=== PATIENT | male | born 1955 | race Caucasian/White ===

== ENCOUNTER 2017-07-29 17:46 | Inpatient (IN) | payer BC, SELFPAY ==
[2017-07-29] VITALS (7 sets, daily range): BP systolic 131–150; BP diastolic 70–93; PULSE 84–98; RESP 14–18; TEMP 36.4–36.8; O2SAT 96–99; BMI 30.1
--- NOTE | 2017-07-29 18:02 | EKG12_ITS ---
Test Reason : CHEST OTHER Blood Pressure : / mmHG Vent. Rate : 097 BPM Atrial Rate : 097 BPM P-R Int : 140 ms QRS Dur : 094 ms QT Int : 334 ms P-R-T Axes : 054 043 039 degrees QTc Int : 424 ms Sinus rhythm with Premature supraventricular complexes Otherwise normal ECG Confirmed by BETTY LION, FUNMILAYO ([id number]), magazine editor CHERI STOVER ([id number]) on 07/31/2017 3:21:07 PM Referred By: KATYA Confirmed By:FUNMILAYO HERNÁNDEZ MD
--- NOTE | 2017-07-29 18:05 | ED.VISSUMM ---
- ER Visit Summary Date of Service: 07/29/17 Chief Complaint: Abdominal and back pain History of Present Illness: The patient is a 62 M presenting with left upper quadrant abdominal pain and left mid back pain. Patient states this started approximately 5 days ago. He states it is worse with coughing and deep breathing. He denies change with exertion. Denies chest pain. He saw his primary care physician last week and was put on amoxicillin. He has had a cough, subjective fever and myalgias. He has a history of a fall approximately 1 month ago. He went to urgent care today and they sent him to the ED for further evaluation. He has no PE/DVT risk factors. He has a history of hypertension. He is a previous smoker. Physical Examination: Vitals are stable. Patient is afebrile. Alert no acute distress. HEENT exam is unremarkable. Neck is supple. Lungs are clear and equal bilaterally. Left lower chest wall tenderness with no crepitus Heart is regular rate and rhythm. Abdomen is soft left upper quadrant tenderness with no guarding or rebound Back: Left paraspinal thoracic muscle tenderness with no midline tenderness. Extremities are unremarkable. Skin is warm and dry. No rash No focal neurologic deficit. Normal strength and sensation Remainder of exam is unremarkable. Emergency Department Course and Treatment: Patient is given morphine, Zofran IV. EKG is sinus rhythm rate of 97. CBC, chemistries unremarkable. Liver lipase are normal. Troponin is negative. EKG is sinus rate of 97. CTA chest and abdomen was obtained and shows bilateral segmental and subsegmental emboli. No dissection, normal spleen. He was given Xarelto. Discussed with Dr. Meyers for admission. Disposition: Admission Impression: Bilateral PE This note was generated with [employer] dictation software. It may contain incorrect words, spelling, and punctuation that were not noted in review of the chart prior to signing ED Disposition - Plan for ED Patient: Chief Complaint: Chest Other Referrals: Walter Brandon [Primary Care Provider] -
[2017-07-29 18:16] LABS: Absolute Lymphocyte Count 2.82 X10^3/ul (0.83-4.51); Absolute Neutrophil Count 5.8 X10^3/uL (2.0-7.7); Basophil# 0.02 X10^3/uL; Basophil% 0.2 % (0-1); Eosinophil# 0.38 X10^3/uL; Eosinophils% 3.9 % (0-5); Hemoglobin 13.9 g/dl (13.0-16.5); Lymphocyte # 2.82 X10^3/ul (4.0); Lymphocyte % 28.7 % (19-41); Mean Corp Hgb Conc 33.9 g/gl (32-36); Mean Corpuscular Hgb 31.2 pg (27.0-32.0); Mean Corpuscular Volume 91.9 fL (80-94); Mean Platelet Vol. 9.2 fl (6.2-12.0); Monocyte% 8.2 % (0-10); Neutrophil # 5.78 X10^3/uL (2.7-7.7); Neutrophil % 58.9 % (47-70); Platelet Count 291 K/mm3 (150-450); RBC Distribution Width CV 12.2 % (11.6-14.6); RBC Distribution Width SD 40.9 fl (35.1-43.9); Red Blood Count 4.46 M/mm3 (4.6-6.2); White Blood Count 9.8 K/mm3 (4.4-11.0)
[2017-07-29 18:17] LABS: POSITIVE COUNT NO; POSITIVE DIFFERENTIAL NO; POSITIVE MORPHOLOGY NO
[2017-07-29] MEDS: Ondansetron 4 MG/2 ML Vial IV (18:20)
[2017-07-29] MEDS: 0.9% Normal Saline 1,000 ML 1000 ML IV (18:20)
[2017-07-29 18:29] LABS: ALB/GLOB Ratio 0.8 RATIO (0.9-2.4); AST(SGOT) 29 U/L (15-37); Alanine Aminotransfer ALT/SGPT 45 U/L (16-61); Albumin, Serum 3.3 g/dL (3.2-5.0); Alkaline Phosphatase 85 U/L (45-117); Anion Gap 8 (5-15); BUN 15 mg/dL (7-18); Calcium,Total 9.7 mg/dL (8.5-10.1); Chloride 103 mmol/L (98-107); Creatinine, Serum 0.84 mg/dL (0.70-1.30); EST Glomerular Filtration Rate 99 mL/min (>60); Est Glom Filt Rate - Afr Amer 119 mL/min (>60); Estimated Creatinine Clearance 104.65 ml/min; Globulin 4.3 g/dL (2.2-4.2); Glucose 89 mg/dL (74-106); Lipase 135 U/L (73-393); Potassium 4.5 mmol/L (3.5-5.1); Protein, Total 7.6 g/dL (6.4-8.2); Sodium Level 138 mmol/L (136-145)
--- NOTE | 2017-07-29 18:45 | CT_ITS ---
STUDY: CTA CHEST REASON FOR EXAM: Male, 62 years old. Cold for 3 weeks. Patient has left-sided rib and back pain since Sunday. Patient has elevated blood pressure. RADIATION DOSAGE (If Supplied By Facility): CTDIvol = ( 15.00 ) mGy, DLP = ( 1069.82 ) mGycm TECHNIQUE: The examination was performed with the intravenous administration of 100 ml of Isovue 370 contrast material. Post-processing of the angiographic images was performed, with multiplanar reformation and 3D reconstruction. Individualized dose optimization techniques were used for this CT. COMPARISON: None. FINDINGS: Normal enhancement of the main pulmonary artery and right and left pulmonary arteries. There is an embolus within subsegmental artery to left lower lobe. This is identified on axial images #79, 80, 81, 82, 83 and 84. Subsegmental emboli are also visible in the right lower lobe. Segmental embolus is visible in the pulmonary artery to the lingula There is atherosclerotic tortuosity of the aortic arch and descending thoracic aorta. Maximum transverse dimension of ascending thoracic aorta measures approximately 3.8 cm. There is no demonstrated aortic dissection. Normal heart and pericardium. There are calcifications of the coronary arteries. There are visualized mediastinal lymph nodes, which are within normal size limits, and with normal morphology. Normal hilar regions. Normal visualized trachea and bronchi. The lungs are well expanded. There is bilateral basilar dependent atelectasis and/or groundglass attenuation. There is a nodular areas within the left lower lobe that may represent patchy airspace disease. There is lingular airspace consolidation and atelectasis. Lungs otherwise appear to be clear. There are lucencies within the periphery of both lungs that suggest sequela of paraseptal emphysema. Normal pleura. Normal chest wall structures. There is multilevel thoracic spondylosis. The sternum has a grossly normal appearance. Normal visualized upper abdomen. CT/CTA Chest W/WO Contrast IMPRESSION: 1. Bilateral segmental and subsegmental emboli. 2. No CTA demonstrated arterial dissection. 3. Lingular airspace consolidation and/or atelectasis. 4. Bilateral basilar dependent atelectasis. 5. Sequela of coronary artery vascular disease. N.B. : The above information has been verbally conveyed by Ekta Siddiqui MD to Dr. Haylee Hernandez, Referring Physician, on 07/29/2017 19:49:03 (ET). Electronically Signed: Ekta Siddiqui MD at 19:53 EDT , Service support , N.B. : The above information has been verbally conveyed by Ekta Siddiqui MD to Dr. Haylee Hernandez, Referring Physician, on 07/29/2017 19:49:03 (ET).
--- NOTE | 2017-07-29 18:45 | CT_ITS ---
STUDY: CTA OF THE ABDOMINAL AORTA AND BILATERAL LOWER EXTREMITIES REASON FOR EXAM: Male, 62 years old. Left-sided rib and back pain. Patient has elevated blood pressure. RADIATION DOSAGE (If Supplied By Facility): CTDIvol = ( 15.00 ) mGy, DLP = ( 1069.82 ) mGycm TECHNIQUE: Axial CT angiography multi-detector data acquisition was obtained from the lung bases to the iliac crests following intravenous administration of 100 ml of Isovue-370 contrast. Axial images and MIP images were reconstructed from the axial data set. Post-processing of the angiographic images was performed, with multiplanar reformation and 3D reconstruction. Individualized dose optimization techniques were used for this CT. TECHNICAL QUALITY: Good COMPARISON: None. Descriptors of Narrowing: None (0%) Mild (< 50%) Moderate (50-70%) Severe (70-90%) Subtotal/Total Occlusion (90-100%) Non-Evaluable (technically non-diagnostic FINDINGS: Abdominal aorta: Abdominal aorta is tortuous with minimal atherosclerotic calcification. Celiac and superior mesenteric arteries: No demonstrated narrowing. Inferior mesenteric artery: No demonstrated narrowing. Right renal artery(arteries): There is mild atherosclerotic plaque at the origin without evidence for narrowing. Left renal artery(arteries): There is mild atherosclerotic plaque at the origin without significant narrowing. Right common iliac artery: No demonstrated narrowing. Right external iliac artery: No demonstrated narrowing. Right internal iliac artery: No demonstrated narrowing. Left common iliac artery: No demonstrated narrowing. Left external iliac artery: No demonstrated narrowing. Left internal iliac artery: No demonstrated narrowing. There is bilateral basilar dependent atelectasis. There is lingular airspace consolidation. The visualized portions of the heart are within normal limits. Normal liver. Normal gallbladder and extrahepatic biliary system. Normal spleen. Normal pancreas. Normal bilateral adrenal glands. Normal right kidney. Normal left kidney. Normal visualized stomach. There is no evidence for dilated bowel, ascites or pneumoperitoneum. Small bowel has a grossly normal appearance. Stool is visible throughout the colon with scattered diverticula. The appendix is visualized and appears normal. There is venous distention of the inferior vena cava (IVC). Normal retroperitoneum. There is a small umbilical hernia containing fat. There is multilevel spondylosis of lower thoracic spine. CT/CTA Abdomen W/WO Contrast IMPRESSION: No CTA evidence for dissection of the abdominal aorta. Electronically Signed: Ekta Siddiqui MD at 20:02 EDT , Service support ,
--- NOTE | 2017-07-29 20:25 | PCM.HP.STD ---
Problem List (1) COPD (chronic obstructive pulmonary disease) Status: Chronic Qualifiers: COPD type: unspecified COPD Qualified Code(s): J44.9 - Chronic obstructive pulmonary disease, unspecified (2) Obesity (BMI 30.0-34.9) Status: Chronic (3) Acute pulmonary embolism Status: Acute Qualifiers: Pulmonary embolism type: other Acute cor pulmonale presence: without acute cor pulmonale Qualified Code(s): I26.99 - Other pulmonary embolism without acute cor pulmonale (4) Arrhythmia Status: Chronic Qualifiers: Arrhythmia type: unspecified cardiac arrhythmia Qualified Code(s): I49.9 - Cardiac arrhythmia, unspecified (5) HTN (hypertension) Status: Suspected Comment: Denies HTN history, on coreg and lisinopril, notes primarily secondary to sinus arrhythmia. History of Present Illness Date of Admission: 07/29/17 Chief Complaint: Dyspnea, mild cough x 3 weeks-->Left sided chest pain, back pain x 5 days. The patient is a 62 y/o M w/ PMHx: Obesity, Chronic COPD, ? HTN (Patient and note on coreg and lisinopril onset secondary to arrhythmia, deny HTN Hx), Known Sinus arrhythmia who presents to the [facility] ED on 07/29/17 with history of initially dyspnea and non-productive cough x 3 weeks, then onset additionally left sided lower chest discomfort, worse with cough and deep breathing, evaluated per his PCP, placed on z-pack per PCP but ongoing discomfort with UC evaluation and given chest complaints, noted additionally 5 day history of general malaise, subjective fever, chills, non-productive cough, myalgias UC referred to the ED. 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 In the ED work-up included T 97.6, HR 90s, BP 150/93, RR 16, 96% on RA, CBC unremarkable, CMP unremarkable, trop normal x 1, EKG w/ sinus arrhythmia, CTA Abdomen unremarkable, CTA Chest w/ bilateral segmental and subsegmental emboli, atelectasis. In the ED patient administered NS, morphine, zofran. Rapid influenza negative. Past Medical History Past Medical History (Chronic Problems): Chronic Problems COPD (chronic obstructive pulmonary disease) (Chronic) Obesity (BMI 30.0-34.9) (Chronic) Arrhythmia (Chronic) Allergies No Known Allergies Allergy (Verified 07/29/17 17:50) Home Medications: Ambulatory Orders Medication Instructions Recorded Carvedilol Phosphate CR [Coreg Cr 20 mg PO DAILY 04/06/13 (Beta Zeferino)] Fluticasone/Salmeterol [Advair 1 puff INHALATION BID 04/06/13 250/50 Mcg Diskus] Lisinopril [Zestril] 5 mg PO DAILY 04/06/13 Surgical History: - - L Laproscopic knee surgery. Psychiatric History: No pertinent psych hx Lives: Spouse/ Significant Other Smoking Status: Never smoker Tobacco Use: Non-smoker Alcohol: Occasional - 1-2 beers QOD. Drugs: None - *Family History Maternal History Items: Heart Disease, Hypertension Paternal History Items: Heart Disease, Hypertension Review of Systems Constitutional: Reports: Chills, Fever, Malaise, Weakness, Fatigue. Denies: Weight Change HEENT: Denies: Head Aches, Sinus Congestion, Sinus Drainage Cardiovascular: Reports: Chest Pain. Denies: Palpitations Respiratory: Reports: Cough, Shortness of Breath, Shortness of breath at rest, Shortness of breath upon exertion, Wheezing. Denies: Sputum production Gastrointestinal: Denies: Abdominal Pain, Nausea, Vomiting Genitourinary: Denies: Dysuria Musculoskeletal: Reports: Back Pain. Denies: Joint Pain, Joint Tenderness Skin: Denies: Rash, Wounds Neurological: Denies: Numbness, Tingling, Focal weakness Psychiatric: Denies: Anxiety, Depression, Homicidal Ideations, Suicidal Ideations Hematologic/ Lymphatic: Reports: Easy Bleeding. Denies: Easy Bruising VTE Information - Inpt Only VTE Present on Admission: No VTE Mechan Device Prophylaxis: SCD's VTE Pharm Prophylaxis ordered?: Yes Patient Problems: Active and Suspected Problems Acute pulmonary embolism (Acute) Subjective: Seated upright in the ED bed, ongoing discomfort, primarily with movement with examination and deep inspiration. Objective: Physical Examination: General: awake, alert, oriented x 3 and cooperative, seated upright in the ED bed in no apparent distress. Skin: normal color, turgor, no icterus, cyanosis. HEENT: AT/NC, EOMI, PERRLA, mildly dry MM, no carotid bruits or JVD noted. Lungs: Diminished BS bases, poor effort secondary to pain elicited, needed much encouragement to take deep inspirations, occasional end expiratory distant wheeze. Heart: Regular rate and rhythm; no gallop, rub audible. Abdomen: soft, NTTP, ND, normal BS, no HSM. Extremities: no cyanosis, clubbing, or edema, no TTP BL LE. Neurological: patient awake, alert, oriented x 3; cognitive function intact; pupils equally reactive to light and accomodation; cranial nerves II-XII grossly normal, moving all 4 extremities, no focal deficits, strength mildly to moderately globally decreased secondary to acute presentation. Psychiatric: affect appears normal, no acute evidence of depressive or anxiety feelings. - Physical Exam Vital Signs Temp Pulse Resp BP Pulse Ox 97.6 F L 98 18 145/80 H 99 07/29/17 17:48 07/29/17 20:04 07/29/17 20:04 07/29/17 20:04 07/29/17 20:04 Oxygen Delivery Method Room Air Weight: 233 lb 14.567 oz Body Mass Index (BMI) 30.0 Finger Stick Blood Glucose 76 Microbiology Past 72 Hours 07/29/17 18:20 Influenza Types A,B Direct FA (JOANA) - Final Mucosa - Nasopharyngeal Laboratory Tests Past 24 Hrs 07/29/17 07/29/17 18:00 18:00 WBC 9.8 RBC 4.46 L Hgb 13.9 Hct 41.0 MCV 91.9 MCH 31.2 MCHC 33.9 RDW 12.2 RDW Differential 40.9 Plt Count 291 MPV 9.2 Immature Gran % (Auto) 0.100 Neut % (Auto) 58.9 Lymph % (Auto) 28.7 [place] % (Auto) 8.2 Eos % (Auto) 3.9 Baso % (Auto) 0.2 Absolute Neuts (auto) 5.8 Absolute Lymphs (auto) 2.82 Total Counted Not Reportable Sodium 138 Potassium 4.5 Chloride 103 Carbon Dioxide 27.0 Anion Gap 8 BUN 15 Creatinine 0.84 Estim Creat Clear Calc 104.65 Est GFR (MDRD) Af Amer 119 Est GFR (MDRD) Non-Af 99 BUN/Creatinine Ratio 18.0 Glucose 89 Calcium 9.7 Total Bilirubin 0.30 AST 29 ALT 45 Alkaline Phosphatase 85 Troponin I < 0.02 Total Protein 7.6 Albumin 3.3 Globulin 4.3 H Albumin/Globulin Ratio 0.8 L Lipase 135 Assessment/Plan Active and Suspected Problems Acute pulmonary embolism (Acute) The patient is a 62 y/o M w/ PMHx: Obesity, Chronic COPD, ? HTN (Patient and note on coreg and lisinopril onset secondary to arrhythmia, deny HTN Hx), Known Sinus arrhythmia who presents to the [facility] ED on 07/29/17 with ongoing dyspnea, chest pain. (1) Chest pain secondary to Pulmonary Embolism: EKG without acute findings, CXR no acute process, CTPA with bilateral segmental and subsegmental emboli, atelectasis, CBC and CMP unremarkable, trop normal x 1. No family history of hypercoaguable state. 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 Will admit to PCU, maintain on cardiac telemetry. Will obtain ECHO, BNP and BL LE DVT US. Will initiate and continue therapeutic xarelto with pending AM insurance oral regimen investigation costs for discharge planning. (2) Recent Suspected Viral Syndrome w/ General Malaise, Cough, Subjective Fever, General Debility: CTPA with bilateral segmental and subsegmental emboli, atelectasis, CBC and CMP unremarkable. Conservative management. Will obtain respiratory viral panel in case influenza false negative. Maintain HOB, IS parameters. (3) Sinus arrhythmia: Stable appearing. Maintain on telemetry, cycle cardiac enzymes, repeat EKG in AM. Mag pending. Maintain on BB, ACEI. (4) ? Hypertension: Patient and deny history, BPs elevated in the ED above goal, possibly secondary to pain; however, maintain on home coreg, lisinopril regimen, PRN hydralazine. (5) Chronic COPD: ATC duonebs, PRN albuterol, HOB, IS parameters. (6) Obesity: Weight loss and lifestyle changes encouraged. (7) DVT Prophylaxis: SCDs, xarelto. Code Visit Inpatient E&M: 10333 Init Hosp L3
--- NOTE | 2017-07-29 20:36 | HP.PCM_ITS ---
Problem List (1) COPD (chronic obstructive pulmonary disease) Status: Chronic Qualifiers: COPD type: unspecified COPD Qualified Code(s): J44.9 - Chronic obstructive pulmonary disease, unspecified (2) Obesity (BMI 30.0-34.9) Status: Chronic (3) Acute pulmonary embolism Status: Acute Qualifiers: Pulmonary embolism type: other Acute cor pulmonale presence: without acute cor pulmonale Qualified Code(s): I26.99 - Other pulmonary embolism without acute cor pulmonale (4) Arrhythmia Status: Chronic Qualifiers: Arrhythmia type: unspecified cardiac arrhythmia Qualified Code(s): I49.9 - Cardiac arrhythmia, unspecified (5) HTN (hypertension) Status: Suspected Comment: Denies HTN history, on coreg and lisinopril, notes primarily secondary to sinus arrhythmia. History of Present Illness Date of Admission: 07/29/17 Chief Complaint: Dyspnea, mild cough x 3 weeks-->Left sided chest pain, back pain x 5 days. The patient is a 62 y/o M w/ PMHx: Obesity, Chronic COPD, ? HTN (Patient and note on coreg and lisinopril onset secondary to arrhythmia, deny HTN Hx), Known Sinus arrhythmia who presents to the [facility] ED on 07/29/17 with history of initially dyspnea and non-productive cough x 3 weeks, then onset additionally left sided lower chest discomfort, worse with cough and deep breathing, evaluated per his PCP, placed on z-pack per PCP but ongoing discomfort with UC evaluation and given chest complaints, noted additionally 5 day history of general malaise, subjective fever, chills, non-productive cough, myalgias UC referred to the ED. 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 In the ED work-up included T 97.6, HR 90s, BP 150/93, RR 16, 96% on RA, CBC unremarkable, CMP unremarkable, trop normal x 1, EKG w/ sinus arrhythmia, CTA Abdomen unremarkable, CTA Chest w/ bilateral segmental and subsegmental emboli, atelectasis. In the ED patient administered NS, morphine, zofran. Rapid influenza negative. Past Medical History Past Medical History (Chronic Problems): Chronic Problems COPD (chronic obstructive pulmonary disease) (Chronic) Obesity (BMI 30.0-34.9) (Chronic) Arrhythmia (Chronic) Allergies No Known Allergies Allergy (Verified 07/29/17 17:50) Home Medications: Ambulatory Orders Medication Instructions Recorded Carvedilol Phosphate CR [Coreg Cr 20 mg PO DAILY 04/06/13 (Beta Zeferino)] Fluticasone/Salmeterol [Advair 1 puff INHALATION BID 04/06/13 250/50 Mcg Diskus] Lisinopril [Zestril] 5 mg PO DAILY 04/06/13 Surgical History: - - L Laproscopic knee surgery. Psychiatric History: No pertinent psych hx Lives: Spouse/ Significant Other Smoking Status: Never smoker Tobacco Use: Non-smoker Alcohol: Occasional - 1-2 beers QOD. Drugs: None - *Family History Maternal History Items: Heart Disease, Hypertension Paternal History Items: Heart Disease, Hypertension Review of Systems Constitutional: Reports: Chills, Fever, Malaise, Weakness, Fatigue. Denies: Weight Change HEENT: Denies: Head Aches, Sinus Congestion, Sinus Drainage Cardiovascular: Reports: Chest Pain. Denies: Palpitations Respiratory: Reports: Cough, Shortness of Breath, Shortness of breath at rest, Shortness of breath upon exertion, Wheezing. Denies: Sputum production Gastrointestinal: Denies: Abdominal Pain, Nausea, Vomiting Genitourinary: Denies: Dysuria Musculoskeletal: Reports: Back Pain. Denies: Joint Pain, Joint Tenderness Skin: Denies: Rash, Wounds Neurological: Denies: Numbness, Tingling, Focal weakness Psychiatric: Denies: Anxiety, Depression, Homicidal Ideations, Suicidal Ideations Hematologic/ Lymphatic: Reports: Easy Bleeding. Denies: Easy Bruising VTE Information - Inpt Only VTE Present on Admission: No VTE Mechan Device Prophylaxis: SCD's VTE Pharm Prophylaxis ordered?: Yes Patient Problems: Active and Suspected Problems Acute pulmonary embolism (Acute) Subjective: Seated upright in the ED bed, ongoing discomfort, primarily with movement with examination and deep inspiration. Objective: Physical Examination: General: awake, alert, oriented x 3 and cooperative, seated upright in the ED bed in no apparent distress. Skin: normal color, turgor, no icterus, cyanosis. HEENT: AT/NC, EOMI, PERRLA, mildly dry MM, no carotid bruits or JVD noted. Lungs: Diminished BS bases, poor effort secondary to pain elicited, needed much encouragement to take deep inspirations, occasional end expiratory distant wheeze. Heart: Regular rate and rhythm; no gallop, rub audible. Abdomen: soft, NTTP, ND, normal BS, no HSM. Extremities: no cyanosis, clubbing, or edema, no TTP BL LE. Neurological: patient awake, alert, oriented x 3; cognitive function intact; pupils equally reactive to light and accomodation; cranial nerves II-XII grossly normal, moving all 4 extremities, no focal deficits, strength mildly to moderately globally decreased secondary to acute presentation. Psychiatric: affect appears normal, no acute evidence of depressive or anxiety feelings. - Physical Exam Vital Signs Temp Pulse Resp BP Pulse Ox 97.6 F L 98 18 145/80 H 99 07/29/17 17:48 07/29/17 20:04 07/29/17 20:04 07/29/17 20:04 07/29/17 20:04 Oxygen Delivery Method Room Air Weight: 233 lb 14.567 oz Body Mass Index (BMI) 30.0 Finger Stick Blood Glucose 76 Microbiology Past 72 Hours 07/29/17 18:20 Influenza Types A,B Direct FA (JOANA) - Final Mucosa - Nasopharyngeal Laboratory Tests Past 24 Hrs 07/29/17 07/29/17 18:00 18:00 WBC 9.8 RBC 4.46 L Hgb 13.9 Hct 41.0 MCV 91.9 MCH 31.2 MCHC 33.9 RDW 12.2 RDW Differential 40.9 Plt Count 291 MPV 9.2 Immature Gran % (Auto) 0.100 Neut % (Auto) 58.9 Lymph % (Auto) 28.7 [place] % (Auto) 8.2 Eos % (Auto) 3.9 Baso % (Auto) 0.2 Absolute Neuts (auto) 5.8 Absolute Lymphs (auto) 2.82 Total Counted Not Reportable Sodium 138 Potassium 4.5 Chloride 103 Carbon Dioxide 27.0 Anion Gap 8 BUN 15 Creatinine 0.84 Estim Creat Clear Calc 104.65 Est GFR (MDRD) Af Amer 119 Est GFR (MDRD) Non-Af 99 BUN/Creatinine Ratio 18.0 Glucose 89 Calcium 9.7 Total Bilirubin 0.30 AST 29 ALT 45 Alkaline Phosphatase 85 Troponin I < 0.02 Total Protein 7.6 Albumin 3.3 Globulin 4.3 H Albumin/Globulin Ratio 0.8 L Lipase 135 Assessment/Plan Active and Suspected Problems Acute pulmonary embolism (Acute) The patient is a 62 y/o M w/ PMHx: Obesity, Chronic COPD, ? HTN (Patient and note on coreg and lisinopril onset secondary to arrhythmia, deny HTN Hx), Known Sinus arrhythmia who presents to the [facility] ED on 07/29/17 with ongoing dyspnea, chest pain. (1) Chest pain secondary to Pulmonary Embolism: EKG without acute findings, CXR no acute process, CTPA with bilateral segmental and subsegmental emboli, atelectasis, CBC and CMP unremarkable, trop normal x 1. No family history of hypercoaguable state. 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 Will admit to PCU, maintain on cardiac telemetry. Will obtain ECHO, BNP and BL LE DVT US. Will initiate and continue therapeutic xarelto with pending AM insurance oral regimen investigation costs for discharge planning. (2) Recent Suspected Viral Syndrome w/ General Malaise, Cough, Subjective Fever , General Debility: CTPA with bilateral segmental and subsegmental emboli, atelectasis, CBC and CMP unremarkable. Conservative management. Will obtain respiratory viral panel in case influenza false negative. Maintain HOB, IS parameters. (3) Sinus arrhythmia: Stable appearing. Maintain on telemetry, cycle cardiac enzymes, repeat EKG in AM. Mag pending. Maintain on BB, ACEI. (4) ? Hypertension: Patient and deny history, BPs elevated in the ED above goal, possibly secondary to pain; however, maintain on home coreg, lisinopril regimen, PRN hydralazine. (5) Chronic COPD: ATC duonebs, PRN albuterol, HOB, IS parameters. (6) Obesity: Weight loss and lifestyle changes encouraged. (7) DVT Prophylaxis: SCDs, xarelto. Code Visit Inpatient E&M: 21530 Init Hosp L3
[2017-07-29] MEDS: Rivaroxaban 15 MG Tablet PO (21:02)
[2017-07-29 22:39] LABS: Magnesium 2.1 mg/dL (1.6-2.6)
[2017-07-29 23:07] LABS: BNP,B-Type NATRIURETIC PEPTIDE 10.5 pg/mL (0-100)
[2017-07-29] MEDS: Ipratropium/Albuterol Sulfate 3 ML AMPUL.NEB INHALATION (23:40)
[2017-07-29] MEDS: 0.9% NaCl Peripheral Flush Adult/Peds IV (23:44)
[2017-07-29] MEDS: 0.9% Normal Saline 1,000 ML 100 ML IV (23:44)
[2017-07-29] MEDS: Famotidine 20 MG Tablet PO (23:44)
[2017-07-30] VITALS (16 sets, daily range): BP systolic 122–127; BP diastolic 70–80; PULSE 85–122; RESP 16–20; TEMP 36.8–37.2; O2SAT 93–95
[2017-07-30 03:59] LABS: Bacteria 0 SEEN /hpf (None Seen); Mucous, Urine 0 SEEN /hpf (<or=2+); Red Blood Cells-Urine 0 SEEN /hpf (0-5); Squamous Epithelial Cells - UA 0 SEEN /hpf (0-5); White Blood Cells 0 SEEN /hpf (0-5)
[2017-07-30 04:01] LABS: Color, Urine Yellow (Yellow); Glucose, Dipstick Normal (Normal); Ketone-Dipstick Negative (Negative); Leukocyte Esterase-Dipstick Negative /ul (Negative); Nitrite-Dipstick Negative (Negative); Occult Blood-Urine Negative /ul (Negative); Protein-Dipstick Negative (Negative); Specific Gravity, Urine 1.015 (1.002-1.030); Urine Bilirubin Dipstick Negative (Negative); Urine Clarity Clear (Clear); Urine Urobilinogen Normal (Normal)
[2017-07-30 04:23] LABS: Hematocrit 36.7 % (40-54); Hemoglobin 12.3 g/dl (13.0-16.5); Mean Corp Hgb Conc 33.5 g/gl (32-36); Mean Corpuscular Hgb 30.8 pg (27.0-32.0); Mean Platelet Vol. 9.5 fl (6.2-12.0); Platelet Count 259 K/mm3 (150-450); RBC Distribution Width SD 39.5 fl (35.1-43.9); Red Blood Count 3.99 M/mm3 (4.6-6.2); White Blood Count 7.5 K/mm3 (4.4-11.0)
[2017-07-30 04:28] LABS: Scan Indicated on CBC? Y/N NO
[2017-07-30 05:10] LABS: Anion Gap 10 (5-15); BUN 13 mg/dL (7-18); BUN/Creat Ratio 18.5 RATIO (10-20); Calcium,Total 8.7 mg/dL (8.5-10.1); Chloride 104 mmol/L (98-107); EST Glomerular Filtration Rate 121 mL/min (>60); Est Glom Filt Rate - Afr Amer 146 mL/min (>60); Estimated Creatinine Clearance 125.58 ml/min; Glucose 90 mg/dL (74-106); Potassium 4.1 mmol/L (3.5-5.1); Sodium Level 138 mmol/L (136-145)
--- NOTE | 2017-07-30 05:55 | ECHOD_ITS ---
Reason For Study: CHEST PAIN Procedure This was a 2D Doppler, Color Flow transthoracic echocardiogram. Contrast injection was performed. Exam performed portable in patient room. Left Ventricle Normal LV size. Left ventricular systolic function is normal. The estimated ejection fraction is 55 %. No regional wall motion abnormalities noted. Right Ventricle Normal RV size. Normal systolic function. Atria Normal left atrium. Normal right atrium. Mitral Valve Normal mitral valve. Tricuspid Valve Normal tricuspid valve. Mild (1+) tricuspid valve insufficiency. Pulmonary artery systolic pressure is 35 mmHg. Aortic Valve Normal aortic valve. Pulmonic Valve The pulmonic valve is not well visualized. Great Vessels Mildly dilated aortic root. The pulmonary artery is normal size. Normal inferior vena cava. Pericardium/Pleural No pericardial effusion. Medication Diluted definity 5ml given slow IV push to enhance endocardial definition. MMode/2D Measurements & Calculations LVIDd: 5.0 cm IVSd: 0.99 cm Ao root diam: 4.0 cm LVIDs: 3.6 cm LVPWd: 1.00 cm LA dimension: 3.9 cm RVDd: 3.7 cm FS: 27.7 % LAV(MOD-bp): 51.0 ml EDV(MOD-sp4): 132.6 ml EDV(MOD-sp2): 128.9 ml LAV(MOD-bp) Indexed: 24.4 ml/m2 ESV(MOD-sp4): 47.7 ml EF(MOD-sp2): 55.0 % LAV(MOD-sp2): 53.1 ml EF(MOD-sp4): 64.1 % LAV(MOD-sp4): 47.3 ml SV(MOD-sp4): 85.0 ml SV(MOD-sp2): 70.9 ml LA A4 area: 18.8 cm2 RA A4 area: 17.0 cm2 Doppler Measurements & Calculations MV E max yared: 64.2 cm/sec Ao V2 max: 108.6 cm/sec LV V1 max: 92.5 cm/sec MV A max yared: 68.5 cm/sec Ao max P.7 mmHg LV V1 max P.4 mmHg MV E/A: 0.94 TR max yared: 274.8 cm/sec TR max P.2 mmHg Interpretation Summary Normal LV size. Left ventricular systolic function is normal. The estimated ejection fraction is 55 %. Mildly dilated aortic root. Mild (1+) tricuspid valve insufficiency. Pulmonary artery systolic pressure is 35 mmHg. Ordering Physician: Vilma Meyers Referring Physician: JOHN AMAYA Performed By: Skylar Hollis, KODAK, RVT
--- NOTE | 2017-07-30 05:55 | VDLE_ITS ---
Reason For Study: Pulmonary Embolism RIGHT LEFT GSV is normal. GSV is normal. CFV is compressible, spontaneous, phasic, CFV is compressible, spontaneous, phasic, competent and demonstrates normal competent, and demonstrates normal augmentation. augmentation. FV is compressible, spontaneous, phasic, FV is compressible, spontaneous, phasic, competent and demonstrates normal competent and demonstrates normal augmentation. augmentation. POP V is compressible, spontaneous, phasic, POP V is compressible, spontaneous, phasic, competent and demonstrates normal competent and demonstrates normal augmentation. augmentation. T/P Trunk is compressible. T/P Trunk is compressible. PTV is compressible. PTV is compressible. RT PerV is compressible. LT PerV is compressible. Procedure Exam performed portable in patient room. A preliminary report was called and/or faxed to Devi HERNANDEZ. Interpretation Summary Deep veins of the lower extremities are bilaterally patent and compressible segmentally. There is no evidence of deep vein thrombosis on either side. Valvular competence appears intact within the proximal deep venous systems bilaterally. The greater saphenous veins appear bilaterally patent and compressible segmentally. Ordering Physician: Vilma Meyers Referring Physician: Walter Brandon Performed By: Celsa Leong, KODAK, RVT
[2017-07-30] MEDS: oxyCODONE 5 MG Tablet PO ×3 (06:25→20:24)
[2017-07-30] MEDS: Ipratropium/Albuterol Sulfate 3 ML AMPUL.NEB INHALATION ×4 (07:14→21:10)
[2017-07-30] MEDS: Famotidine 20 MG Tablet PO ×2 (09:08→22:44)
[2017-07-30] MEDS: Rivaroxaban 15 MG Tablet PO (09:09)
[2017-07-30] MEDS: Carvedilol 6.25 MG Tablet PO ×2 (09:11→22:46)
[2017-07-30] MEDS: Lisinopril 5 MG Tablet PO (09:11)
--- NOTE | 2017-07-30 11:35 | CASEMGMT ---
Face to Face with patient for initial transition planning/care coordination assessment. RN ISREAL introduced self and role at [facility], pt voices understanding and consents to assessment at this time. Pt sitting up in bed in no distress at this time. Pt A/O x4 at this time and answers questions appropriately at this time. Care providers, pharmacy, and demographics verified. See attached link. Pt voices no further concerns/needs at this time. Advised pt to ask for CM if any further questions/concerns/needs arise, voices understanding. CM to follow for any further discharge planning/needs. PLAN: Home [place]ACH
--- NOTE | 2017-07-30 15:47 | CON.PCM_ITS ---
Problem List (1) Rectal bleeding Status: Acute (2) Acute pulmonary embolism Status: Acute Qualifiers: Pulmonary embolism type: other Acute cor pulmonale presence: without acute cor pulmonale Qualified Code(s): I26.99 - Other pulmonary embolism without acute cor pulmonale (3) Superficial venous thrombosis of upper extremity Status: Acute Reason for Consult Date of Consultation: 07/30/17 Reason for Consultation: Rectal bleeding History of Present Illness: The patient is a 62 year old M who presented with 3 week history of cold. Patient had noted chest discomfort and was evaluated by his PCP who placed the patient on an antibiotic and Advil. Patient also noted a 4 day history of lower back pain and left sided discomfort. Patient went to an urgent care who recommended the patient come to the emergency department. CTA of the chest was obtained demonstrating bilateral pulmonary embolisms. Patient denies previous blood clot history. Patient notes he fell on the ice 6 weeks ago injuring his shoulder. Patient's is unsure if this could have caused the PE's. Patient was placed on Xarelto during this hospitalization and was ready for discharge when he developed rectal bleeding this morning. Patient denies abdominal pain/ discomfort. He denies constipation and diarrhea. He notes occasional rectal bleeding from possible internal hemorrhoids. Patient denies previous colonoscopy. He denies personal or family history of colon cancer. Patient notes he has an arrhythmia which he follows with Dr. Chandra in [place]. Patient is currently on Coreg and Lisinopril. He denies being on blood thinners previously. He denies previous myocardial infarction or stroke. He denies recent surgeries. He stopped smoking 5 years ago. He does consume approximately 3 beers per day. Patient also notes a history of indigestion and acid reflux. Past Medical History Past Medical History (Chronic Problems): Chronic Problems COPD (chronic obstructive pulmonary disease) (Chronic) Obesity (BMI 30.0-34.9) (Chronic) Arrhythmia (Chronic) Allergies No Known Allergies Allergy (Verified 07/29/17 17:50) Home Medications: Ambulatory Orders Medication Instructions Recorded Carvedilol Phosphate CR [Coreg Cr 20 mg PO DAILY 04/06/13 (Beta Zeferino)] Lisinopril [Zestril] 5 mg PO DAILY 04/06/13 Budesonide/Formoterol 160/4.5 2 puff INHALATION DAILY 07/29/17 [Symbicort 160/4.5 Mcg Inhaler (SP)] Oxycodone [Oxyir] 5 mg PO Q4H PRN PRN 5 Days #20 tab 07/30/17 Rivaroxaban [Xarelto] 15 mg PO BIDCM #42 tab 07/30/17 Surgical History: - - L Laproscopic knee surgery. Psychiatric History: No pertinent psych hx Lives: Spouse/ Significant Other Smoking Status: Former smoker Tobacco Use: Non-smoker Alcohol: Occasional - 1-2 beers QOD. Drugs: None - *Family History Maternal History Items: Heart Disease, Hypertension Paternal History Items: Heart Disease, Hypertension Review of Systems Constitutional: Denies: Chills, Fever, Weight Change HEENT: Denies: Head Aches, Sinus Congestion, Sinus Drainage Cardiovascular: Denies: Chest Pain, Palpitations Respiratory: Denies: Cough, Shortness of breath at rest, Sputum production Gastrointestinal: Reports: Hematochezia. Denies: Abdominal Pain, Nausea, Vomiting Genitourinary: Denies: Dysuria Musculoskeletal: Denies: Joint Pain, Joint Tenderness Skin: Denies: Rash, Wounds Neurological: Denies: Numbness, Tingling, Focal weakness Psychiatric: Denies: Anxiety, Depression, Homicidal Ideations, Suicidal Ideations Hematologic/ Lymphatic: Reports: Easy Bruising, Easy Bleeding Patient Problems: Active and Suspected Problems Acute pulmonary embolism (Acute) Rectal bleeding (Acute) - Physical Exam General: Alert, Oriented x3, Cooperative HEENT: Atraumatic, PERRLA, EOMI, Normocephalic Neck: Supple, No JVD, Negative Carotid Bruits Lungs: Clear to auscultation, Normal air movement Cardiovascular: Regular rate, No murmurs Abdomen: Bowel Sounds Present, Soft, Non Tender Extremities: No edema, Capillary Refill Less than 3 Seconds Skin: No rashes, No breakdown Musculoskeletal: No Tenderness to Palpation of Joints or Extremities Neurological: Neuro grossly intact Psych/Mental Status: Normal Affect, Appropriate Vital Signs Temp Pulse Resp BP Pulse Ox 98.4 F 95 16 124/78 H 94 07/30/17 15:05 07/30/17 15:11 07/30/17 15:05 07/30/17 15:05 07/30/17 15:05 Oxygen Delivery Method Room Air Weight: 234 lb 5.622 oz Body Mass Index (BMI) 30.0 Intake and Output for Last 24 Hours 07/28/17 07/29/17 07/30/17 23:59 23:59 23:59 Intake Total 120 / 120 1360 / 1360 Balance 120 / 120 1360 / 1360 Microbiology Past 72 Hours 07/29/17 23:55 Respiratory Panel (PCR) - Final Mucosa - Nasopharyngeal Rhinovirus Laboratory Tests Past 24 Hrs 07/29/17 07/30/17 07/30/17 23:20 03:00 03:56 WBC 7.5 RBC 3.99 L Hgb 12.3 L Hct 36.7 L MCV 92.0 MCH 30.8 MCHC 33.5 RDW 12.0 RDW Differential 39.5 Plt Count 259 MPV 9.5 Sodium Potassium Chloride Carbon Dioxide Anion Gap BUN Creatinine Estim Creat Clear Calc Est GFR (MDRD) Af Amer Est GFR (MDRD) Non-Af BUN/Creatinine Ratio Glucose Calcium Troponin I < 0.02 Urine Color Yellow Urine Clarity Clear Urine pH 6.0 Ur Specific [place] 1.015 Urine Protein Negative Urine Glucose (UA) Normal Urine Ketones Negative Urine Occult Blood Negative Urine Nitrite Negative Urine Bilirubin Negative Urine Urobilinogen Normal Ur Leukocyte Esterase Negative Urine RBC 0 SEEN Urine WBC 0 SEEN Ur Squamous Epith Cells 0 SEEN Urine Bacteria 0 SEEN Urine Mucus 0 SEEN 07/30/17 07/30/17 07/30/17 03:56 03:56 08:55 WBC RBC Hgb Hct MCV MCH MCHC RDW RDW Differential Plt Count MPV Sodium 138 Potassium 4.1 Chloride 104 Carbon Dioxide 24.0 Anion Gap 10 BUN 13 Creatinine 0.70 Estim Creat Clear Calc 125.58 Est GFR (MDRD) Af Amer 146 Est GFR (MDRD) Non-Af 121 BUN/Creatinine Ratio 18.5 Glucose 90 Calcium 8.7 Troponin I < 0.02 < 0.02 Urine Color Urine Clarity Urine pH Ur Specific [place] Urine Protein Urine Glucose (UA) Urine Ketones Urine Occult Blood Urine Nitrite Urine Bilirubin Urine Urobilinogen Ur Leukocyte Esterase Urine RBC Urine WBC Ur Squamous Epith Cells Urine Bacteria Urine Mucus Assessment/Plan Active and Suspected Problems Acute pulmonary embolism (Acute) Rectal bleeding (Acute) I have been consulted in conjunction with Dr. Leggett Impression: Single episode of rectal bleeding. Newly started Xarelto. Acute bilateral PE. Plan: I have discussed this patient with Dr. Leggett. Dr. Leggett will plan to perform an Esophagogastroduodenoscopy and colonoscopy with possible biopsies with MAC. Hold Xarelto today. Procedure details, risks and benefits have been explained to the patient. Patient verbally understands and agrees with the plan. Patient agrees to proceed with the proposed procedure.
--- NOTE | 2017-07-30 17:59 | PN_ITS ---
Subjective: Patient was seen and examined today, his was in the room, I was ready to discharge him to home today when he had a bowel movement with blood in it, he states that he does this infrequently, patient has never had a colonoscopy. I feel that the patient should have this rectal bleeding worked up before he is discharged home on oral anticoagulants, patient and the patient's agree. Patient's echo today was unremarkable. I contacted Dr. Leggett who will perform a colonoscopy on the patient tomorrow. Patient's Xarelto will be $70 according to the patient's pharmacy-I checked on this today. - Physical Exam General: Alert, Oriented x3, Cooperative, No apparent distress, Well developed, Well nourished HEENT: Atraumatic, PERRLA, EOMI, Normocephalic Oral: Moist Mucosa Neck: Supple, No JVD, No Nuchal Rigidity, Trachea Midline, Thyroid Normal Size and Texture Lungs: Clear to auscultation, Normal air movement, No rhonchi, No wheeze, No rales Cardiovascular: Regular rate, Regular Rhythm, Normal S1, Normal S2, No murmurs, No Ectopic Activity, PMI Normal, No rub noted, No Gallop Abdomen: Bowel Sounds Present, Soft, Non Tender, Non-Distended, No hernias noted Extremities: No clubbing, No cyanosis, No edema, Capillary Refill Less than 3 Seconds Skin: No rashes, No breakdown Musculoskeletal: No Tenderness to Palpation of Joints or Extremities Neurological: Cranial nerves II-XII grossly intact, Neuro grossly intact, Sensory exam intact to light touch and pain, Coordination normal Psych/Mental Status: Normal Affect, Appropriate, Alert and oriented to time, place, person, mood and affect Vital Signs Temp Pulse Resp BP Pulse Ox 98.4 F 95 16 124/78 H 94 07/30/17 15:05 07/30/17 15:11 07/30/17 15:05 07/30/17 15:05 07/30/17 15:05 Oxygen Delivery Method Room Air Weight: 106.3 kg Body Mass Index (BMI) 30.0 Intake and Output for Last 24 Hours 07/28/17 07/29/17 07/30/17 23:59 23:59 23:59 Intake Total 120 / 120 1360 / 1360 Balance 120 / 120 1360 / 1360 Microbiology Past 72 Hours 07/29/17 23:55 Respiratory Panel (PCR) - Final Mucosa - Nasopharyngeal Rhinovirus Laboratory Tests Past 24 Hrs 07/29/17 07/30/17 07/30/17 23:20 03:00 03:56 WBC 7.5 RBC 3.99 L Hgb 12.3 L Hct 36.7 L MCV 92.0 MCH 30.8 MCHC 33.5 RDW 12.0 RDW Differential 39.5 Plt Count 259 MPV 9.5 Sodium Potassium Chloride Carbon Dioxide Anion Gap BUN Creatinine Estim Creat Clear Calc Est GFR (MDRD) Af Amer Est GFR (MDRD) Non-Af BUN/Creatinine Ratio Glucose Calcium Troponin I < 0.02 Urine Color Yellow Urine Clarity Clear Urine pH 6.0 Ur Specific [place] 1.015 Urine Protein Negative Urine Glucose (UA) Normal Urine Ketones Negative Urine Occult Blood Negative Urine Nitrite Negative Urine Bilirubin Negative Urine Urobilinogen Normal Ur Leukocyte Esterase Negative Urine RBC 0 SEEN Urine WBC 0 SEEN Ur Squamous Epith Cells 0 SEEN Urine Bacteria 0 SEEN Urine Mucus 0 SEEN 07/30/17 07/30/17 07/30/17 03:56 03:56 08:55 WBC RBC Hgb Hct MCV MCH MCHC RDW RDW Differential Plt Count MPV Sodium 138 Potassium 4.1 Chloride 104 Carbon Dioxide 24.0 Anion Gap 10 BUN 13 Creatinine 0.70 Estim Creat Clear Calc 125.58 Est GFR (MDRD) Af Amer 146 Est GFR (MDRD) Non-Af 121 BUN/Creatinine Ratio 18.5 Glucose 90 Calcium 8.7 Troponin I < 0.02 < 0.02 Urine Color Urine Clarity Urine pH Ur Specific [place] Urine Protein Urine Glucose (UA) Urine Ketones Urine Occult Blood Urine Nitrite Urine Bilirubin Urine Urobilinogen Ur Leukocyte Esterase Urine RBC Urine WBC Ur Squamous Epith Cells Urine Bacteria Urine Mucus Medical Necessity - Tobacco Use Smoking Status: Former smoker Tobacco Use: Non-smoker Assessment/Plan #1 bilateral pulmonary emboli-probably secondary to deep venous thrombosis of lower extremities-patient will remain on Xarelto #2 rectal bleeding-etiology unclear-patient will undergo colonoscopy tomorrow #3 chronic obstructive pulmonary disease Code Visit Inpatient E&M: 08381 Subs Hosp L2
[2017-07-30] MEDS: Electrolyte Solution/Peg's 4000 ML 2000 ML PO (18:27)
[2017-07-31] VITALS (17 sets, daily range): BP systolic 92–134; BP diastolic 51–86; PULSE 86–109; RESP 16–20; TEMP 36.2–37.1; O2SAT 93–99
--- NOTE | 2017-07-31 05:55 | EKG12_ITS ---
Test Reason : AM EKG Blood Pressure : / mmHG Vent. Rate : 096 BPM Atrial Rate : 096 BPM P-R Int : 134 ms QRS Dur : 098 ms QT Int : 330 ms P-R-T Axes : 054 032 031 degrees QTc Int : 416 ms Sinus rhythm with Premature atrial complexes Otherwise normal ECG When compared with ECG of 29-JUL-2017 18:21, MANUAL COMPARISON REQUIRED, DATA IS UNCONFIRMED Confirmed by SHANNON SIMENTAL ([id number]), video effects editor CHERI STOVER ([id number]) on 08/02/2017 3:11:16 PM Referred By: DR CABAN Confirmed By:SHANNON SIMENTAL
[2017-07-31 06:02] LABS: International Normalized Ratio 1.2; Prothrombin Time (Protime)PT. 14.7 SECONDS (11.7-14.9)
[2017-07-31 06:03] LABS: Absolute Lymphocyte Count 2.07 X10^3/ul (0.83-4.51); Absolute Neutrophil Count 5.4 X10^3/uL (2.0-7.7); Basophil# 0.02 X10^3/uL; Basophil% 0.2 % (0-1); Eosinophil# 0.21 X10^3/uL; Eosinophils% 2.5 % (0-5); Hematocrit 37.8 % (40-54); Hemoglobin 12.4 g/dl (13.0-16.5); Lymphocyte # 2.07 X10^3/ul (4.0); Lymphocyte % 24.6 % (19-41); Mean Corp Hgb Conc 32.8 g/gl (32-36); Mean Corpuscular Hgb 30.3 pg (27.0-32.0); Mean Corpuscular Volume 92.4 fL (80-94); Mean Platelet Vol. 9.3 fl (6.2-12.0); Monocyte# 0.66 X10^3/uL; Monocyte% 7.9 % (0-10); Neutrophil # 5.43 X10^3/uL (2.7-7.7); Neutrophil % 64.7 % (47-70); Platelet Count 277 K/mm3 (150-450); RBC Distribution Width CV 12.1 % (11.6-14.6); RBC Distribution Width SD 41.2 fl (35.1-43.9); Red Blood Count 4.09 M/mm3 (4.6-6.2); White Blood Count 8.4 K/mm3 (4.4-11.0)
[2017-07-31] MEDS: Electrolyte Solution/Peg's 4000 ML 2000 ML PO (06:06)
[2017-07-31 06:07] LABS: POSITIVE COUNT NO; POSITIVE DIFFERENTIAL NO; POSITIVE MORPHOLOGY NO
[2017-07-31 06:09] LABS: Anion Gap 6 (5-15); BUN 9 mg/dL (7-18); BUN/Creat Ratio 11.7 RATIO (10-20); Calcium,Total 8.8 mg/dL (8.5-10.1); Chloride 103 mmol/L (98-107); Creatinine, Serum 0.77 mg/dL (0.70-1.30); EST Glomerular Filtration Rate 108 mL/min (>60); Est Glom Filt Rate - Afr Amer 131 mL/min (>60); Estimated Creatinine Clearance 114.17 ml/min; Glucose 106 mg/dL (74-106); Potassium 4.6 mmol/L (3.5-5.1); Sodium Level 138 mmol/L (136-145)
--- NOTE | 2017-07-31 06:52 | PCM.PN.BLA ---
Progress Note Patient tolerating bowel prep well. No further rectal bleeding per patient. Proceed with EGD and colonoscopy as planned today at 12:[address] Leggett
[2017-07-31] MEDS: Ipratropium/Albuterol Sulfate 3 ML AMPUL.NEB INHALATION ×3 (07:10→15:10)
[2017-07-31] MEDS: Carvedilol 6.25 MG Tablet PO (08:31)
--- NOTE | 2017-07-31 10:46 | CASEMGMT ---
Pt to be sent home on Xarelto per Dr. Groves and he states that he called in script yesterday and he states that co-pay is $70/month for pt. Pt given $0 co-pay coupon at this time. Advised pt/ that they will need to activate, voice understanding. Pt still awaiting colonoscopy at 1230. Advised pt/ to notify this RN CM if any problems with card activation, voice understanding. [place] RN CM
[2017-07-31] MEDS: 0.9% NaCl Peripheral Flush Adult/Peds IV (11:27)
--- NOTE | 2017-07-31 12:44 | EGD_PTH ---
PATIENT: JOHN GONZALEZ LOC: [facility] U#:[id number] AGE/SX: 62/M ROOM: [facility] RE07/29/[address]: Dr. Nadir Groves, : 1955 BED: 1 DIS: 07/31/2017 SPEC #: [id number] RECD: 07/31/17 13:30 STATUS: RALF REQ #: [id number] LUANN: 07/31/17 12:[address]: Asim Leggett DEPT: SURGICAL PATHOLOGY RECD BY: Eduardo Perez ENTERED: 07/31/17 13:49 SP TYPE: EGD BIOPSY OTHR DR: MD Dr. John Moore MD Dr. Mark Tereletsky, Tissues: A - Duodenum, NOS B - Transverse colon C - Rectum, NOS Procedures: Surgery Specimen Level IV Comments: @ Ordering doctor for SUIV edited from to @ by SAMARA at 08/01/17 0804 @ Submitting doctor edited from to @ by SAMARA at 08/01/17 08 HEADER OPERATION: EGD with biopsy, colonoscopy with polypectomy PRE-OP DIAGNOSIS: Rectal bleed TISSUE SUBMITTED: A ? Duodenal biopsy, B ? Transverse colon polyps, C ? Rectum polyps MICROSCOPIC DIAGNOSIS A. Duodenum, biopsy: Focal gastric metaplasia. B. Transverse colon polyps, biopsy: Fragments of tubular adenoma. C. Rectal polyps, biopsy: Inflammatory polyp consistent with prolapse. Fragment of hyperplastic polyp. AM:anil 08/01/17 MICROSCOPIC DESCRIPTION Slides are reviewed. GROSS DESCRIPTION A - Received in fixative is one container labeled with the patient's name and designated duodenal biopsy. The specimen consists of two irregular fragments of light deshpande soft tissue that in aggregate measure 0.3 x 0.3 x 0.1 cm. The specimen is totally submitted in one cassette. B - Received in fixative is one container labeled with the patient's name and designated transverse colon polyp. The specimen consists of multiple irregular fragments of light deshpande soft tissue that in aggregate measure 2 x 0.7 x 0.3 cm. The specimen is totally submitted in one cassette. C - Received in fixative is one container labeled with the patient's name and designated rectum polyp. The specimen consists of two irregular fragments of light deshpande soft tissue that in aggregate measure 0.6 x 0.3 x 0.1 cm. The specimen is totally submitted in one cassette. / SJ:anil 07/31/17 TC:5 CPT: 70365 x3
--- NOTE | 2017-07-31 13:02 | OP.PCM_ITS ---
Problem List (1) Rectal bleeding Status: Acute (2) GERD (gastroesophageal reflux disease) Status: Acute Qualifiers: Esophagitis presence: without esophagitis Qualified Code(s): K21.9 - Gastro -esophageal reflux disease without esophagitis Report of Operation Date of Procedure: 07/31/17 Pre-Operative Diagnosis: 1. Rectal bleeding. 2. Gastroesophageal reflux disease with out esophagitis Post-Operative Diagnosis: Same Surgery/Procedure Performed:: 1. Esophagogastroduodenoscopy with biopsy. 2. Colonoscopy with snare polypectomy ?4 Description of Surgical Findings:: #1 duodenal bulb submucosal mass #2 2 polyps in transverse colon 3. 2 polyps in rectum Type of Anesthesia:: MAC Anesthesiologist: Kiko Frazier Description of Procedure: Patient was brought in the endoscopy suite. The back of his throat with Cetacaine spray. A bite-block was placed. He was placed in the left lateral decubitus position. Under graded anesthesia the scope was inserted into the back of his throat and directed down into his esophagus into the stomach and then into the duodenum without difficulty operative findings: 1. Duodenum: With going into the first part of the duodenal bulb there was a submucosal mass which look like a probable lipoma I tried to biopsy the mucosa I do not think is going to come back as anything abnormal nevertheless though it clearly was submucosal in nature with normal mucosa on top of it. The rest of the duodenum was normal. 2. Stomach: Normal appearance no mass lesions no ulcerations no erythema. No biopsies were performed. 3. Esophagus: Normal appearance no mass lesions Z line was at 40 cm. Colonoscope was inserted in the rectum directed through the rectum, sigmoid colon, descending colon, transverse colon, ascending colon, to the cecum. Operative findings: 1. Cecum: Normal appearance no mass lesions normal ileocecal valve. 2. Ascending colon: Normal appearance no mass lesions. 3. Transverse colon: 2 small hyperplastic polyps are located within the proximal transverse colon both of these were removed snare cautery technique and both of them were brought back to the channel the scope. Rest of the transverse colon was normal. #4 descending colon: Normal appearance no mass lesions. 5. Sigmoid colon: Normal appearance no mass lesions. 6. Rectum: Normal appearance to small hyperplastic polyps both were biopsied with snare cautery technique and brought back to the channel the scope good hemostasis was noted. Patient is going need to have another colonoscopy within 3 years. I would wait a day before restarting his Xarelto. - Admit VTE Documentation VTE Present on Admission: No VTE Mechan Device Prophylaxis: None VTE Pharm Prophylaxis ordered?: No Reason prophylaxis not ordered:: Treatment Not Indicated
[2017-07-31] MEDS: Famotidine 20 MG Tablet PO (15:01)
[2017-07-31] MEDS: Lisinopril 5 MG Tablet PO (15:01)
[2017-07-31] MEDS: Rivaroxaban 15 MG Tablet PO (15:55)
--- NOTE | 2017-07-31 15:55 | PCM.DC ---
- Discharge Diagnoses Current Active Problems: Current Active and Chronic Problems COPD (chronic obstructive pulmonary disease) (Chronic) Obesity (BMI 30.0-34.9) (Chronic) Acute pulmonary embolism (Acute) Rectal bleeding (Acute) GERD (gastroesophageal reflux disease) (Acute) You will use the following diet at home:: No restrictions Your food should be the consistency of: Regular Your liquids should be the consistency of: Regular/Thin Discharge Activity: Return to Normal Activity Return to work on:: 08/06/17 Weight Bearing Status: Full weight bearing Allergies/Adverse Reactions: Allergies No Known Allergies Allergy (Verified 07/29/17 17:50) Medications to take at Discharge Carvedilol Phosphate CR [Coreg Cr (Beta Zeferino)] 20 mg PO DAILY 04/06/13 Lisinopril [Zestril] 5 mg PO DAILY 04/06/13 Budesonide/Formoterol 160/4.5 [Symbicort 160/4.5 Mcg Inhaler (SP)] 2 puff INHALATION DAILY 07/29/17 Oxycodone [Oxyir] 5 mg PO Q4H PRN PRN 5 Days #20 tab 07/30/17 Rivaroxaban [Xarelto] 15 mg PO BIDCM #42 tab 07/30/17 The following prescriptions were given: Oxycodone [Oxyir] 5 mg PO Q4H PRN PRN 5 Days #20 tab PRN Reason: Moderate Pain (pain scale 4-5) Rivaroxaban [Xarelto] 15 mg PO BIDCM #42 tab Primary Care Physician: Walter Brandon [Primary Care Provider] - Please follow up with your Primary Care Physician in: in one week
--- NOTE | 2017-08-02 18:09 | PCM.DC.SUM ---
Discharge Date and Diagnosis Date of Admission: 07/29/17 Date of Discharge: 07/31/17 - Primary Discharge Diagnosis #1 bilateral pulmonary emboli #2 rectal bleeding secondary to hemorrhoids #3 colon polyps #4 COPD - Secondary Discharge Diagnosis Chronic Problems COPD (chronic obstructive pulmonary disease) (Chronic) Obesity (BMI 30.0-34.9) (Chronic) Arrhythmia (Chronic) Hospital Course and Treatment Operations: None Procedures: Colonoscopy, EGD Summary of Care Provided: The patient is a 62 year old M was seen in the emergency room with a chief complaint of left upper quadrant abdominal pain and left mid back pain. He stated the discomfort was worse with coughing and deep breathing. Workup in the emergency room included an EKG which showed normal sinus rhythm 97, CBC and chemistries were unremarkable. Troponin was unremarkable. CT of the chest and abdomen was obtained and there was noted to be bilateral segmental and subsegmental pulmonary emboli. Patient was given Xarelto and admitted to PCU on telemetry for bilateral pulmonary emboli. During his hospitalization, patient had some rectal bleeding which she stated was chronic in nature, patient never had a colonoscopy and so it was felt that a colonoscopy was necessary before the patient could be discharged on anticoagulants. Patient had a colonoscopy and an EGD performed, there was noted to be internal hemorrhoids and some small colon polyps which were felt to be probably benign. On 07/31/17, patient was seen and examined felt to be in stable condition for discharge home Discharge Activity: Return to Normal Activity Return to work on:: 08/06/17 Weight Bearing Status: Full weight bearing Home Medications: Medications to take at Discharge Carvedilol Phosphate CR [Coreg Cr (Beta Zeferino)] 20 mg PO DAILY 04/06/13 Lisinopril [Zestril] 5 mg PO DAILY 04/06/13 Budesonide/Formoterol 160/4.5 [Symbicort 160/4.5 Mcg Inhaler (SP)] 2 puff INHALATION DAILY 07/29/17 Oxycodone [Oxyir] 5 mg PO Q4H PRN PRN 5 Days #20 tab 07/30/17 Rivaroxaban [Xarelto] 15 mg PO BIDCM #42 tab 07/30/17 Following Prescrptions Were Given to Patient: Oxycodone [Oxyir] 5 mg PO Q4H PRN PRN 5 Days #20 tab PRN Reason: Moderate Pain (pain scale 4-5) Rivaroxaban [Xarelto] 15 mg PO BIDCM #42 tab Primary Care Physician: Walter Brandon [Primary Care Provider] - Please follow up with your Primary Care Physician in: in one week Disposition: Home Minutes spent on discharge:: 32 Patient Condition:: Stable Medical Necessity - Tobacco Use Smoking Status: Former smoker Tobacco Use: Non-smoker Meaningful Use Info Meaningful Use Diagnoses (Choose all that apply): None applicable Code Visit Inpatient E&M: 17560 Disch Hosp
== END 2017-07-31 16:45 | disposition home or self-care (01) | DRG 176 ==
LOC: ED 20:42 → PCU 20:45
PROVIDERS: Surgery; Admitting Provider Family Medicine; Emergency Provider Emergency Medicine; Visit Provider Internal Medicine
PROC: 0DJD8ZZ Inspection of Lower Intestinal Tract, Via Natural or Artificial Opening Endoscopic (ICD-10-PCS; CPT 45378; principal; 2017-07-31 12:25)
DX: I26.99 Other pulmonary embolism without acute cor pulmonale (principal); D12.3 Benign neoplasm of transverse colon; K62.5 Hemorrhage of anus and rectum; E66.9 Obesity, unspecified; Z68.30 Body mass index [BMI] 30.0-30.9, adult; Z87.891 Personal history of nicotine dependence; J44.9 Chronic obstructive pulmonary disease, unspecified; K62.1 Rectal polyp; K64.8 Other hemorrhoids; I49.8 Other specified cardiac arrhythmias; K21.9 Gastro-esophageal reflux disease without esophagitis
CPT/HCPCS: 36415; 71275; 74175; 80048; 80053; 81001; 83690; 83735; 83880; 84484; 85025; 85027; 85610; 85730; 87633; 87804; 88305; 93005; 93306; 93970; 94640; 99285; J7030; J7040; Q9957; Q9967; A4216; C8929; J1610; J2405

== ENCOUNTER 2017-08-01 20:31 | Emergency (ER) | payer BC, SELFPAY ==
[2017-08-01 20:32] VITALS: BP 151/90; PULSE 92; RESP 18; TEMP 36.7; O2SAT 96; BMI 29.9
--- NOTE | 2017-08-01 21:10 | RAD_ITS ---
STUDY: X-RAY - RIGHT ANKLE REASON FOR EXAM: Male, 62 years old. Pain, swelling TECHNIQUE: 3 view(s) of the ankle. COMPARISON: None. FINDINGS: There is a dorsal calcaneal enthesophyte. Focal calcification at the anterior soft tissues at the distal leg. There is no acute fracture. No osseous destruction. The ankle mortise is intact. Normal visualized distal tibia and fibula. Normal medial and lateral malleoli. Normal tibiotalar articulation and ankle mortise. Normal visualized talus and calcaneus. The visualized subtalar, talonavicular, calcaneocuboid and tarsal articulations are normal. RAD/Ankle min 3 Views IMPRESSION: Dorsal calcaneal enthesophyte No fracture Electronically Signed: Shady Sue MD at 21:30 EDT Tel , Service support ,
[2017-08-01 21:55] LABS: Absolute Lymphocyte Count 2.53 X10^3/ul (0.83-4.51); Absolute Neutrophil Count 4.5 X10^3/uL (2.0-7.7); Basophil# 0.02 X10^3/uL; Basophil% 0.2 % (0-1); Eosinophil# 0.39 X10^3/uL; Eosinophils% 4.8 % (0-5); Hematocrit 41.5 % (40-54); Hemoglobin 14.1 g/dl (13.0-16.5); Lymphocyte # 2.53 X10^3/ul (4.0); Lymphocyte % 30.9 % (19-41); Mean Corpuscular Hgb 30.7 pg (27.0-32.0); Mean Corpuscular Volume 90.4 fL (80-94); Mean Platelet Vol. 9.1 fl (6.2-12.0); Monocyte# 0.78 X10^3/uL; Monocyte% 9.5 % (0-10); Neutrophil # 4.46 X10^3/uL (2.7-7.7); Neutrophil % 54.5 % (47-70); POSITIVE COUNT NO; POSITIVE DIFFERENTIAL NO; POSITIVE MORPHOLOGY NO; Platelet Count 264 K/mm3 (150-450); RBC Distribution Width CV 11.9 % (11.6-14.6); Red Blood Count 4.59 M/mm3 (4.6-6.2); White Blood Count 8.2 K/mm3 (4.4-11.0)
[2017-08-01 22:16] VITALS: BP 144/82; PULSE 89; RESP 16; O2SAT 98
--- NOTE | 2017-08-01 22:19 | ED.DCSUM_ITS ---
- ER Visit Summary Date of Service: 08/01/17 Chief Complaint: Right ankle pain History of Present Illness: The patient is a 62 M who states on Sunday he was admitted to the hospital with a diagnosis of bilateral pulmonary embolism. On Sunday he also is noticing an ache in his right Achilles tendon. Through his hospital stay and now at home he has had a gradual worsening of the pain. He states that he was on amoxicillin as an antibiotic. He denies any recent use of fluoroquinolones. He states now he has some swelling over the lateral malleolus and over the Achilles. states that there is increased warmth but there is no erythema. She notes some skin discoloration. He denies any trauma to the area. States it is painful to walk. Is currently on Xarelto. Physical Examination: Afebrile vital signs are stable Gen: Well-nourished well-developed Head: Normocephalic atraumatic Eyes: Perrl EOMI ENT: TMs clear no rhinorrhea moist mucous membranes Neck: Supple no lymphadenopathy no JVD nontender CVS: Regular rate rhythm no murmurs normal S1-S2 Respiratory: No distress clear to auscultation bilaterally chest nontender Abdomen: Soft nontender nondistended normal bowel sounds no masses Back: Nontender Extremity: Right very distal Achilles at the insertion is tender to palpation. There is minimal swelling around the lateral malleolus inferior to it and posterior to it. I see a faint bluish purplish discoloration. There appears to have been some broken capillaries right over the lateral malleolus. I appreciate no erythema or significantly increased warmth. Skin: Normal color no rash Neuro: alert orientated ?3 CN II-XII intact normal strength sensation reflexes gait cerebellar Psych: Normal affect normal mood Test Results: White count normal. Ankle x-ray shows an osteophyte. Emergency Department Course and Treatment: I believe at this time the best course of action is to wait and see. Do not see an obvious cause for the patient's symptoms. I do not believe that this is DVT related as the swelling is unilateral and very distal. I do not believe a duplex ultrasound less than 48 hours after his last one which was negative would be of benefit. His symptoms started before the duplex and if it would have been positive should have been noticed at that time. It also would not alter treatment as he had symptoms before he started Xarelto. Patient will be discharged home. Return if worsening or follow-up with primary care. Impression:. Right ankle pain This note was generated with [employer] dictation software. It may contain incorrect words, spelling, and punctuation that were not noted in review of the chart prior to signing ED Disposition - Plan for ED Patient: Disposition: Home or Assisted Living Chief Complaint: Lower Extremity Injury Referrals: Walter Brandon [Primary Care Provider] - 3-5 Days if not improving Additional Instructions: RETURN if redness fever worsening swelling worsening pain or concerns
== END 2017-08-01 22:17 | disposition home or self-care (01) ==
PROVIDERS: Emergency Provider Emergency Medicine
DX: M25.571 Pain in right ankle and joints of right foot (principal); J44.9 Chronic obstructive pulmonary disease, unspecified; I10 Essential (primary) hypertension; K21.9 Gastro-esophageal reflux disease without esophagitis; Z79.01 Long term (current) use of anticoagulants; Z79.899 Other long term (current) drug therapy; Z86.711 Personal history of pulmonary embolism; Z87.891 Personal history of nicotine dependence
CPT/HCPCS: 73610; 85025; 99285; A4216

== ENCOUNTER → 2017-08-14 14:22 | Outpatient (CLI) | payer BC, SELFPAY ==
--- NOTE | 2017-08-14 14:23 | CT_ITS ---
STUDY: CT ABDOMEN AND PELVIS WITH CONTRAST REASON FOR EXAM: Male, 62 years old. Question of duodenal mass on endoscopy. RADIATION DOSAGE (If Supplied By Facility): CTDIvol = ( 14.19 ) mGy, DLP = ( 1030.30 ) mGycm TECHNIQUE: Transaxial images were obtained from the dome of the diaphragm to the symphysis pubis with oral contrast. 100 ml of Isovue 300 contrast was administered. Sagittal and coronal images were reconstructed. Individualized dose optimization techniques were used for this CT. COMPARISON: CTA abdomen July 29, 2017. FINDINGS: The visualized lung bases are unremarkable. The visualized portions of the heart are within normal limits. Normal liver. The patent portal vein diameter is 17 mm. Normal gallbladder and extrahepatic biliary system. Normal spleen. Normal pancreas. Normal bilateral adrenal glands. Normal right kidney. 6 mm rounded low-density consistent with cortical cyst noted in the posterior midpole of the left kidney. No hydronephrosis. Normal visualized stomach. Well-circumscribed 12 x 11 x 15 mm lesion of 21.6 Hounsfield unit density is seen in the lumen of the bulb of the duodenum, consistent with a polyp or other exophytic mucosal lesion. Otherwise, normal small intestine. Normal colon. The fluid-filled appendix is visualized on series 601 image 69 and appears normal. There is stable mild atherosclerotic calcification and tortuosity of the abdominal aorta, without a demonstrated aneurysm. Mild atherosclerotic calcification of the proximal renal arteries also again noted. Normal inferior vena cava. Normal retroperitoneum. Normal urinary bladder. There are prostatic calcifications. There is a small umbilical hernia containing fat. There are multilevel degenerative changes of the visualized spine. CT/Abdomen/Pelvis WITH Contrast IMPRESSION: 1. 15 mm circumscribed soft tissue density consistent with a polyp or other exophytic mucosal lesion in the lumen of the duodenal bulb. No other suspicious mural thickening of the duodenum. No sign of bowel obstruction. The appendix is normal. 2. 6 mm cortical cyst in the posterior midpole of the left kidney. No hydronephrosis. 3. Stable mild atherosclerotic calcification of the abdominal aorta and proximal renal arteries. 4. Coarse calcifications noted in the prostate gland. 5. Very small, fat-containing umbilical hernia. Electronically Signed: Stevenson Pardo MD at 19:18 EDT , Service support ,
== END ==
PROVIDERS: Visit Provider Surgery
DX: K31.89 Other diseases of stomach and duodenum (principal)
CPT/HCPCS: 74177; Q9967

== ENCOUNTER 2017-08-19 13:19 | Emergency (ER) | payer BC, SELFPAY ==
[2017-08-19 13:21] VITALS: BP 146/102; PULSE 82; RESP 20; TEMP 36.8; O2SAT 97; BMI 29.9
--- NOTE | 2017-08-19 13:44 | ED.VISSUMM ---
- ER Visit Summary Date of Service: 08/19/17 Chief Complaint: [] Allergic reaction History of Present Illness: The patient is a 62 M [] recently diagnosed with pulmonary embolism source unclear having a GI workup for upper abdominal discomfort as well he was started on Xarelto a few weeks ago. A few days ago he had a IV contrast CT for evaluation of GI ailments and then the next day he developed red macules over his trunk that have now spread to his back and his extremities that are itchy, he has no known history of IV contrast reaction he did not react to Xarelto when he was started on it prior to the CT he has no other exposures or medications he is eating and drinking normally, he has no oral cavity lesions he presents today because the rash has persisted Physical Examination: [] Exam he is in no distress his HEENT exam is unremarkable no oral cavity lesions his neck is supple lungs are clear heart tones are normal the abdomen soft nontender upper lower extremities unremarkable the skin is covered with macules that have coalesced in some areas to form plaques currently on the chest and the back they are also quite dense on the upper extremities and less dense on the lower extremities there is no petechia purpura vesicles or skin breakdown, his joints are unremarkable neurologically he is awake alert moving all 4 he has had no GI bleeding again normal bowel bladder habits is eating drinking well no fevers Is on lisinopril and some other medications but none of these are new and none of them have been known to cause a reaction Test Results: [] Emergency Department Course and Treatment: [] The was concerned that the Xarelto has caused this reaction I explained her that that is a possibility it is much more likely that it is possibly related to the IV CT contrast given that he was on the Xarelto had no issues with it and the rash began after he had IV CT spine to her we could stop the Xarelto or obtain screening labs for other acute gross abnormalities if these are negative have him follow-up with his physicians regarding further Xarelto therapy or changing to another anticoagulant again they are not sure why he had the PE he was not found to have a source , he has no known history of cancer immobility etc. Treatment Plan: [] The patient's lab studies and creatinine are generally unremarkable see those reports he has been medicated he understands he follow-up with his physicians regarding any rationale for changing the Xarelto to something different he will be started on either Benadryl or Claritin daily, Pepcid he was given Kenalog 40 mg IM and will return for change in symptoms Disposition: [] Impression: [] Allergic reaction after receiving IV contrast, currently on Xarelto for bilateral PEs This note was generated with [employer] dictation software. It may contain incorrect words, spelling, and punctuation that were not noted in review of the chart prior to signing ED Disposition - Plan for ED Patient: Chief Complaint: Allergic Reaction Instructions: ED Drug React Allergic, ED Allergic Reaction General Other Prescriptions: DiphenhydrAMINE [Benadryl] 25 mg PO TID PRN PRN 5 Days #15 cap PRN Reason: Allergies Famotidine [Pepcid] 20 mg PO BID #28 tab Referrals: Walter Brandon [Primary Care Provider] -
[2017-08-19] MEDS: DiphenhydrAMINE 50 MG/ML Syringe 25 MG IV (14:00)
[2017-08-19] MEDS: Triamcinolone Acetonide 40 MG/ML Vial IM (14:00)
[2017-08-19 14:01] LABS: Absolute Lymphocyte Count 1.52 X10^3/ul (0.83-4.51); Absolute Neutrophil Count 7.5 X10^3/uL (2.0-7.7); Basophil# 0.01 X10^3/uL; Basophil% 0.1 % (0-1); Eosinophil# 0.82 X10^3/uL; Hematocrit 45.4 % (40-54); Lymphocyte # 1.52 X10^3/ul (4.0); Lymphocyte % 14.8 % (19-41); Mean Corpuscular Hgb 30.3 pg (27.0-32.0); Mean Corpuscular Volume 91.7 fL (80-94); Monocyte# 0.38 X10^3/uL; Monocyte% 3.7 % (0-10); Neutrophil # 7.53 X10^3/uL (2.7-7.7); Neutrophil % 73.2 % (47-70); POSITIVE COUNT NO; POSITIVE DIFFERENTIAL NO; POSITIVE MORPHOLOGY NO; Platelet Count 205 K/mm3 (150-450); RBC Distribution Width CV 13.3 % (11.6-14.6); RBC Distribution Width SD 43.3 fl (35.1-43.9); Red Blood Count 4.95 M/mm3 (4.6-6.2); White Blood Count 10.3 K/mm3 (4.4-11.0)
[2017-08-19] MEDS: 0.9% Normal Saline 1,000 ML 150 ML IV (14:01)
[2017-08-19 14:03] VITALS: BP 135/78; PULSE 75; RESP 14; O2SAT 99
[2017-08-19 14:15] LABS: AST(SGOT) 19 U/L (15-37); Alanine Aminotransfer ALT/SGPT 45 U/L (16-61); Albumin, Serum 3.6 g/dL (3.2-5.0); Alkaline Phosphatase 76 U/L (45-117); Anion Gap 8 (5-15); BUN 12 mg/dL (7-18); BUN/Creat Ratio 14.7 RATIO (10-20); Bilirubin, Direct 0.15 mg/dL (0.00-0.30); Calcium,Total 8.8 mg/dL (8.5-10.1); Chloride 105 mmol/L (98-107); Creatinine, Serum 0.82 mg/dL (0.70-1.30); EST Glomerular Filtration Rate 101 mL/min (>60); Est Glom Filt Rate - Afr Amer 123 mL/min (>60); Estimated Creatinine Clearance 107.21 ml/min; Globulin 3.4 g/dL (2.2-4.2); Glucose 97 mg/dL (74-106); Lipase 130 U/L (73-393); Potassium 4.2 mmol/L (3.5-5.1); Sodium Level 139 mmol/L (136-145)
--- NOTE | 2017-08-19 14:40 | ED.DEP ---
ED Disposition - Plan for ED Patient: Chief Complaint: Allergic Reaction Instructions: ED Allergic Reaction General Other, ED Drug React Allergic Prescriptions: DiphenhydrAMINE [Benadryl] 25 mg PO TID PRN PRN 5 Days #15 cap PRN Reason: Allergies Famotidine [Pepcid] 20 mg PO BID #28 tab Referrals: Walter Brandon [Primary Care Provider] -
[2017-08-19 14:47] LABS: Bacteria 0 SEEN /hpf (None Seen); Mucous, Urine 0 SEEN /hpf (<or=2+); Red Blood Cells-Urine 0 SEEN /hpf (0-5); Squamous Epithelial Cells - UA 0 SEEN /hpf (0-5); White Blood Cells 0 SEEN /hpf (0-5)
[2017-08-19 14:48] LABS: Color, Urine Yellow (Yellow); Glucose, Dipstick Normal (Normal); Ketone-Dipstick Negative (Negative); Leukocyte Esterase-Dipstick Negative /ul (Negative); Nitrite-Dipstick Negative (Negative); Occult Blood-Urine Negative /ul (Negative); Protein-Dipstick Negative (Negative); Urine Bilirubin Dipstick Negative (Negative); Urine Clarity Clear (Clear); Urine Urobilinogen Normal (Normal)
[2017-08-19 15:04] VITALS: BP 130/74; PULSE 80; RESP 14; O2SAT 99
== END 2017-08-19 15:10 | disposition home or self-care (01) ==
PROVIDERS: Emergency Provider Emergency Medicine
DX: L23.9 Allergic contact dermatitis, unspecified cause (principal); I26.99 Other pulmonary embolism without acute cor pulmonale; Z79.01 Long term (current) use of anticoagulants; Z79.899 Other long term (current) drug therapy
CPT/HCPCS: 80048; 80076; 81001; 83690; 85025; 96365; 96372; 96375; 99283; J7030; A4216; J3490

== ENCOUNTER → 2018-02-12 08:16 | Outpatient (CLI) | payer BC, SELFPAY ==
[2018-02-12 10:18] LABS: Absolute Lymphocyte Count 1.97 X10^3/ul (0.83-4.51); Absolute Neutrophil Count 3.7 X10^3/uL (2.0-7.7); Basophil# 0.02 X10^3/uL; Basophil% 0.3 % (0-1); Eosinophil# 0.16 X10^3/uL; Eosinophils% 2.6 % (0-5); Hematocrit 40.5 % (40-54); Hemoglobin 13.4 g/dl (13.0-16.5); Lymphocyte # 1.97 X10^3/ul (4.0); Mean Corp Hgb Conc 33.1 g/gl (32-36); Mean Corpuscular Hgb 30.4 pg (27.0-32.0); Mean Corpuscular Volume 91.8 fL (80-94); Mean Platelet Vol. 9.8 fl (6.2-12.0); Monocyte% 4.9 % (0-10); Neutrophil # 3.71 X10^3/uL (2.7-7.7); Neutrophil % 60.2 % (47-70); Platelet Count 223 K/mm3 (150-450); RBC Distribution Width CV 13.2 % (11.6-14.6); RBC Distribution Width SD 44.4 fl (35.1-43.9); Red Blood Count 4.41 M/mm3 (4.6-6.2); White Blood Count 6.2 K/mm3 (4.4-11.0)
[2018-02-12 10:20] LABS: POSITIVE COUNT NO; POSITIVE DIFFERENTIAL NO; POSITIVE MORPHOLOGY NO
[2018-02-12 10:41] LABS: Microalbumin:Creatinine Ratio 8.3 mg/g CRE (<30 mg/g CRE)
[2018-02-12 10:43] LABS: AST(SGOT) 17 U/L (15-37); Alanine Aminotransfer ALT/SGPT 31 U/L (16-61); Albumin, Serum 3.4 g/dL (3.2-5.0); Alkaline Phosphatase 58 U/L (45-117); Anion Gap 9 (5-15); BUN 16 mg/dL (7-18); BUN/Creat Ratio 19.4 RATIO (10-20); Calcium,Total 8.8 mg/dL (8.5-10.1); Chloride 108 mmol/L (98-107); Cholesterol 187 mg/dL (200); Creatinine, Serum 0.83 mg/dL (0.70-1.30); EST Glomerular Filtration Rate 100 mL/min (>60); Est Glom Filt Rate - Afr Amer 121 mL/min (>60); Ferritin 52 ng/mL (26-388); Globulin 3.3 g/dL (2.2-4.2); Glucose 108 mg/dL (74-106); High Density Lipoprotein 73 mg/dL; Potassium 4.5 mmol/L (3.5-5.1); Protein, Total 6.7 g/dL (6.4-8.2); Sodium Level 140 mmol/L (136-145); Thyroid Stim Hormone (TSH) 1.03 uIU/mL (0.358-3.74); Triglycerides 56 mg/dL; Very Low Density Lipoprotein 11 mg/dL (5-40)
[2018-02-22 08:09] LABS: Antithrombin 3 Function 99 % (75-135)
== END ==
PROVIDERS: Family Provider Family Medicine; PCP Family Medicine; Visit Provider Family Medicine
DX: I49.9 Cardiac arrhythmia, unspecified (principal); Z86.711 Personal history of pulmonary embolism
CPT/HCPCS: 36415; 80053; 80061; 81291; 82043; 82570; 82728; 84443; 85025; 85300

== ENCOUNTER → 2019-01-28 09:18 | Outpatient (CLI) | payer BC, SELFPAY ==
[2019-01-28 12:19] LABS: Hematocrit 42.9 % (40-54); Hemoglobin 14.1 g/dL (13.0-16.5); Mean Corp Hgb Conc 32.9 g/dL (32-36); Mean Corpuscular Hgb 30.7 pg (27.0-32.0); Mean Corpuscular Volume 93.5 fL (80-94); Platelet Count 216 K/mm3 (150-450); RBC Distribution Width CV 12.9 % (11.6-14.6); RBC Distribution Width SD 43.8 fl (35.1-43.9); Red Blood Count 4.59 M/mm3 (4.6-6.2); White Blood Count 6.2 K/mm3 (4.4-11.0)
[2019-01-28 12:50] LABS: ALB/GLOB Ratio 1.1 RATIO (0.9-2.4); AST(SGOT) 26 U/L (15-37); Alanine Aminotransfer ALT/SGPT 42 U/L (16-61); Albumin, Serum 3.7 g/dL (3.2-5.0); Alkaline Phosphatase 63 U/L (45-117); Anion Gap 7 (5-15); BUN 15 mg/dL (7-18); BUN/Creat Ratio 13.6 RATIO (10-20); Chloride 104 mmol/L (98-107); EST Glomerular Filtration Rate 72 mL/min (>60); Est Glom Filt Rate - Afr Amer 87 mL/min (>60); Globulin 3.5 g/dL (2.2-4.2); Glucose 103 mg/dL (74-106); PSA,Total - Annual Screen 1.18 ng/mL (0.00-4.00); Potassium 4.7 mmol/L (3.5-5.1); Protein, Total 7.2 g/dL (6.4-8.2); Sodium Level 137 mmol/L (136-145)
== END ==
PROVIDERS: Family Provider Family Medicine; PCP Family Medicine; Referring Provider Family Medicine; Visit Provider Family Medicine
DX: Z00.00 Encounter for general adult medical examination without abnormal findings (principal); J43.9 Emphysema, unspecified; I10 Essential (primary) hypertension
CPT/HCPCS: 36415; 80053; 84153; 85027; G0103

== ENCOUNTER → 2020-02-16 08:39 | Outpatient (CLI) | payer MEDICARE, BC, SELFPAY ==
[2020-02-16 10:11] LABS: ALB/GLOB Ratio 1.2 RATIO (0.9-2.4); AST(SGOT) 19 U/L (15-37); Alanine Aminotransfer ALT/SGPT 35 U/L (16-61); Albumin, Serum 3.7 g/dL (3.2-5.0); Alkaline Phosphatase 51 U/L (45-117); Anion Gap 3 (5-15); BUN 16 mg/dL (7-18); BUN/Creat Ratio 17.3 RATIO (10-20); Calcium,Total 9.3 mg/dL (8.5-10.1); Chloride 108 mmol/L (98-107); Cholesterol 206 mg/dL (200); Creatinine, Serum 0.92 mg/dL (0.70-1.30); EST Glomerular Filtration Rate 87 mL/min (>60); Est Glom Filt Rate - Afr Amer 106 mL/min (>60); Globulin 3.2 g/dL (2.2-4.2); Glucose 119 mg/dL (74-106); High Density Lipoprotein 107 mg/dL; Potassium 4.9 mmol/L (3.5-5.1); Protein, Total 6.9 g/dL (6.4-8.2); Sodium Level 140 mmol/L (136-145); Triglycerides 66 mg/dL; Very Low Density Lipoprotein 13 mg/dL (5-40)
[2020-02-16 10:25] LABS: Microalbumin,Random Urine < 5.0 mg/L (NO RANGE EST.)
== END ==
PROVIDERS: PCP Family Medicine; Visit Provider Family Medicine
DX: I10 Essential (primary) hypertension (principal)
CPT/HCPCS: 36415; 80053; 80061; 82043; 82570

== ENCOUNTER → 2020-08-16 09:28 | Outpatient (CLI) | payer MEDICARE, BC, SELFPAY ==
[2020-08-16 12:22] LABS: Absolute Lymphocyte Count 1.94 X10^3/uL (0.83-4.51); Absolute Neutrophil Count 3.7 X10^3/uL (2.0-7.7); Basophil# 0.03 X10^3/uL; Basophil% 0.5 % (0-1); Eosinophil# 0.15 X10^3/uL; Eosinophils% 2.4 % (0-5); Hematocrit 44.5 % (40-54); Hemoglobin 14.5 g/dL (13.0-16.5); Lymphocyte # 1.94 X10^3/ul (4.0); Lymphocyte % 30.6 % (19-41); Mean Corp Hgb Conc 32.6 g/dL (32-36); Mean Corpuscular Hgb 31.3 pg (27.0-32.0); Mean Corpuscular Volume 95.9 fL (80-94); Monocyte# 0.49 X10^3/uL; Monocyte% 7.7 % (0-10); NRBC Flagged by Analyzer 0 % (0-5); Neutrophil # 3.71 X10^3/uL (2.7-7.7); Neutrophil % 58.6 % (47-70); Platelet Count 205 K/mm3 (150-450); RBC Distribution Width CV 12.9 % (11.6-14.6); RBC Distribution Width SD 45.4 fl (35.1-43.9); Red Blood Count 4.64 M/mm3 (4.6-6.2); White Blood Count 6.3 K/mm3 (4.4-11.0)
[2020-08-16 12:36] LABS: Hemoglobin A1c 5.2 % (3.8-5.6)
[2020-08-16 12:45] LABS: ALB/GLOB Ratio 1.1 RATIO (0.9-2.4); AST(SGOT) 32 U/L (15-37); Alanine Aminotransfer ALT/SGPT 37 U/L (16-61); Albumin, Serum 3.8 g/dL (3.2-5.0); Alkaline Phosphatase 53 U/L (45-117); Anion Gap 6 (5-15); BUN 16 mg/dL (7-18); BUN/Creat Ratio 16.2 RATIO (10-20); Calcium,Total 9.2 mg/dL (8.5-10.1); Chloride 103 mmol/L (98-107); Creatinine, Serum 0.99 mg/dL (0.70-1.30); EST Glomerular Filtration Rate 81 mL/min (>60); Est Glom Filt Rate - Afr Amer 98 mL/min (>60); Globulin 3.4 g/dL (2.2-4.2); Glucose 108 mg/dL (74-106); Potassium 4.5 mmol/L (3.5-5.1); Protein, Total 7.2 g/dL (6.4-8.2); Sodium Level 138 mmol/L (136-145)
== END ==
PROVIDERS: PCP Family Medicine; Visit Provider Family Medicine
DX: J43.9 Emphysema, unspecified (principal); I10 Essential (primary) hypertension; R73.9 Hyperglycemia, unspecified
CPT/HCPCS: 36415; 80053; 83036; 85025

== ENCOUNTER 2020-10-16 17:29 | Emergency (ER) | payer MEDICARE, BC, SELFPAY ==
[2020-10-16 17:30] VITALS: BP 144/86; PULSE 89; RESP 18; TEMP 36.5; O2SAT 95; BMI 32.0
--- NOTE | 2020-10-16 17:46 | EDS_ITS ---
HPI History of Present Illness Chief Complaint: Lower Extremity Injury Detail of Chief Complaint: Right leg swelling Informant: patient Onset/Context/Timing Onset: Days (2 days) Context: Gradual Onset Quality of Pain: Aching Current Severity: Mild Maximum Severity: Moderate Narrative Narrative: Patient presents secondary to right leg swelling. He states he noted the symptoms yesterday. In spite of elevation swelling has persisted. No obvious injury or bite. No erythema or sign of infection. Patient does have history of blood clots and had a prior PE. He is no longer on Xarelto. [facility] Medical History (Updated 10/16/20 @ 17:[address] Meagan Martinez MD) Arrhythmia COPD (chronic obstructive pulmonary disease) GERD (gastroesophageal reflux disease) HTN (hypertension) Obesity (BMI 30.0-34.9) Pulmonary embolism Rectal bleeding Superficial venous thrombosis of upper extremity Syncope Home Medications carvedilol phosphate 20 mg PO DAILY 04/06/13 [History Last Taken 07/29/17] lisinopril 5 mg PO DAILY 04/06/13 [History Last Taken 07/29/17] budesonide-formoterol 2 puff INHALATION DAILY 07/29/17 [History Last Taken 07/29/17] diphenhydramine HCl 25 mg PO TID PRN PRN 5 Days #15 cap 08/19/17 [Rx Last Taken Unknown] famotidine 20 mg PO BID #28 tab 08/19/17 [Rx Last Taken Unknown] naproxen 500 mg PO BID PRN 10/16/20 [History Last Taken Unknown] Allergy/AdvReac Type Severity Reaction Status Date / Time Iodinated Contrast Media AdvReac Itching Verified 10/16/20 17:29 Surgical History H/O colonoscopy Social History Smoking Status: Never smoker ROS ROS ED Constitutional Constitutional ED: Denies chills or fever(s) Eyes Eyes: Denies change in vision ENT ENT ED: Denies sore throat Cardiovascular Cardiovascular: Denies chest pain Respiratory/Chest Respiratory/Chest: Denies cough or dyspnea Gastrointestinal Gastrointestinal: Denies abdominal pain, diarrhea, nausea or vomiting Genitourinary Genitourinary ED: Denies dysuria Musculoskeletal Musculoskeletal: Reports arthralgias; Denies back pain Integumentary Denies rash Neurologic Neurologic: Denies headache(s) or weakness Psychiatric Psychiatric: Denies anxiety or depression Endocrine Endocrinology: Denies polydipsia or polyuria Allergic/Immunologic Allergic/Immunologic ED: Denies urticaria EXAM Physical Exam Const Vital Signs: 10/16/20 17:30 Temperature 97.7 F L Temperature Source Temporal Pulse Rate 89 Respiratory Rate 18 Blood Pressure 144/86 H Blood Pressure Mean 105 Pulse Ox 95 Oxygen Delivery Method Room Air Positive well nourished and well developed General Appearance ED: well developed HEENT Reports normocephalic and head/scalp atraumatic Eyes PERRL and EOMs intact bilaterally Neck supple Chest Wall inspection of chest normal and palpation of chest normal Resp normal respiratory effort and clear to auscultation bilaterally Cardio regular rate and regular rhythm GI normal to inspection, nondistended, normoactive bowel sounds Palpation: soft Extremity Extremity Narrative: 2-3+ right lower extremity edema. No erythema or sign of cellulitis. Strong distal pulses. Full range of motion without bony tenderness. Neuro oriented x3 and no sensory deficits noted Sensorium / Orientation: alert Motor Exam: strength 5/5 throughout Psych mental status grossly normal Skin no rashes or lesions noted Lesions: no lesions Rashes: no rashes MDM MDM MDM Narrative Medical decision making narrative: Patient does have history of blood clots. He presents on a Sunday evening when I do not have ultrasound available. He will be treated with a dose of Lovenox tonight and will return tomorrow for a venous ultrasound of his leg. Patient has no chest pain or shortness of breath at this time. Treatment and Re-Evaluation Comments:: Order placed for ultrasound to be performed tomorrow. Discharge Plan Triage Chief Complaint: Lower Extremity Injury ED Provider: Meagan Martinez Dx/Rx/DC Orders Clinical Impression: Edema of right lower extremity Instructions: ED Peripheral Edema, Unilateral Prescriptions: No Action lisinopril 5 MG tablet 5 mg PO DAILY RF: 0 carvedilol phosphate 20 MG capsule, ER multiphase 24 hr 20 mg PO DAILY RF: 0 budesonide-formoterol 160-4.5 inhaler 2 puff INHALATION DAILY RF: 0 diphenhydramine HCl 25 MG capsule 25 mg PO TID PRN PRN (Reason: Allergies) 5 Days Qty: 15 RF: 0 famotidine 20 MG tablet 20 mg PO BID Qty: 28 RF: 0 naproxen 500 mg Tablet 500 mg PO BID PRN (Reason: Pain) RF: 0 Primary Care Provider: Kobe Diaz Referrals: Kobe Diaz MD [Primary Care Provider] - 1-2 Weeks Activity Restrictions/Additional Instructions: An order has been placed for you to have a an ultrasound of your leg tomorrow to rule out DVT (blood clot). You have been covered with a dose of blood thinner for tonight. Disposition Disposition: Home, self care
[2020-10-16] MEDS: Enoxaparin 100 MG/ML Syringe SC (18:03)
== END 2020-10-16 18:08 | disposition home or self-care (01) ==
LOC: ED 18:02
PROVIDERS: Emergency Provider Emergency Medicine; PCP Family Medicine
DX: M79.89 Other specified soft tissue disorders (principal); E66.9 Obesity, unspecified; I10 Essential (primary) hypertension; J44.9 Chronic obstructive pulmonary disease, unspecified; Z68.30 Body mass index [BMI] 30.0-30.9, adult; Z86.711 Personal history of pulmonary embolism; Z86.718 Personal history of other venous thrombosis and embolism; Z79.899 Other long term (current) drug therapy
CPT/HCPCS: 96374; 99282

== ENCOUNTER → 2020-10-17 10:38 | Outpatient (CLI) | payer MEDICARE, BC, SELFPAY ==
[2020-10-16 17:30] VITALS: BMI 32.0
--- NOTE | 2020-10-17 10:44 | VDLE_ITS ---
Reason For Study: Swelling RIGHT LEFT GSV is normal. CFV is compressible, spontaneous, phasic, CFV is compressible, spontaneous, phasic, competent, and demonstrates normal competent and demonstrates normal augmentation. augmentation. FV prox is compressible. Acute deep vein thrombosis is noted in the FV mid-distal, PopV, T/P Trunk, PTV and PeroV. Procedure This is a venous duplex using B-mode, color flow and spectral Doppler. Exam performed in department. A preliminary report was called and/or faxed to ED. Pt taken ED for treatment. VL/Venous Duplex US, Unilateral Interpretation Summary Acute deep venous thrombosis right mid-distal femoral, popliteal, tibioperoneal trunk, posterior tibial and peroneal veins. Patent, compressible right great saphenous vein Normal flow patterns left common femoral vein Ordering Physician: Meagan Martinez Referring Physician: Kobe Diaz Performed By: Marlena Clayton RVT
== END ==
PROVIDERS: PCP Family Medicine; Visit Provider Emergency Medicine
DX: R22.41 Localized swelling, mass and lump, right lower limb (principal)
CPT/HCPCS: 93971

== ENCOUNTER 2020-10-17 11:07 | Emergency (ER) | payer MEDICARE, BC, SELFPAY ==
[2020-10-16 17:30] VITALS: BMI 32.0
[2020-10-17 11:07] VITALS: BP 146/89; PULSE 86; RESP 16; TEMP 37; O2SAT 95; BMI 31.8
--- NOTE | 2020-10-17 11:31 | ED.VIS.LOWEX ---
HPI History of Present Illness HPI Narrative: 65-year-old male prior PE. Son emergency department yesterday. Treated with Lovenox and noninvasive study ordered for this morning. Study showed a right lower extremity DVT. Patient was sent from ultrasound back to the emergency department. Chief Complaint: CPR Informant: patient and spouse/S.O. Onset/Context/Timing Onset: Days Context: Gradual Onset Timing: Continuous Current Severity: Mild Maximum Severity: Mild Narrative Narrative: 65-year-old male with right lower extremity discomfort and mild swelling. Prior history of PE for which she was on Xarelto in the past. He is currently on no blood thinners. Ultrasound of the lower extremity was positive. Prior similar symptoms: Yes Recent Illness/Hospitalization: No PFSH PFSH Medical History Arrhythmia COPD (chronic obstructive pulmonary disease) GERD (gastroesophageal reflux disease) HTN (hypertension) Obesity (BMI 30.0-34.9) Pulmonary embolism Rectal bleeding Superficial venous thrombosis of upper extremity Syncope Home Medications carvedilol phosphate 20 mg PO DAILY 04/06/13 [History Last Taken 07/29/17] lisinopril 5 mg PO DAILY 04/06/13 [History Last Taken 07/29/17] budesonide-formoterol 2 puff INHALATION DAILY 07/29/17 [History Last Taken 07/29/17] diphenhydramine HCl 25 mg PO TID PRN PRN 5 Days #15 cap 08/19/17 [Rx Last Taken Unknown] famotidine 20 mg PO BID #28 tab 08/19/17 [Rx Last Taken Unknown] naproxen 500 mg PO BID PRN 10/16/20 [History Last Taken Unknown] rivaroxaban [Xarelto DVT-PE Treat 30d Start] See Rx Instructions .ROUTE .COMPLEX 30 Days #30 tab 10/17/20 [Rx Last Taken Unknown] Allergy/AdvReac Type Severity Reaction Status Date / Time Iodinated Contrast Media AdvReac Itching Verified 10/16/20 17:29 Surgical History H/O colonoscopy Social History Smoking Status: Former smoker ROS ROS ED ROS Narrative Patient denies any recent illness. He denies any chest pain or shortness of breath. Review of Systems ROS Unobtainable: Denies due to encephalopathy Constitutional Constitutional ED: Denies chills or fever(s) Eyes Eyes: Denies change in vision ENT ENT ED: Denies ear pain or sore throat Cardiovascular Cardiovascular: Denies chest pain Respiratory/Chest Respiratory/Chest: Denies cough or dyspnea Gastrointestinal Gastrointestinal: Denies abdominal pain, diarrhea, nausea or vomiting Genitourinary Genitourinary ED: Denies dysuria Musculoskeletal Musculoskeletal: Denies myalgias Integumentary Denies rash Neurologic Neurologic: Denies headache(s) Psychiatric Psychiatric: Denies depression Endocrine Endocrinology: Denies polyuria Hematologic/Lymphatic Hematologic/Lymphatic: Denies easy bruising Allergic/Immunologic Allergic/Immunologic ED: Denies urticaria EXAM Physical Exam Narrative Exam Narrative: Or male no acute distress. Vital signs stable afebrile. Pulse ox 95% on room air no signs hypoxia. Exam unremarkable except mild swelling right lower extremity. Minimal mid calf tenderness. Right foot neurovascularly intact. Left lower extremity unremarkable. Lungs are clear. Heart regular rhythm rate about 85 no murmur. Const Vital Signs: 10/17/20 11:07 Temperature 98.6 F Temperature Source Oral Pulse Rate 86 Respiratory Rate 16 Blood Pressure 146/89 H Blood Pressure Mean 108 Pulse Ox 95 Oxygen Delivery Method Room Air Positive well nourished and well developed General Appearance ED: well developed HEENT Reports moist mucous membranes normocephalic and atraumatic; Negative for trauma or tenderness Eyes PERRL Neck full ROM and supple Thyroid: Negative for tender Chest Wall inspection of chest normal Resp normal respiratory effort, no retractions and clear to auscultation bilaterally Cardio regular rate, regular rhythm and no murmurs GI non-tender, non-distended and no masses Auscultation: normoactive bowel sounds Palpation: soft Back/Spine no CVA tenderness General Back: Negative for CVA tenderness Extremity normal to inspection and full ROM Extremity Narrative: Mild swelling right lower extremity compared to left. Right foot neurovascularly intact. Normal motor strength and sensation. Neuro oriented x3, CN's II-XII intact bilaterally and moves all extremities Sensorium / Orientation: alert, oriented to person, oriented to place and oriented to time Psych mental status grossly normal Skin Rashes: no rashes MDM MDM MDM Narrative Medical decision making narrative: Patient with a recently diagnosed DVT in his right lower extremity. Noted in the mid distal femoral vein, popliteal vein, TP trunk and PTV and peroneal vein. Patient was previously treated for a PE on Xarelto which worked well for him. He will be written for prescription for Xarelto. Discharge Plan Triage Chief Complaint: Lower Extremity Injury ED Provider: César Waite Dx/Rx/DC Orders Clinical Impression: DVT (deep venous thrombosis) Instructions: Deep Vein Thrombosis Prescriptions: New Xarelto DVT-PE Treat 30d Start 15 mg (42)- 20 mg (9) tablets,dose pack See Rx Instructions .ROUTE .COMPLEX 30 Days Qty: 30 RF: 0 No Action lisinopril 5 MG tablet 5 mg PO DAILY RF: 0 carvedilol phosphate 20 MG capsule, ER multiphase 24 hr 20 mg PO DAILY RF: 0 budesonide-formoterol 160-4.5 inhaler 2 puff INHALATION DAILY RF: 0 diphenhydramine HCl 25 MG capsule 25 mg PO TID PRN PRN (Reason: Allergies) 5 Days Qty: 15 RF: 0 famotidine 20 MG tablet 20 mg PO BID Qty: 28 RF: 0 naproxen 500 mg Tablet 500 mg PO BID PRN (Reason: Pain) RF: 0 Primary Care Provider: Kobe Diaz Referrals: Kobe Diaz MD [Primary Care Provider] - 1-2 Weeks Activity Restrictions/Additional Instructions: Take your Xarelto as prescribed. Follow-up with your primary care physician. Disposition Disposition: Home, self care
[2020-10-17 13:07] VITALS: RESP 18
== END 2020-10-17 13:07 | disposition home or self-care (01) ==
LOC: ED 11:45
PROVIDERS: Emergency Provider Emergency Medicine; PCP Family Medicine
DX: I82.401 Acute embolism and thrombosis of unspecified deep veins of right lower extremity (principal); E66.9 Obesity, unspecified; I10 Essential (primary) hypertension; J44.9 Chronic obstructive pulmonary disease, unspecified; Z87.891 Personal history of nicotine dependence; Z86.711 Personal history of pulmonary embolism; Z68.30 Body mass index [BMI] 30.0-30.9, adult
CPT/HCPCS: 93971; 99283

== ENCOUNTER → 2020-10-20 12:23 | Outpatient (CLI) | payer MEDICARE, BC, SELFPAY ==
[2020-10-17 11:07] VITALS: BMI 31.8
[2020-10-25 08:07] LABS: Dilute Prothrombin Time (dPT) 52.1 sec (0.0-55.0); Dilute Russell Viper Venom 114.2 sec (0.0-47.0); Thrombin Time 15.9 sec (0.0-23.0); dPT Confirm Ratio 0.94 Ratio (0.00-1.40)
[2020-10-25 08:41] LABS: Anti-Cardiolipin Ab, IgG, Qn < 9 GPL U/mL (0-14); Anti-Cardiolipin Ab, IgM, Qn 17 MPL U/mL (0-12); Antithrombin 3 Function 128 % (75-135); Interpretation Comment: (.)
== END ==
PROVIDERS: PCP Family Medicine; Referring Provider Family Medicine; Visit Provider Family Medicine
DX: J39.9 Disease of upper respiratory tract, unspecified (principal); I82.401 Acute embolism and thrombosis of unspecified deep veins of right lower extremity
CPT/HCPCS: 36415; 85300; 86147

== ENCOUNTER → 2021-01-27 | Outpatient (CLI) | payer MEDICARE, BC, SELFPAY | END | disposition home or self-care (01) | LOC: LABSPEC 14:43 | PROVIDERS: PCP Family Medicine; Referring Provider Family Medicine; Visit Provider Family Medicine | DX: U07.1 COVID-19 (principal) | CPT/HCPCS: 87635; U0005; U0003 ==

== ENCOUNTER 2021-08-09 10:08 | Outpatient (CLI) | payer MEDICARE, BC, SELFPAY ==
[2021-08-09 12:25] LABS: Absolute Lymphocyte Count 2.06 X10^3/uL (0.83-4.51); Absolute Neutrophil Count 3.2 X10^3/uL (2.0-7.7); Basophil# 0.04 X10^3/uL; Basophil% 0.7 % (0-1); Eosinophil# 0.15 X10^3/uL; Eosinophils% 2.5 % (0-5); Hematocrit 42.8 % (40-54); Hemoglobin 14.8 g/dL (13.0-16.5); Lymphocyte # 2.06 X10^3/ul (0.83-4.51); Mean Corp Hgb Conc 34.6 g/dL (32-36); Mean Corpuscular Hgb 31.9 pg (27.0-32.0); Mean Corpuscular Volume 92.2 fL (80-94); Mean Platelet Vol. 9.9 fl (6.2-12.0); Monocyte# 0.59 X10^3/uL; Monocyte% 9.7 % (0-10); NRBC Flagged by Analyzer 0 % (0-5); Neutrophil # 3.21 X10^3/uL (2.7-7.7); Neutrophil % 52.9 % (47-70); Platelet Count 186 K/mm3 (150-450); RBC Distribution Width CV 12.7 % (11.6-14.6); RBC Distribution Width SD 42.6 fl (35.1-43.9); Red Blood Count 4.64 M/mm3 (4.6-6.2); White Blood Count 6.1 K/mm3 (4.4-11.0)
[2021-08-09 12:59] LABS: ALB/GLOB Ratio 1.1 RATIO (0.9-2.4); AST(SGOT) 25 U/L (15-37); Alanine Aminotransfer ALT/SGPT 39 U/L (16-61); Albumin, Serum 3.6 g/dL (3.2-5.0); Alkaline Phosphatase 52 U/L (45-117); Anion Gap 5 (5-15); BUN 15 mg/dL (7-18); BUN/Creat Ratio 15.2 RATIO (10-20); Calcium,Total 9.8 mg/dL (8.5-10.1); Chloride 105 mmol/L (98-107); Cholesterol 218 mg/dL (200); Creatinine, Serum 0.99 mg/dL (0.70-1.30); EST Glomerular Filtration Rate 80 mL/min (>60); Est Glom Filt Rate - Afr Amer 97 mL/min (>60); Globulin 3.3 g/dL (2.2-4.2); Glucose 118 mg/dL (74-106); High Density Lipoprotein 112 mg/dL; Potassium 4.4 mmol/L (3.5-5.1); Protein, Total 6.9 g/dL (6.4-8.2); Sodium Level 136 mmol/L (136-145); Triglycerides 49 mg/dL; Very Low Density Lipoprotein 10 mg/dL (5-40)
[2021-08-09 13:20] LABS: Hemoglobin A1c 5.3 % (3.8-5.6)
[2021-08-09 13:21] LABS: Microalbumin,Random Urine 5.1 mg/L (NO RANGE EST.); Microalbumin:Creatinine Ratio 7.3 mg/g CRE (<30 mg/g CRE)
== END 2021-08-09 23:59 | disposition home or self-care (01) ==
LOC: MTLAB 10:10
PROVIDERS: PCP Family Medicine; Referring Provider Family Medicine; Visit Provider Family Medicine
DX: J43.9 Emphysema, unspecified (principal); I10 Essential (primary) hypertension; E66.9 Obesity, unspecified; R73.9 Hyperglycemia, unspecified
CPT/HCPCS: 36415; 80053; 80061; 82043; 82570; 83036; 85025

== ENCOUNTER → 2022-02-28 | Outpatient (CLI) | payer MEDICARE, BC, SELFPAY ==
[2022-02-28 10:01] LABS: Absolute Lymphocyte Count 2.19 X10^3/uL (0.83-4.51); Absolute Neutrophil Count 3.9 X10^3/uL (2.0-7.7); Basophil# 0.06 X10^3/uL; Basophil% 0.9 % (0-1); Eosinophil# 0.37 X10^3/uL; Eosinophils% 5.3 % (0-5); Hematocrit 40.8 % (40-54); Hemoglobin 13.4 g/dL (13.0-16.5); Lymphocyte # 2.19 X10^3/ul (0.83-4.51); Lymphocyte % 31.4 % (19-41); Mean Corp Hgb Conc 32.8 g/dL (32-36); Mean Corpuscular Hgb 30.9 pg (27.0-32.0); Mean Platelet Vol. 9.2 fl (6.2-12.0); Monocyte# 0.46 X10^3/uL; Monocyte% 6.6 % (0-10); NRBC Flagged by Analyzer 0 % (0-5); Neutrophil # 3.88 X10^3/uL (2.7-7.7); Neutrophil % 55.7 % (47-70); Platelet Count 330 K/mm3 (150-450); RBC Distribution Width CV 12.8 % (11.6-14.6); RBC Distribution Width SD 43.6 fl (35.1-43.9); Red Blood Count 4.34 M/mm3 (4.6-6.2)
[2022-02-28 10:25] LABS: Microalbumin,Random Urine < 5.0 mg/L (NO RANGE EST.)
[2022-02-28 10:53] LABS: ALB/GLOB Ratio 0.8 RATIO (0.9-2.4); AST(SGOT) 20 U/L (15-37); Alanine Aminotransfer ALT/SGPT 34 U/L (16-61); Albumin, Serum 3.1 g/dL (3.2-5.0); Alkaline Phosphatase 60 U/L (45-117); Anion Gap 8 (5-15); BUN 15 mg/dL (7-18); BUN/Creat Ratio 14.9 RATIO (10-20); Calcium,Total 9.3 mg/dL (8.5-10.1); Chloride 106 mmol/L (98-107); Creatinine, Serum 1.01 mg/dL (0.70-1.30); EST Glomerular Filtration Rate 78 mL/min (>60); Est Glom Filt Rate - Afr Amer 95 mL/min (>60); Globulin 3.8 g/dL (2.2-4.2); Glucose 119 mg/dL (74-106); Magnesium 2.2 mg/dL (1.6-2.6); Potassium 4.8 mmol/L (3.5-5.1); Protein, Total 6.9 g/dL (6.4-8.2); Sodium Level 138 mmol/L (136-145)
== END | disposition home or self-care (01) ==
LOC: MFPLAB 09:17
PROVIDERS: PCP Family Medicine; Referring Provider Family Medicine; Visit Provider Family Medicine
DX: I10 Essential (primary) hypertension (principal); I49.1 Atrial premature depolarization
CPT/HCPCS: 36415; 80053; 82043; 82570; 83735; 85025

== ENCOUNTER 2022-03-04 07:35 | Emergency (ER) | payer MEDICARE, BC, SELFPAY ==
[2022-03-04 07:38] VITALS: BP 144/83; PULSE 64; RESP 16; TEMP 36.6; O2SAT 98; BMI 29.6
--- NOTE | 2022-03-04 07:49 | VDLE_ITS ---
Reason For Study: pain RIGHT LEFT CFV is compressible, spontaneous, phasic, GSV is normal. competent and demonstrates normal CFV is compressible, spontaneous, phasic, augmentation. competent, and demonstrates normal Procedure augmentation. This is a venous duplex using B-mode, color Prox FV is compressible. flow and spectral Doppler. Mid and Dist FV, POP V, T/P Trunk, PTV, Exam performed portable in ED. Peroneal V, Gastroc V, Soleus V are dilated The exam was diagnostic. and noncompressible. A preliminary report was called and/or faxed SSV is dilated and noncompressible. to Dr. Blount. VL/Venous Duplex US, Unilateral Interpretation Summary Acute deep vein thrombosis is noted in the left femoral vein, left popliteal ve in, left tibio- peroneal trunk vein, left posterior tibial vein, left peroneal vein, left gastr ocnemius vein, left soleal vein Ordering Physician: Jose Blount Performed By: Ivan Barth RVT
--- NOTE | 2022-03-04 07:50 | EDS_ITS ---
HPI History of Present Illness Chief Complaint: Lower Extremity Injury Narrative Narrative: 66-year-old male presenting with left knee pain and left lower leg pain. He states yesterday he noticed he had pain behind the left knee. This is now spread down to the calf. 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 He was on anticoagulation for this. Subsequent to this he developed a DVT. After getting his COVID-vaccine. He states his primary care physician did not think it was associated with this. He is not on any long-term anticoagulation. Patient is denying chest pain or shortness of breath today. He does state that he recently had blood work done with Dr. Diaz and states he had some abnormal protein. Did not know what this is. [facility] Medical History Arrhythmia COPD (chronic obstructive pulmonary disease) GERD (gastroesophageal reflux disease) HTN (hypertension) Obesity (BMI 30.0-34.9) Pulmonary embolism Rectal bleeding Superficial venous thrombosis of upper extremity Syncope Home Medications carvedilol phosphate 20 mg capsule,ext.[id number] multiphase 20 mg PO DAILY HEART AND BLOOD PRESSURE 04/06/13 [History Last Taken 07/29/17] lisinopril 5 mg tablet 5 mg PO DAILY BLOOD PRESSURE 04/06/13 [History Last Taken 07/29/17] budesonide-formoterol HFA 160 mcg-4.5 mcg/actuation aerosol inhaler 2 puff inhalation DAILY BREATHING 07/29/17 [History Last Taken 07/29/17] diphenhydramine HCl 25 mg capsule 25 mg PO TID PRN PRN Allergies 5 days #15 caps 08/19/17 [Rx Last Taken Unknown] famotidine 20 mg tablet 20 mg PO BID #28 tabs 08/19/17 [Rx Last Taken Unknown] naproxen 500 mg tablet 500 mg PO BID PRN Pain 10/16/20 [History Last Taken Unknown] apixaban 5 mg (74 tabs) tablets in a dose pack (Eliquis DVT-PE Treat 30D Start) 5 mg PO BID #74 tabs 03/04/22 [Rx Last Taken Unknown] Allergy/AdvReac Type Severity Reaction Status Date / Time Iodinated Contrast Media AdvReac Itching Verified 03/04/22 07:37 Surgical History H/O colonoscopy Social History Smoking Status: Current every day smoker tobacco type: cigarettes ROS ROS ED Constitutional Constitutional ED: Denies chills or fever(s) Eyes Eyes: Denies change in vision ENT ENT ED: Denies rhinorrhea or sore throat Cardiovascular Cardiovascular: Denies chest pain or palpitations Respiratory/Chest Respiratory/Chest: Denies cough, dyspnea or dyspnea on exertion Gastrointestinal Gastrointestinal: Denies abdominal pain or constipation Genitourinary Genitourinary ED: Denies dysuria or hematuria Musculoskeletal Musculoskeletal: Reports other Details: Left knee pain, left calf pain ; Denies arthralgias or back pain Integumentary Denies abscess or Abrasions Neurologic Neurologic: Denies headache(s) or paresthesias EXAM Physical Exam Const Vital Signs: 03/04/22 07:38 Temperature 97.8 F Temperature Source Temporal Pulse Rate 64 Respiratory Rate 16 Blood Pressure 144/83 H Blood Pressure Mean 103 Pulse Ox 98 Oxygen Delivery Method Room Air Positive well nourished General Appearance ED: NAD HEENT Reports moist mucous membranes Negative for trauma Eyes PERRL Resp normal respiratory effort Cardio regular rate and regular rhythm Extremity Extremity Narrative: Tenderness palpation posterior to the left knee. No knee deformity. No patellar tenderness. No pain elicited over the medial lateral joint line. No limitation range of motion left calf is mildly tender to palpation proximally in the posterior midline. There is no cords palpated. Compartments are soft. Neuro oriented x3 and CN's II-XII intact bilaterally Sensorium / Orientation: alert Motor Exam: strength 5/5 throughout Psych mental status grossly normal Skin no wounds MDM MDM MDM Narrative Medical decision making narrative: Patient presenting with left posterior knee pain and history of DVT and PE. He is anticoagulated. I did order DVT study but due to the patient's arrival time does not want available. I am told we cannot call the on-call tech until 9 AM. I reported this to the patient and they are amenable to waiting. Patient states he does not need any analgesia. DVT study showed extensive DVT from the mid femoral down to the foot. No evidence of cerulea dolens or other acute pathology. Patient neurovascular intact. Spoke with Dr. Collins who recommended starting Eliquis and having him follow-up in office to ensure that he does not need any intervention. Patient notable this. He started on Eliquis with first dose in the ED. Impression: 1. Recurrent DVT Lab Data Attestation: I reviewed the patient's lab results. Discharge Plan Triage Chief Complaint: Lower Extremity Injury ED Provider: Jose Blount Dx/Rx/DC Orders Clinical Impression: DVT (deep venous thrombosis) Instructions: ED Deep Vein Thrombosis (DVT) Prescriptions: New Eliquis DVT-PE Treat 30D Start 5 mg (74 tabs) tablets,dose pack 5 mg PO BID Qty: 74 0RF Rx Instructions: 10 mg p.o. twice daily x1 week then 5 mg p.o. twice daily No Action lisinopril 5 MG tablet 5 mg PO DAILY Label Comments: High blood pressure carvedilol phosphate 20 MG capsule, ER multiphase 24 hr 20 mg PO DAILY Label Comments: Irregular heart rhythm/high blood pressure budesonide-formoterol 160-4.5 inhaler 2 puff INHALATION DAILY Label Comments: diphenhydramine HCl 25 MG capsule 25 mg PO TID PRN PRN (Reason: Allergies) 5 Days Qty: 15 0RF famotidine 20 MG tablet 20 mg PO BID Qty: 28 0RF naproxen 500 mg Tablet 500 mg PO BID PRN (Reason: Pain) Primary Care Provider: Kobe Diaz Referrals: Kobe Diaz MD [Primary Care Provider] - Kobe Collins MD [Med Staff - Active Staff] - As soon as possible Disposition Disposition: Home, Self Care
[2022-03-04] MEDS: APIXABAN 5 MG TABLET 10 MG PO (10:37)
[2022-03-04 10:40] VITALS: PULSE 62; RESP 15; O2SAT 99
== END 2022-03-04 10:40 | disposition home or self-care (01) ==
PROVIDERS: Emergency Provider Student in an Organized Health Care Education/Training Program; PCP Family Medicine; Visit Provider Student in an Organized Health Care Education/Training Program
DX: I82.412 Acute embolism and thrombosis of left femoral vein (principal); J44.9 Chronic obstructive pulmonary disease, unspecified; I82.432 Acute embolism and thrombosis of left popliteal vein; I82.452 Acute embolism and thrombosis of left peroneal vein; I82.442 Acute embolism and thrombosis of left tibial vein; I82.462 Acute embolism and thrombosis of left calf muscular vein; I10 Essential (primary) hypertension; F17.210 Nicotine dependence, cigarettes, uncomplicated; E66.9 Obesity, unspecified; Z68.29 Body mass index [BMI] 29.0-29.9, adult; Z79.899 Other long term (current) drug therapy; Z86.711 Personal history of pulmonary embolism
CPT/HCPCS: 93971; 99283

== ENCOUNTER 2022-05-30 07:10 | Day surgery (SDC) | payer MEDICARE, BC, SELFPAY ==
[2022-05-30] MEDS: Lactated Ringers 1,000 ML 15 ML IV (07:20)
[2022-05-30 07:22] VITALS: BP 133/89; PULSE 95; RESP 17; TEMP 36.2; O2SAT 99; BMI 29.6
--- NOTE | 2022-05-30 08:12 | HP.PCM_ITS ---
History and Physical Date of Admission: 05/30/22 Intake Vital Signs ? 04/19/2208:31 Height 6 ft 1 in Weight: 220 lb BMI 29.0 BP 140/84 H Blood Pressure LocationB Rt brachial Position Sitting Respiration 18 Intake Visit Reasons:?SCOPE- HX OF ADENOMA Chief Complaint: HX of adenoma Bag Inspector Required: No Is patient in pain?: No Allergies Iodinated Contrast Media Adverse Reaction (Verified 04/19/22 08:31) Itching Medications carvedilol phosphate 20 mg capsule,ext.[id number] multiphase 20 mg PO DAILY HEART AND BLOOD PRESSURE 04/06/13 [History Confirmed 04/19/22] lisinopril 5 mg tablet 5 mg PO DAILY BLOOD PRESSURE 04/06/13 [History Confirmed 04/19/22] budesonide-formoterol HFA 160 mcg-4.5 mcg/actuation aerosol inhaler 2 puff inhalation DAILY BREATHING 07/29/17 [History Confirmed 04/19/22] diphenhydramine HCl 25 mg capsule 25 mg PO TID PRN PRN Allergies 5 days #15 caps 08/19/17 [Rx Confirmed 04/19/22] apixaban 5 mg (74 tabs) tablets in a dose pack (Eliquis DVT-PE Treat 30D Start) 5 mg PO BID #74 tabs 03/04/22 [Rx Confirmed 04/19/22] omeprazole 20 mg capsule,delayed release 20 mg PO DAILY 03/07/22 [History Confirmed 04/19/22] PFSH Medical History? Arrhythmia COPD (chronic obstructive pulmonary disease) GERD (gastroesophageal reflux disease) HTN (hypertension) Obesity (BMI 30.0-34.9) Pulmonary embolism Rectal bleeding Superficial venous thrombosis of upper extremity Syncope Surgical History? H/O colonoscopy H/O knee surgery Social History? Smoking Status:? Former smoker Tobacco: How many years used:? 20 Smokeless tobacco user:? chewing tobacco how long ago did patient quit smoking:? 10 HPI HPI HPI: Patient is a 66-year-old male here for surveillance colonoscopy.? His last colonoscopy was about 5 years ago and he did have multiple polyps removed and was recommended for recall.? Patient denies any abdominal pain or blood in the stool.? Patient is on Eliquis for multiple PEs. ROS General General: Yes weight change; No appetite, fatigue, colon cancer, breast cancer or weakness HEENT HEENT: No difficulty swallowing, eye injury, eye surgery, swollen glands or hoarseness Endo Endocrine: No thyroid disease, diabetes mellitus, thyroid cancer, Hair loss, heat intolerance or cold intolerance Skin Skin: No rash or changing moles Breast Breast: No left breast lump, right breast lump, nipple discharge, breast pain, abnormal mammogram, abnormal US or breast enlargement Musc Musculoskeletal: Yes arthritis; No back problems, rheumatoid arthritis, gout or joint pain Cardio Cardiovascular: No murmur, pacemaker, heart disease, atrial fibrillation, high blood pressure, heart attack, heart stent, palpitations, shortness of breat with exertion or chest pain Psych Psychiatric: No depression, anxiety or hearing voices Resp Respiratory: No shortness of breath, No sleep apnea, No cough, Yes COPD, No asthma, No emphysema and No wheezing Gastro Gastrointestinal: No abdominal pain, No nausea or vomiting, No diarrhea, No constipation, Yes blood in stool, Yes acid reflux, Yes hemorrhoids, No ulcers, No gallbladder problem and No black,tarry stools Vinny Hematologic: Yes blood thinners, No blood disorders, No bleeding, No anemia and Yes blood clots Neuro Neurologic: No system reviewed and no additional complaints, except as documented, No as per HPI, No abnormal gait, No abnormal hearing, No abnormal movements, No abnormal speech, No behavioral changes, No burning sensations, No confusion, No convulsions, No disequilibrium, No dizziness, No localized weakness, No frequent falls, No headache(s), No lack of coordination, No loss of vision, No memory loss, No numbness, No other visual disturbances, No radicular pain, No restless legs, No sensory deficit, No syncope, No tingling, No tremor(s), No weakness and No other Exam Const General: cooperative Orientation: alert and oriented x3 HENMT Head: normal to inspection Neck Neck: normal visual inspection and full ROM Chest Chest palpation & inspection: normal inspection of the chest Resp Effort & Inspection: normal respiratory effort Auscultation: clear to auscultation bilaterally Cardio Rate: regular rate Rhythm: regular rhythm GI Inspection: non-distended Palpation: soft and nontender Skin General: no rashes or lesions noted Neuro General: patient alert and patient oriented x3 Extrem General: full ROM Psych Appearance: grossly normal Mental Status: mental status grossly normal Assessment and Plan Assessment and Plan (1) History of colon polyps: ?Status:?Acute ?Plan: Patient has a history of colon polyps found on colonoscopy about 5 years ago.? Patient is on Eliquis for multiple PEs and cannot come off of it.? I discussed his increased risk of bleeding but I would recommend performing the colonoscopy on Eliquis instead of the risk of holding it. I explained endoscopy in detail to the patient.? I explained the risks including but not limited to stroke or heart attack with anesthesia, perforation of the GI tract, bleeding, infection.? I explained that any of these could necessitate further emergency surgery.? The patient understands and all questions were answered sufficiently.? The patient wishes to proceed with procedure. Alo Abbasi MD Pager: [facility] [address] [place] [address] [address] [place] [address] Office: I have examined the patient and the H&P has been reviewed. There are no clinical changes since date of exam.
--- NOTE | 2022-05-30 08:15 | COLBX_PTH ---
PATIENT: JOHN GONZALEZ LOC: EN U#:[id number] AGE/SX: 67/M ROOM: RE05/30/[address]: Dr. Alo Abbasi MD : 1955 BED: DIS: 05/30/2022 SPEC #: [id number] RECD: 05/30/22 11:51 STATUS: RALF REBrian #: [id number] LUANN: 05/30/22 08:[address]: Alo Abbasi DEPT: SURGICAL PATHOLOGY RECD BY: Beulah De Leon ENTERED: 05/30/22 12:46 SP TYPE: COLON BX OTHR DR: Dr. Kobe Diaz MD Tissues: Rectum, NOS Procedures: Surgery Specimen Level IV HEADER OPERATION: Colonoscopy with polypectomy (MAC) PRE-OP DIAGNOSIS: History of colon polyps TISSUE SUBMITTED: Rectal polyps MICROSCOPIC DIAGNOSIS Rectal polyps, biopsy: Hyperplastic polyp. AM:anil 05/31/2022 MICROSCOPIC DESCRIPTION Slides are reviewed. GROSS DESCRIPTION Received in fixative is one container labeled with the patient's name and designated rectal polyps. The specimen consists of a deshpande-pink polyp measuring 0.6 x 0.5 x 0.3 cm. Multiple fragments of fecal material are also noted. The specimen is totally submitted in one cassette. / SJ:rg 05/30/2022 TC:5 CPT: 92709
[2022-05-30 08:35] VITALS: BP 114/77; BP 133/89; PULSE 84; RESP 16; TEMP 36.7; O2SAT 98
--- NOTE | 2022-05-30 08:35 | OP.COLON_ITS ---
Patient Name: Walter Hughes Procedure Date: 05/30/2022 8:08 AM Date of : 1955 Age: 67 Procedure: Colonoscopy Indications: High risk colon cancer surveillance: Personal history of colonic polyps Providers: Alo Abbasi MD Referring MD: Alo Abbasi MD Medicines: Monitored Anesthesia Care Patient Profile: This is a 67 year old male. Refer to note in patient chart for documentation of history and physical. Last Colonoscopy: 5 years ago. Complications: No immediate complications. Procedure: Pre-Anesthesia Assessment: - Prior to the procedure, a History and Physical was performed, and patient medications and allergies were reviewed. The patient's tolerance of previous anesthesia was also reviewed. The risks and benefits of the procedure and the sedation options and risks were discussed with the patient. All questions were answered, and informed consent was obtained. Prior Anticoagulants: The patient has taken Eliquis (apixaban), last dose was 2 days prior to procedure. After reviewing the risks and benefits, the patient was deemed in satisfactory condition to undergo the procedure. After I obtained informed consent, the scope was passed under direct vision. Throughout the procedure, the patient's blood pressure, pulse, and oxygen saturations were monitored continuously. The pediatric colonoscope was introduced through the anus and advanced to the cecum, identified by appendiceal orifice and ileocecal valve. The colonoscopy was performed without difficulty. The patient tolerated the procedure well. The quality of the bowel preparation was good. Scope In: 8:19:34 AM Scope Withdrawal Time 0 hours 9 minutes 45 seconds Scope Out: 8:31:18 AM Total Procedure Duration Time 0 hours 11 minutes 44 seconds Findings: Two polyps were found in the recto-sigmoid colon. The polyps were small in size. These polyps were removed with a hot snare. Resection and retrieval were complete. The exam was otherwise without abnormality on direct and retroflexion views. Impression: - Two small polyps at the recto-sigmoid colon, removed with a hot snare. Resected and retrieved. - The examination was otherwise normal on direct and retroflexion views. Recommendation: - Discharge patient to home. - Resume previous diet. - Continue present medications. - Resume Eliquis (apixaban) at prior dose tomorrow. - Await pathology results. - Repeat colonoscopy in 5 years for surveillance. Procedure Code(s): --- Professional --- 32685, Colonoscopy, flexible; with removal of tumor(s), polyp(s), or other lesion(s) by snare technique Diagnosis Code(s): --- Professional --- Z86.010, Personal history of colonic polyps D12.7, Benign neoplasm of rectosigmoid junction CPT copyright 2017 [employer]. All rights reserved. The codes documented in this report are preliminary and upon lead inspector review may be revised to meet current compliance requirements. Alo Abbasi MD 05/30/2022 8:34:41 AM This report has been signed electronically. Number of Addenda: 0 Note Initiated On: 05/30/2022 8:08 AM
--- NOTE | 2022-05-30 08:35 | OP.CCLET_ITS ---
05/30/2022 Kobe Diaz [address] [facility] [facility] [address] [place] [address] Re : Colonoscopy procedure for Walter Hughes Dear Dr. Diaz This procedure was performed on Monday, May 30, 2022. My impressions and recommendations are as follows: Impressions : - Two small polyps at the recto-sigmoid colon, removed with a hot snare. Resected and retrieved. - The examination was otherwise normal on direct and retroflexion views. Recommendations : - Discharge patient to home. - Resume previous diet. - Continue present medications. - Resume Eliquis (apixaban) at prior dose tomorrow. - Await pathology results. - Repeat colonoscopy in 5 years for surveillance. My findings are described in the full procedure note, which is enclosed. If I can be of further assistance, please feel free to contact me at Doctor phone number(s): , Work: . Sincerely, Alo Abbasi MD 05/30/2022 8:34:41 AM This report has been signed electronically.
[2022-05-30 08:40] VITALS: BP 112/82; BP 133/89; PULSE 94; RESP 16; O2SAT 98
[2022-05-30 08:45] VITALS: BP 107/79; BP 133/89; PULSE 84; RESP 16; O2SAT 100
[2022-05-30 08:50] VITALS: BP 126/79; BP 133/89; PULSE 81; RESP 16; TEMP 36.3; O2SAT 99
[2022-05-30 09:11] VITALS: BP 133/89
== END 2022-05-30 09:14 | disposition home or self-care (01) ==
LOC: EN 07:10 → AC 07:12
PROVIDERS: PCP Family Medicine; Referring Provider Surgery; Visit Provider Surgery
PROC: 0DJD8ZZ Inspection of Lower Intestinal Tract, Via Natural or Artificial Opening Endoscopic (ICD-10-PCS; CPT 45378; principal; 2022-05-30 08:10)
DX: Z12.11 Encounter for screening for malignant neoplasm of colon (principal); J44.9 Chronic obstructive pulmonary disease, unspecified; K63.5 Polyp of colon; K62.1 Rectal polyp; R23.3 Spontaneous ecchymoses; I10 Essential (primary) hypertension; R58 Hemorrhage, not elsewhere classified; Z87.891 Personal history of nicotine dependence; Z86.718 Personal history of other venous thrombosis and embolism; Z79.01 Long term (current) use of anticoagulants; Z79.899 Other long term (current) drug therapy; Z86.010 Personal history of colon polyps; Z86.711 Personal history of pulmonary embolism
CPT/HCPCS: 45385; 88305; J7120; J2405

== ENCOUNTER → 2022-08-28 | Outpatient (CLI) | payer MEDICARE, BC, SELFPAY ==
[2022-08-28 12:50] LABS: PSA,Total - Annual Screen 1.25 ng/mL (0.00-4.00)
== END | disposition home or self-care (01) ==
LOC: MFPLAB 10:12
PROVIDERS: PCP Family Medicine; Visit Provider Nurse Practitioner Family
DX: Z12.5 Encounter for screening for malignant neoplasm of prostate (principal)
CPT/HCPCS: 36415; 84153; G0103

== ENCOUNTER 2023-02-26 10:21 | Outpatient (CLI) | payer MEDICARE, BC, SELFPAY ==
[2023-02-26 12:23] LABS: Absolute Lymphocyte Count 2.19 X10^3/uL (0.83-4.51); Absolute Neutrophil Count 4.6 X10^3/uL (2.0-7.7); Basophil# 0.04 X10^3/uL; Basophil% 0.5 % (0-1); Eosinophil# 0.09 X10^3/uL; Eosinophils% 1.2 % (0-5); Hematocrit 43.2 % (40-54); Hemoglobin 14.3 g/dL (13.0-16.5); Lymphocyte # 2.19 X10^3/ul (0.83-4.51); Lymphocyte % 29.2 % (19-41); Mean Corp Hgb Conc 33.1 g/dL (32-36); Mean Corpuscular Hgb 32.4 pg (27.0-32.0); Mean Corpuscular Volume 97.7 fL (80-94); Mean Platelet Vol. 9.7 fl (6.2-12.0); Monocyte# 0.61 X10^3/uL; Monocyte% 8.1 % (0-10); NRBC Flagged by Analyzer 0 % (0-5); Neutrophil # 4.56 X10^3/uL (2.7-7.7); Neutrophil % 60.9 % (47-70); Platelet Count 210 K/mm3 (150-450); RBC Distribution Width CV 12.4 % (11.6-14.6); RBC Distribution Width SD 44.9 fl (35.1-43.9); Red Blood Count 4.42 M/mm3 (4.6-6.2); White Blood Count 7.5 K/mm3 (4.4-11.0)
[2023-02-26 12:43] LABS: Vitamin B12 421 pg/mL (211-911)
[2023-02-26 12:47] LABS: Microalbumin,Random Urine < 5.0 mg/L (NO RANGE EST.)
[2023-02-26 13:01] LABS: ALB/GLOB Ratio 0.9 RATIO (0.9-2.4); AST(SGOT) 22 U/L (15-37); Alanine Aminotransfer ALT/SGPT 32 U/L (16-61); Albumin, Serum 3.2 g/dL (3.2-5.0); Alkaline Phosphatase 71 U/L (45-117); Anion Gap 5 (5-15); BUN 13 mg/dL (7-18); BUN/Creat Ratio 13.9 RATIO (10-20); Calcium,Total 9.1 mg/dL (8.5-10.1); Chloride 107 mmol/L (98-107); Cholesterol 189 mg/dL (200); Creatinine, Serum 0.93 mg/dL (0.70-1.30); EST Glomerular Filtration Rate 85 mL/min (>60); Est Glom Filt Rate - Afr Amer 103 mL/min (>60); Ferritin 85 ng/mL (26-388); Globulin 3.6 g/dL (2.2-4.2); Glucose 125 mg/dL (74-106); High Density Lipoprotein 87 mg/dL; Potassium 4.3 mmol/L (3.5-5.1); Protein, Total 6.8 g/dL (6.4-8.2); Sodium Level 140 mmol/L (136-145); Triglycerides 81 mg/dL; Very Low Density Lipoprotein 16 mg/dL (5-40)
== END 2023-02-26 23:59 | disposition home or self-care (01) ==
LOC: MTLAB 10:23
PROVIDERS: PCP Family Medicine; Referring Provider Family Medicine; Visit Provider Family Medicine
DX: Z00.00 Encounter for general adult medical examination without abnormal findings (principal); I82.409 Acute embolism and thrombosis of unspecified deep veins of unspecified lower extremity; I10 Essential (primary) hypertension; Z15.89 Genetic susceptibility to other disease; Z79.01 Long term (current) use of anticoagulants; Z13.220 Encounter for screening for lipoid disorders
CPT/HCPCS: 36415; 80053; 80061; 82043; 82570; 82607; 82728; 82746; 85025

== ENCOUNTER → 2023-03-27 | Outpatient (CLI) | payer MEDICARE, BC, SELFPAY ==
--- NOTE | 2023-03-27 07:24 | CT_ITS ---
EXAM: CT CHEST, LUNG CANCER SCREENING WITHOUT INTRAVENOUS CONTRAST CLINICAL INDICATION: stopped 2012, and gt; 30 pack years TECHNIQUE: Helically acquired images were obtained of the chest without intravenous contrast using low dose (LDCT) lung cancer screening protocol. This CT exam was performed using one or more of the following dose reduction techniques: automated exposure control, adjustment of the mA and/or kV according to patient size, and/or use of iterative reconstruction technique. COMPARISON: No relevant prior studies available. FINDINGS: LUNGS AND PLEURAL SPACES: Paraseptal and centrilobular emphysematous changes of the lungs noted. No evidence of a lung mass or suspicious pulmonary nodule. No pleural effusion or thickening. No pneumothorax. HEART: Normal. Heart size is normal. No pericardial effusion. Moderate coronary artery calcification. MEDIASTINUM: Normal. No mediastinal or hilar adenopathy. Esophagus is unremarkable. No hiatal hernia. THYROID: Normal. No thyroid nodules or calcification. BONES/JOINTS: No suspicious lytic or blastic abnormality. VASCULATURE: Normal. Thoracic aorta is non-dilated. LYMPH NODES: Normal. No enlarged lymph nodes. CT/Low Dose CT Lung Screening IMPRESSION: 1. No evidence of a lung mass or suspicious pulmonary nodule. 2. Pulmonary emphysema. 3. Lung-RADS score: 1S - Additional clinically significant or potentially clinically significant findings are described. Recommend continued annual screening with a low-dose CT (LDCT) in 12 months. Electronically Signed: Romero Gilmore MD at 9:31 EST ,
== END | disposition home or self-care (01) ==
LOC: CT 07:24
PROVIDERS: PCP Family Medicine; Referring Provider Family Medicine; Visit Provider Family Medicine
DX: Z12.2 Encounter for screening for malignant neoplasm of respiratory organs (principal); Z87.891 Personal history of nicotine dependence
CPT/HCPCS: 71271

== ENCOUNTER → 2023-08-30 | Outpatient (CLI) | payer MEDICARE, BC, SELFPAY ==
[2023-08-30 12:23] LABS: Absolute Lymphocyte Count 1.53 X10^3/uL (0.83-4.51); Absolute Neutrophil Count 6.1 X10^3/uL (2.0-7.7); Basophil# 0.03 X10^3/uL; Basophil% 0.4 % (0-1); Eosinophil# 0.01 X10^3/uL; Eosinophils% 0.1 % (0-5); Hematocrit 37.2 % (40-54); Hemoglobin 11.9 g/dL (13.0-16.5); Lymphocyte # 1.53 X10^3/ul (0.83-4.51); Lymphocyte % 19.2 % (19-41); Mean Corpuscular Hgb 31.3 pg (27.0-32.0); Mean Corpuscular Volume 97.9 fL (80-94); Mean Platelet Vol. 9.5 fl (6.2-12.0); Monocyte# 0.21 X10^3/uL; Monocyte% 2.6 % (0-10); NRBC Flagged by Analyzer 0 % (0-5); Neutrophil # 6.13 X10^3/uL (2.7-7.7); Neutrophil % 77.2 % (47-70); Platelet Count 296 K/mm3 (150-450); RBC Distribution Width CV 13.1 % (11.6-14.6); RBC Distribution Width SD 46.6 fl (35.1-43.9)
[2023-08-30 12:50] LABS: ALB/GLOB Ratio 0.8 RATIO (0.9-2.4); AST(SGOT) 29 U/L (15-37); Alanine Aminotransfer ALT/SGPT 29 U/L (16-61); Alkaline Phosphatase 73 U/L (45-117); Anion Gap 3 (5-15); BUN 20 mg/dL (7-18); BUN/Creat Ratio 20.7 RATIO (10-20); Calcium,Total 8.9 mg/dL (8.5-10.1); Chloride 108 mmol/L (98-107); Creatinine, Serum 0.96 mg/dL (0.70-1.30); EST Glomerular Filtration Rate 82 mL/min (>60); Est Glom Filt Rate - Afr Amer 99 mL/min (>60); Globulin 3.6 g/dL (2.2-4.2); Glucose 106 mg/dL (74-106); Potassium 4.3 mmol/L (3.5-5.1); Protein, Total 6.6 g/dL (6.4-8.2); Sodium Level 137 mmol/L (136-145)
== END | disposition home or self-care (01) ==
LOC: MFPLAB 10:51
PROVIDERS: PCP Family Medicine; Visit Provider Family Medicine
DX: J43.9 Emphysema, unspecified (principal); I82.409 Acute embolism and thrombosis of unspecified deep veins of unspecified lower extremity; Z15.89 Genetic susceptibility to other disease; Z79.01 Long term (current) use of anticoagulants
CPT/HCPCS: 36415; 80053; 85025

== ENCOUNTER → 2024-02-28 | Outpatient (CLI) | payer MEDICARE, BC, SELFPAY ==
[2024-02-28 12:26] LABS: Absolute Lymphocyte Count 1.86 X10^3/uL (0.83-4.51); Absolute Neutrophil Count 3.9 X10^3/uL (2.0-7.7); Basophil# 0.03 X10^3/uL; Basophil% 0.5 % (0-1); Eosinophil# 0.11 X10^3/uL; Eosinophils% 1.7 % (0-5); Hematocrit 33.3 % (40-54); Hemoglobin 10.4 g/dL (13.0-16.5); Lymphocyte # 1.86 X10^3/ul (0.83-4.51); Lymphocyte % 29.1 % (19-41); Mean Corp Hgb Conc 31.2 g/dL (32-36); Mean Corpuscular Hgb 26.7 pg (27.0-32.0); Mean Corpuscular Volume 85.6 fL (80-94); Mean Platelet Vol. 10.2 fl (6.2-12.0); Monocyte# 0.49 X10^3/uL; Monocyte% 7.7 % (0-10); NRBC Flagged by Analyzer 0 % (0-5); Neutrophil % 60.8 % (47-70); Platelet Count 289 K/mm3 (150-450); RBC Distribution Width CV 15.7 % (11.6-14.6); RBC Distribution Width SD 48.4 fl (35.1-43.9); Red Blood Count 3.89 M/mm3 (4.6-6.2); White Blood Count 6.4 K/mm3 (4.4-11.0)
[2024-02-28 13:05] LABS: AST(SGOT) 24 U/L (15-37); Alanine Aminotransfer ALT/SGPT 24 U/L (16-61); Albumin, Serum 3.4 g/dL (3.2-5.0); Alkaline Phosphatase 65 U/L (45-117); Anion Gap 6 (5-15); BUN 16 mg/dL (7-18); Calcium,Total 9.4 mg/dL (8.5-10.1); Chloride 106 mmol/L (98-107); Creatinine, Serum 0.94 mg/dL (0.70-1.30); EST Glomerular Filtration Rate 84 mL/min (>60); Est Glom Filt Rate - Afr Amer 102 mL/min (>60); Globulin 3.5 g/dL (2.2-4.2); Glucose 110 mg/dL (74-106); Potassium 4.5 mmol/L (3.5-5.1); Protein, Total 6.9 g/dL (6.4-8.2); Sodium Level 138 mmol/L (136-145)
[2024-02-29 11:50] LABS: Vitamin B12 249 pg/mL (211-911)
== END | disposition home or self-care (01) ==
LOC: MFPLAB 09:41
PROVIDERS: PCP Family Medicine; Visit Provider Family Medicine
DX: I10 Essential (primary) hypertension (principal); K62.5 Hemorrhage of anus and rectum
CPT/HCPCS: 36415; 80053; 82607; 85025

== ENCOUNTER → 2024-04-22 | Outpatient (CLI) | payer MEDICARE, BC, SELFPAY ==
[2024-04-22 18:11] LABS: Absolute Lymphocyte Count 2.37 X10^3/uL (0.83-4.51); Absolute Neutrophil Count 4.2 X10^3/uL (2.0-7.7); Basophil# 0.03 X10^3/uL; Basophil% 0.4 % (0-1); Eosinophil# 0.14 X10^3/uL; Eosinophils% 1.9 % (0-5); Hematocrit 40.8 % (40-54); Hemoglobin 12.9 g/dL (13.0-16.5); Lymphocyte # 2.37 X10^3/ul (0.83-4.51); Lymphocyte % 32.3 % (19-41); Mean Corp Hgb Conc 31.6 g/dL (32-36); Mean Corpuscular Hgb 28.9 pg (27.0-32.0); Mean Corpuscular Volume 91.3 fL (80-94); Mean Platelet Vol. 9.7 fl (6.2-12.0); Monocyte# 0.63 X10^3/uL; Monocyte% 8.6 % (0-10); NRBC Flagged by Analyzer 0 % (0-5); Neutrophil # 4.15 X10^3/uL (2.7-7.7); Neutrophil % 56.5 % (47-70); POSITIVE MORPHOLOGY YES; Platelet Count 261 K/mm3 (150-450); RBC Distribution Width CV 21.2 % (11.6-14.6); RBC Distribution Width SD 69.3 fl (35.1-43.9); Red Blood Count 4.47 M/mm3 (4.6-6.2); White Blood Count 7.3 K/mm3 (4.4-11.0)
[2024-04-22 18:16] LABS: International Normalized Ratio 0.9; Prothrombin Time (Protime)PT. 12.4 SECONDS (11.7-14.9)
[2024-04-22 18:17] LABS: Partial Thromboplast Time 22.7 Seconds (24.1-36.2)
[2024-04-22 18:31] LABS: Differential Indicated SCAN CRITERIA MET
[2024-04-22 18:54] LABS: Anisocytosis 2+; Hypochromasia 1+; Platelet Estimate SLT INC (ADEQ)
[2024-04-22 18:55] LABS: Ovalocyte RARE; Stomatocyte RARE
== END | disposition home or self-care (01) ==
LOC: MTLAB 16:26
PROVIDERS: PCP Family Medicine; Referring Provider Family Medicine; Visit Provider Family Medicine
DX: K64.8 Other hemorrhoids (principal)
CPT/HCPCS: 36415; 85025; 85610; 85730

== ENCOUNTER → 2024-09-02 | Outpatient (CLI) | payer MEDICARE, BC, SELFPAY ==
--- NOTE | 2024-09-02 09:21 | RAD_ITS ---
EXAM: XR Right Wrist Complete, 3 or More Views CLINICAL INDICATION: PAIN TECHNIQUE: Frontal, lateral and oblique views of the right wrist. COMPARISON: No relevant prior studies available. FINDINGS: BONES/JOINTS: Lucency of the ulnar styloid process with degenerative changes could be a sequela of prior injury. Correlation with point tenderness is recommended. No acute fracture. No dislocation. SOFT TISSUES: Soft tissue swelling. No radiopaque foreign body. RAD/Wrist min 3 Views IMPRESSION: Lucency of the ulnar styloid process with degenerative changes could be a seque la of prior injury. Correlation with point tenderness is recommended. Reading Location: [facility]
--- NOTE | 2024-09-02 09:21 | RAD_ITS ---
EXAM: XR Left Wrist Complete, 3 or More Views CLINICAL INDICATION: PAIN TECHNIQUE: Frontal, lateral and oblique views of the left wrist. COMPARISON: No relevant prior studies available. FINDINGS: BONES/JOINTS: See below. SOFT TISSUES: Soft tissue swelling without acute fracture. No radiopaque foreign body. RAD/Wrist min 3 Views IMPRESSION: 1. Soft tissue swelling without acute fracture. 2. If symptoms persist, further evaluation with CT is recommended. Reading Location[facility]
== END | disposition home or self-care (01) ==
LOC: MTRAD 09:21
PROVIDERS: PCP Family Medicine; Referring Provider Family Medicine; Visit Provider Family Medicine
DX: M25.531 Pain in right wrist (principal); M25.532 Pain in left wrist
CPT/HCPCS: 73110

== ENCOUNTER → 2024-10-01 | Outpatient (CLI) | payer MEDICARE, BC, SELFPAY ==
--- NOTE | 2024-10-01 08:20 | CT_ITS ---
PROCEDURE: LOW DOSE CT LUNG SCREENING 10/01/2024 REASON FOR EXAM: TOBACCO USE Patient has smoked 1/2 pack per day for 25 years. Patient quit 14 years ago. TECHNIQUE: Low Dose CT Lung screening without contrast. Coronal and Sagittal reconstruction series were provided. One or more dose reduction techniques were used (e.g., Automated exposure control, adjustment of the mA and/or kV according to patient size, use of iterative reconstruction technique). REFERENCE LINK: [facility] Lung-RADS RADIATION DOSE SUMMARY: CTDlvol: 3.02 mGy DLP: 118.52 mGycm COMPARISON: None FINDINGS: PULMONARY NODULES: (Only nodules >3mm are reported) Nodules described below are on series 1 unless otherwise specified. Pulmonary Nodules: No suspicious nodules are seen. Hardware:None Lymph Nodes:Small benign-appearing mediastinal lymph nodes. Heart and Vasculature:Coronary artery calcifications are noted. Coronary Artery Calcifications: Present Lungs and Airways: Mild emphysematous changes are present. Pleura:Unremarkable Upper Abdomen:Unremarkable Bones:Degenerative changes of the thoracic spine. CT/Low Dose CT Lung Screening IMPRESSION: No suspicious nodules are seen. Coronary artery calcification (CAC) is is present Lung-RADS Category: 2 BENIGN (BASED ON IMAGING FEATURES OR INDOLENT BEHAVIOR). RECOMMEND 12-MONTH SCREENING LDCT. Other Significant Findings: None. Reading Location: [place] [address]
== END | disposition home or self-care (01) ==
LOC: CT 08:16
PROVIDERS: PCP Family Medicine; Referring Provider Family Medicine; Visit Provider Family Medicine
DX: Z12.2 Encounter for screening for malignant neoplasm of respiratory organs (principal); F17.211 Nicotine dependence, cigarettes, in remission
CPT/HCPCS: 71271

== ENCOUNTER → 2025-03-02 | Outpatient (CLI) | payer MEDICARE, BC, SELFPAY ==
--- OUTSIDE RECORDS SUMMARY | 2025-03-02 08:58 | XMS RPT_ITS | CCD ---
Author Organization [facility] Care Team Providers Care Chemical Recovery Operator Name Role Phone John Brandon Unavailable [phone] Pamela Bradford Unavailable Unavailabl Pamela Wolff Unavailable Unavailabl Roya Tom Unavailable Unavailab Roya [place] Unavailable Unavailab SIVA Sawyer Unavailable Unavailable SIVA BENDER Unavailable Unavailable WIARCHANA SIVA J Unavailable Unavailable WIARCHANA SIVA J Unavailable Unavailable Wendy Diaz Primary Care Provider [phone] GRACE PETTY Attending Unavail able WENDY DIAZ Primary Care Unavailable GRACE PETTY Admitting Unavail able JOVANNY, GRACE WRIGHT Referring Unavail able WENDY DIAZ Primary Care Unavailable CONN, GRACE JUAN Admitting Unavail able CONN, GRACE JUAN Referring Unavail able WENDY DIAZ Primary Care Unavailable Tomi Alvarado MD Unavailable [phone] Wendy Diaz Primary Care Provider Wendy Diaz MD Primary Care Provider Wendy Diaz MD Primary Care Provider Dr. Wendy Diaz Primary Care Provider Dr. Wendy Collins Attending Provider [phone] Wendy Diaz Referring Provider Wendy Diaz MD Primary Care Provider José Luis Chatman MD Unavailable JOSÉ LUIS CHATMAN Attending Unavailable JOSÉ LUIS CHATMAN Referring Unavailable WENDY DIAZ Primary Care Unavailable Dr. Wendy Diaz Primary Care Provider [phone] Wendy Collins Attending Provider Dr. Jose Blount Referring Provider Dr. Wendy Diaz Referring Provider [phone] Dr. Alo Abbasi Attending Provider Ayleen, Dr. Prajapati Referring Provider Ayleen, Dr. Prajapati Other Provider Dr. Wendy Diaz Primary Care Provider [phone] Alo Abbasi Attending Provider Ayleen, Dr. Prajapati Referring Provider Ayleen, Dr. Prajapati Other Provider JOSÉ LUIS CHATMAN Attending Unavailable JOSÉ LUIS CHATMAN Admitting Unavailable WENDY DIAZ MATTHEW Primary Care Unavailable Dr. Wendy Diaz MD Primary Care Provider [phone] Wendy Diaz MD Referring Provider [phone] Jamie Uribe MD Attending Provider Phuong CUSTOM CLOTHIER-C, Dinora Attending Provider Dr. Jamie Uribe MD Referring Provider Dr. Wendy Diaz MD Attending Provider [phone] Wendy Diaz MD Primary Care Provider Dr. Wendy Diaz MD Referring Provider [phone] Jamie Uribe MD Attending Provider Dr. Jamie Uribe MD Referring Provider Joe, Wendy Primary Care Unavailable Josefina Gregory Attending Unavailable Diaz, Wendy Primary Care Unavailable Joe, Wendy Referring Unavailable Alo Abbasi Attending Unavailable Joe, Wendy Referring Unavailable Jamie Uribe Attending Unavailable Diaz, Wendy Primary Care Unavailable Diaz, Wendy Primary Care Unavailable Meagan Prajapati Attending Unavailable Jamie Uribe Referring Unavailable Diaz, Wendy Primary Care Unavailable Wendy Diaz Attending Unavailable Joe, Wendy Referring Unavailable Jamie Uribe Attending Unavailable Joe, Wendy Primary Care Unavailable Prah, Jamie Attending Unavailable Diaz, Wendy Primary Care Unavailable Prah, Jamie Referring Unavailable Diaz, Wendy Primary Care Unavailable Diaz, Wendy Referring Unavailable Diaz, Wendy Attending Unavailable Diaz, Wendy Primary Care Unavailable Diaz, Wenyd Referring Unavailable Diaz, Wendy Attending Unavailable Diaz, Wendy Referring Unavailable Friend, Claudio Consulting Unavailable Diaz, Wendy Attending Unavailable Diaz, Wendy Primary Care Unavailable Diaz, Wendy Referring Unavailable Friend, Claudio Attending Unavailable Diaz, Wendy Primary Care Unavailable Prah, Jamie Attending Unavailable Diaz, Wendy Primary Care Unavailable Diaz, Wendy Referring Unavailable Diaz, Wendy Primary Care Unavailable Phuong CUSTOM CLOTHIER, Dinora Attending Unavailable Diaz, Wendy Referring Unavailable Diaz, Wendy Primary Care Unavailable Diaz, Wendy Referring Unavailable Prah, Jamie Attending Unavailable Allergies Allergy Classification Reported Allergen(s) Allergy Type Date of Onset Reaction(s) Facility (1 source) rivaroxaban; Translations: [RIVAROXABAN] Drug Allergy 8 [facility] Repository (1 source) IODINATED CONTRAST- ORAL AND IV DYE; Translations: [IODINATED CONTRAST- ORAL AND IV DYE] Propensity to adverse reactions to drug (disorder) 8 [facility] Repository (1 source) Contrast media drug allergy 0 [facility] Work Phone: (1 source) PLANT POLLENS; Translations: [PLANT POLLENS] allergy to substance 0 [facility] Work Phone: (9 sources) Ct: Iodinated Contrast- Oral And Iv Dye; Translations: [CT: IODINATED CONTRAST- ORAL AND IV DYE] Propensity to adverse reactions to drug 8 Itching, Swelling [facility] (12 sources) Iodinated Contrast Media; Translations: [Iodinated Contrast Media] Propensity to adverse reactions 1 Itching [facility] Medications Current Medications Medication Drug Class(es) Dates Sig (Normalized) Sig (Original) ascorbic acid 500 mg oral tablet (2 sources) Vitamin C take 1 tablet by mouth once daily ascorbic acid, vitamin C, (ascorbic acid with flora hips) 500 MG tablet Take 1 (one) tablet (500 mg total) by mouth daily . Active Budesonide-Formote rol (20 sources) Corticosteroid, beta2-Adrenergic Agonist Start: 03-20-2024 Budesonide-Formot vickie (Symbicort) 160-4.5 mcg/actuation HFA aerosol inhaler Active 2 NMA INHALATION TWICE A DAY March 20, 2024 1:00am Start: 01-12-2020 SYMBICORT 160- 4.5 MCG/ACT AERO 2 puffs daily BUDESONIDE-FORMOTEROL FUMARATE [id number] Stacy Hanks LPN Start: 07-29-2017 take 1 puff(s) by in halation once daily Budesonide-Formoterol Active 2 PUFF INHALATION DAILY July 29, 2017 10:42pm Start: 07-29-2017 End: 03-12-2024 Budesonide-Formoterol (Symbi rajiv) 160-4.5 inhaler Discontinued 2 NMA INHALATION DAILY July 29, 2017 12:00am March 12, 2024 8:03am Start: 07-29-2017 take 1 puff(s) by in halation once daily Budesonide-Formoterol (Symbicort) 160-4.5 inhaler Active 2 PUFF INHALATION DAILY July 29, 2017 12:00am Start: 07-29-2017 take 1 puff(s) by in halation once daily Budesonide-Formoterol (Symbicort) 160-4.5 inhaler Active 2 PUFF INHALATION DAILY July 28, 2017 11:00pm Start: 07-29-2017 take 1 puff(s) by in halation once daily Budesonide-Formoterol Active 2 PUFF INHALATION DAILY July 29, 2017 12:00am Start: 12-14-2014 End: 08-29-2019 take 2 puff(s) by inhalation once daily SYMBICORT 160-4.5 mcg/actuation inhaler Inhale 2 puffs daily . 0 12/14/2014 Active Start: 12-14-2014 SYMBICORT 160- 4.5 mcg/actuation inhaler Inhale 2 puffs daily . 12/14/2014 Active take 2 puff(s) by in halation once daily budesonide-formoteroL (SYMBICORT) 160-4.5 mcg/actuation inhaler Inhale 2 (two) puffs daily . Active take 2 puff(s) by in halation once daily budesonide-formoteroL (SYMBICORT) 160-4.5 mcg/actuation inhaler Inhale 2 (two) puffs daily . 0 Active take 2 puff(s) by in halation once daily budesonide-formoterol (SYMBICORT) 160-4.5 mcg/actuation inhaler Inhale 2 puffs daily . 0 Active budesonide-formo terol (SYMBICORT) 160-4.5 mcg/actuation inhaler Inhale 2 puffs . 0 Active carvedilol 12.5 mg oral tablet (20 sources) alpha-Adrenergic Zeferino, beta-Adrenergic Zeferino Start: 08-09-2023 End: 07-28-2024 Carvedilol 12.5 mg tablet Active mg PO March 12, 2024 12:00am Start: 11-09-2020 End: 06-23-2021 take 1 tablet by mouth twice daily carvediloL (COREG) 12.5 MG tablet Take 1 (one) tablet (12.5 mg total) by mouth 2 (two) times a day . 180 tablet 3 06/23/2021 Active Start: 07-23-2017 End: 08-29-2019 carvedilol (COREG CR) 20 MG 24 hr capsule Start: 04-06-2013 End: 03-12-2024 take 1 capsule by mouth once daily Carvedilol Phosphate 20 MG capsule, ER multiphase 24 hr Discontinued 12.5 mg PO DAILY April 06, 2013 1:00am March 12, 2024 8:03am Start: 04-06-2013 End: 04-03-2022 take 1 capsule by mouth once daily carvedilol (COREG CR) 20 MG 24 hr capsule Indications: Congestive heart failure (HCC) Take 1 (one) capsule (20 mg total) by mouth daily . 90 capsule 3 08/17/2020 04/03/2022 Discontinued (Dose adjustment) ferrous sulfate 325 mg oral tablet (7 sources) Start: 09-23-2024 take 1 tablet by mouth every week Ferrous Sulfate 325 mg (65 mg iron) tablet Active 325 mg PO .weekly September 23, 2024 11:07am Start: 04-07-2024 End: 09-23-2024 take 1 tablet by mouth once daily Ferrous Sulfate 325 mg (65 mg iron) tablet Discontinued 325 mg PO daily April 07, 2024 1:00am September 23, 2024 11:08am Foltanx RF 3 mg-35 mg-2 mg -90.314 mg cap (5 sources) Start: 05-15-2021 Foltanx RF 3 mg-35 mg-2 mg -90.314 mg cap Hydrocortisone Acetate 25 mg suppository (3 sources) Start: 04-25-2024 Hydrocortisone Acetate 25 mg suppository Active 25 mg RC TWICE A DAY April 25, 2024 1:00am ibuprofen 800 mg oral tablet (1 source) Nonsteroidal Anti-inflammatory Drug Start: 11-23-2018 End: 12-08-2018 take 1 tablet by mouth twice daily after mealtime ibuprofen (ADVIL,MOTRIN) 800 MG tablet Indications: Left foot pain , Acute left ankle pain Take 1 (one) tablet (800 mg total) by mouth 2 (two) times a day after meals for 15 days . 30 tablet 0 11/23/2018 12/08/2018 Active levomefolate (5 sources) Start: 03-20-2024 take 1 tablet by mouth once daily Levomefolate Calcium 15 mg tablet Active 15 mg PO daily March 20, 2024 1:00am levomefolate iliana cium (L-Methylfolate) 15 mg Tab Take by mouth daily . Active owmmmgmvismt-Y9-J1-B12 (CEREFOLIN) 6-5-50-1 mg Tab (3 sources) take 1 tablet by mouth once daily lexdiyzznrws-Q9-S2-B12 (CEREFOLIN) 6-5-50-1 mg Tab Take 1 (one) tablet by mouth daily . 0 Active nojemcbihoum-B0-B1-B12 (v-exgtrwihmelt-q0-b6-b12) 6-5-50-1 mg Tab (12 sources) take 1 tablet by mouth once daily qirhtvkasuxq-M0-V1-B12 (h-dpnomwukwnzn-i1-b6-b12) 6-5-50-1 mg Tab Take 1 tablet by mouth daily . 0 Active lisinopril 5 mg oral tablet (20 sources) Angiotensin Converting Enzyme Inhibitor Start : 08-08 End: 07-28 take 1 tablet by mouth once daily Lisinopril 5 mg tablet Active 5 mg PO daily March 20, 2024 1:00am Start: 07-18-2022 lisinopriL (NH INIVIL,ZESTRIL) 5 MG tablet Indications: Congestive heart failure (HCC) TAKE 1 TABLET DAILY 90 tablet 3 07/18/2022 Active Start: 04-06-2013 End: 03-12-2024 take 1 tablet by mouth once daily Lisinopril 5 MG tablet Discontinued 5 mg PO DAILY April 06, 2013 1:00am March 12, 2024 8:04am lysine 500 mg oral tablet (20 sources) Start: 03-20-2024 take 1 tablet by mouth once daily Lysine (L-Lysine) 500 mg tablet Active 500 mg PO daily March 20, 2024 1:00am Start: 05-25-2022 End: 03-12-2024 take 1 tablet by mouth once daily Lysine 500 mg Tablet Discontinued 500 mg PO DAILY May 25, 2022 1:00am March 12, 2024 8:04am mecobalamin 1 mg sublingual tablet (3 sources) Start: 04-07-2024 Mecobalamin (Vitamin B12) 1,000 mcg tablet,disintegrating Active 1000 ug SL THREE TIMES A DAY April 07, 2024 1:00am place tablet under tongue and allow to dissolve for at least30 secs before swallowing omeprazole 20 mg delayed release oral capsule (20 sources) Proton Pump Inhibitor Start: 03-07-2022 take 1 capsule by mouth once daily Omeprazole 20 mg capsule,delayed release(DR/EC) Active 20 mg PO DAILY March 07, 2022 12:00am Start: 01-12-2020 omeprazole (NH ILOSEC OTC) 20 MG tablet Take 1 (one) tablet (20 mg total) by mouth as needed . 01/12/2020 Active Start: 01-12-2020 PRILOSEC OTC 2 0 MG TBEC 1 tablet daily OMEPRAZOLE MAGNESIUM [id number] Stacy Hanks LPN Vitamin B Complex tablet (2 sources) Start: 09-23-2024 Vitamin B Comp ny tablet Active 1 {tbl} PO daily September 23, 2024 12:00am vitamin b12 1 mg oral tablet (2 sources) Vitamin B12 cyanocobalamin ( vitamin B-12) 1000 MCG tablet Take 1 (one) tablet (1,000 mcg total) by mouth Three tablets daily . Active Completed/Discontinued Medications Medication Drug Class(es) Dates Sig (Normalized) Sig (Original) amoxicillin 875 mg / clavulanate 125 mg oral tablet (11 sources) Penicillin-class Antibacterial Start: 07-29-2017 End: 07-30-2017 Amoxicillin/Potass ium Clav (Amox-Clav 875-125 Mg Tablet) 875-125 tablet Discontinued 1 {tbl} PO TWICE A DAY July 29, 2017 12:00am July 30, 2017 8:21am apixaban 5 mg oral tablet (16 sources) Factor Xa Inhibitor Start: 05-15-2024 End: 07-14-2024 take 1 tablet by mouth twice daily Apixaban (Eliquis) 5 mg tablet Discontinued 5 mg PO TWICE A DAY May 15, 2024 1:00am July 14, 2024 12:29pm Start: 03-24-2022 Eliquis 5 mg T ab 2 (two) times a day . 0 03/24/2022 Active Start: 03-04-2022 End: 03-12-2024 take 2 tablets by mouth twice daily, then take 1 tablet by mouth twice daily Apixaban (Eliquis Dvt-Pe Treat 30d Start) 5 mg (74 tabs) tablets,dose pack Discontinued 5 mg PO TWICE A DAY March 04, 2022 12:00am March 12, 2024 8:03am 10 mg p.o. twice daily x1 week then 5 mg p.o. twice daily aspirin 81 mg delayed release oral tablet (3 sources) Platelet Aggregation Inhibitor, Nonsteroidal Anti-inflammatory Drug End: 04-03-2022 take 1 tablet by mouth once daily aspirin 81 MG EC tablet Take 1 (one) tablet (81 mg total) by mouth daily . 0 04/03/2022 Discontinued diphenhydrAMINE hydrochloride 25 mg oral capsule (11 sources) Histamine-1 Receptor Antagonist Start: 08-19-2017 End: 04-07-2024 take 1 capsule by mouth three times daily as needed Diphenhydramine Hcl 25 MG capsule Discontinued 25 mg PO 3 TIMES DAILY NEEDED as needed for Allergies 15 August 19, 2017 12:00am April 07, 2024 11:30am famotidine 20 mg oral tablet (11 sources) Histamine-2 Receptor Antagonist Start: 08-19-2017 End: 03-07-2022 take 1 tablet by mouth twice daily Famotidine 20 MG tablet Discontinued 20 mg PO TWICE A DAY August 19, 2017 12:00am March 07, 2022 9:43am fexofenadine hydrochloride 180 mg oral tablet (16 sources) Histamine-1 Receptor Antagonist Start: 03-20-2024 End: 04-07-2024 take 1 tablet by mouth every twenty-four hours Fexofenadine (Katiuska Allergy) 180 mg tablet Discontinued 180 mg PO Q24H March 20, 2024 1:00am April 07, 2024 11:30am End: 08-29-2019 fexofenadine (KATIUSKA) 180 M G tablet Take 1 (one) tablet (180 mg total) by mouth as needed . Active Fluticasone Propion-Salmeterol (11 sources) Corticosteroid, beta2-Adrenergic Agonist Start: 04-06-2013 End: 04-06-2013 Fluticasone Propion-Salmeterol (Advair 250/50 Mcg Diskus) 1 PUFF inhaler Discontinued April 06, 2013 6:47pm April 06, 2013 10:04pm Start: 04-06-2013 End: 04-06-2013 Fluticasone Propion-Salmeter ol (Advair 250/50 Mcg Diskus) 1 PUFF inhaler Discontinued April 06, 2013 12:00am April 06, 2013 9:04pm Start: 04-06-2013 End: 04-06-2013 Fluticasone Propion-Salmeter ol (Advair 250/50 Mcg Diskus) 1 PUFF inhaler Discontinued April 06, 2013 1:00am April 06, 2013 10:04pm F-MRSOYLSUTOIX-I2-B12 TABS (1 source) Start: 01-12-2020 FOLTANX TABS 1 tablet daily Z-INFTVTWFRJGH-J3-B12 TABS [id number] Stacy Hanks LPN Levomefolate-Algal Oil (L-Methylfolate Forte) 15-90.314 mg capsule (8 sources) Start: 05-25-2022 End: 03-12-2024 take 15-90.314 mg by mouth once daily Levomefolate-Algal Oil (L-Methylfolate Forte) 15-90.314 mg capsule Discontinued 1 NMA PO DAILY May 25, 2022 1:00am March 12, 2024 8:03am Start: 05-25-2022 take 15-90.314 mg by mouth once daily Levomefolate-Algal Oil (L-Methylfolate Forte) 15-90.314 mg capsule Active 1 CAP PO DAILY May 25, 2022 1:00am Start: 05-25-2022 take 15-90.314 mg by mouth once daily Levomefolate-Algal Oil (L-Methylfolate Forte) 15-90.314 mg capsule Active 1 CAP PO DAILY May 25, 2022 12:00am mecobal-levomefolat Ca-B6 phos (Foltanx) 3-35-2 mg Tab (2 sources) Start: 01-12-2020 End: 08-23-2020 take 1 tablet by mouth once daily mecobal-levomefolat Ca-B6 phos (Foltanx) 3-35-2 mg Tab Take 1 tablet by mouth daily . 0 01/12/2020 08/23/2020 Discontinued (Duplicate order) naproxen 500 mg oral tablet (18 sources) Nonsteroidal Anti-inflammator y Drug Start: 10-16-2020 End: 04-03-2022 take 1 tablet by mouth twice daily as needed for pain Naproxen 500 mg Tablet Discontinued 500 mg PO TWICE A DAY as needed for Pain October 16, 2020 12:00am March 07, 2022 9:44am rivaroxaban 10 mg oral tablet (15 sources) Factor Xa Inhibitor Start: 03-20-2023 End: 09-23-2024 take 1 tablet by mouth once daily Rivaroxaban (Xarelto) 10 mg tablet Discontinued 10 mg PO daily March 12, 2024 12:00am September 23, 2024 11:07am Start: 10-17-2020 End: 11-16-2020 Rivaroxaban (Xarelto Dvt-Pe Treat 30d Start) 15 mg (42)- 20 mg (9) tablets,dose pack Discontinued 0 .ROUTE .COMPLEX October 17, 2020 11:38am November 16, 2020 12:01am Xarelto starter pack. Take as directed Start: 10-17-2020 End: 11-16-2020 Rivaroxaban (Xarelto Dvt-Pe Treat 30d Start) 15 mg (42)- 20 mg (9) tablets,dose pack Discontinued 0 .ROUTE .COMPLEX October 17, 2020 12:00am November 15, 2020 12:00am November 16, 2020 12:01am Xarelto starter pack. Take as directed Start: 10-17-2020 End: 11-16-2020 Rivaroxaban (Xarelto Dvt-Pe Treat 30d Start) 15 mg (42)- 20 mg (9) tablets,dose pack Discontinued 0 .ROUTE .COMPLEX October 16, 2020 11:00pm November 15, 2020 11:01pm Xarelto starter pack. Take as directed Start: 10-17-2020 End: 11-16-2020 Rivaroxaban (Xarelto Dvt-Pe Treat 30d Start) 15 mg (42)- 20 mg (9) tablets,dose pack Discontinued 0 .ROUTE .COMPLEX October 17, 2020 12:00am November 16, 2020 12:01am Xarelto starter pack. Take as directed Problems Active Problems Problem Classification Problem Date Documented Date Episodic/Chronic Aortic and peripheral arterial embolism or thrombosis (13 sources) Thromboembolic disorder; Translations: [Embolism and thrombosis of unspecified artery] Onset: 07-29-2024 Chronic Comment on above: Now off Eliquis/Xare lto. D-dimers is normal. He does not want to take anticoagulants. Now off Eliquis/Xare lto. D-dimers is normal. He does not want to take anticoagulants.Thrombotic risk profile I is within normal Limits. Cardiac dysrhythmias (20 sources) Supraventricular tachycardia; Translations: [Ventricular premature beats] Onset: 017 07-10-2016 Chronic Cardiac dysrhythmias (2 sources) Palpitations; Translations: [Palpitations] Episodic Chronic obstructive pulmonary disease and bronchiectasis (11 sources) Chronic obstructive lung disease; Translations: [Chronic obstructive pulmonary disease, unspecified] 05-25-2022 Chronic Comment on above: INHALER Coagulation and hemorrhagic disorders (9 sources) Hypercoagulability state; Translations: [Other primary thrombophilia] Onset: Chronic Congestive heart failure; nonhypertensive (20 sources) Congestive heart failure; Translations: [Chronic systolic heart failure] Onset: 016 07-10-2016 Chronic Esophageal disorders (20 sources) Gastroesophageal reflux disease; Translations: [Gastro-esophageal reflux disease without esophagitis] Onset: 017 07-10-2016 Chronic Essential hypertension (2 sources) Essential (primary) hypertension; Translations: [Essential (primary) hypertension] Onset: Chronic Gastrointestinal hemorrhage (11 sources) Rectal hemorrhage; Translations: [Hemorrhage of anus and rectum] 08-07-2017 Episodic Nutritional deficiencies (5 sources) Iron deficiency; Translations: [Iron deficiency] Onset: 025 07-14-2024 Episodic Other and unspecified benign neoplasm (8 sources) History of polyp of colon; Translations: [Personal history of colonic polyps] 04-19-2022 Episodic Other and unspecified benign neoplasm (1 source) Personal history of colonic polyps; Translations: [Personal history of colonic polyps] 04-19-2022 Episodic Other connective tissue disease (1 source) Palmar fascial fibromatosis [Dupuytren]; Translations: [Palmar fascial fibromatosis [Dupuytren]] Onset: 01-20-2020 Episodic Other connective tissue disease (1 source) Pain in left foot; Translations: [Left foot pain] Other nutritional; endocrine; and metabolic disorders (11 sources) Obese class I; Translations: [Obesity, unspecified] 08-07-2017 Chronic Juana-; endo-; and myocarditis; cardiomyopathy (except that caused by tuberculosis or sexually transmitted disease) (6 sources) Cardiomyopathy; Translations: [Dilated cardiomyopathy] Onset: Chronic Phlebitis; thrombophlebitis and thromboembolism (20 sources) Thrombosis of vein of upper limb; Translations: [Acute embolism and thrombosis of superficial veins of unspecified upper extremity] Episodic Comment on above: Venous duplex- DVT m id femoral vein and distal Pulmonary heart disease (11 sources) Acute pulmonary embolism; Translations: [Other pulmonary embolism without acute cor pulmonale] 10-16-2020 Episodic Residual codes; unclassified (11 sources) Edema of right lower limb; Translations: [Localized edema] 10-16-2020 Episodic Residual codes; unclassified (7 sources) Homozygous methylenetetrahydrofolate reductase mutation; Translations: [Genetic susceptibility to other disease] 07-29-2024 Episodic Comment on above: Homocysteine level i s normal. Residual codes; unclassified (1 source) Genetic susceptibility to other disease; Translations: [Genetic susceptibility to other disease] Onset: 025 Episodic Syncope (11 sources) Syncope; Translations: [Syncope and collapse] 08-07-2017 Episodic Unclassified (1 source) Unknown / UNK(Unknown) Onset: Past or Other Problems Problem Classification Problem Date Documented Da te Episodic/Chronic Deficiency and other anemia (1 source) Anemia, unspecified; Translations: [Anemia, unspecified] Onset: 05-15-2024 Episodic Hemorrhoids (12 sources) Bleeding hemorrhoids; Translations: [Unspecified hemorrhoids] Onset: 05-21-2024 07-29-2024 Episodic Other non-traumatic joint disorders (1 source) Acute ankle pain; Translations: [Acute left ankle pain] Episodic Other non-traumatic joint disorders (1 source) Pain in right wrist; Translations: [Pain in right wrist] Onset: 09-08-2024 Episodic Other screening for suspected conditions (not mental disorders or infectious disease) (1 source) Encounter for screening for malignant neoplasm of respiratory organs; Translations: [Encounter for screening for malignant neoplasm of respiratory organs] Onset: 10-06-2024 Episodic Unclassified (1 source) Problem Results Test Name Value Interpretation Reference Range Facility Low Dose CT Lung Screeningon 10-01-[address] Lung Screening [facility] Imaging Services [address] [place] [id number] Lung Screening MR#: [id number] Acct: [id number] Name: JOHN GONZALEZ Rep #: [id number] : 1955 M 69 From: Efrain patel MD PCP: Dr. Wendy Diaz MD Status: [facility] Study: Low Dose CT Lung Screening Date of Exam: 10/01 Exam# [id number] Ordering Dr: Wendy Diaz MD PROCEDURE: LOW DOSE CT LUNG SCREENING 10/01/2024 REASON FOR EXAM: TOBACCO USE Patient has smoked 1/2 pack per day for 25 years. Patient quit 14 years ago. TECHNIQUE: Low Dose CT Lung screening without contrast. Coronal and Sagittal reconstruction series were provided. One or more dose reduction techniques were used (e.g., Automated exposure control, adjustment of the mA and/or kV according to patient size, use of iterative reconstruction technique). REFERENCE LINK: [facility] Lung-RADS RADIATION DOSE SUMMARY: CTDlvol: 3.02 mGy DLP: 118.52 mGycm COMPARISON: None FINDINGS: PULMONARY NODULES: (Only nodules >3mm are reported) Nodules described below are on series 1 unless otherwise specified. Pulmonary Nodules: No suspicious nodules are seen. Hardware:None Lymph Nodes:Small benign-appearing mediastinal lymph nodes. Heart and Vasculature:Coronary artery calcifications are noted. Coronary Artery Calcifications: Present Lungs and Airways: Mild emphysematous changes are present. Pleura:Unremarkable Upper Abdomen:Unremarkable Bones:Degenerative changes of the thoracic spine. CT/Low Dose CT Lung Screening IMPRESSION: No suspicious nodules are seen. Coronary artery calcification (CAC) is is present Lung-RADS Category: 2 BENIGN (BASED ON IMAGING FEATURES OR INDOLENT BEHAVIOR). RECOMMEND 12-MONTH SCREENING LDCT. Other Significant Findings: None. Reading Location: [place] [address] CC: Dr. Wendy Diaz MD Drafter Mechanical: Signed Normal [facility] Oncology Visit Reporton 09-11 Oncology Visit Report [facility] [address] [place] [address]. [place] [address] OFFICE VISIT Date of Service: 09/23/24 1104 MR#: [id number] Acct: [id number] Name: JOHN GONZALEZ Rep #: [id number] : 1955 From: Jamie Uribe MD Age/Sex: 69/M Location: [facility] [facility] Status: Signed HPI Subjective Date of Service 09/23/24 Chief Complaint F/u for thromboembolism. History of Present Illness 69-year-old man was diagnosed with bilateral segmental and subsegmental PE July 2017. He got left femoral, popliteal, tibial peroneal, gastrocnemius and soleal vein DVT on 03/04/2022 after COVID vaccination. Since then has been on Xarelto 10 mg daily for thromboembolism prophylaxis. Transitioned to Eliquis 5 mg BID d/t cost. He dealt with chronic, intermittent bleeding hemorrhoids and patient was interested in discontinuing anticoagulation. Thus, he was referred to [facility] March 2024. Hemorrhoidal bleeding increased to daily, Xarelto was held 04/07/24. Underwent hemorrhoidal banding per GI on 04/24/2024. Shortly thereafter, bleeding has stopped and his pcp, Dr. Diaz restarted him on Eliquis. Then changed to Xarelto. He is now off anticoagulant. Comes for follow up. Feels well. [facility] Medical History Iron deficiency Wears glasses Alcohol use DVT (deep venous thrombosis) Easy bruising Excessive bleeding Gastric reflux Former smoker History of echocardiogram History of stress test Cardiology follow-up encounter History of irregular heartbeat Pulmonary embolism GERD (gastroesophageal reflux disease) Rectal bleeding Obesity (BMI 30.0-34.9) COPD (chronic obstructive pulmonary disease) Superficial venous thrombosis of upper extremity Syncope Arrhythmia HTN (hypertension) Surgical History History of cardiac catheterization H/O knee surgery H/O colonoscopy Family History Mother Hypertension Dementia Father Melanoma Brother Heart disease Social History Smoking Status: Former smoker Tobacco: How many years used: 20 Smokeless tobacco user: chewing tobacco how long ago did patient quit smokin Intake Vital Signs 07/29/24 10:33 09/23/24 11:05 Height 6 ft 6 ft Weight: 103.873 kg BMI 31.0 BP 132/80 H Blood Pressure Location Lt brachial Position Sitting Respiration 18 Pulse 59 L Pulse Source Monitor Temp 98.9 F Temperature Source Temporal Artery Pulse Oximetry (%) 95 Oxygen Delivery Method room air Intake Is patient in pain?: No Allergies Iodinated Contrast Media Adverse Reaction (Verified 09/23/24 11:06) Itching Medications ???Medication ???Instructions ???Recorded ???Confirmed ???Type omeprazole 20 mg capsule,delayed 20 mg PO DAILY 03/07/22 09/23/24 H istory release carvedilol 12.5 mg tablet mg PO 03/12/24 09/23/24 History budesonide-formoterol HFA 160 2 puff inhalation BID 03/20/24 History mcg-4.5 mcg/actuation aerosol inhaler (Symbicort) levomefolate calcium 15 mg tablet 15 mg PO QDAY 03/20/24 09/23/24 H istory lisinopril 5 mg tablet 5 mg PO QDAY 03/20/24 09/23/24 His tory lysine 500 mg tablet (L-Lysine) 500 mg PO QDAY 03/20/24 09/23/24 H istory mecobalamin (vitamin B12) 1,000 1,000 mcg sublingual TID 04/07/24 09/23/24 History mcg disintegrating tablet,sublingual hydrocortisone acetate 25 mg 25 mg NH BID #42 ea 04/25/2409/23 Rx rectal suppository ferrous sulfate 325 mg (65 mg 325 mg PO .weekly 09/23/24 5 History iron) tablet vitamin B complex 1 tab PO QDAY 09/23/24 09/23/24 Hi story Have you fallen in the past year?: No Central Venous Access Central Venous Access: No Coding Level of Care Code Off vis,est,level 3 Exam Problem Focused Diagnoses Thromboembolism I74.9 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 D-dimers is normal. He does not want to take anticoagulants. Thrombotic risk profile I is within normal Limits. Plan: To do observation. 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 Plan: To continue observation. F/u with Dr. Diaz and referred if new problems arise. Clinical Quality Measures Falls Risk Screening/Assistive Devices Have you fallen in the past year?: No 09/23/24 1324 Date Jamie Uribe MD Cosigner Signature: Date (if applicable) CC: Dr. Wendy Diaz MD [facility] [id number] 09-19-2024 [facility] Misc. COMMENT Normal . [facility] Comment on above: Order Comment: [id number] 2 THROMBOTIC - SERUM - RMT Result Comment: Test Ordered: [id number] Thrombotic Risk Profile I Homocyst(e)ine 10.9 umol/L CB Reference Range: 0.0-17.2 Plasminogen 119 % BN Reference Range: 70-150 Antithrombin Activity 96 % BN Reference Range: 75-135 Direct Xa inhibitor anticoagulants such as rivaroxaban, apixaban and edoxaban will lead to spuriously elevated antithrombin activity levels possibly masking a deficiency. Protein C-Functional 133 % BN Reference Range: 73-180 Protein S, Free 140 [H ] % BN Reference Range: 61-136 Act.Prt.C Resist. 2.9 ratio BN Reference Range: 2.2-3.5 The APCR result may be falsely increased (masking an abnormal, low APCR result) in patients on direct Xa inhibitor (e.g., rivaroxaban, apixaban, edoxaban) or a direct thrombin inhibitor (e.g., dabigatran) anticoagulant therapy due to assay interference by these drugs. PTT-LA 29.5 sec BN Reference Range: 0.0-43.5 dRVVT 40.6 sec BN Reference Range: 0.0-47.0 Lupus Reflex Interpretation Comment: BN Reference Range: . No lupus anticoagulant was detected. Dilute Prothrombin Time(dPT) 34.9 sec BN Reference Range: 0.0-47.6 dPT Confirm Ratio 1.14 Ratio BN Reference Range: 0.00-1.34 Anticardiolipin Ab,IgG,Qn <9 GPL U/mL CB Reference Range: 0-14 Negative: <15 Indeterminate: 15 - 20 Low-Med Positive: >20 - 80 High Positive: >80 Anticardiolipin Ab,IgM,Qn <9 MPL U/mL CB Reference Range: 0-12 Negative: <13 Indeterminate: 13 - 20 Low-Med Positive: >20 - 80 High Positive: >80 Beta-2 Glycoprotein I Ab, IgG <9 CB Units of Measure: GPI IgG units Reference Range: 0-20 The reference interval reflects a 3SD or 99th percentile interval, which is thought to represent a potentially clinically significant result in accordance with the International Consensus Statement on the classification criteria for definitive antiphospholipid syndrome (APS). J Thromb Haem 2006;4:295-306. Beta-2 Glycoprotein I Ab, IgM <9 CB Units of Measure: GPI IgM units Reference Range: 0-32 The reference interval reflects a 3SD or 99th percentile interval, which is thought to represent a potentially clinically significant result in accordance with the International Consensus Statement on the classification criteria for definitive antiphospholipid syndrome (APS). J Thromb Haem 2006;4:295-306. Factor II, DNA Analysis Comment TG Reference Range: . Result: c.*97G>A - Not Detected This result is not associated with an increased risk for venous thromboembolism. See Additional Clinical Information and Comments. Additional Clinical Information: Venous thromboembolism is a multifactorial disease influenced by genetic, environmental, and circumstantial risk factors. The c.*97G>A variant in the F2 gene is a genetic risk factor for venous thromboembolism. Heterozygous carriers have a 2- to 4-fold increased risk for venous thromboembolism. Homozygotes for the c.*97G>A variant are rare. The annual risk of VTE in homozygotes has been reported to be 1.1%/year. Individuals who carry both a c.*97G>A variant in the F2 gene and a c.1601G>A (p. Bqp263Mut) variant in the F5 gene (commonly referred to as Factor V Leiden) have an approximately 20- fold increased risk for venous thromboembolism. Risks are likely to be even higher in more complex genotype combinations involving the F2 c.*97G>A variant and Factor V Leiden (PMID: [id number]). Additional risk factors include but are not limited to: deficiency of protein C, protein S, or antithrombin III, age, male sex, personal or family history of deep vein thromboembolism, smoking, surgery, prolonged immobilization, malignant neoplasm, tamoxifen treatment, raloxifene treatment, oral contraceptive use, hormone replacement therapy, and . Management of thrombotic risk and thrombotic events should follow established guidelines and fit the clinical circumstance. This result cannot predict the occurrence or recurrence of a thrombotic event. Comments: Genetic counseling is recommended to discuss the potential clinical implications of positive results, as well as recommendations for testing family members. Genetic Coordinators are available for health care providers to discuss results at [phone] Test Details: Variant analyzed: c.*97G>A, previously referred to as [id number] Methods/Limitations: DNA analysis of the F2 gene ([id number]) was performed by PCR amplification followed by restriction enzyme analysis. The diagnostic sensitivity is >99%. Results must be combined with clinical information for the most accurate interpretation. Molecular-based testing is highly accurate, but as in any laboratory test, diagnostic errors may occur. False positive or false negative results may occur for reasons that include genetic variants, blood transfusions, bone marrow transplantation, somatic or tissue-specific mosaicism, mislabeled samples, or erroneous representation of family rela (more content not included)... Performed By: #### L 803.0600, L3410.9992, L500.4050, L100.0100, L504.2610 #### [facility] [address] [place], [address] L803.0600on 09-18-2024 HOMOCYSTEINE 8.3 umol/L Normal 0.0-17.2 [facility] Comment on above: Order Comment: Reaso n for Exam: HTN/HX OF PE/DVT Result Comment: Perf ormed at: - [facility] [place] [id number] Hydropress Operator: Elio Coppola PhD, Phone: [phone] Performed By: #### L 803.0600, L3410.9992, L500.4050, L100.0100, L504.2610 #### [facility] [address] [place], [place], [id number] Absolute lymphocyte countOrd ered By: Jamie Uribe on 09-16-2024 Lymphocytes Auto (Unsp spec) [#/Vol] 1.90 10*3/uL 0.83-4.51 [facility] Absolute neutrophil countOrd ered By: Jamie [facility] on 09-16-2024 Neutrophils (Bld) [#/Vol] 3.1 10*3/uL 2.0-7.7 [facility] Anion gap in Serum or Plasma Ordered By: Jamie Uribe on 09-16-2024 Anion gap [Moles/Vol] 9 mmol/L 5-15 [facility] Automated lymphocyte count a s percentage of total leukocytesOrdered By: Jamie Uribe on 09-16-2024 Lymphocytes/100 WBC Auto (Unsp spec) 33.1 % 19- [facility] BUN/creatinine ratioOrdered By: Jamie Uribe on 09-16-2024 Urea nitrogen/Creatinine [Mass ratio] 13.3 mg/mg 10-20 [facility] Basophil percentageOrdered B y: Jamie Uribe on 09-16-2024 Basophils/100 WBC (Bld) 0.5 % 0-1 [facility] Bilirubin, totalOrdered By: Jamie Uribe on 09-16-2024 Bilirubin [Mass/Vol] 0.43 mg/dL 0.00-1.[address] [facility] CBC W/Diff, Automatedon Absolute Lymph 1.90 X10 3/uL Normal 0.83-4.51 [facility] Comment on above: Performed By: #### L 803.0600, L3410.9992, L500.4050, L100.0100, L504.2610 #### [facility] [address] [place], [address] Absolute Neut 3.1 X10 3/uL Normal 2.0-7.7 [facility] Comment on above: Performed By: #### L 803.0600, L3410.9992, L500.4050, L100.0100, L504.2610 #### [facility] [address] [place], [address] Basophils/100 WBC (Bld) 0.5 % Normal 0-1 [facility] Comment on above: Performed By: #### L 803.0600, L3410.9992, L500.4050, L100.0100, L504.2610 #### [facility] [address] [place], [address] Eosinophils/100 WBC (Bld) 2.1 % Normal 0-5 [facility] Comment on above: Performed By: #### L 803.0600, L3410.9992, L500.4050, L100.0100, L504.2610 #### [facility] [address] [place], [address] Erythrocyte distribution width (RBC) [Ratio] 13.2 % Normal 11.6-14.6 [facility] Comment on above: Performed By: #### L 803.0600, L3410.9992, L500.4050, L100.0100, L504.2610 #### [facility] [address] [place], [address] Hematocrit (Bld) [Volume fraction] 41.5 % Normal 40-54 [facility] Comment on above: Performed By: #### L 803.0600, L3410.9992, L500.4050, L100.0100, L504.2610 #### [facility] [address] [place], [address] Hemoglobin (Bld) [Mass/Vol] 14.3 g/dL Normal 13.0-16.5 [facility] Comment on above: Performed By: #### L 803.0600, L3410.9992, L500.4050, L100.0100, L504.2610 #### [facility] [address] [place], [address] IG% 0.200 Normal 0.0-0.9 [facility] Comment on above: Result Comment: IG% - Immature Granulocytes (promyelocytes, myelocytes and metamyelocytes) > 1% indicates that a LEFT SHIFT is Present. Performed By: #### L 803.0600, L3410.9992, L500.4050, L100.0100, L504.2610 #### [facility] [address] [place], [address] Lymphocytes/100 WBC (Bld) 33.1 % Normal 19-41 [facility] Comment on above: Performed By: #### L 803.0600, L3410.9992, L500.4050, L100.0100, L504.2610 #### [facility] [address] [place], [address] MCH (RBC) [Entitic mass] 33.3 pg High 27.0-32.0 [facility] Comment on above: Performed By: #### L 803.0600, L3410.9992, L500.4050, L100.0100, L504.2610 #### [facility] [address] [place], [address] MCHC (RBC) [Mass/Vol] 34.5 g/dL Normal 32-36 [facility] Comment on above: Performed By: #### L 803.0600, L3410.9992, L500.4050, L100.0100, L504.2610 #### [facility] [address] [place], [address] MCV (RBC) [Entitic vol] 96.5 fL High 80-94 [facility] Comment on above: Performed By: #### L 803.0600, L3410.9992, L500.4050, L100.0100, L504.2610 #### [facility] [address] [place], [address] Monocytes/100 WBC (Bld) 9.6 % Normal 0-10 [facility] Comment on above: Performed By: #### L 803.0600, L3410.9992, L500.4050, L100.0100, L504.2610 #### [facility] [address] [place], [address] Neutrophils/100 WBC (Bld) 54.5 % Normal 47-70 [facility] Comment on above: Performed By: #### L 803.0600, L3410.9992, L500.4050, L100.0100, L504.2610 #### [facility] [address] [place], [address] Nucleated RBC (Bld) [#/Vol] 0 10*3/uL Normal 0-5 [facility] Comment on above: Performed By: #### L 803.0600, L3410.9992, L500.4050, L100.0100, L504.2610 #### [facility] [address] [place], [address] Platelet mean volume (Bld) [Entitic vol] 9.3 fL Normal 6.2-12.0 [facility] Comment on above: Performed By: #### L 803.0600, L3410.9992, L500.4050, L100.0100, L504.2610 #### [facility] [address] [place], [address] Platelets (Bld) [#/Vol] 222 10*3/uL Normal 150-450 [facility] Comment on above: Performed By: #### L 803.0600, L3410.9992, L500.4050, L100.0100, L504.2610 #### [facility] [address] [place], [address] RBC (Bld) [#/Vol] 4.30 10*6/uL Low 4.6-6.2 [facility] Comment on above: Performed By: #### L 803.0600, L3410.9992, L500.4050, L100.0100, L504.2610 #### [facility] [address] [place], [address] RDW SD 46.6 fl High 35.1-43.9 [facility] Comment on above: Performed By: #### L 803.0600, L3410.9992, L500.4050, L100.0100, L504.2610 #### [facility] [address] [place], [address] WBC (Bld) [#/Vol] 5.7 10*3/uL Normal 4.4-11.0 [facility] Comment on above: Performed By: #### L 803.0600, L3410.9992, L500.4050, L100.0100, L504.2610 #### [facility] [address] [place], [address] Calculated very low density lipoprotein (VLDL) cholesterol measurementOrdered By: Wendy Diaz on 09-16-2024 Calculated very low density lipoprotein (VLDL) cholesterol measurement 21 mg/dL 5-40 [facility] Carbon dioxide, total [Moles /volume] in Central venous bloodOrdered By: Jamie Uribe on 09-16-2024 CO2 [Moles/Vol] 25.6 mmol/L 21.0-32.0 [facility] Chloride assayOrdered By: Mary Kate Uribe on 09-16-2024 Chloride [Moles/Vol] 104 mmol/L 98-[address] [facility] Comprehensive Metabolic Prof ilon 09-16-2024 Albumin [Mass/Vol] 3.7 g/dL Normal 3.4-4.8 [facility] Comment on above: Performed By: #### L 803.0600, L3410.9992, L500.4050, L100.0100, L504.2610 #### [facility] [address] [place], [address] Albumin/Globulin [Mass ratio] 1.4 {ratio} Normal 0.9-2.4 [facility] Comment on above: Performed By: #### L 803.0600, L3410.9992, L500.4050, L100.0100, L504.2610 #### [facility] [address] [place], [address] ALK PHOS 79 U/L Normal 40-129 [facility] Comment on above: Performed By: #### L 803.0600, L3410.9992, L500.4050, L100.0100, L504.2610 #### [facility] [address] [place], [address] ALT [Catalytic activity/Vol] 24 U/L Normal <=46 [facility] Comment on above: Performed By: #### L 803.0600, L3410.9992, L500.4050, L100.0100, L504.2610 #### [facility] [address] [place], [address] AST [Catalytic activity/Vol] 30 U/L Normal <=37 [facility] Comment on above: Performed By: #### L 803.0600, L3410.9992, L500.4050, L100.0100, L504.2610 #### [facility] [address] [place], [address] Bilirubin [Mass/Vol] 0.43 mg/dL Normal 0.00-1.[address] [facility] Comment on above: Performed By: #### L 803.0600, L3410.9992, L500.4050, L100.0100, L504.2610 #### [facility] [address] [place], [address] BUN/CRE 13.3 RATIO Normal 10-20 [facility] Comment on above: Performed By: #### L 803.0600, L3410.9992, L500.4050, L100.0100, L504.2610 #### [facility] [address] [place], [address] Calcium [Mass/Vol] 9.1 mg/dL Normal 7.6-11.0 [facility] Comment on above: Performed By: #### L 803.0600, L3410.9992, L500.4050, L100.0100, L504.2610 #### [facility] [address] [place], [address] Chloride [Moles/Vol] 104 mmol/L Normal 98-[address] [facility] Comment on above: Performed By: #### L 803.0600, L3410.9992, L500.4050, L100.0100, L504.2610 #### [facility] [address] [place], [address] CO2 [Moles/Vol] 25.6 mmol/L Normal 21.0-32.0 [facility] Comment on above: Performed By: #### L 803.0600, L3410.9992, L500.4050, L100.0100, L504.2610 #### [facility] [address] [place], [address] Creatinine [Mass/Vol] 0.87 mg/dL Normal 0.70-1.20 [facility] Comment on above: Performed By: #### L 803.0600, L3410.9992, L500.4050, L100.0100, L504.2610 #### [facility] [address] [place], [address] ECRCL 98.06 ml/min Normal 50-250 [facility] Comment on above: Performed By: #### L 803.0600, L3410.9992, L500.4050, L100.0100, L504.2610 #### [facility] [address] [place], [address] GAP 9 Normal 5-15 [facility] Comment on above: Performed By: #### L 803.0600, L3410.9992, L500.4050, L100.0100, L504.2610 #### [facility] [address] [place], [address] GFR/1.73 sq M.predicted among non-blacks MDRD (S/P/Bld) [Vol rate/Area] 93 mL/min/{1.73_m2} Normal >60 [facility] Comment on above: Result Comment: mL/m in/1.73m2 CKD-EPI Creatinine Equation (2020) Performed By: #### L 803.0600, L3410.9992, L500.4050, L100.0100, L504.2610 #### [facility] [address] [place], [address] Globulin (S) [Mass/Vol] 2.6 g/dL Normal 2.2-4.2 [facility] Comment on above: Performed By: #### L 803.0600, L3410.9992, L500.4050, L100.0100, L504.2610 #### [facility] [address] [place], [address] Glucose [Mass/Vol] 124 mg/dL High 70-99 [facility] Comment on above: Performed By: #### L 803.0600, L3410.9992, L500.4050, L100.0100, L504.2610 #### [facility] [address] [place], [address] Potassium [Moles/Vol] 4.8 mmol/L Normal 3.3-5.1 [facility] Comment on above: Performed By: #### L 803.0600, L3410.9992, L500.4050, L100.0100, L504.2610 #### [facility] [address] [place], [address] Sodium [Moles/Vol] 138 mmol/L Normal 133-145 [facility] Comment on above: Performed By: #### L 803.0600, L3410.9992, L500.4050, L100.0100, L504.2610 #### [facility] [address] [place], [address] T PROT 6.3 g/dL Normal 5.9-8.4 [facility] Comment on above: Performed By: #### L 803.0600, L3410.9992, L500.4050, L100.0100, L504.2610 #### [facility] [address] [place], [address] Urea nitrogen [Mass/Vol] 12 mg/dL Normal 4-19 [facility] Comment on above: Performed By: #### L 803.0600, L3410.9992, L500.4050, L100.0100, L504.2610 #### [facility] [address] [place], [address] Eosinophil percentageOrdered By: Jamie Uribe on 09-16-2024 Eosinophils/100 WBC (Bld) 2.1 % 0-5 [facility] Erythrocyte distribution wid th ratioOrdered By: Jamie Uribe on 09-16-2024 Erythrocyte distribution width (RBC) [Ratio] 13.2 % 11.6-14.6 [facility] Erythrocyte distribution wid th standard deviationOrdered By: Jamie Uribe on 09-16-2024 Erythrocyte distribution width (RBC) [Ratio] 46.6 fl High 35.1-43.9 [facility] Glomerular filtration rate ( GFR) estimation/1.73 sq m using serum, plasma, or whole bOrdered By: Jamie Uribe on 09-16-2024 GFR/1.73 sq M.predicted among non-blacks MDRD (S/P/Bld) [Vol rate/Area] 93 mL/min/{1.73_m2} >60 [facility] Comment on above: mL/min/1.73m2 CKD-EP I Creatinine Equation (2020) Hematocrit Auto (Bld) [Volum e fraction]Ordered By: Jamie Uribe on 09-16-2024 Hematocrit (Bld) [Volume fraction] 41.5 % 40-54 [facility] Hemoglobin measurementOrdere d By: Jamie Uribe on 09-16-2024 Hemoglobin (Bld) [Mass/Vol] 14.3 g/dL 13.0-16.5 [facility] Immature granulocytes/100 WB C Auto (Bld)Ordered By: Jamie Uribe on 09-16-2024 Immature granulocytes/100 WBC (Bld) 0.200 % 0.0-0.9 [facility] Comment on above: IG% - Immature Granu locytes (promyelocytes, myelocytes and metamyelocytes) > 1% indicates that a LEFT SHIFT is Present. LDHon 09-16-2024 LDH 179 U/L Normal 87-241 [facility] Comment on above: Order Comment: 1 Performed By: #### L 803.0600, L3410.9992, L500.4050, L100.0100, L504.2610 #### [facility] [address] [place], [place], [id number] LDL calc ser/plasOrdered By: Wendy Diaz on 09-16-2024 Cholesterol in LDL [Mass/Vol] 121 mg/dL [facility] Comment on above: Ddfecnknij=371-554 m g/dL & Higher Kwwv=042 mg/dL or greater Laboratory - Chemistry and C hemistry - challengeOrdered By: Jamie Uribe on 09-16-2024 AST [Catalytic activity/Vol] 30 U/L <38 [facility] Lactate dehydrogenase (LDH) measurementOrdered By: Jamie Uribe on 09-16-2024 LDH [Catalytic activity/Vol] 179 U/L 87-241 [facility] Lipid Profileon 09-16-2024 CHOL:HDL 2.59 Normal [facility] Comment on above: Performed By: #### L 803.0600, L3410.9992, L500.4050, L100.0100, L504.2610 #### [facility] [address] [place], [place], [address] Cholesterol [Mass/Vol] 232 mg/dL High <=200 [facility] Comment on above: Result Comment: Chol esterol level, Desirable <200 mg/dL Borderline high cholesterol 200-239 mg/dL High cholesterol >=240 mg/dL Recommendations of the NCEP Adult Treatment Panel for the following risk-cutoff thresholds for the [place] population. Performed By: #### L 803.0600, L3410.9992, L500.4050, L100.0100, L504.2610 #### [facility] [address] [place] [place], [address] Cholesterol in HDL [Mass/Vol] 90 mg/dL Normal [facility] Comment on above: Result Comment: [place] onal Cholesterol Education Program (NCEP) guidelines: <40 mg/dL: Low HDL-cholesterol (major risk factor for CHD) >= 60 mg/dL: High HDL-cholesterol (negative risk factor for CHD) HDL-cholesterol is affected by a number of factors, e.g. smoking, exercise, hormones, sex and age. Performed By: #### L 803.0600, L3410.9992, L500.4050, L100.0100, L504.2610 #### [facility] [address] [place], [address] Cholesterol in LDL [Mass/Vol] 121 mg/dL Normal [facility] Comment on above: Result Comment: Bord oxelst=270-215 mg/dL Higher Xeve=929 mg/dL or greater Performed By: #### L 803.0600, L3410.9992, L500.4050, L100.0100, L504.2610 #### [facility] [address] [place], [address] Cholesterol in VLDL [Mass/Vol] 21 mg/dL Normal 5-40 [facility] Comment on above: Performed By: #### L 803.0600, L3410.9992, L500.4050, L100.0100, L504.2610 #### [facility] [address] [place], [address] Triglyceride [Mass/Vol] 107 mg/dL Normal [facility] Comment on above: Result Comment: The drugs N-Acetylcysteine and Metamizole may falsely depress this assay. Normal range: <150 mg/dL Borderline High: 150-199 mg/dL High: 200-499 mg/dL Very High: >500 mg/dL Performed By: #### L 803.0600, L3410.9992, L500.4050, L100.0100, L504.2610 #### [facility] [address] [place], [address] MCV (mean corpuscular volume ) determinationOrdered By: Jamie Uribe on 09-16-2024 MCV (RBC) [Entitic vol] 96.5 fL High 80-94 [facility] Mean corpuscular hemoglobin (MCH) determinationOrdered By: Jamie Uribe on 09-16-2024 MCH (RBC) [Entitic mass] 33.3 pg High 27.0-32.0 [facility] Mean corpuscular hemoglobin concentration (MCHC) determinationOrdered By: Jamie Uribe on 09-16-2024 MCHC (RBC) [Mass/Vol] 34.5 g/dL 32-36 [facility] Mean platelet volume determi nationOrdered By: Jamie Uribe on 09-16-2024 Platelet mean volume (Bld) [Entitic vol] 9.3 fL 6.2-12.0 [facility] Microalb:Creat Ratio,Random URon 09-16-2024 Creatinine [Mass/Vol] 211.00 mg/dL Normal 39.00- 259. 00 [facility] Comment on above: Performed By: #### L 500.4100, L502.0250 ####[facility] [address] [place], [address] MALB:CREAT UNABLE TO CALCULATE Normal [facility] Comment on above: Performed By: #### L 500.4100, L502.0250 ####[facility] [address] [place], [address] MICROALBUMIN,UR < 12.0 Normal NO RANGE EST. [facility] Comment on above: Performed By: #### L 500.4100, L502.0250 ####[facility] [address] [place], [address] Microalbumin/creat ratio urO rdered By: Wendy Diaz on 09-16-2024 Urine microalbumin/creatinin e ratio measurement UNABLE TO CALCULATE mg/g CRE [facility] Monocyte percentageOrdered B y: Jamie Uribe on 09-16-2024 Monocytes/100 WBC (Bld) 9.6 % 0-10 [facility] Neutrophil percentageOrdered By: Jamie Uribe on 09-16-2024 Neutrophils/100 WBC (Bld) 54.5 % 47-70 [facility] Nucleated red blood cell per centageOrdered By: Jamie Uribe on 09-16-2024 Nucleated RBC/100 WBC (Bld) [Ratio] 0 % 0-5 [facility] Platelet countOrdered By: Mary Kate Uribe on 09-16-2024 Platelets (Bld) [#/Vol] 222 10*3/uL 150-450 [facility] Potassium measurement (mass/ volume)Ordered By: Jamie Uribe on 09-16-2024 Potassium (Unsp spec) [Mass/Vol] 4.8 mmol/L 3.3-5.1 [facility] RBC Auto (Bld) [#/Vol]Ordere d By: Jamie Uribe on 09-16-2024 RBC (Bld) [#/Vol] 4.30 10*6/uL Low 4.6-6.2 [facility] Random urine creatinine grace urement (mass/volume)Ordered By: Wendy Diaz on 09-16-2024 Creatinine Unsp time (U) [Mass/Vol] 211.00 mg/dL 39.00-259. 00 [facility] Screening total cholesterol/ high density lipoprotein (HDL) cholesterol ratioOrdered By: Wendy Diaz on 09-16-2024 Cholesterol.total/Chol esterol in HDL [Mass ratio] 2.59 {ratio} [facility] Serum creatinine measurement (mass/volume)Ordered By: Jamie Uribe on 09-16-2024 Creatinine [Mass/Vol] 0.87 mg/dL 0.70-1.20 [facility] Serum globulin measurementOr dered By: Jamie Uribe on 09-16-2024 Globulin (S) [Mass/Vol] 2.6 g/dL 2.2-4.2 [facility] Serum glucose measurement (m ass/volume)Ordered By: Jamie Uribe on 09-16-2024 Glucose [Mass/Vol] 124 mg/dL High 70-99 [facility] Serum or plasma alanine grewal otransferase (ALT) measurementOrdered By: Jamie Uribe on 09-16-2024 ALT [Catalytic activity/Vol] 24 U/L <47 [facility] Serum or plasma albumin grace urement (mass/volume)Ordered By: Jamie Uribe on 09-16-2024 Albumin [Mass/Vol] 3.7 g/dL 3.4-4.8 [facility] Serum or plasma albumin/glob ulin mass ratioOrdered By: Jamie Uribe on 09-16-2024 Albumin/Globulin [Mass ratio] 1.4 {ratio} 0.9-2.4 [facility] Serum or plasma alkaline zahraa sphatase measurementOrdered By: Jamie Uribe on 09-16-2024 ALP [Catalytic activity/Vol] 79 U/L 40-129 [facility] Serum or plasma calcium grace urement (mass/volume)Ordered By: Jamie Uribe on 09-16-2024 Calcium [Mass/Vol] 9.1 mg/dL 7.6-11.0 [facility] Serum or plasma cholesterol in HDL measurement (mass/volume)Ordered By: Wendy Diaz on 09-16-2024 Cholesterol in HDL [Mass/Vol] 90 mg/dL >40 [facility] Comment on above: National Cholesterol Education Program (NCEP) guidelines:<40 mg/dL: Low HDL-cholesterol (major risk factor for CHD)>= 60 mg/dL: High HDL-cholesterol (negative risk factor for CHD)HDL-cholesterol is affected by a number of factors, e.g. smoking, exercise, hormones, sex and age. Serum or plasma cholesterol measurement (mass/volume)Ordered By: Wendy Diaz on 09-16-2024 Cholesterol [Mass/Vol] 232 mg/dL High <201 [facility] Comment on above: Cholesterol level, D esirable <200 mg/dLBorderline high cholesterol 200-239 mg/dLHigh cholesterol >=240 mg/dLRecommendations of the NCEP Adult Treatment Panel for the following risk-cutoff thresholds for the [place] population. Serum or plasma urea nitroge n measurement (mass/volume)Ordered By: Jamie Uribe on 09-16-2024 Urea nitrogen [Mass/Vol] 12 mg/dL 4-19 [facility] Sodium levelOrdered By: Carl Uribe on 09-16-2024 Sodium [Moles/Vol] 138 mmol/L 133-145 [facility] Total proteinOrdered By: Sancho Uribe on 09-16-2024 Protein [Mass/Vol] 6.3 g/dL 5.9-8.4 [facility] Triglycerides measurementOrd ered By: Wendy Diaz on 09-16-2024 Triglyceride [Mass/Vol] 107 mg/dL <199 [facility] Comment on above: The drugs N-Acetylcy steine and Metamizole may falsely depress this assay. Normal range: <150 mg/dLBorderline High: 150-199 mg/dLHigh: 200-499 mg/dLVery High: >500 mg/dL Urine albumin measurement [facility] detection limit of 20 mg/L or less (mass/volume)Ordered By: Wendy Diaz on 09-16-2024 Albumin DL <= 20 mg/L (U) [Mass/Vol] < 12.0 mg/L NO RANGE EST. [facility] White blood cell (WBC) count Ordered By: Jamie Uribe on 09-16-2024 WBC (Bld) [#/Vol] 5.7 10*3/uL 4.4-11.0 [facility] Wrist min 3 Viewson 09-03-19 Wrist min 3 Views [facility] Imaging Services [address] [place] [address] Wrist min 3 Views MR#: [id number] Acct: [id number] Name: JOHN GONZALEZ Rep #: [id number] : 1955 M 69 From: Nadir Wang MD PCP: Dr. Wendy Diaz MD Status: REG CLI Study: Wrist min 3 Views Date of Exam: 09/02/24 Exam# [id number] Ordering Dr: Wendy Diaz MD EXAM: XR Left Wrist Complete, 3 or More Views CLINICAL INDICATION: PAIN TECHNIQUE: Frontal, lateral and oblique views of the left wrist. COMPARISON: No relevant prior studies available. FINDINGS: BONES/JOINTS: See below. SOFT TISSUES: Soft tissue swelling without acute fracture. No radiopaque foreign body. RAD/Wrist min 3 Views IMPRESSION: 1. Soft tissue swelling without acute fracture. 2. If symptoms persist, further evaluation with CT is recommended. Reading Location: [facility] CC: Dr. Wendy Diaz MD Drafter Mechanical: Signed Normal [facility] Wrist min 3 Views [facility] Imaging Services [address] [place] [address] Wrist min 3 Views MR#: [id number] Acct: [id number] Name: JOHN GONZALEZ Rep #: [id number] : 1955 M 69 From: Nadir Wang MD PCP: Dr. Wendy Diaz MD Status: REG CLI Study: Wrist min 3 Views Date of Exam: 09/02/24 Exam# [id number] Ordering Dr: Wendy Diaz MD EXAM: XR Right Wrist Complete, 3 or More Views CLINICAL INDICATION: PAIN TECHNIQUE: Frontal, lateral and oblique views of the right wrist. COMPARISON: No relevant prior studies available. FINDINGS: BONES/JOINTS: Lucency of the ulnar styloid process with degenerative changes could be a sequela of prior injury. Correlation with point tenderness is recommended. No acute fracture. No dislocation. SOFT TISSUES: Soft tissue swelling. No radiopaque foreign body. RAD/Wrist min 3 Views IMPRESSION: Lucency of the ulnar styloid process with degenerative changes could be a sequela of prior injury. Correlation with point tenderness is recommended. Reading Location: [facility] CC: Dr. Wendy Diaz MD Drafter Mechanical: Signed Normal [facility] D-Dimer Quantitative (DVT/PE )on 07-29-2024 D-DIMER QUANT < 0.27 Low 0.27-0.49 [facility] Comment on above: Result Comment: NORM AL D-Dimer level (<0.50) indicates no DVT or PE. Performed By: #### L 300.8000 #### [facility] [address] [facility] [place], [place], [id number] D-dimer measurement for deep venous thrombosisOrdered By: Dinora Baca on 07-29-2024 D-Dimer Quantitative (PE/DVT) < 0.27 FEU/ug/m Low 0.27-0.49 [facility] Comment on above: NORMAL D-Dimer level (<0.50) indicates no DVT or PE. Oncology Visit Reporton 07-12 Oncology Visit Report [facility] [place] [address] OFFICE VISIT Date of Service: 07/29/24 1032 MR#: [id number] Acct: [id number] Name: JOHN GONZALEZ Rep #: [id number] : 1955 From: Jamie Uribe MD Age/Sex: 69/M Location: [facility] Status: Signed HPI Subjective Date of Service 07/29/24 Chief Complaint F/u for thromboembolism. History of Present Illness 69-year-old man was diagnosed with bilateral segmental and subsegmental PE July 2017. He got left femoral, popliteal, tibial peroneal, gastrocnemius and soleal vein DVT on 03/04/2022 after COVID vaccination. Since then has been on Xarelto 10 mg daily for thromboembolism prophylaxis. Transitioned to Eliquis 5 mg BID d/t cost. He dealt with chronic, intermittent bleeding hemorrhoids and patient was interested in discontinuing anticoagulation. Thus, he was referred to [facility] March 2024. Hemorrhoidal bleeding increased to daily, Xarelto was held 04/07/24. Underwent hemorrhoidal banding per GI on 04/24/2024. Shortly thereafter, bleeding has stopped and his pcp, Dr. Diaz restarted him on Eliquis. Then changed to Xarelto but has not taken anything for about 2 weeks. Comes for follow up. Feels well. [facility] Medical History Iron deficiency Wears glasses Alcohol use DVT (deep venous thrombosis) Easy bruising Excessive bleeding Gastric reflux Former smoker History of echocardiogram History of stress test Cardiology follow-up encounter History of irregular heartbeat Pulmonary embolism GERD (gastroesophageal reflux disease) Rectal bleeding Obesity (BMI 30.0-34.9) COPD (chronic obstructive pulmonary disease) Superficial venous thrombosis of upper extremity Syncope Arrhythmia HTN (hypertension) Surgical History History of cardiac catheterization H/O knee surgery H/O colonoscopy Family History Mother Hypertension Dementia Father Melanoma Brother Heart disease Social History Smoking Status: Former smoker Tobacco: How many years used: 20 Smokeless tobacco user: chewing tobacco how long ago did patient quit smokin Intake Vital Signs 07/14/24 11:28 07/29/24 10:33 Height 6 ft 6 ft Weight: 102.965 kg BMI 30.7 BP 129/66 H Blood Pressure Location Lt brachial Position Sitting Respiration 18 Pulse 60 Pulse Source Monitor Temp 98.3 F Temperature Source Temporal Artery Pulse Oximetry (%) 97 Oxygen Delivery Method room air Intake Is patient in pain?: No Allergies Iodinated Contrast Media Adverse Reaction (Verified 07/29/24 10:37) Itching Medications ???Medication ???Instructions ???Recorded ???Confirmed ???Type omeprazole 20 mg capsule,delayed 20 mg PO DAILY 03/07/22 07/29/24 H istory release carvedilol 12.5 mg tablet mg PO 03/12/24 07/29/24 History rivaroxaban 10 mg tablet (Xarelto) 10 mg PO QDAY 03/12/24 07/29/24 History budesonide-formoterol HFA 160 2 puff inhalation BID 03/20/24 History mcg-4.5 mcg/actuation aerosol inhaler (Symbicort) levomefolate calcium 15 mg tablet 15 mg PO QDAY 03/20/24 07/29/24 H istory lisinopril 5 mg tablet 5 mg PO QDAY 03/20/24 07/29/24 His tory lysine 500 mg tablet (L-Lysine) 500 mg PO QDAY 03/20/24 07/29/24 H istory ferrous sulfate 325 mg (65 mg 325 mg PO QDAY 04/07/24 07/29/24 H istory iron) tablet mecobalamin (vitamin B12) 1,000 1,000 mcg sublingual TID 04/07/24 07/29/24 History mcg disintegrating tablet,sublingual hydrocortisone acetate 25 mg 25 mg NH BID #42 ea 04/25/2407/29 Rx rectal suppository Have you fallen in the past year?: Yes Central Venous Access Central Venous Access: No Laboratory Tests 07/29/24 09:34 D-Dimer Quant (PE/DVT) < 0.27 L Exam Physical Exam Const alert, oriented x3 and no apparent distress Coding Level of Care Code Off vis,est,level 3 Exam Problem Focused Diagnoses Thromboembolism I74.9 Bleeding hemorrhoids K64.9 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 D-dimers is normal. He does not want to take anticoagulants. Plan: To stop Eliquis and Xarelto. Check Thrombotic risk profile I in 6 weeks (2) Bleeding hemorrhoids: Status: Resolved Plan: To do observation. (3) Homozygous MTHFR mutation C677T: Status: Acute Plan: To check Fasting Homocysteine level Plan Details Follow Up: 2 Months Clinical Quality Measures Falls Risk Screening/Assistive Devices Have you fallen in the past year?: (more content not included)... Normal [facility] Absolute neutrophil countOrd ered By: Meagan Prajapati on 07-14-2024 Neutrophils (Bld) [#/Vol] 3.8 10*3/uL 2.0-7.7 [facility] Basophil percentageOrdered B y: Meagan Prajapati on 07-14-2024 Basophils/100 WBC (Bld) 0.6 % 0-1 [facility] CBC W/Diff, Automatedon Absolute Lymph 2.37 X10 3/uL Normal 0.83-4.51 [facility] Comment on above: Performed By: #### L 100.0100 ####[facility] [address] [place], [address] Absolute Neut 3.8 X10 3/uL Normal 2.0-7.7 [facility] Comment on above: Performed By: #### L 100.0100 ####[facility] [address] [place], [address] Basophils/100 WBC (Bld) 0.6 % Normal 0-1 [facility] Comment on above: Performed By: #### L 100.0100 ####[facility] [address] [place], [address] Eosinophils/100 WBC (Bld) 2.3 % Normal 0-5 [facility] Comment on above: Performed By: #### L 100.0100 ####[facility] [address] [place], [address] Erythrocyte distribution width (RBC) [Ratio] 13.3 % Normal 11.6-14.6 [facility] Comment on above: Performed By: #### L 100.0100 ####[facility] [address] [place], [address] Hematocrit (Bld) [Volume fraction] 41.7 % Normal 40-54 [facility] Comment on above: Performed By: #### L 100.0100 ####[facility] [address] [place], [address] Hemoglobin (Bld) [Mass/Vol] 14.0 g/dL Normal 13.0-16.5 [facility] Comment on above: Performed By: #### L 100.0100 ####[facility] [address] [place], [address] IG% 0.400 Normal 0.0-0.9 [facility] Comment on above: Result Comment: IG% - Immature Granulocytes (promyelocytes, myelocytes and metamyelocytes) > 1% indicates that a LEFT SHIFT is Present. Performed By: #### L 100.0100 ####[facility] [address] [place], [address] Lymphocytes/100 WBC (Bld) 34.1 % Normal 19-41 [facility] Comment on above: Performed By: #### L 100.0100 ####[facility] [address] [place], [address] MCH (RBC) [Entitic mass] 32.3 pg High 27.0-32.0 [facility] Comment on above: Performed By: #### L 100.0100 ####[facility] [address] [place], [address] MCHC (RBC) [Mass/Vol] 33.6 g/dL Normal 32-36 [facility] Comment on above: Performed By: #### L 100.0100 ####[facility] [address] [place], [address] MCV (RBC) [Entitic vol] 96.3 fL High 80-94 [facility] Comment on above: Performed By: #### L 100.0100 ####[facility] [address] [place], [address] Monocytes/100 WBC (Bld) 7.5 % Normal 0-10 [facility] Comment on above: Performed By: #### L 100.0100 ####[facility] [address] [place], [address] Neutrophils/100 WBC (Bld) 55.1 % Normal 47-70 [facility] Comment on above: Performed By: #### L 100.0100 ####[facility] [address] [place], [address] Nucleated RBC (Bld) [#/Vol] 0 10*3/uL Normal 0-5 [facility] Comment on above: Performed By: #### L 100.0100 ####[facility] [address] [place], [address] Platelet mean volume (Bld) [Entitic vol] 9.1 fL Normal 6.2-12.0 [facility] Comment on above: Performed By: #### L 100.0100 ####[facility] [address] [place], [address] Platelets (Bld) [#/Vol] 192 10*3/uL Normal 150-450 [facility] Comment on above: Performed By: #### L 100.0100 ####[facility] [address] [place], [address] RBC (Bld) [#/Vol] 4.33 10*6/uL Low 4.6-6.2 [facility] Comment on above: Performed By: #### L 100.0100 ####[facility] [address] [place], [address] RDW SD 46.9 fl High 35.1-43.9 [facility] Comment on above: Performed By: #### L 100.0100 ####[facility] [address] [place], [address] WBC (Bld) [#/Vol] 7.0 10*3/uL Normal 4.4-11.0 [facility] Comment on above: Performed By: #### L 100.0100 ####[facility] [address] [place], [address] Calculated total iron bindin g capacityOrdered By: Dinora Baca on 07-14-2024 Total Iron Binding Capacity 312 ug/dL 250-450 [facility] D-Dimer Quantitative (DVT/PE )on 07-14-2024 D-DIMER QUANT 0.27 FEU/ug/m Normal 0.27-0.49 [facility] Comment on above: Result Comment: NORM AL D-Dimer level (<0.50) indicates no DVT or PE. Performed By: #### L 803.0600, L3410.9992, L500.4050, L100.0100, L504.2610 #### [facility] [address] [place], [address] Eosinophil percentageOrdered By: Meagan Prajapati on 07-14-2024 Eosinophils/100 WBC (Bld) 2.3 % 0-5 [facility] Erythrocyte distribution wid th (RBC) [Ratio]Ordered By: Meagan Prajapati on 07-14-2024 Erythrocyte distribution width (RBC) [Entitic vol] 46.9 fL High 35.1-43.9 [facility] Erythrocyte distribution wid th ratioOrdered By: Meagan Prajapati on 07-14-2024 Erythrocyte distribution width (RBC) [Ratio] 13.3 % 11.6-14.6 [facility] Ferritinon 07-14-2024 Ferritin [Mass/Vol] 99 ng/mL Normal 37-417 [facility] Comment on above: Order Comment: PLEAS E ADD TO BLOOD IN THE LAB. THANK YOU!! WOULD BE ANEXTRA Performed By: #### L 503.6550, L503.6030 ####[facility] [address] [place], [place], [address] Hematocrit Auto (Bld) [Volum e fraction]Ordered By: Meagan Prajapati on 07-14-2024 Hematocrit (Bld) [Volume fraction] 41.7 % 40-54 [facility] Hemoglobin measurementOrdere d By: Meagan Prajapati on 07-14-2024 Hemoglobin (Bld) [Mass/Vol] 14.0 g/dL 13.0-16.5 [facility] Immature granulocytes/100 WB C Auto (Bld)Ordered By: Meagan Prajapati on 07-14-2024 Immature granulocytes/100 WBC (Bld) 0.400 % 0.0-0.9 [facility] Comment on above: IG% - Immature Granu locytes (promyelocytes, myelocytes and metamyelocytes) > 1% indicates that a LEFT SHIFT is Present. Iron (Unsp spec) [Mass/Mass] Ordered By: Dinora Baca on 07-14-2024 Iron [Mass/Vol] 223 ug/dL High 65-175 [facility] Iron measurement (mass/mass) Ordered By: Dinora Baca on 07-14-2024 Iron (Unsp spec) [Mass/Mass] 223 ug/dL High 65-175 [facility] Iron saturation [Mass fracti on]Ordered By: Dinora Baca on 07-14-2024 Iron Saturation 71.0 % High 15.0-55.0 [facility] Iron+Iron Binding Capacityon 07-14-2024 Iron [Mass/Vol] 223 ug/dL High 65-175 [facility] Comment on above: Order Comment: PLEAS E ADD TO BLOOD IN THE LAB. THANK YOU!! WOULD BE ANEXTRA Performed By: #### L 503.6550, L503.6030 ####[facility] [address] [place], [address] IRON SATURATION 71.0 High 15.0-55.0 [facility] Comment on above: Order Comment: PLEAS E ADD TO BLOOD IN THE LAB. THANK YOU!! WOULD BE ANEXTRA Performed By: #### L 503.6550, L503.6030 ####[facility] [address] [place], [address] TIBC 312 ug/dL Normal 250-450 [facility] Comment on above: Order Comment: PLEAS E ADD TO BLOOD IN THE LAB. THANK YOU!! WOULD BE ANEXTRA Performed By: #### L 503.6550, L503.6030 ####[facility] [address] [place], [address] UIBC 89 ug/dL Low 228-428 [facility] Comment on above: Order Comment: PLEAS E ADD TO BLOOD IN THE LAB. THANK YOU!! WOULD BE ANEXTRA Performed By: #### L 503.6550, L503.6030 ####[facility] [address] [place], [address] Lymphocytes Auto (Unsp spec) [#/Vol]Ordered By: Meagan Prajapati on 07-14-2024 Lymphocytes (Bld) [#/Vol] 2.37 10*3/uL 0.83-4.51 [facility] Lymphocytes/100 WBC Auto (Un sp spec)Ordered By: Meagan Prajapati on 07-14-2024 Lymphocytes/100 WBC (Bld) 34.1 % 19-41 [facility] MCV (mean corpuscular volume ) determinationOrdered By: Meagan Prajapati on 07-14-2024 MCV (RBC) [Entitic vol] 96.3 fL High 80-94 [facility] Mean corpuscular hemoglobin (MCH) determinationOrdered By: Meagan Prajapati on 07-14-2024 MCH (RBC) [Entitic mass] 32.3 pg High 27.0-32.0 [facility] Mean corpuscular hemoglobin concentration (MCHC) determinationOrdered By: Meagan Prajapati on 07-14-2024 MCHC (RBC) [Mass/Vol] 33.6 g/dL 32-36 [facility] Mean platelet volume determi nationOrdered By: Meagan Prajapati on 07-14-2024 Platelet mean volume (Bld) [Entitic vol] 9.1 fL 6.2-12.0 [facility] Monocyte percentageOrdered B y: Meagan Prajapati on 07-14-2024 Monocytes/100 WBC (Bld) 7.5 % 0-10 [facility] Neutrophil percentageOrdered By: Meagan Prajapati on 07-14-2024 Neutrophils/100 WBC (Bld) 55.1 % 47-70 [facility] No Panel InformationOrdered By: Dinora Baca on 07-14-2024 Unsaturated Iron Binding Capacity 89 ug/dL Low 228-428 [facility] Nucleated red blood cell per centageOrdered By: Meagan Prajapati on 07-14-2024 Nucleated RBC/100 WBC (Bld) [Ratio] 0 % 0-5 [facility] Oncology Visit Reporton 03 Oncology Visit Report [facility] [address] [place] [address] OFFICE VISIT Date of Service: 07/14/24 1125 MR#: [id number] Acct: [id number] Name: JOHN GONZALEZ Rep #: [id number] : 1955 From: Dinora Baca NP CUSTOM CLOTHIER -C Age/Sex: 69/M Location: [facility] [facility] Status: Signed HPI Subjective Date of Service 07/14/24 Chief Complaint F/u for thromboembolism. History of Present Illness 69-year-old man was diagnosed with bilateral segmental and subsegmental PE July 2017. He got left femoral, popliteal, tibial peroneal, gastrocnemius and soleal vein DVT on 03/04/2022 after COVID vaccination. Since then has been on Xarelto 10 mg daily for thromboembolism prophylaxis. Transitioned to Eliquis 5 mg BID d/t cost. He dealt with chronic, intermittent bleeding hemorrhoids and patient was interested in discontinuing anticoagulation. Thus, he was referred to [facility] March 2024. Hemorrhoidal bleeding increased to daily, Xarelto was held 04/07/24. Underwent hemorrhoidal banding per GI on 04/24/2024. Shortly thereafter, bleeding has stopped and his pcp, Dr. Diaz restarted him on Eliquis. Interval History The patient is presenting to clinic accompanied by spouse for follow-up. Confirms good adherence and tolerance to Eliquis at 5 mg twice daily. Within the last 4 weeks has noticed small amount of hemorrhoidal bleeding. Was advised to contact GI if bleeding reoccurred, patient states "it is not that bad". [facility] Medical History (Updated 07/15/24 @ 17:05 by Dinora Baca [employer] CLOTHIER, CUSTOM CLOTHIER-C) Iron deficiency Wears glasses Alcohol use DVT (deep venous thrombosis) Easy bruising Excessive bleeding Gastric reflux Former smoker History of echocardiogram History of stress test Cardiology follow-up encounter History of irregular heartbeat Pulmonary embolism GERD (gastroesophageal reflux disease) Rectal bleeding Obesity (BMI 30.0-34.9) COPD (chronic obstructive pulmonary disease) Superficial venous thrombosis of upper extremity Syncope Arrhythmia HTN (hypertension) Surgical History History of cardiac catheterization H/O knee surgery H/O colonoscopy Family History Mother Hypertension Dementia Father Melanoma Brother Heart disease Social History Smoking Status: Former smoker Tobacco: How many years used: 20 Smokeless tobacco user: chewing tobacco how long ago did patient quit smokin ROS ROS Narrative Negative except as documented in the interval HPI Intake Vital Signs 05/15/24 14:06 07/14/24 11:28 Height 6 ft 6 ft Weight: 226 lb 6 oz 228 lb 4 oz BMI 30.7 30.9 BP 141/81 H 143/94 H Blood Pressure Location Rt brachial Lt brachial Position Sitting Sitting Respiration 18 18 Pulse 73 67 Pulse Source Monitor Monitor Temp 97.8 F 98.2 F Temperature Source Temporal Artery Temporal Artery Pulse Oximetry (%) 98 98 Oxygen Delivery Method room air room air Intake Is patient in pain?: No Allergies Iodinated Contrast Media Adverse Reaction (Verified 07/14/24 11:29) Itching Medications ???Medication ???Instructions ???Recorded ???Confirmed ???Type omeprazole 20 mg capsule,delayed 20 mg PO DAILY 03/07/22 07/14/24 H istory release carvedilol 12.5 mg tablet mg PO 03/12/24 07/14/24 History rivaroxaban 10 mg tablet (Xarelto) 10 mg PO QDAY 03/12/24 07/14/24 History budesonide-formoterol HFA 160 2 puff inhalation BID 03/20/2408/05 History mcg-4.5 mcg/actuation aerosol inhaler (Symbicort) levomefolate calcium 15 mg tablet 15 mg PO QDAY 03/20/24 07/14/24 H istory lisinopril 5 mg tablet 5 mg PO QDAY 03/20/24 07/14/24 His tory lysine 500 mg tablet (L-Lysine) 500 mg PO QDAY 03/20/24 07/14/24 H istory ferrous sulfate 325 mg (65 mg 325 mg PO QDAY 04/07/24 07/14/24 H istory iron) tablet mecobalamin (vitamin B12) 1,000 1,000 mcg sublingual TID 04/07/24 07/14/24 History mcg disintegrating tablet,sublingual hydrocortisone acetate 25 mg 25 mg [place] BID #42 ea 04/25/2407/14 Rx rectal suppository Have you fallen in the past year?: Yes Central Venous Access Central Venous Access: No Exam Physical Exam Const alert, oriented x3 and no apparent distress HEENT normocephalic Resp normal respiratory effort and clear to auscultation bilaterally Cardio regular rate, regular rhythm, S1 normal heart sound and S2 normal heart sound GI normal to inspection, nondistended, normoactive bowel sounds Psych mental status grossly normal Coding Level of Care Code Off vis,est,level 3 Exam Problem Focused Diagnoses Thromboembolism I74.9 Bleeding hemorrhoids K64.9 Assessment and Plan (more content not included)... Normal [facility] Platelet countOrdered By: José Miguel Prajapati on 07-14-2024 Platelets (Bld) [#/Vol] 192 10*3/uL 150-450 [facility] RBC Auto (Bld) [#/Vol]Ordere d By: Meagan Prajapati on 07-14-2024 RBC (Bld) [#/Vol] 4.33 10*6/uL Low 4.6-6.2 [facility] Serum or plasma ferritin devan surement (mass/volume)Ordered By: Dinora Baca on 07-14-2024 Ferritin [Mass/Vol] 99 ng/mL 37-417 [facility] Serum or plasma iron saturat ion measurement (mass fraction)Ordered By: Dinora Baca on 07-14-2024 Iron saturation [Mass fraction] 71.0 % High 15.0-55.0 [facility] White blood cell (WBC) count Ordered By: Meagan Prajapati on 07-14-2024 WBC (Bld) [#/Vol] 7.0 10*3/uL 4.4-11.0 [facility] Albumin to globulin ratioOrd ered By: Jamie Uribe on 05-15-2024 Albumin/Globulin [Mass ratio] 0.9 {ratio} 0.9-2.4 [facility] Bilirubin, totalOrdered By: Jamie Uribe on 05-15-2024 Bilirubin [Mass/Vol] 0.40 mg/dL 0.20-1.[address] [facility] Comment on above: For patients on eltr ombopag therapy, use of Dimension [place] TBIL is not recommended. Blood urea nitrogen (BUN)/cr eatinine ratioOrdered By: Jamie Uribe on 05-15-2024 Urea nitrogen/Creatinine [Mass ratio] 18.7 mg/mg 10-20 [facility] CBC W/Diff, Automatedon Absolute Lymph 2.40 X10 3/uL Normal 0.83-4.51 [facility] Comment on above: Performed By: #### L 500.4050, L100.0100, L300.8000, L503.6550, L503.6030 ####[facility] [address] [place], [address] Absolute Neut 3.9 X10 3/uL Normal 2.0-7.7 [facility] Comment on above: Performed By: #### L 500.4050, L100.0100, L300.8000, L503.6550, L503.6030 ####[facility] [address] [place], [address] Basophils/100 WBC (Bld) 0.7 % Normal 0-1 [facility] Comment on above: Performed By: #### L 500.4050, L100.0100, L300.8000, L503.6550, L503.6030 ####[facility] [address] [place], [address] Eosinophils/100 WBC (Bld) 1.4 % Normal 0-5 [facility] Comment on above: Performed By: #### L 500.4050, L100.0100, L300.8000, L503.6550, L503.6030 ####[facility] [address] [place], [address] Erythrocyte distribution width (RBC) [Ratio] 18.2 % High 11.6-14.6 [facility] Comment on above: Performed By: #### L 500.4050, L100.0100, L300.8000, L503.6550, L503.6030 ####[facility] [address] [place], [address] Hematocrit (Bld) [Volume fraction] 41.7 % Normal 40-54 [facility] Comment on above: Performed By: #### L 500.4050, L100.0100, L300.8000, L503.6550, L503.6030 ####[facility] [address] [place], [address] Hemoglobin (Bld) [Mass/Vol] 13.8 g/dL Normal 13.0-16.5 [facility] Comment on above: Performed By: #### L 500.4050, L100.0100, L300.8000, L503.6550, L503.6030 ####[facility] [address] [place], [address] IG% 0.100 Normal 0.0-0.9 [facility] Comment on above: Result Comment: IG% - Immature Granulocytes (promyelocytes, myelocytes and metamyelocytes) > 1% indicates that a LEFT SHIFT is Present. Performed By: #### L 500.4050, L100.0100, L300.8000, L503.6550, L503.6030 ####[facility] [address] [place], [address] Lymphocytes/100 WBC (Bld) 33.8 % Normal 19-41 [facility] Comment on above: Performed By: #### L 500.4050, L100.0100, L300.8000, L503.6550, L503.6030 ####[facility] [address] [place], [address] MCH (RBC) [Entitic mass] 30.7 pg Normal 27.0-32.0 [facility] Comment on above: Performed By: #### L 500.4050, L100.0100, L300.8000, L503.6550, L503.6030 ####[facility] [address] [place], [address] MCHC (RBC) [Mass/Vol] 33.1 g/dL Normal 32-36 [facility] Comment on above: Performed By: #### L 500.4050, L100.0100, L300.8000, L503.6550, L503.6030 ####[facility] [address] [place], [address] MCV (RBC) [Entitic vol] 92.7 fL Normal 80-94 [facility] Comment on above: Performed By: #### L 500.4050, L100.0100, L300.8000, L503.6550, L503.6030 ####[facility] [address] [place], [address] Monocytes/100 WBC (Bld) 9.0 % Normal 0-10 [facility] Comment on above: Performed By: #### L 500.4050, L100.0100, L300.8000, L503.6550, L503.6030 ####[facility] [address] [place], [address] Neutrophils/100 WBC (Bld) 55.0 % Normal 47-70 [facility] Comment on above: Performed By: #### L 500.4050, L100.0100, L300.8000, L503.6550, L503.6030 ####[facility] [address] [place], [address] Nucleated RBC (Bld) [#/Vol] 0 10*3/uL Normal 0-5 [facility] Comment on above: Performed By: #### L 500.4050, L100.0100, L300.8000, L503.6550, L503.6030 ####[facility] [address] [place], [address] Platelet mean volume (Bld) [Entitic vol] 9.8 fL Normal 6.2-12.0 [facility] Comment on above: Performed By: #### L 500.4050, L100.0100, L300.8000, L503.6550, L503.6030 ####[facility] [address] [place], [address] Platelets (Bld) [#/Vol] 234 10*3/uL Normal 150-450 [facility] Comment on above: Performed By: #### L 500.4050, L100.0100, L300.8000, L503.6550, L503.6030 ####[facility] [address] [place], [address] RBC (Bld) [#/Vol] 4.50 10*6/uL Low 4.6-6.2 [facility] Comment on above: Performed By: #### L 500.4050, L100.0100, L300.8000, L503.6550, L503.6030 ####[facility] [address] [place], [address] RDW SD 61.5 fl High 35.1-43.9 [facility] Comment on above: Performed By: #### L 500.4050, L100.0100, L300.8000, L503.6550, L503.6030 ####[facility] [address] [place], [address] WBC (Bld) [#/Vol] 7.1 10*3/uL Normal 4.4-11.0 [facility] Comment on above: Performed By: #### L 500.4050, L100.0100, L300.8000, L503.6550, L503.6030 ####[facility] [address] [place], [address] Carbon dioxide measurementOr dered By: Jamie Uribe on 05-15-2024 CO2 [Moles/Vol] 27.0 mmol/L 21.0-32.0 [facility] Chloride measurementOrdered By: Jamie Uribe on 05-15-2024 Chloride [Moles/Vol] 107 mmol/L 98-[address] [facility] Comprehensive Metabolic Prof ilon 05-15-2024 Albumin [Mass/Vol] 3.3 g/dL Normal 3.2-5.0 [facility] Comment on above: Performed By: #### L 500.4050, L100.0100, L300.8000, L503.6550, L503.6030 ####[facility] [address] [place], [address] Albumin/Globulin [Mass ratio] 0.9 {ratio} Normal 0.9-2.4 [facility] Comment on above: Performed By: #### L 500.4050, L100.0100, L300.8000, L503.6550, L503.6030 ####[facility] [address] [place], [address] ALK P 74 U/L Normal 45-117 [facility] Comment on above: Performed By: #### L 500.4050, L100.0100, L300.8000, L503.6550, L503.6030 ####[facility] [address] [place], [address] ALT [Catalytic activity/Vol] 31 U/L Normal 16-61 [facility] Comment on above: Performed By: #### L 500.4050, L100.0100, L300.8000, L503.6550, L503.6030 ####[facility] [address] [place], [address] AST [Catalytic activity/Vol] 25 U/L Normal 15-37 [facility] Comment on above: Performed By: #### L 500.4050, L100.0100, L300.8000, L503.6550, L503.6030 ####[facility] [address] [place], [address] Bilirubin [Mass/Vol] 0.40 mg/dL Normal 0.20-1.[address] [facility] Comment on above: Result Comment: For patients on eltrombopag therapy, use of Dimension [place] TBIL is not recommended. Performed By: #### L 500.4050, L100.0100, L300.8000, L503.6550, L503.6030 ####[facility] [address] [place], [address] BUN/CRE 18.7 RATIO Normal 10-20 [facility] Comment on above: Performed By: #### L 500.4050, L100.0100, L300.8000, L503.6550, L503.6030 ####[facility] [address] [place], [address] CA,Total 9.2 mg/dL Normal 8.5-10.1 [facility] Comment on above: Performed By: #### L 500.4050, L100.0100, L300.8000, L503.6550, L503.6030 ####[facility] [address] [place], [address] Chloride [Moles/Vol] 107 mmol/L Normal 98-[address] [facility] Comment on above: Performed By: #### L 500.4050, L100.0100, L300.8000, L503.6550, L503.6030 ####[facility] [address] [place], [address] CO2 [Moles/Vol] 27.0 mmol/L Normal 21.0-32.0 [facility] Comment on above: Performed By: #### L 500.4050, L100.0100, L300.8000, L503.6550, L503.6030 ####[facility] [address] [place], [address] Creatinine [Mass/Vol] 0.80 mg/dL Normal 0.70-1.30 [facility] Comment on above: Result Comment: The validity of the calculated GFR GFRAA in patients over 70 years has not been determined. Clinical correlation is essential. Performed By: #### L 500.4050, L100.0100, L300.8000, L503.6550, L503.6030 ####[facility] [address] [place], [address] EST GFR - AA 122 mL/min Normal >60 [facility] Comment on above: Result Comment: Afri can Jamaican GFR Calc Performed By: #### L 500.4050, L100.0100, L300.8000, L503.6550, L503.6030 ####[facility] [address] [place], [address] GAP 4 Low 5-15 [facility] Comment on above: Performed By: #### L 500.4050, L100.0100, L300.8000, L503.6550, L503.6030 ####[facility] [address] [place], [address] GFR/1.73 sq M.predicted among non-blacks MDRD (S/P/Bld) [Vol rate/Area] 101 mL/min/{1.73_m2} Normal >60 [facility] Comment on above: Result Comment: Non- GFR Calc Performed By: #### L 500.4050, L100.0100, L300.8000, L503.6550, L503.6030 ####[facility] [address] [place], [address] Globulin (S) [Mass/Vol] 3.5 g/dL Normal 2.2-4.2 [facility] Comment on above: Performed By: #### L 500.4050, L100.0100, L300.8000, L503.6550, L503.6030 ####[facility] [address] [place], [address] Glucose [Mass/Vol] 105 mg/dL Normal 74-106 [facility] Comment on above: Result Comment: Fast ing Glucose result from 100 to 125 mg/dL suggests IMPAIRED HOMEOSTASIS per A.D.A. criteria. Performed By: #### L 500.4050, L100.0100, L300.8000, L503.6550, L503.6030 ####[facility] [address] [place], [address] Potassium [Moles/Vol] 4.5 mmol/L Normal 3.5-5.1 [facility] Comment on above: Performed By: #### L 500.4050, L100.0100, L300.8000, L503.6550, L503.6030 ####[facility] [address] [place], [address] Sodium [Moles/Vol] 138 mmol/L Normal 136-145 [facility] Comment on above: Performed By: #### L 500.4050, L100.0100, L300.8000, L503.6550, L503.6030 ####[facility] [address] [place], [address] T PROT 6.8 g/dL Normal 6.4-8.2 [facility] Comment on above: Performed By: #### L 500.4050, L100.0100, L300.8000, L503.6550, L503.6030 ####[facility] [address] [place], [address] Urea nitrogen [Mass/Vol] 15 mg/dL Normal 7-18 [facility] Comment on above: Performed By: #### L 500.4050, L100.0100, L300.8000, L503.6550, L503.6030 ####[facility] [address] [place], [address] D-Dimer Quantitative (DVT/PE )on 05-15-2024 D-DIMER QUANT 0.27 FEU/ug/m Normal 0.27-0.49 [facility] Comment on above: Result Comment: NORM AL D-Dimer level (<0.50) indicates no DVT or PE. Performed By: #### L 500.4050, L100.0100, L300.8000, L503.6550, L503.6030 ####[facility] [address] [place], [address] Estimated glomerular filtrat ion rate (GFR) AmericanOrdered By: Jamie Uribe on 05-15-2024 Estimated GFR (MDRD) Amer 122 mL/min >60 [facility] Comment on above: GFR Calc Ferritinon 05-15-2024 Ferritin [Mass/Vol] 37 ng/mL Normal 26-388 [facility] Comment on above: Performed By: #### L 500.4050, L100.0100, L300.8000, L503.6550, L503.6030 ####[facility] [address] [place], [address] Glomerular filtration rate ( GFR) estimationOrdered By: Jamie Uribe on 05-15-2024 Estimated GFR (MDRD) Non-Af Amer 101 mL/min >60 [facility] Comment on above: Non- GFR Calc Glucose measurementOrdered B y: Jamie Uribe on 05-15-2024 Glucose [Mass/Vol] 105 mg/dL 74-106 [facility] Comment on above: Fasting Glucose resu lt from 100 to 125 mg/dL suggests IMPAIRED HOMEOSTASIS per A.D.A. criteria. Iron+Iron Binding Capacityon 05-15-2024 Iron [Mass/Vol] 104 ug/dL Normal 65-175 [facility] Comment on above: Performed By: #### L 500.4050, L100.0100, L300.8000, L503.6550, L503.6030 ####[facility] [address] [place], [place], [id number] IRON SATURATION 27.3 Normal 15.0-55.0 [facility] Comment on above: Performed By: #### L 500.4050, L100.0100, L300.8000, L503.6550, L503.6030 ####[facility] [address] [place], [address] TIBC 381 ug/dL Normal 250-450 [facility] Comment on above: Performed By: #### L 500.4050, L100.0100, L300.8000, L503.6550, L503.6030 ####[facility] [address] [place], [place], [id number] Laboratory - Chemistry and C hemistry - challengeOrdered By: Jamie Uribe on 05-15-2024 AST [Catalytic activity/Vol] 25 U/L 15-37 [facility] Oncology Visit Reporton Oncology Visit Report [facility] [place] [address] OFFICE VISIT Date of Service: 05/15/24 1406 MR#: [id number] Acct: [id number] Name: JOHN GONZALEZ Rep #: [id number] : 1955 From: Jamie Uribe MD Age/Sex: 68/M Location: [facility] [place] Status: Signed HPI Subjective Date of Service 05/15/24 Chief Complaint F/u for thromboembolism. History of Present Illness 68-year-old man was diagnosed with PE in 2017. He got left femoral, popliteal,tibial peroneal, gastrocnemius and soleal vein DVT on 03/04/2022 after COVID vaccination. Since then has been on Xarelto for thromboembolism prophylaxis. He has developed bleeding hemorrhoids and wanted to know if he can discontinue Xarelto. He has hemorrhoids which is bleeding every day, Xarelto was stopped, saw GI, had banding done on 04/24/2024. Bleeding has stopped and Dr. Diaz started him on Eliquis. Comes for follow up. Feels well, no rectal bleeding. [facility] Medical History Wears glasses Alcohol use DVT (deep venous thrombosis) Easy bruising Excessive bleeding Gastric reflux Former smoker History of echocardiogram History of stress test Cardiology follow-up encounter History of irregular heartbeat Pulmonary embolism GERD (gastroesophageal reflux disease) Rectal bleeding Obesity (BMI 30.0-34.9) COPD (chronic obstructive pulmonary disease) Superficial venous thrombosis of upper extremity Syncope Arrhythmia HTN (hypertension) Surgical History History of cardiac catheterization H/O knee surgery H/O colonoscopy Family History Mother Hypertension Dementia Father Melanoma Brother Heart disease Social History Smoking Status: Former smoker Tobacco: How many years used: 20 Smokeless tobacco user: chewing tobacco how long ago did patient quit smokin Intake Vital Signs 04/07/24 10:25 05/15/24 14:06 Height 6 ft 6 ft Weight: 102.682 kg BMI 30.7 BP 141/81 H Blood Pressure Location Rt brachial Position Sitting Respiration 18 Pulse 73 Pulse Source Monitor Temp 97.8 F Temperature Source Temporal Artery Pulse Oximetry (%) 98 Oxygen Delivery Method room air Intake Is patient in pain?: No Allergies Iodinated Contrast Media Adverse Reaction (Verified 05/15/24 14:11) Itching Medications ???Medication ???Instructions ???Recorded ???Confirmed ???Type omeprazole 20 mg capsule,delayed 20 mg PO DAILY 03/07/22 05/15/24 History release carvedilol 12.5 mg tablet mg PO 03/12/24 05/15/24 History rivaroxaban 10 mg tablet (Xarelto) 10 mg PO QDAY 03/12/24 05/15/24 History budesonide-formoterol HFA 160 2 puff inhalation BID 03/20/24 05/15/24 History mcg-4.5 mcg/actuation aerosol inhaler (Symbicort) levomefolate calcium 15 mg tablet 15 mg PO QDAY 03/20/24 05/15/24 History lisinopril 5 mg tablet 5 mg PO QDAY 03/20/24 05/15/24 History lysine 500 mg tablet (L-Lysine) 500 mg PO QDAY 03/20/24 05/15/24 History ferrous sulfate 325 mg (65 mg 325 mg PO QDAY 04/07/24 05/15/24 History iron) tablet mecobalamin (vitamin B12) 1,000 1,000 mcg sublingual TID 04/07/24 05/15/24 History mcg disintegrating tablet,sublingual hydrocortisone acetate 25 mg 25 mg [place] BID #42 ea 04/25/24 05/15/24 Rx rectal suppository apixaban 5 mg tablet (Eliquis) 5 mg PO BID 05/15/24 05/15/24 History Have you fallen in the past year?: No Central Venous Access Central Venous Access: No Exam Physical Exam Const alert, oriented x3 and no apparent distress HEENT normocephalic, head/scalp atraumatic, external ears normal and external nose normal Eyes PERRL, conjunctivae normal and no scleral icterus Neck supple Lymph Lymphatic: no lymphadenopathy noted Resp normal respiratory effort and clear to auscultation bilaterally Cardio regular rate, regular rhythm, S1 normal heart sound, S2 normal heart sound and no murmurs GI normal to inspection, nondistended, normoactive bowel sounds no CVA tenderness Back/Spine thoracic and lumbar spine normal to inspection Extremity normal to inspection Skin no rashes or lesions noted Neuro oriented x3, CN's II-XII intact bilaterally and moves all extremities Psych mental status grossly normal Coding Level of Care Code Off vis,est,level 3 Exam Problem Focused Diagnoses Thromboembolism I74.9 Bleeding hemorrhoids K64.9 Assessment and Plan Assessment and Plan (1) Thromboembolism: Status: Chronic Comment: Now on Eliquis. Plan: To continue Eliquis. Check D-dimers. To discuss whether he needs to stop or continue on the next visit. (more content not included)... Normal [facility] Potassium measurementOrdered By: Jamie Uribe on 05-15-2024 Potassium [Moles/Vol] 4.5 mmol/L 3.5-5.1 [facility] Serum anion gap measurementO rdered By: Jamie Uribe on 05-15-2024 Anion gap [Moles/Vol] 4 mmol/L Low 5-15 [facility] Serum globulin measurementOr dered By: Jamie Uribe on 05-15-2024 Globulin (S) [Mass/Vol] 3.5 g/dL 2.2-4.2 [facility] Serum or plasma alanine grewal otransferase (ALT) measurementOrdered By: Jamie Uribe on 05-15-2024 ALT [Catalytic activity/Vol] 31 U/L 16-61 [facility] Serum or plasma albumin grace urement (mass/volume)Ordered By: Jamie Uribe on 05-15-2024 Albumin [Mass/Vol] 3.3 g/dL 3.2-5.0 [facility] Serum or plasma alkaline zahraa sphatase measurementOrdered By: Jamie Uribe on 05-15-2024 ALP [Catalytic activity/Vol] 74 U/L 45-117 [facility] Serum or plasma calcium grace urement (mass/volume)Ordered By: Jamie Uribe on 05-15-2024 Calcium [Mass/Vol] 9.2 mg/dL 8.5-10.1 [facility] Serum or plasma creatinine m easurement (mass/volume)Ordered By: Jamie Uribe on 05-15-2024 Creatinine [Mass/Vol] 0.80 mg/dL 0.70-1.30 [facility] Comment on above: The validity of the calculated GFR & GFRAA in patients over 70 years has not been determined. Clinical correlation is essential. Serum or plasma urea nitroge n measurement (mass/volume)Ordered By: Jamie Uribe on 05-15-2024 Urea nitrogen [Mass/Vol] 15 mg/dL 7-18 [facility] Sodium levelOrdered By: Carl Uribe on 05-15-2024 Sodium [Moles/Vol] 138 mmol/L 136-145 [facility] Total proteinOrdered By: Sancho Uribe on 05-15-2024 Protein [Mass/Vol] 6.8 g/dL 6.4-8.2 [facility] Gastroenterology Visit Repor ton 04-24-[address] [facility] [address] [place] [address] OFFICE VISIT Date of Service: 04/24/24 MR#: [id number] Acct: [id number] Name: JOHN GONZALEZ Rep #: [id number] : 1955 Provider: Claudio Ruiz DO Age/Sex: 68/M [place] [facility] [place]: Signed Intake Vital Signs 04/07/24 10:25 Height 6 ft Weight: 226 lb 7 oz BMI 30.7 BP 143/80 H Blood Pressure Location Lt brachial Position Sitting Respiration 18 Pulse 60 Pulse Source Monitor Temp 98.5 F Pulse Oximetry (%) 95 Oxygen Delivery Method room air Intake Visit Reasons: Hemorrhoid banding Chief Complaint: Referred for thromboembolism. Allergies Iodinated Contrast Media Adverse Reaction (Verified 04/22/24 12:50) Itching Medications ???Medication ???Instructions ???Recorded ???Confirmed ???Type omeprazole 20 mg capsule,delayed 20 mg PO DAILY 03/07/22 04/24/24 History release carvedilol 12.5 mg tablet mg PO 03/12/24 04/24/24 History rivaroxaban 10 mg tablet (Xarelto) 10 mg PO QDAY 03/12/24 04/24/24 History budesonide-formoterol HFA 160 2 puff inhalation BID 03/20/24 04/24/24 History mcg-4.5 mcg/actuation aerosol inhaler (Symbicort) levomefolate calcium 15 mg tablet 15 mg PO QDAY 03/20/24 04/24/24 History lisinopril 5 mg tablet 5 mg PO QDAY 03/20/24 04/24/24 History lysine 500 mg tablet (L-Lysine) 500 mg PO QDAY 03/20/24 04/24/24 History ferrous sulfate 325 mg (65 mg 325 mg PO QDAY 04/07/24 04/24/24 History iron) tablet mecobalamin (vitamin B12) 1,000 1,000 mcg sublingual TID 04/07/24 04/24/24 History mcg disintegrating tablet,sublingual Have you fallen in the past year?: No PFSH Medical History Wears glasses Alcohol use DVT (deep venous thrombosis) Easy bruising Excessive bleeding Gastric reflux Former smoker History of echocardiogram History of stress test Cardiology follow-up encounter History of irregular heartbeat Pulmonary embolism GERD (gastroesophageal reflux disease) Rectal bleeding Obesity (BMI 30.0-34.9) COPD (chronic obstructive pulmonary disease) Superficial venous thrombosis of upper extremity Syncope Arrhythmia HTN (hypertension) Surgical History History of cardiac catheterization H/O knee surgery H/O colonoscopy Family History Mother Hypertension Dementia Father Melanoma Brother Heart disease Social History Smoking Status: Former smoker Tobacco: How many years used: 20 Smokeless tobacco user: chewing tobacco how long ago did patient quit smokin HPI HPI Chief Complaint: Referred for thromboembolism. Details: JOHN GONZALEZ, is a 68 M who presents to the office today for hemorrhoid banding. Assessment and Plan Assessment and Plan (1) Bleeding hemorrhoids: Status: Acute Comment: Hgb is decreasing. Plan: He underwent hemorrhoid banding in the office today. He does have external and internal hemorrhoids on exam. I could see where he was bleeding from on speculum exam. It was at the 7 o'clock position. He had 2 bands placed at the 7 o'clock position. I told him that he could come back to have a more thorough exam under anesthesia if this did not work or we could also repeat his banding procedure. He was also noted to have external hemorrhoid fissure. Coding Level of Care Code Off vis,est,level 4 Diagnoses Bleeding hemorrhoids K64.9 Time Spent (min) 35 Clinical Quality Measures Falls Risk Screening/Assistive Devices Have you fallen in the past year?: No 04/24/24 1207 Date Claudio Friend DO Cosigner Signature: Date (if applicable) CC: Normal [facility] CBC W/Diff, Automatedon - OVALOCYTE RARE Normal [facility] Comment on above: Order Comment: Order Date: 04/22/24 Order Info: [id number] - CBCD Comments: cc copy to Friend Performed By: #### L 100.0100, L300.3900 #### [facility] [address] [place], [place], [id number] STOMATOCYTE RARE [facility] Comment on above: Order Comment: Order Date: 04/22/24 Order Info: [id number] - CBCD Comments: cc copy to Friend Performed By: #### L 100.0100, L300.3900 #### [facility] [address] [place], [place], [id number] Anisocytosis Ql (Bld) 2+ Normal [facility] Comment on above: Order Comment: Order Date: 04/22/24 Order Info: [id number] - CBCD Comments: cc copy to Friend Performed By: #### L 100.0100, [id number] #### [facility] [address] [place], [address] HYPOCHROMASIA 1+ Normal [facility] Comment on above: Order Comment: Order Date: 04/22/24 Order Info: [id number]- - CBCD Comments: cc copy to Friend Performed By: #### L 100.0100, [id number] #### [facility] [address] [place], [address] PLT EST SLT INC Normal ADEQ [facility] Comment on above: Order Comment: Order Date: 04/22/24 Order Info: [id number]- - CBCD Comments: cc copy to Friend Performed By: #### L 100.0100, [id number] #### [facility] [address] [place], [address] Gastroenterology Visit Repor ton 04-22-[address] [facility] [address] [place] [address] OFFICE VISIT Date of Service: 04/22/24 MR#: [id number] Acct: [id number] Name: JOHN GONZALEZ Rep #: [id number] : 1955 Provider: BECKY woodard Age/Sex: 68/M [place] [facility] [place]: Signed Intake Vital Signs 04/07/24 10:25 04/22/24 12:55 Height 6 ft Weight: 226 lb 7 oz 227 lb 8 oz BMI 30.7 BP 143/80 H 146/89 H Blood Pressure Location Lt brachial Position Sitting Respiration 18 16 Pulse 60 82 Pulse Source Monitor Temp 98.5 F Pulse Oximetry (%) 95 96 Oxygen Delivery Method room air room air Intake Visit Reasons: Hemorrhoids Allergies Iodinated Contrast Media Adverse Reaction (Verified 04/22/24 12:50) Itching Medications ???Medication ???Instructions ???Recorded ???Confirmed ???Type omeprazole 20 mg capsule,delayed 20 mg PO DAILY 03/07/22 04/22/24 History release carvedilol 12.5 mg tablet mg PO 03/12/24 04/22/24 History rivaroxaban 10 mg tablet (Xarelto) 10 mg PO QDAY 03/12/24 04/22/24 History budesonide-formoterol HFA 160 2 puff inhalation BID 03/20/24 04/22/24 History mcg-4.5 mcg/actuation aerosol inhaler (Symbicort) levomefolate calcium 15 mg tablet 15 mg PO QDAY 03/20/24 04/22/24 History lisinopril 5 mg tablet 5 mg PO QDAY 03/20/24 04/22/24 History lysine 500 mg tablet (L-Lysine) 500 mg PO QDAY 03/20/24 04/22/24 History ferrous sulfate 325 mg (65 mg 325 mg PO QDAY 04/07/24 04/22/24 History iron) tablet mecobalamin (vitamin B12) 1,000 1,000 mcg sublingual TID 04/07/24 04/22/24 History mcg disintegrating tablet,sublingual Have you fallen in the past year?: No Nurse's Note: When he stopped the xeralto the bleeding stopped a few days later. [facility] Medical History Wears glasses Alcohol use DVT (deep venous thrombosis) Easy bruising Excessive bleeding Gastric reflux Former smoker History of echocardiogram History of stress test Cardiology follow-up encounter History of irregular heartbeat Pulmonary embolism GERD (gastroesophageal reflux disease) Rectal bleeding Obesity (BMI 30.0-34.9) COPD (chronic obstructive pulmonary disease) Superficial venous thrombosis of upper extremity Syncope Arrhythmia HTN (hypertension) Surgical History History of cardiac catheterization H/O knee surgery H/O colonoscopy Family History Mother Hypertension Dementia Father Melanoma Brother Heart disease Social History Smoking Status: Former smoker Tobacco: How many years used: 20 Smokeless tobacco user: chewing tobacco how long ago did patient quit smokin HPI HPI Details: JOHN GONZALEZ, is a 68 M who presents to the office today for Colonoscopy was last performed by Dr. Abbasi May 2022 for personal h/o colon polyps and this exam revealed two small hyperplastic polyps at the recto-sigmoid colon (recall colon 5 years). PMH is significant for PE and femoral, popliteal, tibial peroneal, gastrocnemius and soleal vein DVT on 03/04/2022 after COVID vaccination. Since then has been on Xarelto for thromboembolism prophylaxis." LABS 02/28/2024 HGB 10.4 08/30/2023 HGB 11.9 02/26/2023 14.3 - he discontinued Xarelto 9 days ago - reports bleeding has stopped - has been experiencing BRBPR with BM for the past year - denies any rectal pain - saw a surgeon a couple weeks ago who recommended hemorrhoidectomy - Ayleen - denies any diarrhea - he reports bleeding significantly worsened when he was changed from Eliquis to Xarelto - he was forgetting to take Eliquis BID was only taking Qday - fell last week has a small area of fullness left rick - OV this afternoon with PCP Exam Const General: cooperative, healthy appearing, no acute distress and well developed Nutritional Appearance: average body habitus and well nourished Orientation: alert and oriented x3 HENMT Head: normocephalic Ears: hearing grossly normal bilaterally Mouth: moist mucous membranes Teeth and gingiva: dentition normal Eyes Conjunctivae: conjunctivae normal Sclera: sclerae normal Neck Neck: normal visual inspection, full ROM and trachea midline Resp Effort Inspection: normal respiratory effort, able to speak in complete sentences and symmetric chest movement Auscultation: Bilateral: Clear to Auscultation Cardio Palpation: normal PMI Rate: regular rate Rhythm: regular rhythm Heart Sounds: S1 normal and S2 normal GI Inspection: normal to inspection Auscultation: normal bowel sounds Palpation: soft and no hepatosplenomegaly Rectal Exam: hemorrhoids Skin General: no rashes or l (more content not included)... Normal [facility] Partial Thromboplast Timeon 04-22-2024 aPTT Coag (Bld) [Time] 22.7 s Low 24.1-36.2 [facility] Comment on above: Order Comment: Order Date: 04/22/24Order Info: [id number] - PTComments: cc copy to Friend Performed By: #### L [id number] ####[facility] [address] [place], [address] Prothrombin Time w/INRon INR Coag (PPP) [Relative time] 0.9 {INR} Normal [facility] Comment on above: Order Comment: Order Date: 04/22/24 Order Info: [id number] - PT Comments: cc copy to Friend Performed By: #### L 100.0100, [id number] #### [facility] [address] [place], [address] PT Coag (PPP) [Time] 12.4 s Normal 11.7-14.[address] [facility] Comment on above: Order Comment: Order Date: 04/22/24 Order Info: [id number] - PT Comments: cc copy to Friend Performed By: #### L 100.0100, [id number] #### [facility] [address] [place], [address] Oncology Visit Reporton 03-15 Oncology Visit Report [facility] [address] [place], [place] [address] OFFICE VISIT Date of Service: 04/07/24 1025 MR#: [id number] Acct: [id number] Name: JOHN GONZALEZ Rep #: [id number] : 1955 From: Jamie Uribe MD Age/Sex: 68/M Location: [facility] [place] Status: Signed HPI Subjective Date of Service 04/07/24 Chief Complaint Referred for thromboembolism. History of Present Illness 68-year-old man was diagnosed with PE in 2017. He got left femoral, popliteal,tibial peroneal, gastrocnemius and soleal vein DVT on 03/04/2022 after COVID vaccination. Since then has been on Xarelto for thromboembolism prophylaxis. He has developed bleeding hemorrhoids and wants to know if he can discontinue Xarelto. He has hemorrhoids which is bleeding every day. [facility] Medical History Wears glasses Alcohol use DVT (deep venous thrombosis) Easy bruising Excessive bleeding Gastric reflux Former smoker History of echocardiogram History of stress test Cardiology follow-up encounter History of irregular heartbeat Pulmonary embolism GERD (gastroesophageal reflux disease) Rectal bleeding Obesity (BMI 30.0-34.9) COPD (chronic obstructive pulmonary disease) Superficial venous thrombosis of upper extremity Syncope Arrhythmia HTN (hypertension) Surgical History History of cardiac catheterization H/O knee surgery H/O colonoscopy Family History Mother Hypertension Dementia Father Melanoma Brother Heart disease Social History Smoking Status: Former smoker Tobacco: How many years used: 20 Smokeless tobacco user: chewing tobacco how long ago did patient quit smokin ROS Constitutional Constitutional: Reports systems reviewed and no addt'l complaints, except as documented Eyes Eyes: Reports systems reviewed and no addt'l complaints, except as documented ENT HEENT: Reports systems reviewed and no addt'l complaints, except as documented Cardiovascular Cardiovascular: Reports systems reviewed and no addt'l complaints, except as documented Respiratory/Chest Respiratory/Chest: Reports systems reviewed and no addt'l complaints, except as documented Gastrointestinal Gastrointestinal: Reports systems reviewed and no addt'l complaints, except as documented Genitourinary Genitourinary: Reports systems reviewed and no addt'l complaints, except as documented Musculoskeletal Musculoskeletal: Reports systems reviewed and no addt'l complaints, except as documented Integumentary Integumentary: Reports systems reviewed and no addt'l complaints, except as documented Neurologic Neurologic: Reports systems reviewed and no addt'l complaints, except as documented Psychiatric Psychiatric: Reports systems reviewed and no addt'l complaints, except as documented Endocrine Endocrinology: Reports systems reviewed and no addt'l complaints, except as documented Hematologic/Lymphatic Hematologic/Lymphatic: Reports systems reviewed and no addt'l complaints, except as documented Allergic/Immunologic Allergic/Immunologic: Reports systems reviewed and no addt'l complaints, except as documented Intake Vital Signs 03/12/24 08:02 04/07/24 10:25 Height 6 ft 6 ft Weight: 125.872 kg 102.71 kg BMI 37.6 30.7 BP 154/88 H 143/80 H Blood Pressure Location Rt brachial Lt brachial Position Sitting Sitting Respiration 18 18 Pulse 83 60 Pulse Source Monitor Monitor Temp 97.9 F 98.5 F Temperature Source Temporal Artery Pulse Oximetry (%) 97 95 Oxygen Delivery Method room air room air Intake Is patient in pain?: No Allergies Iodinated Contrast Media Adverse Reaction (Verified 04/07/24 10:27) Itching Medications ???Medication ???Instructions ???Recorded ???Confirmed ???Type omeprazole 20 mg capsule,delayed 20 mg PO DAILY 03/07/22 04/07/24 History release carvedilol 12.5 mg tablet mg PO 03/12/24 04/07/24 History rivaroxaban 10 mg tablet (Xarelto) 10 mg PO QDAY 03/12/24 04/07/24 History budesonide-formoterol HFA 160 2 puff inhalation BID 03/20/24 04/07/24 History mcg-4.5 mcg/actuation aerosol inhaler (Symbicort) levomefolate calcium 15 mg tablet 15 mg PO QDAY 03/20/24 04/07/24 History lisinopril 5 mg tablet 5 mg PO QDAY 03/20/24 04/07/24 History lysine 500 mg tablet (L-Lysine) 500 mg PO QDAY 03/20/24 04/07/24 History ferrous sulfate 325 mg (65 mg 325 mg PO QDAY 04/07/24 04/07/24 History iron) tablet mecobalamin (vitamin B12) 1,000 1,000 mcg sublingual TID 04/07/24 04/07/24 History mcg disintegrating tablet,sublingual Have you fallen in the past year?: No Central Venous Access Central Venous Access: No Exam (more content not included)... Normal [facility] Surgery Visit Reporton 03-12 Surgery Visit Report [facility] [address] [place], [place] [address]. [address] [place] [address] OFFICE VISIT Date of Service: 03/12/24 MR#: [id number] Acct: [id number] Name: JOHN GONZALEZ Rep #: [id number] : 1955 Provider: Dr. Alo hamilton MD Age/Sex: 68/M Location: [facility] Status: Signed Intake Vital Signs 05/30/22 07:22 03/12/24 08:02 Height 6 ft 6 ft Weight: 277 lb 8 oz BMI 37.6 BP 154/88 H Blood Pressure Location Rt brachial Position Sitting Respiration 18 Pulse 83 Pulse Source Monitor Temp 97.9 F Temp Source Temporal Pulse Oximetry (%) 97 Oxygen Delivery Method room air Intake Visit Reasons: RECTAL BLEEDING Chief Complaint: rectal bleeding Accompanied by: Is patient in pain?: No Allergies Iodinated Contrast Media Adverse Reaction (Verified 03/12/24 08:03) Itching Medications ???Medication ???Instructions ???Recorded ???Confirmed ???Type diphenhydramine HCl 25 mg capsule 25 mg PO TID PRN PRN Allergies 5 08/19/17 05/30/22 Rx days #15 caps omeprazole 20 mg capsule,delayed 20 mg PO DAILY 03/07/22 05/30/22 History release carvedilol 12.5 mg tablet mg PO 03/12/24 03/12/24 History rivaroxaban 10 mg tablet (Xarelto) 10 mg PO QDAY 03/12/24 03/12/24 History Have you fallen in the past year?: No PFSH Medical History Wears glasses Alcohol use DVT (deep venous thrombosis) Easy bruising Excessive bleeding Gastric reflux Former smoker History of echocardiogram History of stress test Cardiology follow-up encounter History of irregular heartbeat Pulmonary embolism GERD (gastroesophageal reflux disease) Rectal bleeding Obesity (BMI 30.0-34.9) COPD (chronic obstructive pulmonary disease) Superficial venous thrombosis of upper extremity Syncope Arrhythmia HTN (hypertension) Surgical History History of cardiac catheterization H/O knee surgery H/O colonoscopy Social History Smoking Status: Former smoker Tobacco: How many years used: 20 Smokeless tobacco user: chewing tobacco how long ago did patient quit smokin HPI HPI HPI: Patient is a 68-year-old male who presents with rectal bleeding that he attributes to hemorrhoids. He says this has been going on for at least a year. He has a colonoscopy 1 year ago. He reports that he recently changed from Eliquis to Xarelto and the bleeding got much worse. He denies any pain with bowel movements. He says the blood is bright red and it is copious. ROS General General: Yes weight change (loss- intentional ); No appetite, fatigue, colon cancer, breast cancer or weakness HEENT HEENT: No difficulty swallowing, eye injury, eye surgery, swollen glands or hoarseness Endo Endocrine: No thyroid disease, diabetes mellitus, thyroid cancer, Hair loss, heat intolerance or cold intolerance Skin Skin: No rash or changing moles Musc Musculoskeletal: No back problems, arthritis, rheumatoid arthritis, gout or joint pain Cardio Cardiovascular: No murmur, pacemaker, heart disease, atrial fibrillation, high blood pressure, heart attack, heart stent, palpitations, shortness of breat with exertion or chest pain Psych Psychiatric: No depression, anxiety or hearing voices Resp Respiratory: No shortness of breath, No sleep apnea, No cough, Yes COPD, No asthma, No emphysema and No wheezing Gastro Gastrointestinal: No abdominal pain, No nausea or vomiting, No diarrhea, No constipation, Yes blood in stool, Yes acid reflux, Yes hemorrhoids, No ulcers, No gallbladder problem and No black,tarry stools Vinny Hematologic: Yes blood thinners, No blood disorders, Yes bleeding, Yes anemia and Yes blood clots Neuro Neurologic: No numbness, No tingling and No weakness Exam Const General: cooperative Orientation: alert and oriented x3 HENMT Head: normal to inspection Neck Neck: normal visual inspection and full ROM Chest Chest palpation inspection: normal inspection of the chest Resp Effort Inspection: normal respiratory effort Auscultation: clear to auscultation bilaterally Cardio Rate: regular rate Rhythm: regular rhythm GI Inspection: non-distended Palpation: soft and nontender Rectal Exam: hemorrhoids Skin General: no rashes or lesions noted Neuro General: patient alert and patient oriented x3 Extrem General: full ROM Psych Appearance: grossly normal Mental Status: mental status grossly normal Assessment and Plan Assessment and Plan (1) Rectal bleeding: Status: Acute Plan: The patient has ongoing rectal bleeding that he attributes to his hemorrhoids. He does have hemorrhoids on physical exam. They do not live that (more content not included)... Normal [facility] Vitamin B12on 02-29-2024 Cobalamin (Vitamin B12) [Mass/Vol] 249 pg/mL Normal 211-911 [facility] Comment on above: Order Comment: Order Date: 09/12/23Order Info: [id number] - B12 Performed By: #### L 803.0600, L3410.9992, L500.4050, L100.0100, L504.2610 #### [facility] [address] [place], [address] CBC W/Diff, Automatedon 02-11 Absolute Lymph 1.86 X10 3/uL Normal 0.83-4.51 [facility] Comment on above: Order Comment: Order Date: 09/12/23Order Info: [id number] - CBCD Performed By: #### L 803.0600, L3410.9992, L500.4050, L100.0100, L504.2610 #### [facility] [address] [place], [address] Absolute Neut 3.9 X10 3/uL Normal 2.0-7.7 [facility] Comment on above: Order Comment: Order Date: 09/12/23Order Info: [id number] - CBCD Performed By: #### L 803.0600, L3410.9992, L500.4050, L100.0100, L504.2610 #### [facility] [address] [place], [address] Basophils/100 WBC (Bld) 0.5 % Normal 0-1 [facility] Comment on above: Order Comment: Order Date: 09/12/23Order Info: 0184-1 - CBCD Performed By: #### L 803.0600, L3410.9992, L500.4050, L100.0100, L504.2610 #### [facility] [address] [place], [address] Eosinophils/100 WBC (Bld) 1.7 % Normal 0-5 [facility] Comment on above: Order Comment: Order Date: 09/12/23Order Info: 0184-1 - CBCD Performed By: #### L 803.0600, L3410.9992, L500.4050, L100.0100, L504.2610 #### [facility] [address] [place], [address] Erythrocyte distribution width (RBC) [Ratio] 15.7 % High 11.6-14.6 [facility] Comment on above: Order Comment: Order Date: 09/12/23Order Info: 0184-1 - CBCD Performed By: #### L 803.0600, L3410.9992, L500.4050, L100.0100, L504.2610 #### [facility] [address] [place], [address] Hematocrit (Bld) [Volume fraction] 33.3 % Low 40-54 [facility] Comment on above: Order Comment: Order Date: 09/12/23Order Info: 0184-1 - CBCD Performed By: #### L 803.0600, L3410.9992, L500.4050, L100.0100, L504.2610 #### [facility] [address] [place], [address] Hemoglobin (Bld) [Mass/Vol] 10.4 g/dL Low 13.0-16.5 [facility] Comment on above: Order Comment: Order Date: 09/12/23Order Info: 0184-1 - CBCD Performed By: #### L 803.0600, L3410.9992, L500.4050, L100.0100, L504.2610 #### [facility] [address] [place], [address] IG% 0.200 Normal 0.0-0.9 [facility] Comment on above: Order Comment: Order Date: 09/12/23Order Info: 0184-1 - CBCD Result Comment: IG% - Immature Granulocytes (promyelocytes, myelocytes and metamyelocytes) > 1% indicates that a LEFT SHIFT is Present. Performed By: #### L 803.0600, L3410.9992, L500.4050, L100.0100, L504.2610 #### [facility] [address] [place], [address] Lymphocytes/100 WBC (Bld) 29.1 % Normal 19-41 [facility] Comment on above: Order Comment: Order Date: 09/12/23Order Info: 0184-1 - CBCD Performed By: #### L 803.0600, L3410.9992, L500.4050, L100.0100, L504.2610 #### [facility] [address] [place], [address] MCH (RBC) [Entitic mass] 26.7 pg Low 27.0-32.0 [facility] Comment on above: Order Comment: Order Date: 09/12/23Order Info: 0184-1 - CBCD Performed By: #### L 803.0600, L3410.9992, L500.4050, L100.0100, L504.2610 #### [facility] [address] [place], [address] MCHC (RBC) [Mass/Vol] 31.2 g/dL Low 32-36 [facility] Comment on above: Order Comment: Order Date: 09/12/23Order Info: 0184-1 - CBCD Performed By: #### L 803.0600, L3410.9992, L500.4050, L100.0100, L504.2610 #### [facility] [address] [place], [address] MCV (RBC) [Entitic vol] 85.6 fL Normal 80-94 [facility] Comment on above: Order Comment: Order Date: 09/12/23Order Info: 0184-1 - CBCD Performed By: #### L 803.0600, L3410.9992, L500.4050, L100.0100, [id number] #### [facility] [address] [place], [address] Monocytes/100 WBC (Bld) 7.7 % Normal 0-10 [facility] Comment on above: Order Comment: Order Date: 09/12/23Order Info: [id number] - CBCD Performed By: #### L 803.0600, L3410.9992, L500.4050, L100.0100, [id number] #### [facility] [address] [place], [address] Neutrophils/100 WBC (Bld) 60.8 % Normal 47-70 [facility] Comment on above: Order Comment: Order Date: 09/12/23Order Info: [id number] - CBCD Performed By: #### L 803.0600, L3410.9992, L500.4050, L100.0100, [id number] #### [facility] [address] [place], [address] Nucleated RBC (Bld) [#/Vol] 0 10*3/uL Normal 0-5 [facility] Comment on above: Order Comment: Order Date: 09/12/23Order Info: [id number] - CBCD Performed By: #### L 803.0600, L3410.9992, L500.4050, L100.0100, [id number] #### [facility] [address] [place], [address] Platelet mean volume (Bld) [Entitic vol] 10.2 fL Normal 6.2-12.0 [facility] Comment on above: Order Comment: Order Date: 09/12/23Order Info: [id number] - CBCD Performed By: #### L 803.0600, [id number], L500.4050, L100.0100, [id number] #### [facility] [address] [place], [address] Platelets (Bld) [#/Vol] 289 10*3/uL Normal 150-450 [facility] Comment on above: Order Comment: Order Date: 09/12/23Order Info: [id number] - CBCD Performed By: #### L 803.0600, L3410.9992, L500.4050, L100.0100, [id number] #### [facility] [address] [place], [address] RBC (Bld) [#/Vol] 3.89 10*6/uL Low 4.6-6.2 [facility] Comment on above: Order Comment: Order Date: 09/12/23Order Info: [id number] - CBCD Performed By: #### L 803.0600, L3410.9992, L500.4050, L100.0100, [id number] #### [facility] [address] [place], [address] RDW SD 48.4 fl High 35.1-43.9 [facility] Comment on above: Order Comment: Order Date: 09/12/23Order Info: [id number] - CBCD Performed By: #### L 803.0600, L3410.9992, L500.4050, L100.0100, [id number] #### [facility] [address] [place], [address] WBC (Bld) [#/Vol] 6.4 10*3/uL Normal 4.4-11.0 [facility] Comment on above: Order Comment: Order Date: 09/12/23Order Info: [id number] - CBCD Performed By: #### L 803.0600, L3410.9992, L500.4050, L100.0100, [id number] #### [facility] [address] [place], [address] Comprehensive Metabolic Prof cuate 02-28-2024 Albumin [Mass/Vol] 3.4 g/dL Normal 3.2-5.0 [facility] Comment on above: Order Comment: Order Date: 09/12/23Order Info: [id number] - CMP Performed By: #### L 803.0600, L3410.9992, L500.4050, L100.0100, [id number] #### [facility] [address] [place], [address] Albumin/Globulin [Mass ratio] 1.0 {ratio} Normal 0.9-2.4 [facility] Comment on above: Order Comment: Order Date: 09/12/23Order Info: [id number] - CMP Performed By: #### L 803.0600, L3410.9992, L500.4050, L100.0100, [id number] #### [facility] [address] [place], [address] ALK P 65 U/L Normal 45-117 [facility] Comment on above: Order Comment: Order Date: 09/12/23Order Info: [id number] - CMP Performed By: #### L 803.0600, [id number], L500.4050, L100.0100, [id number] #### [facility] [address] [place], [address] ALT [Catalytic activity/Vol] 24 U/L Normal 16-61 [facility] Comment on above: Order Comment: Order Date: 09/12/23Order Info: [id number] - CMP Performed By: #### L 803.0600, L3410.9992, L500.4050, L100.0100, [id number] #### [facility] [address] [place], [address] AST [Catalytic activity/Vol] 24 U/L Normal 15-37 [facility] Comment on above: Order Comment: Order Date: 09/12/23Order Info: [id number] - CMP Performed By: #### L 803.0600, L3410.9992, L500.4050, L100.0100, [id number] #### [facility] [address] [place], [address] Bilirubin [Mass/Vol] 0.50 mg/dL Normal 0.20-1.[address] [facility] Comment on above: Order Comment: Order Date: 09/12/23Order Info: [id number] - CMP Result Comment: For patients on eltrombopag therapy, use of Dimension [place] TBIL is not recommended. Performed By: #### L 803.0600, L3410.9992, L500.4050, L100.0100, [id number] #### [facility] [address] [place], [address] BUN/CRE 17.0 RATIO Normal 10-20 [facility] Comment on above: Order Comment: Order Date: 09/12/23Order Info: [id number] - CMP Performed By: #### L 803.0600, [id number], L500.4050, L100.0100, [id number] #### [facility] [address] [place], [address] CA,Total 9.4 mg/dL Normal 8.5-10.1 [facility] Comment on above: Order Comment: Order Date: 09/12/23Order Info: [id number] - CMP Performed By: #### L 803.0600, [id number], L500.4050, L100.0100, [id number] #### [facility] [address] [place], [address] Chloride [Moles/Vol] 106 mmol/L Normal 98-[address] [facility] Comment on above: Order Comment: Order Date: 09/12/23Order Info: 0786-1 - CMP Performed By: #### L 803.0600, [id number], L500.4050, L100.0100, [id number] #### [facility] [address] [place], [address] CO2 [Moles/Vol] 26.0 mmol/L Normal 21.0-32.0 [facility] Comment on above: Order Comment: Order Date: 09/12/23Order Info: 0786-1 - CMP Performed By: #### L 803.0600, L3410.9992, L500.4050, L100.0100, [id number] #### [facility] [address] [place], [address] Creatinine [Mass/Vol] 0.94 mg/dL Normal 0.70-1.30 [facility] Comment on above: Order Comment: Order Date: 09/12/23Order Info: [id number] - CMP Result Comment: The validity of the calculated GFR GFRAA in patients over 70 years has not been determined. Clinical correlation is essential. Performed By: #### L 803.0600, L3410.9992, L500.4050, L100.0100, [id number] #### [facility] [address] [place], [address] EST GFR - AA 102 mL/min Normal >60 [facility] Comment on above: Order Comment: Order Date: 09/12/23Order Info: [id number] - CMP Result Comment: Afri can Jamaican GFR Calc Performed By: #### L 803.0600, L3410.9992, L500.4050, L100.0100, [id number] #### [facility] [address] [place], [address] GAP 6 Normal 5-15 [facility] Comment on above: Order Comment: Order Date: 09/12/23Order Info: 0786-1 - CMP Performed By: #### L 803.0600, L3410.9992, L500.4050, L100.0100, [id number] #### [facility] [address] [place], [address] GFR/1.73 sq M.predicted among non-blacks MDRD (S/P/Bld) [Vol rate/Area] 84 mL/min/{1.73_m2} Normal >60 [facility] Comment on above: Order Comment: Order Date: 09/12/23Order Info: [id number] - CMP Result Comment: Non- GFR Calc Performed By: #### L 803.0600, L3410.9992, L500.4050, L100.0100, [id number] #### [facility] [address] [place], [address] Globulin (S) [Mass/Vol] 3.5 g/dL Normal 2.2-4.2 [facility] Comment on above: Order Comment: Order Date: 09/12/23Order Info: 0786-1 - CMP Performed By: #### L 803.0600, L3410.9992, L500.4050, L100.0100, [id number] #### [facility] [address] [place], [address] Glucose [Mass/Vol] 110 mg/dL High 74-106 [facility] Comment on above: Order Comment: Order Date: 09/12/23Order Info: 0786-1 - CMP Result Comment: Fast ing Glucose result from 100 to 125 mg/dL suggests IMPAIRED HOMEOSTASIS per A.D.A. criteria. Performed By: #### L 803.0600, L3410.9992, L500.4050, L100.0100, [id number] #### [facility] [address] [place], [address] Potassium [Moles/Vol] 4.5 mmol/L Normal 3.5-5.1 [facility] Comment on above: Order Comment: Order Date: 09/12/23Order Info: 0786-1 - CMP Performed By: #### L 803.0600, [id number], L500.4050, L100.0100, [id number] #### [facility] [address] [place], [address] Sodium [Moles/Vol] 138 mmol/L Normal 136-145 [facility] Comment on above: Order Comment: Order Date: 09/12/23Order Info: 0786-1 - CMP Performed By: #### L 803.0600, L3410.9992, L500.4050, L100.0100, [id number] #### [facility] [address] [place], [address] T PROT 6.9 g/dL Normal 6.4-8.2 [facility] Comment on above: Order Comment: Order Date: 09/12/23Order Info: 0786-1 - CMP Performed By: #### L 803.0600, L3410.9992, L500.4050, L100.0100, [id number] #### [facility] [address] [place], [place], [id number] [phone] Urea nitrogen [Mass/Vol] 16 mg/dL Normal 7-18 [facility] Comment on above: Order Comment: Order Date: 09/12/23Order Info: 0786-1 - CMP Performed By: #### L 803.0600, L3410.9992, L500.4050, L100.0100, [id number] #### [facility] [address] [place], [address] Absolute lymphocyte countOrd ered By: Wendy Diaz on 08-30-2023 Lymphocytes Auto (Unsp spec) [#/Vol] 1.53 10*3/uL 0.83-4.51 [facility] Automated lymphocyte count a s percentage of total leukocytesOrdered By: Wendy Diaz on 08-30-2023 Lymphocytes/100 WBC Auto (Unsp spec) 19.2 % 19-41 [facility] Basophil percentageOrdered B y: Wendy Diaz on 08-30-2023 Basophils/100 WBC (Bld) 0.4 % 0-1 [facility] Bilirubin [Mass/Vol] 0.30 mg/dL 0.20-1.[address] [facility] Comment on above: For patients on eltr ombopag therapy, use of Dimension [place] TBIL is not recommended. Chloride [Moles/Vol] 108 mmol/L 98-[address] [facility] Eosinophils/100 WBC (Bld) 0.1 % 0-5 [facility] Glucose [Mass/Vol] 106 mg/dL 74-106 [facility] Comment on above: Fasting Glucose resu lt from 100 to 125 mg/dL suggests IMPAIRED HOMEOSTASIS per A.D.A. criteria. Hemoglobin (Bld) [Mass/Vol] 11.9 g/dL 13.0-16.5 [facility] Monocytes/100 WBC (Bld) 2.6 % 0-10 [facility] Neutrophils (Bld) [#/Vol] 6.1 10*3/uL 2.0-7.7 [facility] Neutrophils/100 WBC (Bld) 77.2 % 47-70 [facility] Potassium [Moles/Vol] 4.3 mmol/L 3.5-5.1 [facility] Protein [Mass/Vol] 6.6 g/dL 6.4-8.2 [facility] Sodium [Moles/Vol] 137 mmol/L 136-145 [facility] WBC (Bld) [#/Vol] 8.0 10*3/uL 4.4-11.0 [facility] Determination of erythrocyte mean corpuscular volume (MCV)Ordered By: Wendy Diaz on 08-30-2023 MCV (RBC) [Entitic vol] 97.9 fL 80-94 [facility] Erythrocyte distribution wid th ratioOrdered By: Wendy Diaz on 08-30-2023 Erythrocyte distribution width (RBC) [Ratio] 13.1 % 11.6-14.6 [facility] Erythrocyte distribution wid th standard deviationOrdered By: Wendy Diaz on 08-30-2023 Erythrocyte distribution width (RBC) [Entitic vol] 46.6 fL 35.1-43.9 [facility] Hematocrit Auto (Bld) [Volum e fraction]Ordered By: Wendy Diaz on 08-30-2023 Hematocrit (Bld) [Volume fraction] 37.2 % 40-54 [facility] Immature granulocytes/100 WB C Auto (Bld)Ordered By: Wendy Diaz on 08-30-2023 Immature granulocytes/100 WBC (Bld) 0.500 % 0.0-0.9 [facility] Comment on above: IG% - Immature Granu locytes (promyelocytes, myelocytes and metamyelocytes) > 1% indicates that a LEFT SHIFT is Present. Laboratory - Chemistry and C hemistry - challengeOrdered By: Wendy Diaz on 08-30-2023 Albumin/Globulin [Mass ratio] 0.8 {ratio} 0.9-2.4 [facility] ALP [Catalytic activity/Vol] 73 U/L 45-117 [facility] ALT [Catalytic activity/Vol] 29 U/L 16-61 [facility] CO2 [Moles/Vol] 26.0 mmol/L 21.0-32.0 [facility] Globulin (S) [Mass/Vol] 3.6 g/dL 2.2-4.2 [facility] Urea nitrogen/Creatinine [Mass ratio] 20.7 mg/mg 10-20 [facility] - Hematology and Cell countsOrdered By: Wendy Diaz on 08-30-2023 MCH (RBC) [Entitic mass] 31.3 pg 27.0-32.0 [facility] MCHC (RBC) [Mass/Vol] 32.0 g/dL 32-36 [facility] Nucleated RBC/100 WBC (Bld) [Ratio] 0 % 0-5 [facility] Platelet mean volume (Bld) [Entitic vol] 9.5 fL 6.2-12.0 [facility] Platelets (Bld) [#/Vol] 296 10*3/uL 150-450 [facility] No Panel InformationOrdered By: Wendy Diaz on 08-30-2023 Estimated GFR (MDRD) Amer 99 mL/min >60 [facility] Comment on above: GFR Calc Estimated GFR (MDRD) Non-Af Amer 82 mL/min >60 [facility] Comment on above: Non- GFR Calc RBC Auto (Bld) [#/Vol]Ordere d By: Wendy Diaz on 08-30-2023 RBC (Bld) [#/Vol] 3.80 10*6/uL 4.6-6.2 [facility] Serum or plasma calcium grace urement (mass/volume)Ordered By: Wendy Diaz on 08-30-2023 Calcium [Mass/Vol] 8.9 mg/dL 8.5-10.1 [facility] Serum or plasma creatinine m easurement (mass/volume)Ordered By: Wendy Diaz on 08-30-2023 Creatinine [Mass/Vol] 0.96 mg/dL 0.70-1.30 [facility] Comment on above: The validity of the calculated GFR & GFRAA in patients over 70 years has not been determined. Clinical correlation is essential. Serum or plasma urea nitroge n measurement (mass/volume)Ordered By: Wendy Diaz on 08-30-2023 Urea nitrogen [Mass/Vol] 20 mg/dL 7-18 [facility] Thin prep Papanicolaou smear with manual screeningOrdered By: Wendy Diaz on 08-30-2023 Thin prep Papanicolaou smear with manual screening 3.0 g/dL 3.2-5.0 [facility] Thin prep Papanicolaou smear with manual screening 29 U/L 15-37 [facility] Thin prep Papanicolaou smear with manual screening 3 5-15 [facility] Absolute lymphocyte countOrd ered By: Wendy Diaz on 02-26-2023 Lymphocytes Auto (Unsp spec) [#/Vol] 2.19 10*3/uL 0.83-4.51 [facility] Basophil percentageOrdered B y: Wendy Diaz on 02-26-2023 Basophils/100 WBC (Bld) 0.5 % 0-1 [facility] Bilirubin [Mass/Vol] 0.50 mg/dL 0.20-1.[address] [facility] Comment on above: For patients on eltr ombopag therapy, use of Dimension [place] TBIL is not recommended. Chloride [Moles/Vol] 107 mmol/L 98-[address] [facility] Cholesterol [Mass/Vol] 189 mg/dL <200 [facility] Comment on above: <200 mg/dL Desirable 200-240 mg/dL Borderline >240 mg/dL High Risk Eosinophils/100 WBC (Bld) 1.2 % 0-5 [facility] Glucose [Mass/Vol] 125 mg/dL 74-106 [facility] Comment on above: Fasting Glucose resu lt from 100 to 125 mg/dL suggests IMPAIRED HOMEOSTASIS per A.D.A. criteria. Neutrophils (Bld) [#/Vol] 4.6 10*3/uL 2.0-7.7 [facility] Neutrophils/100 WBC (Bld) 60.9 % 47-70 [facility] Potassium [Moles/Vol] 4.3 mmol/L 3.5-5.1 [facility] Protein [Mass/Vol] 6.8 g/dL 6.4-8.2 [facility] Sodium [Moles/Vol] 140 mmol/L 136-145 [facility] Triglyceride [Mass/Vol] 81 mg/dL <199 [facility] Comment on above: The drugs N-Acetylcy steine and Metamizole may falsely depress this assay.Serum Triglycerides Reference Interval Normal <150 mg/dL Borderline high 150 - 199 mg/dL High 200 - 499 mg/dL Very High > or = 500 mg/dL WBC (Bld) [#/Vol] 7.5 10*3/uL 4.4-11.0 [facility] Blood erythrocytes count (nu mber/volume)Ordered By: Wendy Diaz on 02-26-2023 RBC (Bld) [#/Vol] 4.42 10*6/uL 4.6-6.2 [facility] Blood hemoglobin measurement (mass/volume)Ordered By: Wendy Diaz on 02-26-2023 Hemoglobin (Bld) [Mass/Vol] 14.3 g/dL 13.0-16.5 [facility] Blood lymphocytes/100 leukoc ytesOrdered By: Wendy Diaz on 02-26-2023 Lymphocytes/100 WBC (Bld) 29.2 % 19-41 [facility] Blood monocytes/100 leukocyt esOrdered By: Wendy Diaz on 02-26-2023 Monocytes/100 WBC (Bld) 8.1 % 0-10 [facility] Blood platelet mean volumeOr dered By: Wendy Diaz on 02-26-2023 Platelet mean volume (Bld) [Entitic vol] 9.7 fL 6.2-12.0 [facility] Determination of erythrocyte mean corpuscular volume (MCV)Ordered By: Wendy Diaz on 02-26-2023 MCV (RBC) [Entitic vol] 97.7 fL 80-94 [facility] Hematocrit Auto (Bld) [Volum e fraction]Ordered By: Wendy Diaz on 02-26-2023 Hematocrit (Bld) [Volume fraction] 43.2 % 40-54 [facility] - Chemistry and C hemistry - challengeOrdered By: Wendy Diaz on 02-26-2023 ALP [Catalytic activity/Vol] 71 U/L 45-117 [facility] ALT [Catalytic activity/Vol] 32 U/L 16-61 [facility] CO2 [Moles/Vol] 28.0 mmol/L 21.0-32.0 [facility] Cobalamin (Vitamin B12) [Mass/Vol] 421 pg/mL 211-911 [facility] Globulin (S) [Mass/Vol] 3.6 g/dL 2.2-4.2 [facility] Urea nitrogen/Creatinine [Mass ratio] 13.9 mg/mg 10-20 [facility] - Hematology and Cell countsOrdered By: Wendy Diaz on 02-26-2023 Erythrocyte distribution width (RBC) [Entitic vol] 44.9 fL 35.1-43.9 [facility] Erythrocyte distribution width (RBC) [Ratio] 12.4 % 11.6-14.6 [facility] Immature granulocytes/100 WBC (Bld) 0.100 % 0.0-0.9 [facility] Comment on above: IG% - Immature Granu locytes (promyelocytes, myelocytes and metamyelocytes) > 1% indicates that a LEFT SHIFT is Present. MCH (RBC) [Entitic mass] 32.4 pg 27.0-32.0 [facility] Nucleated RBC/100 WBC (Bld) [Ratio] 0 % 0-5 [facility] MCHC Auto (RBC) [Mass/Vol]Or dered By: Wendy Diaz on 02-26-2023 MCHC (RBC) [Mass/Vol] 33.1 g/dL 32-36 [facility] No Panel InformationOrdered By: Wendy Diaz on 02-26-2023 Estimated GFR (MDRD) Amer 103 mL/min >60 [facility] Comment on above: GFR Calc Estimated GFR (MDRD) Non-Af Amer 85 mL/min >60 [facility] Comment on above: Non- GFR Calc Urine Microalbumin/Creatinin e Ratio TNP [facility] Comment on above: Test not performed Platelets bldOrdered By: Denise Diaz on 02-26-2023 Platelets (Bld) [#/Vol] 210 10*3/uL 150-450 [facility] Serum or plasma albumin grace urement (mass/volume)Ordered By: Wendy Diaz on 02-26-2023 Albumin [Mass/Vol] 3.2 g/dL 3.2-5.0 [facility] Serum or plasma albumin/glob ulin mass ratioOrdered By: Wendy Diaz on 02-26-2023 Albumin/Globulin [Mass ratio] 0.9 {ratio} 0.9-2.4 [facility] Serum or plasma calcium grace urement (mass/volume)Ordered By: Wendy Diaz on 02-26-2023 Calcium [Mass/Vol] 9.1 mg/dL 8.5-10.1 [facility] Serum or plasma cholesterol in HDL measurement (mass/volume)Ordered By: Wendy Diaz on 02-26-2023 Cholesterol in HDL [Mass/Vol] 87 mg/dL >40 [facility] Comment on above: The drugs N-Acetylcy steine and Metamizole may falsely depress this assay. Reference Range HDL <40 mg/dL Low HDL Cholesterol HDL >or= 60 mg/dL High HDL Cholesterol Serum or plasma cholesterol in VLDL measurement (mass/volume)Ordered By: Wendy Diaz on 02-26-2023 Cholesterol in VLDL [Mass/Vol] 16 mg/dL 5-40 [facility] Serum or plasma creatinine m easurement (mass/volume)Ordered By: Wendy iDaz on 02-26-2023 Creatinine [Mass/Vol] 0.93 mg/dL 0.70-1.30 [facility] Comment on above: The validity of the calculated GFR & GFRAA in patients over 70 years has not been determined. Clinical correlation is essential. Serum or plasma ferritin devan surement (mass/volume)Ordered By: Wendy Diaz on 02-26-2023 Ferritin [Mass/Vol] 85 ng/mL 26-388 [facility] Serum or plasma folate measu rement (mass/volume)Ordered By: Wendy Diaz on 02-26-2023 Folate [Mass/Vol] 11.90 ng/mL 3.1-55.4 [facility] Serum or plasma low density lipoprotein (LDL) cholesterol measurement (mass/volume)Ordered By: Wendy Diaz on 02-26-2023 Cholesterol in LDL [Mass/Vol] 86 mg/dL 0-130 [facility] Serum or plasma urea nitroge n measurement (mass/volume)Ordered By: Wendy Diaz on 02-26-2023 Urea nitrogen [Mass/Vol] 13 mg/dL 7-18 [facility] Thin prep Papanicolaou smear with manual screeningOrdered By: Wendy Diaz on 02-26-2023 Thin prep Papanicolaou smear with manual screening 22 U/L 15-37 [facility] Thin prep Papanicolaou smear with manual screening 5 5-15 [facility] Thin prep Papanicolaou smear with manual screening < 5.0 mg/L NO RANGE EST. [facility] Urine creatinine measurement (mass/volume)Ordered By: Wendy Diaz on 02-26-2023 Creatinine (U) [Mass/Vol] 109.00 mg/dL NO RANGE EST. [facility] No Panel InformationOrdered By: Mireille Moran on 08-28-2022 Prostate Specific Antigen Screen 1.25 ng/mL 0.00-4.00 [facility] Comment on above: This test was perfor med using the TPSA assay method for the[facility] CenterCogniTens chemistry system. Values obtained with differentassay methods cannot be used interchangably.When changing PSA assays in the course of monitoring apatient, additional sequential testing should be carriedout to confirm baseline values. MCT-CARDIAC EVENT MONITORon 04-21-2022 MCT-CARDIAC EVENT MONITOR Event monitor with only 15 hours and 10 minutes of monitoring time available. 1 patient triggered event. The event was baseline with sinus rhythm with trigeminal PVCs, PVCs, and PACs. No symptoms. In this brief monitoring duration, the patient 1% ventricular ectopic burden and 21% supraventricular ectopic burden. Normal [facility] Absolute lymphocyte countOrd ered By: Dr. Diaz on 02-28-2022 Lymphocytes Auto (Unsp spec) [#/Vol] 2.19 10*3/uL 0.83-4.51 [facility] Basophil percentageOrdered B y: Dr. Diaz on 02-28-2022 Basophils/100 WBC (Bld) 0.9 % 0-1 [facility] Bilirubin [Mass/Vol] 0.30 mg/dL 0.20-1.[address] [facility] Comment on above: For patients on eltr ombopag therapy, use of Dimension [place] TBIL is not recommended. Chloride [Moles/Vol] 106 mmol/L 98-[address] [facility] Eosinophils/100 WBC (Bld) 5.3 % 0-5 [facility] Glucose [Mass/Vol] 119 mg/dL 74-106 [facility] Comment on above: Fasting Glucose resu lt from 100 to 125 mg/dL suggests IMPAIRED HOMEOSTASIS per A.D.A. criteria. Neutrophils (Bld) [#/Vol] 3.9 10*3/uL 2.0-7.7 [facility] Neutrophils/100 WBC (Bld) 55.7 % 47-70 [facility] Potassium [Moles/Vol] 4.8 mmol/L 3.5-5.1 [facility] Protein [Mass/Vol] 6.9 g/dL 6.4-8.2 [facility] Sodium [Moles/Vol] 138 mmol/L 136-145 [facility] WBC (Bld) [#/Vol] 7.0 10*3/uL 4.4-11.0 [facility] Blood erythrocytes count (nu mber/volume)Ordered By: Dr. Diaz on 02-28-2022 RBC (Bld) [#/Vol] 4.34 10*6/uL 4.6-6.2 [facility] Blood hemoglobin measurement (mass/volume)Ordered By: Dr. Diaz on 02-28-2022 Hemoglobin (Bld) [Mass/Vol] 13.4 g/dL 13.0-16.5 [facility] Blood lymphocytes/100 leukoc ytesOrdered By: Dr. Diaz on 02-28-2022 Lymphocytes/100 WBC (Bld) 31.4 % 19-41 [facility] Blood monocytes/100 leukocyt esOrdered By: Dr. Diaz on 02-28-2022 Monocytes/100 WBC (Bld) 6.6 % 0-10 [facility] Blood platelet mean volumeOr dered By: Dr. Diaz on 02-28-2022 Platelet mean volume (Bld) [Entitic vol] 9.2 fL 6.2-12.0 [facility] Determination of erythrocyte mean corpuscular volume (MCV)Ordered By: Dr. Diaz on 02-28-2022 MCV (RBC) [Entitic vol] 94.0 fL 80-94 [facility] Hematocrit Auto (Bld) [Volum e fraction]Ordered By: Dr. Diaz on 02-28-2022 Hematocrit (Bld) [Volume fraction] 40.8 % 40-54 [facility] - Chemistry and C hemistry - challengeOrdered By: Dr. Diaz on 02-28-2022 ALP [Catalytic activity/Vol] 60 U/L 45-117 [facility] ALT [Catalytic activity/Vol] 34 U/L 16-61 [facility] CO2 [Moles/Vol] 24.0 mmol/L 21.0-32.0 [facility] Globulin (S) [Mass/Vol] 3.8 g/dL 2.2-4.2 [facility] Magnesium [Mass/Vol] 2.2 mg/dL 1.6-2.[address] [facility] Urea nitrogen/Creatinine [Mass ratio] 14.9 mg/mg 10-20 [facility] - Hematology and Cell countsOrdered By: Dr. Diaz on 02-28-2022 Erythrocyte distribution width (RBC) [Entitic vol] 43.6 fL 35.1-43.9 [facility] Erythrocyte distribution width (RBC) [Ratio] 12.8 % 11.6-14.6 [facility] Immature granulocytes/100 WBC (Bld) 0.100 % 0.0-0.9 [facility] Comment on above: IG% - Immature Granu locytes (promyelocytes, myelocytes and metamyelocytes) > 1% indicates that a LEFT SHIFT is Present. MCH (RBC) [Entitic mass] 30.9 pg 27.0-32.0 [facility] Nucleated RBC/100 WBC (Bld) [Ratio] 0 % 0-5 [facility] MCHC Auto (RBC) [Mass/Vol]Or dered By: Dr. Diaz on 02-28-2022 MCHC (RBC) [Mass/Vol] 32.8 g/dL 32-36 [facility] No Panel InformationOrdered By: Dr. Diaz on 02-28-2022 Estimated GFR (MDRD) Amer 95 mL/min >60 [facility] Comment on above: GFR Calc Estimated GFR (MDRD) Non-Af Amer 78 mL/min >60 [facility] Comment on above: Non- GFR Calc Urine Microalbumin/Creatinin e Ratio TNP [facility] Comment on above: Test not performed Platelets bldOrdered By: Dr. Diaz on 02-28-2022 Platelets (Bld) [#/Vol] 330 10*3/uL 150-450 [facility] Serum or plasma albumin grace urement (mass/volume)Ordered By: Dr. Diaz on 02-28-2022 Albumin [Mass/Vol] 3.1 g/dL 3.2-5.0 [facility] Serum or plasma albumin/glob ulin mass ratioOrdered By: Dr. Diaz on 02-28-2022 Albumin/Globulin [Mass ratio] 0.8 {ratio} 0.9-2.4 [facility] Serum or plasma calcium grace urement (mass/volume)Ordered By: Dr. Diaz on 02-28-2022 Calcium [Mass/Vol] 9.3 mg/dL 8.5-10.1 [facility] Serum or plasma creatinine m easurement (mass/volume)Ordered By: Dr. Diaz on 02-28-2022 Creatinine [Mass/Vol] 1.01 mg/dL 0.70-1.30 [facility] Comment on above: The validity of the calculated GFR & GFRAA in patients over 70 years has not been determined. Clinical correlation is essential. Serum or plasma urea nitroge n measurement (mass/volume)Ordered By: Dr. Diaz on 02-28-2022 Urea nitrogen [Mass/Vol] 15 mg/dL 7-18 [facility] Thin prep Papanicolaou smear with manual screeningOrdered By: Dr. Diaz on 02-28-2022 Thin prep Papanicolaou smear with manual screening 20 U/L 15-37 [facility] Thin prep Papanicolaou smear with manual screening 8 5-15 [facility] Thin prep Papanicolaou smear with manual screening < 5.0 mg/L NO RANGE EST. [facility] Urine creatinine measurement (mass/volume)Ordered By: Dr. Diaz on 02-28-2022 Creatinine (U) [Mass/Vol] 129.00 mg/dL NO RANGE EST. [facility] Absolute lymphocyte counton 08-09-2021 Lymphocytes Auto (Unsp spec) [#/Vol] 2.06 10*3/uL 0.83-4.51 [facility] Work Phone: Basophil percentageon 2021 Basophils/100 WBC (Bld) 0.7 % 0-1 [facility] Work Phone: [phone] Bilirubin [Mass/Vol] 0.60 mg/dL 0.20-1.[address] [facility] Work Phone: Comment on above: For patients on eltr ombopag therapy, use of Dimension [place] TBIL is not recommended. Chloride [Moles/Vol] 105 mmol/L 98-[address] [facility] Work Phone: Cholesterol [Mass/Vol] 218 mg/dL <200 [facility] Work Phone: Comment on above: <200 mg/dL Desirable 200-240 mg/dL Borderline >240 mg/dL High Risk Eosinophils/100 WBC (Bld) 2.5 % 0-5 [facility] Work Phone: Glucose [Mass/Vol] 118 mg/dL 74-106 [facility] Work Phone: Comment on above: Fasting Glucose resu lt from 100 to 125 mg/dL suggests IMPAIRED HOMEOSTASIS per A.D.A. criteria. Neutrophils (Bld) [#/Vol] 3.2 10*3/uL 2.0-7.7 [facility] Work Phone: Neutrophils/100 WBC (Bld) 52.9 % 47-70 [facility] Work Phone: Potassium [Moles/Vol] 4.4 mmol/L 3.5-5.1 [facility] Work Phone: Protein [Mass/Vol] 6.9 g/dL 6.4-8.2 [facility] Work Phone: [phone] Sodium [Moles/Vol] 136 mmol/L 136-145 [facility] Work Phone: [phone] Triglyceride [Mass/Vol] 49 mg/dL [facility] Work Phone: [phone] Comment on above: The drugs N-Acetylcy steine and Metamizole may falsely depress this assay.Serum Triglycerides Reference Interval Normal <150 mg/dL Borderline high 150 - 199 mg/dL High 200 - 499 mg/dL Very High > or = 500 mg/dL WBC (Bld) [#/Vol] 6.1 10*3/uL 4.4-11.0 [facility] Work Phone: [phone] Blood erythrocytes count (nu mber/volume)on 08-09-2021 RBC (Bld) [#/Vol] 4.64 10*6/uL 4.6-6.2 [facility] Work Phone: [phone] Blood hemoglobin measurement (mass/volume)on 08-09-2021 Hemoglobin (Bld) [Mass/Vol] 14.8 g/dL 13.0-16.5 [facility] Work Phone: [phone] Blood lymphocytes/100 leukoc yteson 08-09-2021 Lymphocytes/100 WBC (Bld) 34.0 % 19-41 [facility] Work Phone: [phone] Blood monocytes/100 leukocyt eson 08-09-2021 Monocytes/100 WBC (Bld) 9.7 % 0-10 [facility] Work Phone: [phone] Blood platelet mean volumeon 08-09-2021 Platelet mean volume (Bld) [Entitic vol] 9.9 fL 6.2-12.0 [facility] Work Phone: [phone] Determination of erythrocyte mean corpuscular volume (MCV)on 08-09-2021 MCV (RBC) [Entitic vol] 92.2 fL 80-94 [facility] Work Phone: [phone] Hematocrit Auto (Bld) [Volum e fraction]on 08-09-2021 Hematocrit (Bld) [Volume fraction] 42.8 % 40-54 [facility] Work Phone: [phone] Laboratory - Chemistry and C hemistry - challengeon 08-09-2021 ALP [Catalytic activity/Vol] 52 U/L 45-117 [facility] Work Phone: [phone] ALT [Catalytic activity/Vol] 39 U/L 16-61 [facility] Work Phone: [phone] CO2 [Moles/Vol] 26.0 mmol/L 21.0-32.0 [facility] Work Phone: [phone] Globulin (S) [Mass/Vol] 3.3 g/dL 2.2-4.2 [facility] Work Phone: [phone]) Urea nitrogen/Creatinine [Mass ratio] 15.2 mg/mg 10-20 [facility] Work Phone: [phone] Laboratory - Hematology and Cell countson 08-09-2021 Erythrocyte distribution width (RBC) [Entitic vol] 42.6 fL 35.1-43.9 [facility] Work Phone: [phone] Erythrocyte distribution width (RBC) [Ratio] 12.7 % 11.6-14.6 [facility] Work Phone: [phone] Immature granulocytes/100 WBC (Bld) 0.200 % 0.0-0.9 [facility] Work Phone: [phone] Comment on above: IG% - Immature Granu locytes (promyelocytes, myelocytes and metamyelocytes) > 1% indicates that a LEFT SHIFT is Present. MCH (RBC) [Entitic mass] 31.9 pg 27.0-32.0 [facility] Work Phone: [phone] Nucleated RBC/100 WBC (Bld) [Ratio] 0 % 0-5 [facility] Work Phone: [phone] MCHC Auto (RBC) [Mass/Vol]on 08-09-2021 MCHC (RBC) [Mass/Vol] 34.6 g/dL 32-36 [facility] Work Phone: [phone] Panel Informationon 08-09 Estimated GFR (MDRD) Amer 97 mL/min >60 [facility] Work Phone: Comment on above: GFR Calc Estimated GFR (MDRD) Non-Af Amer 80 mL/min >60 [facility] Work Phone: Comment on above: Non- GFR Calc Urine Microalbumin/Creatinin e Ratio 7.3 mg/g CRE <30 [facility] Work Phone: Platelets bldon 08-09-2021 Platelets (Bld) [#/Vol] 186 10*3/uL 150-450 [facility] Work Phone: Serum or plasma albumin grace urement (mass/volume)on 08-09-2021 Albumin [Mass/Vol] 3.6 g/dL 3.2-5.0 [facility] Work Phone: Serum or plasma albumin/glob ulin mass ratioon 08-09-2021 Albumin/Globulin [Mass ratio] 1.1 {ratio} 0.9-2.4 [facility] Work Phone: Serum or plasma calcium grace urement (mass/volume)on 08-09-2021 Calcium [Mass/Vol] 9.8 mg/dL 8.5-10.1 [facility] Work Phone: Serum or plasma cholesterol in HDL measurement (mass/volume)on 08-09-2021 Cholesterol in HDL [Mass/Vol] 112 mg/dL [facility] Work Phone: Comment on above: The drugs N-Acetylcy steine and Metamizole may falsely depress this assay. Reference Range HDL <40 mg/dL Low HDL Cholesterol HDL >or= 60 mg/dL High HDL Cholesterol Serum or plasma cholesterol in VLDL measurement (mass/volume)on 08-09-2021 Cholesterol in VLDL [Mass/Vol] 10 mg/dL 5-40 [facility] Work Phone: [phone] Serum or plasma creatinine m easurement (mass/volume)on 08-09-2021 Creatinine [Mass/Vol] 0.99 mg/dL 0.70-1.30 [facility] Work Phone: Comment on above: The validity of the calculated GFR & GFRAA in patients over 70 years has not been determined. Clinical correlation is essential. Serum or plasma low density lipoprotein (LDL) cholesterol measurement (mass/volume)on 08-09-2021 Cholesterol in LDL [Mass/Vol] 96 mg/dL 0-130 [facility] Work Phone: Serum or plasma urea nitroge n measurement (mass/volume)on 08-09-2021 Urea nitrogen [Mass/Vol] 15 mg/dL 7-18 [facility] Work Phone: Thin prep Papanicolaou smear with manual screeningon 08-09-2021 Thin prep Papanicolaou smear with manual screening 25 U/L 15-37 [facility] Work Phone: Thin prep Papanicolaou smear with manual screening 5 5-15 [facility] Work Phone: Thin prep Papanicolaou smear with manual screening 5.1 mg/L NO RANGE EST. [facility] Work Phone: Urine creatinine measurement (mass/volume)on 08-09-2021 Creatinine (U) [Mass/Vol] 69.90 mg/dL NO RANGE EST. [facility] Work Phone: Whole blood hemoglobin A1c/t otal hemoglobin ratio (mass fraction)on 08-09-2021 HbA1c (Bld) [Mass fraction] 5.3 % 3.8-5.6 [facility] Work Phone: Comment on above: Normal < 5.7 % Predi abetic 5.7 - 6.4 % Diabetic >or= 6.5 % Please note range changes. Otheron 08-23-2020 Atrial Rate [facility] [place] P-R Interval [facility] Q-T Interval [facility] Q-T Interval (corrected) [facility] QRS Duration [facility] QTC Calculation (Bezet) [facility] R [place] [facility] T [facility] Ventricular Rate [facility] Clinical Summary: HMSPatient IDon 01-20-2020 [facility] Work Phone: CNCOon 04-21-2019 [facility] Letter Text Normal [facility]COon 03-14-2019 [facility] Letter Text Normal [facility] Otheron 11-23-2018 1. 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 2. No acute fracture or dislocation involving left ankle or left foot. 3. Calcaneal enthesopathy. [employer] Workstation ID: [id number] [facility] EXAMINATION: XR FOOT LEFT 3+ VIEWS (STANDARD); XR ANKLE LEFT 3+ VIEWS (STANDARD) 11/23/2018 HISTORY: ORDERING SYSTEM PROVIDED HISTORY: pain and swelling for 2 days, fell from bed Sunday, TECHNOLOGIST PROVIDED HISTORY: Injury/Trauma Reason for exam: pain Cancer History: no Surgery, RadiationHistory: no Encounter Type: Initial Mechanism of injury: fall ORDERING SYSTEM PROVIDED DIAGNOSIS CODES: M79.672 Left foot pain FINDINGS: LEFT ANKLE: Frontal, oblique, and lateral views for 3 views were obtained. There is a 2 mm dystrophic calcification involving medial distal calf. Calcaneal enthesophyte noted at the insertion site of the Achilles tendon. There is overlapping soft tissue swelling and thickening of the distal Achilles tendon noted cranial to this. The alignment is otherwise satisfactory. No acute fracture or dislocation. LEFT FOOT: Frontal, oblique, and lateral views were obtained. There is joint space narrowing, periarticular sclerosis, and osteophytosis at the 1st MTP joint. 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 No acute fracture or dislocation. Subcentimeter bone island involving the distal fibular metaphyseal region suspected. [facility] Interface, Rad In Fu ji Speechq - 11/23/2018 4:58 PM EDT EXAMINATION: XR FOOT LEFT 3+ VIEWS (STANDARD); XR ANKLE LEFT 3+ VIEWS (STANDARD) 11/23/2018 HISTORY: ORDERING SYSTEM PROVIDED HISTORY: pain and swelling for 2 days, fell from bed Sunday, TECHNOLOGIST PROVIDED HISTORY: Injury/Trauma Reason for exam: pain Cancer History: no Surgery, RadiationHistory: no Encounter Type: Initial Mechanism of injury: fall ORDERING SYSTEM PROVIDED DIAGNOSIS CODES: M79.672 Left foot pain FINDINGS: LEFT ANKLE: Frontal, oblique, and lateral views for 3 views were obtained. There is a 2 mm dystrophic calcification involving medial distal calf. Calcaneal enthesophyte noted at the insertion site of the Achilles tendon. There is overlapping soft tissue swelling and thickening of the distal Achilles tendon noted cranial to this. The alignment is otherwise satisfactory. No acute fracture or dislocation. LEFT FOOT: Frontal, oblique, and lateral views were obtained. There is joint space narrowing, periarticular sclerosis, and osteophytosis at the 1st MTP joint. 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 No acute fracture or dislocation. Subcentimeter bone island involving the distal fibular metaphyseal region suspected. IMPRESSION: 1. 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 2. No acute fracture or dislocation involving left ankle or left foot. 3. Calcaneal enthesopathy. [employer] Workstation ID: [id number] [facility] XR ANKLE LEFT 3+ VIEWS (AMADEO DARD)on 11-23-2018 XR ANKLE LEFT 3+ VIEWS (STANDARD) EXAMINATION: XR FOOT LEFT 3+ VIEWS (STANDARD); XR ANKLE LEFT 3+ VIEWS (STANDARD) 11/23/2018 HISTORY: ORDERING SYSTEM PROVIDED HISTORY: pain and swelling for 2 days, fell from bed Sunday, TECHNOLOGIST PROVIDED HISTORY: Injury/Trauma Reason for exam: pain Cancer History: no Surgery, RadiationHistory: no Encounter Type: Initial Mechanism of injury: fall ORDERING SYSTEM PROVIDED DIAGNOSIS CODES: M79.672 Left foot pain FINDINGS: LEFT ANKLE: Frontal, oblique, and lateral views for 3 views were obtained. There is a 2 mm dystrophic calcification involving medial distal calf. Calcaneal enthesophyte noted at the insertion site of the Achilles tendon. There is overlapping soft tissue swelling and thickening of the distal Achilles tendon noted cranial to this. The alignment is otherwise satisfactory. No acute fracture or dislocation. LEFT FOOT: Frontal, oblique, and lateral views were obtained. There is joint space narrowing, periarticular sclerosis, and osteophytosis at the 1st MTP joint. 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 No acute fracture or dislocation. Subcentimeter bone island involving the distal fibular metaphyseal region suspected. IMPRESSION: 1. 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 2. No acute fracture or dislocation involving left ankle or left foot. 3. Calcaneal enthesopathy. [employer] Workstation ID: [id number] Dictated by: ERYN MIRANDA on Sat Nov 23, 2018 3:46:17 PM EDT Transcribed by: MIRELA GONZALES IN [employer] on Sat Nov 23, 2018 4:39:17 PM EDT Finalized by: ERYN MIRANDA on [facility] Nov 23, 2018 4:55:47 PM EDT [facility] Comment on above: Order Comment: Injur y/Trauma or Illness?:Injury/Trauma How long have you had these symptoms (acute/chronic)?:Acute Reason for exam?:pain History of cancer?:no Surgeries, chemotherapy, or radiation?:no Type of Exam?:Initial Mechanism of injury?:fall XR FOOT LEFT 3+ VIEWS (STAND BHARATI)on 11-23-2018 XR FOOT LEFT 3+ VIEWS (STANDARD) EXAMINATION: XR FOOT LEFT 3+ VIEWS (STANDARD); XR ANKLE LEFT 3+ VIEWS (STANDARD) 11/23/2018 HISTORY: ORDERING SYSTEM PROVIDED HISTORY: pain and swelling for 2 days, fell from bed Sunday, TECHNOLOGIST PROVIDED HISTORY: Injury/Trauma Reason for exam: pain Cancer History: no Surgery, RadiationHistory: no Encounter Type: Initial Mechanism of injury: fall ORDERING SYSTEM PROVIDED DIAGNOSIS CODES: M79.672 Left foot pain FINDINGS: LEFT ANKLE: Frontal, oblique, and lateral views for 3 views were obtained. There is a 2 mm dystrophic calcification involving medial distal calf. Calcaneal enthesophyte noted at the insertion site of the Achilles tendon. There is overlapping soft tissue swelling and thickening of the distal Achilles tendon noted cranial to this. The alignment is otherwise satisfactory. No acute fracture or dislocation. LEFT FOOT: Frontal, oblique, and lateral views were obtained. There is joint space narrowing, periarticular sclerosis, and osteophytosis at the 1st MTP joint. 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 No acute fracture or dislocation. Subcentimeter bone island involving the distal fibular metaphyseal region suspected. IMPRESSION: 1. 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 2. No acute fracture or dislocation involving left ankle or left foot. 3. Calcaneal enthesopathy. [employer] Workstation ID: [id number] Dictated by: ERYN MIRANDA on [facility] Nov 23, 2018 3:46:17 PM EDT Transcribed by: MIRELA GONZALES IN [employer] on [facility] Nov 23, 2018 4:39:17 PM EDT Finalized by: ERYN MIRANDA on [facility] Nov 23, 2018 4:55:47 PM EDT [facility] Comment on above: Order Comment: Injur y/Trauma or Illness?:Injury/Trauma How long have you had these symptoms (acute/chronic)?:Acute Reason for exam?:pain History of cancer?:no Surgeries, chemotherapy, or radiation?:no Type of Exam?:Initial Mechanism of injury?:fall ECG 12-LEADon 07-29-2018 Atrial Rate [facility] P [place] [facility] P-R Interval [facility] Q-T Interval [facility] Q-T Interval (corrected) [facility] QRS Duration [facility] QTC Calculation (Bezet) [facility] R [place] [facility] T [facility] Ventricular Rate [facility] th ANES Bebeto 03-19-2018 ANES POST HNO ID: [id number] thor: Dina Montaguevice: AnesthesiologyAuthor Type: AnesthesiologistType: Anesthesia PostOpFiled: 03/19/2018 12:23 PMNote Text:POST ANESTHESIA EVALUATION NOTESERVICE DATE: 03/19/2018SERVICE TIME: 12:23 PMDOB: 1955Vitals: 03/19/1810BP: 140/78 136/85 129/77Pulse: 78 93 94Resp: 18 20 18Temp: 37 ?C (98.6 ?F) 36.5 ?C (97.7 ?F)SpO2: 97% 97% 96%Validated Vital Signs: YesNo apparent anesthetic complications. The patient is appropriatelyhydrated with stable respiratory and cardiovascular status. Patient hassafe and adequate airway control. The patient has appropriate pain reliefand no significant post operative nausea or vomiting. The patient hasachieved baseline mental status.Further assessment by Anesthesia Service: NoneOther Remarks:SIGNATURE: Dina Mccabe MD PATIENT NAME: John DennytDATE: March 19, 2018 : 12:23 PM PAGER/CONTACT #:[facility] POST ANESTHESIA NOTEPATIENT NAME: John DennytMRN: [id number]: 03/19/1810BP: 140/78 136/85 129/77Pulse: 78 93 94Resp: 18 20 18Temp: 37 ?C (98.6 ?F) 36.5 ?C (97.7 ?F)SpO2: 97% 97% 96%No apparent anesthetic complications. The patient is appropriatelyhydrated with stable respiratory and cardiovascular status. Patient hassafe and adequate airway control. The patient has appropriate pain reliefand no significant post operative nausea or vomiting. The patient hasachieved baseline mental status.Further assessment by Anesthesia Service: NoneOther remarks: NoneSIGNATURE: Dina Mccabe, MDDATE: March 19, 2018TIME: 12:23 PM [facility] ANES PREOPon 03-19-2018 ANES PREOP HNO ID: [id number] thor: Dina PorteraService: AnesthesiologyAuthor Type: AnesthesiologistType: Anesthesia PreOpFiled: 03/19/2018 8:43 AMNote Text:REGIONAL ANESTHESIOLOGY DAY OF SURGERY NOTEPATIENT NAME: John DennytMRN: [id number](s) (LRB):ENDOSCOPY UPPER GI W/ TRANSENDOSCOPIC ULTRASOUND-GUIDED INTRAMURAL ORTRANSMURAL FINE NEEDLE ASPIRATION/BIOPSY(S) AND ULTRASOUND EXAM ESOPHAGUS(N/A)Surgeon(s):Elmo Walton:There were no vitals filed for this visit.ACTIVE PROBLEM LISTCopd (Chronic Obstructive Pulmonary Disease) (Hcc)Irregular Cardiac RhythmSeasonal AllergiesPac (Premature Atrial Contraction)Non Morbid ObesityPAST MEDICAL HISTORYDiagnosis Date- COPD (chronic obstructive pulmonary disease) (HCC)- GERD (gastroesophageal reflux disease)- Irregular cardiac rhythm- Non morbid obesity 09/07/2017- PAC (premature atrial contraction) 09/07/2017- Pulmonary embolism (HCC)- Seasonal allergies- Superficial venous thrombosis of armPAST SURGICAL HISTORYProcedure Laterality Date- COLONOSCOPY 08/2017- EGD- EGD EUS 09/12/2017- KNEE SCOPE,DIAGNOSTIC Left 1995FAMILY HISTORYProblem Relation Age of Onset- None Mother- Heart Father- Cancer Father melanomaSocial History:Social HistorySubstance Use Topics- Smoking status: Former Smoker Packs/day: 1.00 Years: 20.00 Quit date: 2010- Smokeless tobacco: Current User Types: Chew- Alcohol use 21.0 oz/week 14 Cans of Beer (12oz) per weekPrior to Admission medications as of 03/19/18 0828Medication Sig Last Dose TakingCOREG CR 20 mg 24 hr capsule 03/18/2018 at Unknown time Yeslisinopril (ZESTRIL, PRINIVIL) 5 mg tablet 03/18/2018 at Unknown time Yesbudesonide-formoterol (SYMBICORT) 160-4.5 mcg/actuation inhaler Inhale 2Puffs as instructed twice daily. 03/18/2018 at Unknown time Yesfexofenadine (KATIUSKA) 180 mg tablet Take 180 mg by mouth once daily.03/18/2018 at Unknown time YesNo current facility-administered medications for this encounter.Allergies:ALLERG IESAllergen Reactions- Iodinated Contrast-* Swelling, Itching Lab Value Units Date High Low APTT No results within date range. PTSEC No results within date range. INR No results within date range. HB No results within date range. HCT No results within date range. PLT No results within date range.CMP: Lab Value Units Date High Low GLUC No results within date range. BUN No results within date range. CREAT No results within date range. NA No results within date range. K No results within date range. ALB No results within date range. CA No results within date range.EKG SR with PACsECHO n/aCXR n/aAdequate NPO status: YesAnesthetic risks, benefits, alternatives, personnel and consent discussed:YesPatient agrees to proceed: YesPrevious Anesthesia: No history of adverse event.Airway Assessment: MP 2; Neck ROM: Full ROM without neurologic symptoms;Airway Evaluation: No significant abnormalitiesDentition: Teeth intactSymptoms of Sleep Apnea: N/ABlood Products:Anesthetic Plan: MAC with general as back up; Standard ASA MonitorsPain Management Plan: Parenteral or OralASA Class: 2Other Medical Problems: NoneChronic Beta Zeferino medication administered within 24 hours: N/AI have interviewed and examined the patient. I have reviewed the medicalrecord and/or the pre-anesthesia evaluation, pertinent labs, and testresults.Significant changes in the patient's condition since the History andPhysical, not otherwise documented in primary service progress notes: NoThis contains updated information obtained within 48 hours ofSurgery/Procedure.SIGNAT URE: Dina Mccabe MDDATE: March 19, 2018TIME: 8:42 AM [facility] CNDSon 03-19-2018 CNDS HNO ID: [id number] Author: Siva Bender Service: Gastroenterology Author Type: Physician Type: Discharge Summaries Filed: 03/19/2018 10:59 AM Note Text: EUS FNA performed Please see EPIC procedure tab Normal [facility] CYTOLOGYon 03-19-2018 [facility]OLOGY [facility]: [id number] Physician: SIVA BOXPECIMEHany SUBMITTEDA: DUODENUM,FINE NEEDLE ASPIRATE FINAL DIAGNOSISA. DUODENUM,FINE NEEDLE ASPIRATENegative for malignant cells.COMMENTStaff computer consultant Dr. Ar david.Pamella Peres M.D. (Electronic Signature) CLINICAL DATA Duodenal sub mucosal lesionADEQUACY INTERPRETATIONRapid Evaluation: Passes 1, 2, 3, 4 Non-diagnostic per Dr Pamella Khalil.Mary Ann Spoke with Dr Bender on March 19, 2018 Each letter in the above intra-procedural assessment refers to aunique site. The specific site is indicated in the final diagnosis portionof the report. Each number in this assessment references a discreteevaluation episode. Intra-procedural assessment performed at [facility], [address] [place] [address], [place] [address]OGPDE DESCRIPTIONA. DUODENUM,FINE NEEDLE ASPIRATE: 8-smears and 35-cc very pale pinkcytolyt STAINSA: DUODENUM,FINE NEEDLE ASPIRATE THIN PREP Non-Dining Room Helper, SMEARS PREPARED x 8Patient ID #: [id number] of Report: 03/20/2018Date of Procedure: 03/19/2018Date of Receipt: 03/19/2018Submitted by: SIVA LARESocation: [facility] CTRDiagnostic interpretation performed at [facility], [address] [place], [place] [id number]. [facility] Comment on above: Performed By: #### F NDUOD ####[id number] [place] [address] NURSING PROGon 03-19-2018 Protein mass conc HNO ID: [id number] thor: Loree SteinerRnEVA Gomezervice: NursingAuthor Type: Registered NurseType: Nursing Progress NoteFiled: 03/19/2018 8:50 AMNote Text:PRE OP LEARNING ASSESSMENTPROCEDURE/SURGER Y: GI PROCEDURES: ESUREADINESS TO LEARNCOGNITIVE ABILITY: Alert and orientedMOTIVATION TO LEARN: InterestedFAMILY SUPPORT: High - Very involved in pt carePATIENT LEARNS BEST BY: Verbal InstructionFACTORS AFFECTING LEARNING: NonePHYSICAL LIMITATIONS AFFECTING LEARNING: NoneElectronically Signed By: Loree Silver RN In Department: [facility] Topic of Note:Daily NoteDavid A [id number] note was completed by: Loree Silver RN [facility] PT EDon 03-19-2018 PT ED HNO ID: [id number] thor: EVA Sharma Rnervice: NursingAuthor Type: Registered NurseType: Patient EducationFiled: 03/19/2018 11:35 AMNote Text:POST OP LEARNING RESPONSEINSTRUCTION PROVIDED TO: Patient and family memberMETHOD OF INSTRUCTION: Written instruction - handoutsVerbal instructionPATIENT / FAMILY RESPONSE: Information received as demonstrated byinterest and questionsFOLLOW-UP PLAN: Complete - No need for follow-upSUPPLEMENTAL MATERIAL: NoneREFERRAL (RECOMMENDATION): NoneInformation processed with patient and family by Loree Silver RN.Electronically Signed By: Carmen Coffman RN In Department: [facility] NURSING PROGon 03-18-2018 Protein mass conc HNO ID: [id number] thor: Verena Samano RNService: (none)Author Type: (none)Type: Nursing Progress NoteFiled: 03/18/2018 8:24 AMNote Text:PACC Nurse Progress NoteHistory AND Physical:PACC Visit Date: 03/15/2018Original HANDP Date: N/AED visit Date: N/AOutside HANDP Scanned Date: N/ALabs Within Last 6 Months:CBC: Date 02/12/2018 RBC 4.41BMP/CMP: Date 02/12/2018 Within acceptable limitsAbove labs scanned in Epic 03/15/2018Imaging Within Last 12 Months:N/ACardiac Testing:EKG in last 12 Months: Yes: Date: 07/2017, Comment: scanned 09/07/2017ECHO Date: 07/2017, Comment: scanned 09/07/2017BMI Percentile (PEDS):N/ARisk Assessment:N/AAnesthesia Review:N/ANarrative:N/APre -op Considerations: Difficult IV/Vein Access: multiple sticksH/o PE 08/2017 completed Xarelto last monthPACCopdChart Check:Shama Samano RNNovember 2017 8:22 AM [facility] HOSPon 01-29-2018 HOSP Patient:John Gonzalez MRN: Height:6' 0"(1.829 m)Weight:234 lb (106.142 kg)Outpatient Medications as of 03/19/18:COREG CR 20 mg 24 hr capsulelisinopril (ZESTRIL, PRINIVIL) 5 mg tabletbudesonide-formotero l (SYMBICORT) 160-4.5 mcg/actuation inhalerfexofenadine (KATIUSKA) 180 mg tabletAdmission/Clinic Administered Medications as of 03/19/18:Patient has no admission medications.Problem List:COPD (chronic obstructive pulmonary disease) (HCC) [J44.9]Irregular cardiac rhythm [I49.9]Seasonal allergies [J30.2]PAC (premature atrial contraction) [I49.1]Non morbid obesity [E66.9]Allergies:Iodinated Contrast- Oral And IV DyeDate Verified: 03/19/18Lab ValuesNo results within the last 30 days for the following basenames: K,HCTNo progress notes entered within the past 30 days [facility] ANES Bebeto 09-12-2017 ANES POST HNO ID: [id number] thor: Tanvir Robles: AnesthesiologyAuthor Type: AnesthesiologistType: Anesthesia PostOpFiled: 09/12/2017 4:01 PMNote Text:POST ANESTHESIA EVALUATION NOTESERVICE DATE: 09/12/2017SERVICE TIME: 1600DOB: 1955Vitals: 09/12/1813Temp: 36.3 ?C (97.3 ?F) 36.5 ?C (97.7 ?F) 09/12/1813P: 127/67 132/80 138/87 153/88 09/12/1813ulse: 82 79 70 76 09/12/18131Resp: 16 16 16 18 09/12/1813pO2: 97% 98% 98% 97%Validated Vital Signs: YesPOST ANES STATUS: No apparent anesthetic complications. The patient isappropriately hydrated with stable respiratory and cardiovascular status.Patient has safe and adequate airway control. The patient has appropriatepain relief and no significant post operative nausea or vomiting. Thepatient has achieved baseline mental status.Further assessment by Anesthesia Service: NoneOther Remarks:SIGNATURE: Tanvir Loza MD PATIENT NAME: John GonzalezDATE: September 12, 2017 : 4:01 PM PAGER/CONTACT #: [phone] [facility] ANES PREOPon 09-12-2017 ANES PREOP HNO ID: [id number] thor: Candace (Gracy) ShantaService: AnesthesiologyAuthor Type: Nurse AnesthetistType: Anesthesia PreOpFiled: 09/12/2017 1:52 PMNote Text: ANESTHESIOLOGY DAY OF SURGERY NOTESERVICE DATE: 09/12/2017SERVICE TIME: 1340DOB: 1955Procedure(s) (LRB):ENDOSCOPY UPPER GI W/ TRANSENDOSCOPIC ULTRASOUND-GUIDED INTRAMURAL ORTRANSMURAL FINE NEEDLE ASPIRATION/BIOPSY(S) AND ULTRASOUND EXAM ESOPHAGUS(N/A)Surgeon(s):Siva Ngo body mass index is 30.25 kg/m? as calculated from the following: Height as of 09/07/17: 188 cm (6' 2"). Weight as of 09/07/17: 106.9 kg (235 lb 9.6 oz).Most recent hematocrit and potassium results:No results found for this basename: HCT,HEMATOCRIT,K,POTASSIUM ANES DOS/PREOP NOTE:Vitals: 228BP: 127/67Pulse: 82Resp: 16Temp: 36.3 ?C (97.3 ?F)TempSrc: Temporal ArterySpO2: 97%ACTIVE PROBLEM LISTCopd (Chronic Obstructive Pulmonary Disease) (Hcc)Pulmonary Embolism (Hcc)Irregular Cardiac RhythmGerd (Gastroesophageal Reflux Disease)Seasonal AllergiesPac (Premature Atrial Contraction)Non Morbid ObesityPAST MEDICAL HISTORYDiagnosis Date- COPD (chronic obstructive pulmonary disease) (HCC)- GERD (gastroesophageal reflux disease)- Irregular cardiac rhythm- Non morbid obesity 09/07/2017- PAC (premature atrial contraction) 09/07/2017- Pulmonary embolism (HCC)- Seasonal allergies- Superficial venous thrombosis of armPAST SURGICAL HISTORYProcedure Laterality Date- COLONOSCOPY 08/2017- EGD- EGD EUS 09/12/2017- KNEE SCOPE,DIAGNOSTIC Left 1994FAMILY HISTORYProblem Relation Age of Onset- None Mother- Heart Father- Cancer Father melanomaSocial History:Social HistorySubstance Use Topics- Smoking status: Former Smoker Packs/day: 1.00 Years: 20.00 Quit date: 2010- Smokeless tobacco: Current User Types: Chew- Alcohol use Yes Comment: occasionalNo current outpatient prescriptions on file prior to encounter.No current facility-administered medications on file prior to encounter.Current Outpatient Prescriptions:COREG CR 20 mg 24 hr capsule Disp: Rfl:lisinopril (ZESTRIL, PRINIVIL) 5 mg tablet Disp: Rfl:budesonide-formoterol (SYMBICORT) 160-4.5 mcg/actuation inhaler Inhale 2Puffs as instructed twice daily. Disp: Rfl:Omeprazole Magnesium 20 mg tablet Take 20 mg by mouth once daily. Disp:Rfl:XARELTO 20 mg tablet Disp: Rfl:fexofenadine (KATIUSKA) 180 mg tablet Take 180 mg by mouth once daily.Disp: Rfl:No current facility-administered medications for this encounter.Allergies:ALLERG IESAllergen Reactions- Iodinated Contrast-* Swelling, Itching- Xarelto [Rivaroxaba* Swelling, Itching Still taking it-reaction happened simultaneously after receiving bothDOS EXAM: Adequate NPO Status: YesAnesthetic Risks, Benefits, Alternatives, Personnel and Consent Discussed:YesPatient agrees to proceed: YesPrevious Anesthesia: No history of adverse eventAirway Assessment: MP 2; Neck ROM: Full ROM without neurologic symptoms;Airway Evaluation: No significant abnormalitiesSymptoms of Sleep Apnea: Snoring, Age over 50 (62 year old) and MalegenderDentition: Teeth intactAdditional Physical Exam:Lungs: Patient health status unchanged since recent history and physical.See history and physical for exam findings.Cardiac: Patient health status unchanged since recent history andphysical. See history and physical for exam findings.Additional Pertinent Findings: stopped xaralto 09/09, bilateral PEs 6 weeksago, not symptomaticBlood Products: Not anticipated for this procedureAnesthetic Plan: MAC with general as back upAnesthetic Monitoring: Standard ASA MonitorsPain Management Plan: Parenteral or OralASA Class: 3Other Medical Problems: NoneChronic Beta Zeferino medication administered within 24 hours: N/AI have interviewed and examined the patient. I have reviewed the medicalrecord and/or the pre-anesthesia evaluation, pertinent labs, and testresults.Significant changes in the patient's condition since the History andPhysical, not otherwise documented in primary service progress notes: NoThis contains updated information obtained within 48 hours ofSurgery/Procedure.SIGNAT URE: Candace Womack APRN.DRIVER GUIDE PATIENT NAME: John GonzalezDATE: September 12, 2017 : 1:49 PM CSN: [id number] contains updated information obtained within 48 hours ofSurgery/Procedure.SIGNAT URE: Candace Womack APRN.DRIVER GUIDE PATIENT NAME: John DennytDATE: September 12, 2017 : 1:39 PM CSN: [id number] Normal [facility] CYTOLOGYon 09-12-2017 [facility]OLOGY [facility]: [id number] Physician: SIVA BOXPECIMEHany SUBMITTEDA: DUODENUM,FINE NEEDLE ASPIRATE(THINPREP AND CELL BLOCK) FINAL DIAGNOSISA. DUODENUM,FINE NEEDLE ASPIRATE(THINPREP AND CELL BLOCK)Negative for malignant cells.Comment: The case was reviewed in consultation with Dr. Magana, whoconcurs. Alissa Estrada M.D. (Electronic Signature) CLINICAL DATA Cystic Lesion of Duodenal bulb GROSS DESCRIPTIONA. DUODENUM,FINE NEEDLE ASPIRATE(THINPREP AND CELL BLOCK): Received 35-ccclear CytoLyt STAINSA: DUODENUM,FINE NEEDLE ASPIRATE(THINPREP AND CELL BLOCK) THIN PREP Non-Dining Room Helper, CELL BLOCK, H&E, InitialPatient ID #: [id number] of Report: 09/16/2017Date of Procedure: 09/12/2017Date of Receipt: 09/13/2017Submitted by: SIVA LARESocation: HLSOPDiagnostic interpretation performed at [facility], [address] [place] [address]. [facility] Comment on above: Performed By: #### F NEUOD ####[id number] [place] [address] PT EDon 09-12-2017 PT ED HNO ID: [id number] thor: Carmen (Rn) Meghna, RNService: (none)Author Type: Registered NurseType: Patient EducationFiled: 09/12/2017 5:38 PMNote Text:POST OP LEARNING RESPONSEINSTRUCTION PROVIDED TO: Patient and family memberMETHOD OF INSTRUCTION: Written instruction - handoutsVerbal instructionPATIENT / FAMILY RESPONSE: Verbalizes understanding of: POST-OPERATIVEINSTRUCTIONS -Correct actions to take to reduce postoperative complicationsInformation received as demonstrated by interest and questionsFOLLOW-UP PLAN: Complete - No need for follow-upPatient instructed to call with any further issuesSUPPLEMENTAL MATERIAL: NoneREFERRAL (RECOMMENDATION): NoneElectronically Signed By: Carmen Coffman RN In Department: [facility] NURSING PROGon 09-10-2017 Protein mass conc HNO ID: [id number] thor: Faustino (Rn) EVA Alexandreervice: (none)Author Type: Registered NurseType: Nursing Progress NoteFiled: 09/10/2017 11:34 AMNote Text:PACC Nurse Progress NoteHistory AND Physical:PACC Visit Date: 09/07Original HANDP Date: N/AED visit Date: N/AOutside HANDP Scanned Date: N/ALabs Within Last 6 Months:N/AImaging Within Last 12 Months:N/ACardiac Testing:EKG in last 12 Months: Yes: Date: 07/2017, Comment: see resultECHO Date: 07/2017, Comment: scanned 08/2017Last Menstrual Period:LMP Date: N/APostmenopausal >1yr: N/A,S/P Hysterectomy: N/ABMI Percentile (PEDS):N/ARisk Assessment:N/AAnesthesia Review:N/ANarrative:N/APre -op Considerations:N/AChart Check:Mayela Mcmanus 2017 11:32 AM [facility] HOSPon 09-03-2017 HOSP Patient:John Gonzalez MRN: Height:6' 2"(1.88 m)Weight:235 lb 9.6 oz (106.867 kg)Outpatient Medications as of 09/12/17:COREG CR 20 mg 24 hr capsulelisinopril (ZESTRIL, PRINIVIL) 5 mg tabletbudesonide-formotero l (SYMBICORT) 160-4.5 mcg/actuation inhalerXARELTO 20 mg tabletOmeprazole Magnesium 20 mg tabletfexofenadine (KATIUSKA) 180 mg tabletAdmission/Clinic Administered Medications as of 09/12/17:Patient has no admission medications.Problem List:COPD (chronic obstructive pulmonary disease) (HCC) [J44.9]Pulmonary embolism (HCC) [I26.99]Irregular cardiac rhythm [I49.9]GERD (gastroesophageal reflux disease) [K21.9]Seasonal allergies [J30.2]PAC (premature atrial contraction) [I49.1]Non morbid obesity [E66.9]Allergies:Iodinated Contrast- Oral And IV DyeXarelto [Rivaroxaban]Date Verified: 09/12/17Lab ValuesNo results within the last 30 days for the following basenames: K,HCTProgress Notes ([facility]):Shady Hogue MD 08/30/2017 3:05 PM SignedRecords from upper and lower endoscopy from July 31, 2017. I do not have copiesof the procedure Notes. Per the office follow-up dated August 07. The patient hada mass in the duodenal bulb of which biopsies revealed focal gastric metaplasia.He also underwent a CAT scan of which I do have a copy of the note.A feel the best referral would be to Dr. Ibarra.Please cancel my appt. the patient needs to obtain the operative notes from hisupper and lower endoscopy, in addition to having a CD of his CAT scan, andideally his pathology slides, for this appointment.Leandra Blakely Transmission System Operator 08/31/2017 11:12 [address]Dr. Ibarra office called, said patient needs to be scheduled for EGD/EUS forDuodenal Mass, wants this soon maybe a GIST Tumor.Pamela Quezada Admin AssLeroy Quezada Transmission System Operator 08/31/2017 11:14 AM SignedPlease provide parameters , needed as soon as possible.Pamela Quezada Admin Zia Bender MD 08/31/2017 11:26 AM Signed1-2 weeks ideal. EUS FNA no abx, MAC, linear scope (AW or MP)Pamela Quezada Transmission System Operator 08/31/2017 3:37 PM SignedScheduled, mailed prep.Pamela Quezada Transmission System Operator [facility] CHEST PA AND LATERALon 07-29 CHEST PA AND LATERAL Final ReportAccession No: [id number] Performed: Jul 29 2017 3:57PMExamination: CHEST PA AND LATERALEXAM: PA AND LATERAL VIEWS OF THE CHEST.INDICATION: TECH NOTES: c/o cough, SOB x 3 wks. States that the othernight hehad pleuritic pain on left side as well. h/o irreg. heart rate andemphysema.former smoker.COMPARISON: None available.FINDINGS: The cardiac silhouette is normal in size. Slightly tortuousaorta.Evaluation is slightly limited to positioning. Patient rotated to theleft.Minimal bibasilar opacity suggestive of atelectasis or scarring. Expandedmildpulmonary hyperinflation consistent with emphysema. There are noconsolidations, effusions, or infiltrate. No pneumothorax.IMPRESSION:Mi ld pulmonary emphysema and bibasilar atelectasis or scarring.No evidence for acute cardiopulmonary process.Interpreting Physician: SANDY STEVEN M.D.Trans: n/a : cc: Normal [facility] SPINE THORACIC, 3 VIEWSon SPINE THORACIC, 3 VIEWS Final ReportAccession No: [id number] Performed: Jul 29 2017 4:10PMExamination: SPINE THORACIC, 3 VIEWSEXAM: Thoracic spine, three views.INDICATION: TECH NOTES: c/o cough, SOB x 3 wks. states that the othernight hehad pleuritic pain on left side as well. h/o irreg. heart rate andemphysema.former smoker..COMPARISON: None.FINDINGS: AP, lateral and lateral swimmer's views of the thoracic spinewereobtained. Vertebral body heights and disc spaces are maintained. Noevidencefor acute fracture or subluxation is seen. Mild multilevel discogenicdegenerative changes involving particularly the lower thoracic spineincludingendplate sclerosis and spurring.IMPRESSION:Mild degenerative changes. No evidence for acute fracture or subluxation..Interpreting Physician: SANDY STEVEN M.D.Trans: n/a : cc: Normal [facility] Vital Signs Date Time Vital Sign Value Performing Clinician Facility 09-23-2024 11:05-0400 Body height 182.[address] Wendy Diaz MD Work Phone: [facility] 09-23-2024 11:05-0400 Body mass index (BMI) [Ratio] 31 kg/m2 Dr. Wendy Diaz MD Work Phone: [facility] 09-23-2024 11:05-0400 Body temperature 98.9 [degF] Dr. Wendy Diaz MD Work Phone: 0(820)857-808472 [place] [address] 09-23-2024 11:05-0400 Body weight 103.[address] Wendy Diaz MD Work Phone: 4(159)334-971572 [place] [address] 09-23-2024 11:05-0400 Diastolic blood pressure 80 mm[Hg] Dr. Wendy Diaz MD Work Phone: 3(454)562-448372 [place] [address] 09-23-2024 11:05-0400 Heart rate 59 /min Dr. Wendy Diaz MD Work Phone: 7(904)537-687872 [place] [address] 09-23-2024 11:05-0400 Respiratory rate 18 /min Dr. Wendy Diaz MD Work Phone: 5(396)658-257872 [place] [address] 09-23-2024 11:05-0400 SaO2% (BldA) [Mass fraction] 95 % Dr. Wendy Diaz MD Work Phone: 3(502)733-537372 [place] [address] 09-23-2024 11:05-0400 Systolic blood pressure 132 mm[Hg] Dr. Wendy Diaz MD Work Phone: 8(577)707-387672 [place] [address] 07-29-2024 10:33-0400 Body height 182.[address] Wendy Diaz MD Work Phone: 3(616)622-069672 [place] [address] 07-29-2024 10:33-0400 Body mass index (BMI) [Ratio] 30.7 kg/m2 Dr. Wendy Diaz MD Work Phone: 6(420)551-270372 [place] [address] 07-29-2024 10:33-0400 Body temperature 98.3 [degF] Dr. Wendy Diaz MD Work Phone: 1(268)130-896872 [place] [address] 07-29-2024 10:33-0400 Body weight 102.[address] Wendy Diaz MD Work Phone: 4(336)263-686972 [place] [address] 07-29-2024 10:33-0400 Diastolic blood pressure 66 mm[Hg] Dr. Wendy Diaz MD Work Phone: 0(815)736-875772 [place] [address] 07-29-2024 10:33-0400 Heart rate 60 /min Dr. Wendy Diaz MD Work Phone: 2(485)126-533372 [place] [address] 07-29-2024 10:33-0400 Respiratory rate 18 /min Dr. Wendy Diaz MD Work Phone: 2(021)713-757796 [place] [address] 07-29-2024 10:33-0400 SaO2% (BldA) [Mass fraction] 97 % Dr. Wendy Diaz MD Work Phone: 5(540)568-280696 [place] [address] 07-29-2024 10:33-0400 Systolic blood pressure 129 mm[Hg] Dr. Wendy Diaz MD Work Phone: 8(008)596-289472 [place] [address] 07-14-2024 11:28-0500 Body mass index (BMI) [Ratio] 30.9 kg/m2 Dr. Wendy Diaz MD Work Phone: 6(541)187-365172 [place] [address] 07-14-2024 11:28-0500 Body temperature 98.2 [degF] Dr. Wendy Diaz MD Work Phone: 2(558)180-811872 [place] [address] 07-14-2024 11:28-0500 Body weight 103.[address] Wendy Diaz MD Work Phone: 4(063)945-610772 [place] [address] 07-14-2024 11:28-0500 Diastolic blood pressure 94 mm[Hg] Dr. Wendy Diaz MD Work Phone: 9(041)729-574272 [place] [address] 07-14-2024 11:28-0500 Heart rate 67 /min Dr. Wendy Diaz MD Work Phone: 1(429)370-714172 [place] [address] 07-14-2024 11:28-0500 Respiratory rate 18 /min Dr. Wendy Diaz MD Work Phone: 9(676)011-959372 [place] [address] 07-14-2024 11:28-0500 SaO2% (BldA) [Mass fraction] 98 % Dr. Wendy Diaz MD Work Phone: 2(829)319-125772 [place] [address] 07-14-2024 11:28-0500 Systolic blood pressure 143 mm[Hg] Dr. Wendy Diaz MD Work Phone: 9(933)844-168772 [place] [address] 05-15-2024 14:06-0500 Body mass index (BMI) [Ratio] 30.7 kg/m2 Dr. Wendy Diaz MD Work Phone: 0(593)747-489872 [place] [address] 05-15-2024 14:06-0500 Body temperature 97.8 [degF] Dr. Wendy Diaz MD Work Phone: [facility] 05-15-2024 14:06-0500 Body weight 102.[address] Wendy Diaz MD Work Phone: [facility] 05-15-2024 14:06-0500 Diastolic blood pressure 81 mm[Hg] Dr. Wendy Diaz MD Work Phone: [facility] 05-15-2024 14:06-0500 Heart rate 73 /min Dr. Wendy Diaz MD Work Phone: [facility] 05-15-2024 14:06-0500 Respiratory rate 18 /min Dr. Wendy Diaz MD Work Phone: [facility] 05-15-2024 14:06-0500 SaO2% (BldA) [Mass fraction] 98 % Dr. Wendy Diaz MD Work Phone: [facility] 05-15-2024 14:06-0500 Systolic blood pressure 141 mm[Hg] Dr. Wendy Diaz MD Work Phone: [facility] 04-22-2024 07:53-0500 Body height 182.9 cm José Lusi Chatman MD Work Phone: [facility] 04-22-2024 07:53-0500 Body mass index (BMI) [Ratio] 29.84 kg/m2 José Luis Chatman MD Work Phone: [facility] 04-22-2024 07:53-0500 Body weight 99.79 kg José Luis Chatman MD Work Phone: [facility] 05-30-2022 08:50-0500 Body temperature 97.4 [degF] Dr. Wendy Diaz Work Phone: [facility] 05-30-2022 08:50-0500 Diastolic blood pressure 79 mm[Hg] Dr. Wendy Diaz Work Phone: [facility] 05-30-2022 08:50-0500 Heart rate 81 /min Dr. Wendy Diaz Work Phone: [facility] 05-30-2022 08:50-0500 Respiratory rate 16 /min Dr. Wendy Diaz Work Phone: [facility] 05-30-2022 08:50-0500 SaO2% (BldA) [Mass fraction] 99 % Dr. Wendy Diaz Work Phone: [facility] 05-30-2022 08:50-0500 Systolic blood pressure 126 mm[Hg] Dr. Wendy Diaz Work Phone: [facility] 05-30-2022 07:22-0500 Body height 182.[address] Wendy Diaz Work Phone: 3(386)394-891129 [address] 05-30-2022 07:22-0500 Body mass index (BMI) [Ratio] 29.6 kg/m2 Dr. Wendy Diaz Work Phone: [facility] 05-30-2022 07:22-0500 Body weight [address] Wendy Diaz Work Phone: [facility] 04-19-2022 08:31-0500 Body mass index (BMI) [Ratio] 29 kg/m2 Dr. Wendy Diaz Work Phone: [facility] 04-19-2022 08:31-0500 Body weight 99.[address] Wendy Diaz Work Phone: [facility] 04-19-2022 08:31-0500 Diastolic blood pressure 84 mm[Hg] Dr. Wendy Diaz Work Phone: [facility] 04-19-2022 08:31-0500 Respiratory rate 18 /min Dr. Wendy Diaz Work Phone: [facility] 04-19-2022 08:31-0500 Systolic blood pressure 140 mm[Hg] Dr. Wendy Diaz Work Phone: [facility] 04-03-2022 11:17-0500 Body height 182.9 cm José Luis Chatman MD Work Phone: [facility] 04-03-2022 11:17-0500 Body mass index (BMI) [Ratio] 29.84 kg/m2 José Luis Chatman MD Work Phone: [facility] 04-03-2022 11:17-0500 Body weight 99.79 kg José Luis Chatman MD Work Phone: [facility] 04-03-2022 11:17-0500 Diastolic blood pressure 83 mm[Hg] José Luis Chatman MD Work Phone: [facility] 04-03-2022 11:17-0500 Heart rate 87 /min José Luis Chatman MD Work Phone: [facility] 04-03-2022 11:17-0500 Systolic blood pressure 135 mm[Hg] José Luis Chatman MD Work Phone: [facility] 03-07-2022 09:35-0400 Diastolic blood pressure 87 mm[Hg] Dr. Wendy Diaz Work Phone: [facility] 03-07-2022 09:35-0400 Heart rate 80 /min Dr. Wendy Diaz Work Phone: [facility] 03-07-2022 09:35-0400 SaO2% (BldA) [Mass fraction] 98 % Dr. Wendy Diaz Work Phone: [facility] 03-07-2022 09:35-0400 Systolic blood pressure 135 mm[Hg] Dr. Wendy Diaz Work Phone: [facility] 03-04-2022 10:40-0400 Heart rate 62 /min [facility] 03-04-2022 10:40-0400 Respiratory rate 15 /min [facility] 03-04-2022 10:40-0400 SaO2% (BldA) [Mass fraction] 99 % [facility] 03-04-2022 07:38-0400 Body height 185.42 cm [facility] Work Phone: 03-04-2022 07:38-0400 Body mass index (BMI) [Ratio] 29.6 kg/m2 [facility] 03-04-2022 07:38-0400 Body temperature 97.8 [degF] [facility] 03-04-2022 07:38-0400 Body weight 101.9 kg [facility] 03-04-2022 07:38-0400 Diastolic blood pressure 83 mm[Hg] [facility] 03-04-2022 07:38-0400 Systolic blood pressure 144 mm[Hg] [facility] 06-23-2021 13:44-0500 Body height 182.9 cm José Luis Chatman MD Work Phone: [facility] 06-23-2021 13:44-0500 Body mass index (BMI) [Ratio] 31.74 kg/m2 José Luis Chatman MD Work Phone: [facility] 06-23-2021 13:44-0500 Body weight 106.14 kg José Luis Chatman MD Work Phone: [facility] 08-23-2020 08:28-0400 BMI (Body Mass Index) 30.85 kg/m2 José Luis Chatman [facility] 08-23-2020 08:28-0400 Body weight 106.05 kg José Luis Chatman [facility] 08-23-2020 08:28-0400 BP Diastolic 76 mm[Hg] José Luis Chatman [facility] 08-23-2020 08:28-0400 BP Systolic 130 mm[Hg] José Luis Chatman [facility] 08-23-2020 08:28-0400 Height 185.4 cm José Luis Chatman [facility] 08-23-2020 08:28-0400 Pulse (Heart Rate) 70 /min José Luis Chatman [facility] 08-23-2020 08:28-0400 Pulse Oximetry 96 % José Luis Chatman [facility] 08-22-2019 13:16-0400 BP Diastolic 72 mm[Hg] José Luis Chatman [facility] Comment on above: B/P at PCP OV 08/2108-22-2019 13:16-0400 BP Systolic 128 mm[Hg] José Luis Chatman [facility] Comment on above: B/P at PCP OV 08/2111-23-2018 15:08-0400 BMI (Body Mass Index) 31.27 kg/m2 [facility] 11-23-2018 15:08-0400 Body Temperature 98.01 [degF] [facility] [facility] 11-23-2018 15:08-0400 Body weight 107.5 kg Grace [facility] 11-23-2018 15:08-0400 BP Diastolic 88 mm[Hg] [facility] 11-23-2018 15:08-0400 BP Systolic 140 mm[Hg] [facility] 11-23-2018 15:08-0400 Height 185.4 cm [facility] 11-23-2018 15:08-0400 Pulse (Heart Rate) 85 /min [facility] 11-23-2018 15:08-0400 Pulse Oximetry 95 % [facility] 11-23-2018 15:08-0400 Respiratory Rate 12 /min [facility] 07-29-2018 13:29-0400 BMI (Body Mass Index) 30.26 kg/m2 José Luis [facility] 07-29-2018 13:29-0400 BP Diastolic 78 mm[Hg] José Luis [facility] 07-29-2018 13:29-0400 BP Systolic 122 mm[Hg] José Luis [facility] 07-29-2018 13:29-0400 Height 188 cm [facility] 07-29-2018 13:29-0400 Pulse (Heart Rate) 88 /min [facility] 07-29-2018 13:29-0400 Weight 106.91 kg [facility] NEGATED: Highlighted [id number] 11:36-0400 BMI (Body Mass Index) 31.99 kg/m2 Brice Barreto HAND MIXER [facility] Work Phone: NEGATED: Highlighted [id number] 11:36-0400 Body weight 106.6 kg Brice Barreto HAND MIXER [facility] Work Phone: NEGATED: Highlighted [id number] 11:36-0400 Body weight 107 kg Brice Barreto HAND MIXER [facility] Work Phone: NEGATED: Highlighted [id number] 11:36-0400 Height 182.88 cm Brice Barreto HAND MIXER [facility] Work Phone: NEGATED: Highlighted [id number] 11:36-0400 Height 183 cm Brice Barreto HAND MIXER [facility] Work Phone: Encounters Encounter Date Encounter Type Care Provider Facility Start: 10-01-2024 End: 10-01-[address] Wendy Diaz MD Work Phone: [facility] Work Phone: Start: 10-01-2024 End: 10-01-[address] Wendy Diaz MD -[facility] Work Phone: Start: 10-01-2024 End: 10-01-2024 ambulatory Wendy Diaz Facility:[facility] Start: 09-23-2024 End: 09-23-[address] Jamie Uribe MD -[facility] Work Phone: Start: 09-23-2024 End: 09-23-[address] Wendy Diaz MD Work Phone: [facility] Work Phone: Start: 09-16-[address] Jamie Uribe MD -[facility] Start: 09-16-2024 ambulatory Jamie Uribe Facility:[facility] Start: 09-02-2024 End: 09-02-[address] Wendy Diaz MD Work Phone: [facility] Work Phone: Start: 09-02-2024 End: 09-02-[address] Wendy Diaz MD -Radiology, [place] Work Phone: Start: 09-02-2024 End: 09-02-2024 ambulatory Wendy Diaz Facility:[facility] Start: 07-29-[address] Jamie Uribe MD -[facility] Start: 07-29-2024 End: 07-29-[address] Jamie Uribe MD -[facility] Work Phone: Start: 07-29-2024 End: 07-29-2024 ambulatory Wendy Diaz Facility:[facility] Start: 07-28-2024 End: 07-28-2024 Refill Bang Aldana MA [facility] Comment on above: Medication Refill Start: 07-14-2024 End: 07-14-2024 Patient encounter procedure Dinora PENA -[facility] Work Phone: Start: 07-14-2024 End: 07-14-2024 ambulatory Wendy Diaz Facility:[facility] Start: 05-15-2024 End: 05-15-[address] Jamie Uribe MD -[facility] Work Phone: Start: 05-15-2024 End: 05-15-2024 ambulatory Jamie Uribe Facility:[facility] Start: 04-24-2024 End: 04-24-2024 ambulatory Wendy Diaz Facility:[facility] Start: 04-22-2024 End: 04-22-2024 ambulatory Wendy Diaz Facility:[facility] Start: 04-22-2024 End: 04-22-2024 Phys/qhp telephone evaluation 11-20 min José Luis Chatman MD Work Phone: [facility] Comment on above: Hypercoagulable stat e (HCC) (Primary Dx); Dilated cardiomyopathy (HCC) Start: 04-22-2024 End: 04-22-2024 ambulatory JOSÉ LUIS CHATMAN [facility] Start: 04-22-2024 End: 04-22-2024 ambulatory Wendy Diaz Facility:[facility] Start: 04-07-2024 End: 04-07-2024 ambulatory Wendykathy Diaz Facility:[facility] Start: 03-20-2024 ambulatory Wendy Diaz Facility:[facility] Start: 03-12-2024 End: 03-12-2024 ambulatory Wendy Diaz Facility:[facility] Start: 02-28-2024 End: 02-28-2024 ambulatory Wendy Haxtun Facility:[facility] Start: 08-30-2023 End: 08-30-2023 ambulatory [facility] Work Phone: Start: 08-30-2023 End: 08-30-2023 Patient encounter procedure [facility] Start: 03-27-2023 End: 03-27-2023 ambulatory [facility] Work Phone: Start: 03-27-2023 End: 03-27-2023 Patient encounter procedure [facility] Work Phone: Start: 02-26-2023 End: 02-26-2023 ambulatory [facility] Work Phone: Start: 02-26-2023 End: 02-26-2023 Patient encounter procedure [facility] Work Phone: Start: 08-28-2022 End: 08-28-[address] Wendy Diaz Work Phone: [facility] Work Phone: Start: 08-28-2022 End: 08-28-[address] Wendy Diaz Work Phone: [facility] Start: 07-16-2022 Refill José Luis hawley MD Work Phone: [facility] Comment on above: Medication Refill Start: 05-30-2022 Non-patient / Non-visit Dr. Rory Diaz Work Phone: [facility] Start: 05-30-2022 End: 05-30-2022 Admission to same day surgery center Dr. Wendy Diaz Work Phone: [facility] Start: 05-30-2022 End: 05-30-[address] Wendy Diaz Work Phone: [facility] Work Phone: Start: 04-19-2022 End: 04-19-[address] Wendy Diaz Work Phone: [facility] Start: 04-03-2022 End: 04-04-2022 Orders Only José Luis Chatman MD Work Phone: [facility] Comment on above: SVT (supraventricula r tachycardia) (HCC) (Primary Dx) Start: 04-03-2022 End: 04-03-2022 Office outpatient visit 25 minutes José Luis Chatman MD Work Phone: [facility] Comment on above: Palpitations; PAC (premature atrial contraction); SVT (supraventricular tachycardia) (HCC); Chronic systolic congestive heart failure (HCC); Asymptomatic PVCs; Hypercoagulable state (HCC) Start: 03-07-2022 End: 03-07-[address] Wendy Diaz Work Phone: [facility] Start: 03-04-2022 Non-patient / Non-visit Dr. Rory Diaz Work Phone: [facility] Start: 03-04-2022 End: 03-04-2022 Emergency department patient visit [facility] Start: 02-28-2022 End: 02-28-[address] Wendy Diaz Work Phone: [facility] Work Phone: Start: 02-28-2022 End: 02-28-2022 Patient encounter procedure [facility] Start: 02-16-2022 Transcribe Orders Tila Diaz CNP Work Phone: [facility] Comment on above: Palpitations (Primar y Dx) Start: 08-09-2021 End: 08-09-2021 Patient encounter procedure [facility] Start: 06-23-2021 End: 06-23-2021 Phys/qhp telephone evaluation 5-10 min José Luis Chatman MD Work Phone: [facility] Comment on above: Congestive heart stephanie lure (HCC); Chronic systolic congestive heart failure (HCC) Start: 11-29-2020 End: 11-29-2020 Refill Reema Riggs MA [facility] Comment on above: Medication Refill Start: 11-09-2020 End: 11-09-2020 Refill Funmi Rascon TECHNOLOGIST [facility] Comment on above: Medication Refill (c arvedilol 12.5) Start: 08-23-2020 End: 08-23-2020 Orders Only Myriam Siddiqui [facility] Comment on above: Congestive heart stephanie lure, unspecified HF chronicity, unspecified heart failure type (HCC) (Primary Dx) Start: 08-23-2020 End: 08-23-2020 Office outpatient visit 15 minutes José Luis Chatman Work Phone: [facility] Comment on above: Congestive heart stephanie lure, unspecified HF chronicity, unspecified heart failure type (HCC); PAC (premature atrial contraction); SVT (supraventricular tachycardia) (HCC) Start: 08-17-2020 End: 08-17-2020 Refill Megan Gonzalez [facility] Comment on above: Medication Refill Start: 08-02-2020 End: 08-02-2020 Refill Michael Olguin [facility] Comment on above: Medication Refill Start: 01-20-2020 End: 01-20-2020 Patient encounter procedure Tomi Alvarado MD Work Phone: [facility] Work Phone: Start: 09-01-2019 End: 09-01-2019 Patient encounter procedure José Luis Chatman Work Phone: [facility] Comment on above: Congestive heart stephanie lure (HCC); Chronic systolic congestive heart failure (HCC); Asymptomatic PVCs Start: 11-23-2018 End: 11-27-2018 Patient encounter procedure GRACE PETTY [facility] Start: 11-23-2018 End: 11-23-2018 Office outpatient visit 10 minutes Grace Petty Work Phone: [facility] Comment on above: Left foot pain (Prim tomy Dx); Acute left ankle pain Start: 07-29-2018 End: 07-29-2018 Office outpatient visit 15 minutes José Luis Chatman Work Phone: [facility] Comment on above: Cardiomyopathy, unsp ecified type (HCC); Congestive heart failure (HCC); Chronic systolic congestive heart failure (HCC); SVT (supraventricular tachycardia) (HCC); PAC (premature atrial contraction) Start: 03-19-2018 End: 03-19-2018 Patient encounter procedure [facility] Start: 09-12-2017 End: 09-13-2017 Patient encounter procedure [facility] Start: 08-19-2017 Ambulatory Roya Daigle Wesley acility:[facility] Start: 08-19-2017 End: 08-19-2017 Ambulatory Roya Mary Kate MorilloPilo Work Phone: [facility] Start: 07-29-2017 Ambulatory Pamela Jose Sanchez Hernandez cility:[facility] Date Procedure Procedure Detail Performing Clinician Start: 10-01-[address] Wendy cardenas MD Work Phone: Start: 09-16-[address] Wendy Diaz MD Work Phone: Start: 09-16-[address] Wendy Diaz MD Work Phone: Comment on above: Performed at: [address] Director: Elio Coppola PhD, Phone: [phone] Start: 09-16-[address] Wendy cardenas MD Work Phone: Comment on above: Test Ordered: [id number] Thrombotic Risk Profile IHomocyst(e)ine 10.9 umol/L CB Reference Range: 0.0-17.2Plasminogen 119 % BN Reference Range: 70-150Antithrombin Activity 96 % BN Reference Range: 75-135Direct Xa inhibitor anticoagulants such as rivaroxaban,apixaban and edoxaban will lead to spuriously elevatedantithrombin activity levels possibly masking a deficiency.Protein C-Functional 133 % BN Reference Range: 73-180Protein S, Free 140 [H ] % BN Reference Range: 61-136Act.Prt.C Resist. 2.9 ratio BN Reference Range: 2.2-3.5The APCR result may be falsely increased (masking anabnormal, low APCR result) in patients on direct Xainhibitor (e.g., rivaroxaban, apixaban, edoxaban) or adirect thrombin inhibitor (e.g., dabigatran) anticoagulanttherapy due to assay interference by these drugs.PTT-LA 29.5 sec BN Reference Range: 0.0-43.5dRVVT 40.6 sec BN Reference Range: 0.0-47.0Lupus Reflex Interpretation Comment: BN Reference Range: .No lupus anticoagulant was detected.Dilute Prothrombin Time(dPT) 34.9 sec BN Reference Range: 0.0-47.6dPT Confirm Ratio 1.14 Ratio BN Reference Range: 0.00-1.34Anticardiolipin Ab,IgG,Qn <9 GPL U/mL CB Reference Range: 0-14 Negative: <15 Indeterminate: 15 - 20 Low-Med Positive: >20 - 80 High Positive: >80Anticardiolipin Ab,IgM,Qn <9 MPL U/mL CB Reference Range: 0-12 Negative: <13 Indeterminate: 13 - 20 Low-Med Positive: >20 - 80 High Positive: >80Beta-2 Glycoprotein I Ab, IgG <9 CB Units of Measure: GPI IgG units Reference Range: 0-20The reference interval reflects a 3SD or 99th percentileinterval, which is thought to represent a potentiallyclinically significant result in accordance with theInternational Consensus Statement on the classificationcriteria for definitive antiphospholipid syndrome (APS). JThromb Haem 2006;4:295-306.Beta-2 Glycoprotein I Ab, IgM <9 CB Units of Measure: GPI IgM units Reference Range: 0-32The reference interval reflects a 3SD or 99th percentileinterval, which is thought to represent a potentiallyclinically significant result in accordance with theInternational Consensus Statement on the classificationcriteria for definitive antiphospholipid syndrome (APS). JThromb Haem 2006;4:295-306.Factor II, DNA Analysis Comment TG Reference Range: .Result: c.*97G>A - Not DetectedThis result is not associated with an increased risk for venousthromboembolism. See Additional Clinical Information andComments.Additional Clinical Information:Venous thromboembolism is a multifactorial disease influenced bygenetic, environmental, and circumstantial risk factors. The c.*97G>Avariant in the F2 gene is a genetic risk factor for venousthromboembolism. Heterozygous carriers have a 2- to 4-fold increasedrisk for venous thromboembolism. Homozygotes for the c.*97G>A variantare rare. The annual risk of VTE in homozygotes has been reported huber 1.1%/year. Individuals who carry both a c.*97G>A variant in theF2 gene and a c.1601G>A (p. [id number]) variant in the F5 gene(commonly referred to as Factor V Leiden) have an approximately 20-fold increased risk for venous thromboembolism. Risks are likely huber even higher in more complex genotype combinations involving theF2 c.*97G>A variant and Factor V Leiden (PMID: [id number]). Additionalrisk factors include but are not limited to: deficiency of protein C,protein S, or antithrombin III, age, male sex, personal or familyhistory of deep vein thromboembolism, smoking, surgery, prolongedimmobilization, malignant neoplasm, tamoxifen treatment, raloxifenetreatment, oral contraceptive use, hormone replacement therapy, andpregnancy. Management of thrombotic risk and thrombotic events shouldfollow established guidelines and fit the clinical circumstance. Thisresult cannot predict the occurrence or recurrence of a thromboticevent.Comments:Genetic counseling is recommended to discuss the potential clinicalimplications of positive results, as well as recommendations fortesting family members.Genetic Coordinators are available for health care providers to discussresults at [phone] ([phone] Details:Variant analyzed: c.*97G>A, previously referred to as [id number]/Limitations:DNA analysis of the F2 gene (NM_[id number]) was performed by PCRamplification followed by restriction enzyme analysis. The diagnosticsensitivity is >99%. Results must be combined with clinicalinformation for the most accurate interpretation. Molecular-basedtesting is highly accurate, but as in any laboratory test, diagnosticerrors may occur. False positive or false negative results may occurfor reasons that include genetic variants, blood transfusions, bonemarrow transplantation, somatic or tissue-specific mosaicism,mislabeled samples, or erroneous representation of familyrelationships.This test was developed and its performance characteristics determinedby [facility]. It has not been cleared or approved by the Food and DrugAdministration.References:Marcelino S, Erica AK, Esteban R, Ron WW, Vega JH; [facility] ProfessionalPractice and Guidelines Committee. Addendum: [employer] (more content not included)... Start: 09-02-2024 Plain x-ray of wrist Dr Butch Diaz MD Work Phone: Start: 07-29-2024 D-dimer assay, quantitative Dr. Wendy Diaz MD Work Phone: Comment on above: NORMAL D-Dimer level (<0.50) indicates no DVT or PE. Start: 07-14-2024 Total iron binding c apacity measurement Dr. Wendy Diaz MD Work Phone: Start: 05-15-2024 Measurement of renal function Dr. Wendy Diaz MD Work Phone: Comment on above: GFR Calc Start: 03-27-2023 CT of chest Start: 05-30-2022 End: 05-30-[address] Wendy Diaz Work Phone: Start: 08-23-2020 12 lead ECG José Luis weaver Work Phone: Start: 01-20-2020 End: 01-20-2020 Blood pressure screening not performed - reason not given Tomi Alvarado MD Work Phone: Start: 01-20-2020 End: 01-20-2020 BMI outside of normal parameters - no follow-up plan/reason not given Tomi Alvarado MD Work Phone: Start: 01-20-2020 End: 01-20-2020 Documentation of current medications Tomi Alvarado MD Work Phone: Start: 01-20-2020 End: 01-20-2020 Pain assessment documented as negative - follow-up not required Tomi Alvarado MD Work Phone: Start: 01-20-2020 End: 01-20-2020 Radex hand minimum 3 views Tomi lockett MD Work Phone: Start: 01-20-2020 End: 01-20-2020 Tobacco non-user Tomi Alvarado MD Work Phone: Start: 11-23-2018 X-ray of left foot Patr bernice Petty Work Phone: Start: 11-23-2018 X-ray of left ankle Pat simon Wright Jovanny Work Phone: Start: 07-29-2018 12 lead ECG José Luis weaver Work Phone: NEGATED: Highlighted rowStart: 01-20-2020 End: 01-20-2020 Documentation of current medications Brice Barreto LPN Plan of Treatment Date Care Activity Detail Author Start: 05-30-2032 Screening for malign ant neoplasm of colon [facility] Start: 08-13-2028 Tetanus vaccination Tetanus: Every 1 0yrs [facility] Start: 03-27-2024 Screening for malign ant neoplasm of lung Low-dose CT [facility] Start: 01-13-2024 COVID-19 Vaccine ( season) COVID-19 Vaccine ( season) [facility] Start: 01-13-2024 Influenza vaccination Influenza Vacc ine (#1) [facility] Start: 08-14-2023 Pneumococcal Vaccine : Age 65+ (1 of 1 - PPSV23) Pneumococcal Vaccine: Age 65+ (1 of 1 - PPSV23) [facility] Start: 08-17-2022 Administration of he rpes zoster vaccine Zoster Vaccines (2 of 2) [facility] Start: 05-30-2022 Colsc flx w/rmvl of tumor polyp lesion snare tq COLONOSCOPY W/LESION REMOVAL [facility] Start: 05-30-2022 Patient discharge [facility] Start: 01-12-2022 Influenza vaccination Sequenti al Influenza Vaccine (#1) [facility] Start: 06-23-2021 COVID-19 Vaccine (4 - Booster for Moderna series) COVID-19 Vaccine (4 - Booster for Moderna series) [facility] Start: 01-12-2021 Influenza vaccination [facility] Start: 08-23-2020 End: 08-23-2020 Office Visit 08/23/2020 Office Visit Cardiology José Luis Chatman MD [address] [place] [address] [phone] [facility] Start: 08-18-2020 COVID-19 Vaccine (2 - Moderna 2-dose series) COVID-19 Vaccine (2 - Moderna 2-dose series) [facility] Start: 01-20-2020 End: 01-20-2020 Appointment Appointment [facility] Work Phone: Start: 01-13-2020 Influenza vaccinatio n given Sequential Influenza Vaccine (#1) [facility] Start: 08-14-2019 History and physical examination, annual for health maintenance Wellness Visit [facility] Start: 08-14-2019 Pneumococcal vaccination Pneum ococcal Vaccine Age 65+ (1 of 2 - PCV13) [facility] Start: 08-14-2019 Pneumococcal Vaccine : Age 65+ (2 - PCV) Pneumococcal Vaccine: Age 65+ (2 - PCV) [facility] Start: 2019 Fall risk assessment Falls Risk Asse ssment [facility] Start: 2019 Pneumococcal Vaccine : Age 65+ (1 of 1 - PPSV23) Pneumococcal Vaccine: Age 65+ (1 of 1 - PPSV23) [facility] Start: 01-12-2019 Influenza vaccinatio n given Sequential Influenza Vaccine (#1) [facility] Start: 01-12-2018 Influenza vaccinatio n given SEQUENTIAL INFLUENZA VACCINE (#1) [facility] Start: 01-12-2017 Influenza vaccination SEQUENTI AL INFLUENZA VACCINE (#1) [facility] Start: 2014 Respiratory Syncytia l Virus Immunization: Risk, 60-74 Risk, or 75+ (1 - Risk 60-74 years 1-dose series) Respiratory Syncytial Virus Immunization: Risk, 60-74 Risk, or 75+ (1 - Risk 60-74 years 1-dose series) [facility] Start: 2014 Zoster vacc, sc ZOSTER VACCINE [facility] Start: 2004 Administration of he rpes zoster vaccine ZOSTER VACCINES (1 of 2) [facility] Start: 2004 Screening for malign ant neoplasm of colon [facility] Start: 1972 Hepatitis C antibody , confirmatory test Hepatitis C Screening [facility] Start: 1972 Hepatitis C screening Hepatitis C Sc reening [facility] Start: 1970 COVID-19 Vaccine (1) COVID-19 Vaccin e (1) [facility] Start: 1966 Adolescent depressio n screening assessment Depression Screening (PHQ9) [facility] Start: 1966 Depression screening using PHQ-9 (Patient Health Questionnaire 9) score [facility] Start: 1957 History and physical examination, annual for health maintenance Wellness Visit [facility] Start: 1957 Medicare Wellness Visit Medica re Wellness Visit [facility] Start: 1954 Abdominal aortic aneurysm screening Abdominal Aortic Ultrasound [facility] Start: 1954 Fall risk assessment Falls Risk Asse ssment [facility] Start: 1954 Hepatitis C antibody , confirmatory test HEPATITIS C SCREENING [facility] Start: 1954 HEPATITIS C SCREENING HEPATITIS C SC REENING [facility] Start: 1954 Prostate specific antigen measurement PSA Level [facility] Start: 1954 Screening colonoscopy COL[facility]OSCOPY [facility] Start: 1954 Screening for malign ant neoplasm of colon [facility] Start: 1954 Screening for malign ant neoplasm of lung Low-dose CT Lung Cancer Screen [facility] Start: 1954 Tetanus vaccination TETANUS EVERY 10 YR [facility] Start: 1954 US scan of abdominal aorta Abdominal Aortic Ultrasound [facility] End: 04-03-2023 12 lead ECG ECG 12 Lead ECG Routine SVT (supraventricular tachycardia) (HCC) 3 Occurrences starting 04/03/2022 until 04/03/2023 [facility] Work Phone: Comment on above: 3 Occurrences starti ng 04/03/2022 until 04/03/2023 CBC W Auto Different ial panel - Blood [facility] Colonoscopy [facility] Comprehensive metabo lic 2000 panel - Serum or Plasma [facility] Homocysteine measurement [facility] Lactate dehydrogenas e measurement [facility] End: 06-03-2023 [facility] Services Routine PAC (premature atrial contraction) 1 Occurrences starting 04/03/2022 until 06/03/2023 [facility] Work Phone: Comment on above: 1 Occurrences starti ng 04/03/2022 until 06/03/2023 Patient Education ED Deep Vein Thrombosis (DVT) [facility] Work Phone: Patient referral [facility] Work Phone: Procedure [facility] Immunizations Immunization Date Immunization Notes Care Provider David roxannamukesh 02-16-2022 influenza virus vacc ine, unspecified formulation José Luis Chatman MD Work Phone: [facility] Payers Date Payer Category Payer Self-pay [id number] 2019 [facility] [id number] 2019 Unknown [facility] [id number] 2019-Present [id number]. [id number] 2019 Unknown [facility] [id number] 2019-Present [phone] [address] [place] [address] [id number]. 7.3.018642.315 2019 Unknown [id number] 2019 Medicare MEDICARE MEDICAR E PART A & B xxxxxxxxxxx 2019-Present [place] xxxxxxxxxxx [id number]. [id number] 2019 Medicare MEDICARE MEDICAR E PART A & B [id number] 2019-Present [place] [id number]. 7.3.726395.315 2019 Medicare [id number]. 1.13.385.2. 7.3.400601.315 2019 Medicare [id number] 2011 [facility] [id number] 2011 Unknown [id number] 2.16.840.1.128360.3.249.13 1954 Unknown [id number] 2.16.840.1.162203.3.579.2. 903 1954 Unknown [id number] 2.16.840.1.486298.3.579.2. 903 1954 Unknown [id number] 2.16.840.1.974176.3.579.2. 903 1954 Unknown [id number] 2.16.840.1.161335.3.579.2. 902 1954 Unknown [id number] 2.16.840.1.646777.3.579.2. 903 Unknown [id number] 2.16.840.1.076618.3.579.2. 462 Unknown [id number] 2.16.840.1.225309.3.579.2. 462 Unknown [id number] 2.16.840.1.837438.3.579.2. 462 Unknown [id number] 2.16.840.1.631390.3.579.2. 462 Unknown [id number] 2.16.840.1.767081.3.579.2. 462 Unknown [id number] 2.16.840.1.525582.3.579.2. 462 Unknown [id number] 2.16.840.1.285673.3.579.2. 462 Unknown [id number] 2.16.840.1.310516.3.579.2. 462 Unknown [id number] 2.16.840.1.785918.3.579.2. 462 Unknown [id number] 2.16.840.1.039823.3.579.2. 462 Unknown [id number] 2.16.840.1.880944.3.579.2. 462 Unknown [id number] 2.16.840.1.050203.3.579.2. 462 Unknown [id number] 2.16840.1.094458.3.579.2. 462 Unknown [id number] 2.16840.1.230132.3.579.2. 462 Social History Date Type Detail Facility Start: 07-23-2017 End: 05-25-2022 Tobacco smoking status [facility] Former smoker [facility] Start: 05-01-1989 End: 05-01-2009 History of tobacco use Current smoker [facility] Start: 05-01-1989 End: 05-01-2009 History of tobacco use Cigarette Smoker [facility] Start: 1955 Sex Assigned At Not on file [facility] Start: 09-01-2019 End: 04-22-2024 Alcohol intake Current drinker of alcohol (finding) [facility] Start: 03-24-2022 End: 04-03-2022 Exposure to SARS-CoV-2 (event) Not sure [facility] Start: 10-17-2020 End: 05-25-2022 Assertion Unknown if ever smoked [facility] Work Phone: Start: 09-01-2019 End: 04-03-2022 Tobacco use and exposure Never used [facility] Exposure to SARS-CoV -2 (event) Unable to assess [facility] Start: 07-30-2017 Occasional [facility] Start: 07-30-2017 None [facility] Start: 07-30-2017 Spouse/ Significant Other [facility] Start: 08-02-2017 Non-smoker [facility] Start: 1955 Sex Assigned At Male [facility] Start: 04-03-2022 End: 04-22-2024 Cigarettes smoked current (pack per day) - Reported 1 [facility] Start: 04-22-2024 Tobacco use panel [facility] Start: 11-23-2018 Gender identity Identifies as male gender (finding) [facility] Start: 11-23-2018 Sexual orientation Heterosexual (finding) [facility] Start: 09-08-2024 Sex Male (finding) [facility] Goals Date Patient Goal Desired Activity /State Mental Status Date Assessment Result Facility 05-30-2022 Cognitive function Voice/Name [facility] Work Phone: 05-30-2022 Cognitive function Patient Keagan martins Person;Place;Time [facility] Work Phone: Clinical Notes 11-09-2020 to 10-02-2024 Telephone Encounter - Bang Aldana MA - 07/28/2024 11:21 AM EDTTelephone Encounter - Bang Aldana MA - 07/28/2024 11:21 AM EDT Note Date & Type Note Facility 10-02-2024 Radiology Diagnostic study note [facility] Imaging Services [address] [place], [place] [address] Low Dose CT Lung Screening MR#: [id number] Acct: [id number] Name: JOHN GONZALEZ Rep #: [id number] : 1955 M 69 From: Demond Martinez MD PCP: Dr. Wendy Diaz MD Status: [facility] CL Study:Low Dose CT Lung Screening Date of Exam : 10/01/24 Exam# [id number] Ordering Dr: Rory Diaz MD PROCEDURE: LOW DOSE CT LUNG SCREENING 10/01/2024 REASON FOR EXAM: TOBACCO USE Patient has smoked 1/2 pack per day for 25 years. Patient quit 14 years ago. TECHNIQUE: Low Dose CT Lung screening without contrast. Coronal and Sagittal reconstructionseries were provided. One or more dose reduction techniques were used (e.g., Automated exposure control, adjustment of the mA and/or kV according to patient size, use of iterative reconstruction technique). REFERENCE LINK: [facility] Lung-RADS RADIATION DOSE SUMMARY: CTDlvol: 3.02 mGy DLP: 118.52 mGycm COMPARISON: None FINDINGS: PULMONARY NODULES: (Only nodules >3mm are reported) Nodules described below are on series 1 unless otherwise specified. Pulmonary Nodules: No suspicious nodules are seen. Hardware:None Lymph Nodes:Small benign-appearing mediastinal lymph nodes. Heart and Vasculature:Coronary artery calcifications are noted. Coronary Artery Calcifications: Present Lungs and Airways: Mild emphysematous changes are present. Pleura:Unremarkable Upper Abdomen:Unremarkable Bones:Degenerative changes of the thoracic spine. CT/Low Dose CT Lung Screening IMPRESSION: No suspicious nodules are seen. Coronary artery calcification (CAC) is is present Lung-RADS Category: 2 BENIGN (BASED ON IMAGING FEATURES OR INDOLENT BEHAVIOR). RECOMMEND 12-MONTH SCREENING LDCT. Other Significant Findings: None. Reading Location: [place] [address] CC: Dr. Wendy Diaz MD ~ Drafter Mechanical: Signed [facility] 09-02-2024 Radiology Diagnostic study note [facility] Imaging Services [address] [place] [id number] Wrist min 3 Views MR#: [id number] Acct: [id number] Name: JOHN GONZALEZ Rep #: [id number] : 1955 M 69 From: Nora Wang MD PCP: Dr. Wendy Diaz MD Status: REG CLI Study:Wrist min 3 Views Date of Exam: Exam# [id number] Ordering Dr: Rory Diaz MD EXAM: XR Left Wrist Complete, 3 or More Views CLINICAL INDICATION: PAIN TECHNIQUE: Frontal, lateral and oblique views of the left wrist. COMPARISON: No relevant prior studies available. FINDINGS: BONES/JOINTS: See below. SOFT TISSUES: Soft tissue swelling without acute fracture. No radiopaque foreign body. RAD/Wrist min 3 Views IMPRESSION: 1. Soft tissue swelling without acute fracture. 2. If symptoms persist, further evaluation with CT is recommended. Reading Location: [facility] CC: Dr. Wendy Diaz MD ~ Drafter Mechanical: Signed [facility] 09-02-2024 Radiology Diagnostic study note [facility] Imaging Services [address] [place] [address] Wrist min 3 Views MR#: [id number] Acct: [id number] Name: JOHN GONZALEZ Rep #: [id number] : 1955 M 69 From: Nora Wang MD PCP: Dr. Wendy Diaz MD Status: REG CLI Study:Wrist min 3 Views Date of Exam: Exam# [id number] Ordering Dr: Rory Diaz MD EXAM: XR Right Wrist Complete, 3 or More Views CLINICAL INDICATION: PAIN TECHNIQUE: Frontal, lateral and oblique views of the right wrist. COMPARISON: No relevant prior studies available. FINDINGS: BONES/JOINTS: Lucency of the ulnar styloid process with degenerative changes could be a sequela of prior injury. Correlation with point tenderness is recommended. No acute fracture. No dislocation. SOFT TISSUES: Soft tissue swelling. No radiopaque foreign body. RAD/Wrist min 3 Views IMPRESSION: Lucency of the ulnar styloid process with degenerative changes could be a sequela of prior injury. Correlation with point tenderness is recommended. Reading Location: [facility] CC: Dr. Wendy Diaz MD ~ Drafter Mechanical: Signed [facility] 07-28-2024 Telephone encounter Note Pts called and left VM requesting a medication refill for carvediloL (COREG) 12.5 MG tablet and lisinopriL (PRINIVIL,ZESTRIL) 5 MG tablet. Briseyda: 04/22/24 via Telemed Nov: On recall [facility] 07-28-2024 Miscellaneous Notes Pts called and left VM requesting a medication refill for carvediloL (COREG) 12.5 MG tablet and lisinopriL (PRINIVIL,ZESTRIL) 5 MG tablet. 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 Bleeding hemorrhoids resolved Andrés h 2024 10:40am Homozygous MTHFR mutation C677T 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 July 29, 2024 9:28am 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 9:28am Bleeding hemorrhoids resolved Andrés h 2024 9:28am Homozygous MTHFR mutation C677T 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 September 23, 2024 10:37am Thromboembolism chronic September 23, 2024 10:37am [facility] Work Phone: 1(403) 715-625901-02-2025 Evaluation note* Diagnosis Onset Date Resolution Status Admit Date Thromboembolism chronic May 152024 1:50pm Bleeding hemorrhoids resolved Fawad tomy 2024 1:50pm 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 provider found PCP: Wendy Diaz MD Patient location: home Patient phone : [phone] This visit has been fully reviewed with the patient and verbal consent has been obtained. Virtual Visit Consent Statement: I discussed risks, benefits and alternatives of telemedicine consultation with the patient (and any accompanying persons) including the risks that the patient's personal health details and medical records will be discussed over interactive video/audio/telecommunication technology, may be recorded, and that there are inherent diagnostic limitations compared to [id number] evaluations. They elected to proceed with the telemedicine consultation. Assessment & Plan Hypercoagulable state ([facility]) Having some bleeding issues--hemorrhoids, they have discussed with Mechanical Maintenance Technician Cardiomyopathy ([facility]) Doing well, Medications reviewed and recommended to continue carvedilol,lisinopril Followup 1 year Follow-up: Return in about 1 year (around 04/22/2025). Pt seen for: Problem Hypercoagulable State ([facility]) Told an increase protein issue PE 2016, DVT after covid booster x 2 Mthfr pos Cardiomyopathy ([facility]) 1998-35%-Cath 2008 last echo-55% 2012-Echo 60% Chief Complaint:no issues Objective ECG 12 Lead Final Result by José Luis Chatman MD (08/23/2020 0838) Review of Systems: ROS per MA list were reviewed--Pertinent positive and negative findings are also noted in the HPI Allergies: Ct: iodinated contrast- oral and iv dye HOME Medications: Current Outpatient Medications on File Prior to Visit Medication Sig ascorbic acid, vitamin C, (ascorbic acid with flora hips) 500 MG tablet Take 1 (one) tablet (500 mg total) by mouth daily . budesonide-formoteroL (SYMBICORT) 160-4.5 mcg/actuation inhaler Inhale 2 (two) puffs daily . carvediloL (COREG) 12.5 MG tablet Take 1 (one) tablet (12.5 mg total) by mouth 2 (two) times a day . cyanocobalamin (vitamin B-12) 1000 MCG tablet Take 1 (one) tablet (1,000 mcg total) by mouth Three tablets daily . ferrous sulfate 325 (65 FE) MG tablet Take 1 (one) tablet (325 mg total) by mouth daily with breakfast . fexofenadine (KATIUSKA) 180 MG tablet Take 1 (one) tablet (180 mg total) by mouth as needed . levomefolate calcium (L-Methylfolate) 15 mg Tab Take by mouth daily . lisinopriL (PRINIVIL,ZESTRIL) 5 MG tablet Take 1 (one) tablet (5 mg total) by mouth daily . lysine 500 mg Tab Take 1 (one) tablet (500 mg total) by mouth as needed . omeprazole (PRILOSEC OTC) 20 MG tablet Take 1 (one) tablet (20 mg total) by mouth as needed . [DISCONTINUED] Xarelto 10 mg tablet Take 1 (one) tablet (10 mg total) by mouth daily . No current facility-administered medications on file prior to visit. Provider location: [facility] [address] [facility] [address] Patient location: [address] [place] [id number] I have spent 10 minwith the patient discussing current HPI. No results found for: "CHOL", "LDLCALC", "LDLDIRECT", "TRIG", "HDL" AUTHENTICATED BY JOSÉ LUIS CHATMAN, ON 04/22/2024 08:11:41[facility]12-10-2024 Evaluation + Plan note* Assessment & Plan Note - José Luis Chatman MD - 04/22/2024 8:09 AM ESTAssociated Problem(s): Cardiomyopathy (HCC) Doing well, Medications reviewed and recommended to continue carvedilol,lisinopril Followup 1 year [id number] History of Present illness Narrative* José Luis Chatman MD - 04/22/2024 8:09 AM EST General Cardiology Telephone Visit Follow-up Heart & V[facility] 04/22/2024 José Luis Chatman MD [address] [facility] [address] Patient: John Gonzalez Date of : 1955 (68 y.o.) Referring Provider: No ref. provider found PCP: Wendy Diaz MD Patient location: home Patient phone : [phone] This visit has been fully reviewed with the patient and verbal consent has been obtained. Virtual Visit Consent Statement: I discussed risks, benefits and alternatives of telemedicine consultation with the patient (and any accompanying persons) including the risks that the patient s personal health details and medical records will be discussed over interactive video/audio/telecommunication technology, may be recorded, and that there are inherent diagnostic limitations compared to [id number] evaluations. They elected to proceed with the telemedicine consultation. Assessment & Plan Hypercoagulable state ([facility]) Having some bleeding issues--hemorrhoids, they have discussed with Mechanical Maintenance Technician Cardiomyopathy ([facility]) Doing well, Medications reviewed and recommended to continue carvedilol,lisinopril Followup 1 year Follow-up: Return in about 1 year (around 04/22/2025). Pt seen for: Problem Hypercoagulable State ([facility]) Told an increase protein issue PE 2016, DVT after covid booster x 2 Mthfr pos Cardiomyopathy ([facility]) 1998-35%-Cath 2008 last echo-55% 2012-Echo 60% Chief Complaint:no issues Objective ECG 12 Lead Final Result by José Luis Chatman MD (08/23/2020 0838) Review of Systems: ROS per MA list were reviewed--Pertinent positive and negative findings are also noted in the HPI Allergies: Ct: iodinated contrast- oral and iv dye HOME Medications: Current Outpatient Medications on File Prior to Visit Medication Sig ascorbic acid, vitamin C, (ascorbic acid with flora hips) 500 MG tablet Take 1 (one) tablet (500 mg total) by mouth daily . budesonide-formoteroL (SYMBICORT) 160-4.5 mcg/actuation inhaler Inhale 2 (two) puffs daily . carvediloL (COREG) 12.5 MG tablet Take 1 (one) tablet (12.5 mg total) by mouth 2 (two) times a day . cyanocobalamin (vitamin B-12) 1000 MCG tablet Take 1 (one) tablet (1,000 mcg total) by mouth Three tablets daily . ferrous sulfate 325 (65 FE) MG tablet Take 1 (one) tablet (325 mg total) by mouth daily with breakfast . fexofenadine (KATIUSKA) 180 MG tablet Take 1 (one) tablet (180 mg total) by mouth as needed . levomefolate calcium (L-Methylfolate) 15 mg Tab Take by mouth daily . lisinopriL (PRINIVIL,ZESTRIL) 5 MG tablet Take 1 (one) tablet (5 mg total) by mouth daily . lysine 500 mg Tab Take 1 (one) tablet (500 mg total) by mouth as needed . omeprazole (PRILOSEC OTC) 20 MG tablet Take 1 (one) tablet (20 mg total) by mouth as needed . [DISCONTINUED] Xarelto 10 mg tablet Take 1 (one) tablet (10 mg total) by mouth daily . No current facility-administered medications on file prior to visit. Provider location: [facility] [address] [facility] [address] Patient location: [address] [facility] [address] I have spent 10 minwith the patient discussing current HPI. No results found for: "CHOL", "LDLCALC", "LDLDIRECT", "TRIG", "HDL" documented in this [id number] Miscellaneous Notes* Assessment & Plan Note - José Luis Chatman MD - 04/22/2024 8:09 AM ESTAssociated Problem(s): Cardiomyopathy (HCC) Doing well, Medications reviewed and recommended to continue carvedilol,lisinopril Followup 1 year * Assessment & Plan Note - José Luis Chatman MD - 04/22/2024 8:06 AM EST Associated Problem(s): Hypercoagulable state (HCC) Having some bleeding issues--hemorrhoids, they have discussed with Mechanical Maintenance Technician documented in this [id number] Evaluation + Plan note* Assessment & Plan Note - José Luis Chatman MD - 04/22/2024 8:06 AM EST Associated Problem(s): Hypercoagulable state (HCC) Having some bleeding issues--hemorrhoids, they have discussed with Mechanical Maintenance Technician [id number] Procedure [facility]01-17-2023 Procedure [facility]11-21-2022 History of Present illness Narrative* José Luis Chatman MD - 04/03/2022 11:43 AM EST Patient Name: John Gonzalez [facility] MR #: [id number] Interventional Cardiology José Luis Chatman MD, [facility] 04/03/22 Dear Wendy Diaz MD, John Gonzalez was seen in follow up for : Problem Hypercoagulable State (Hcc) Told an increase protein issue PE 2017, DVT after covid booster x 2 Pac (Premature Atrial Contraction) Svt (Supraventricular Tachycardia) (Hcc) Back in 1998- nothing since meds Asymptomatic Pvcs Long time pvcs Congestive Heart Disease ([facility]) 1998-35%-Cath 2008 last echo-55% 2012-Echo 60% Assessment and Plan PAC (premature atrial contraction) Has both PAC/PVC and and ? If Paroxysmal Atrial Fibrillation-- he is now protected on eliquis but since HR irregular will get a 15 day MCT EM SVT (supraventricular tachycardia) ([facility]) No racing spells, continue coreg Congestive heart disease ([facility]) Continues to to do great continue lisinopril/carvedilol Asymptomatic PVCs Checking EM Thank you or allowing me to participate in the care of your patients. Orders Placed This Encounter Procedures MCT- Mobile Cardiac Telemetry Return in about 1 year (around 04/03/2023). EKG:not done Subjective: John Gonzalez is a 66 y.o. y/o male : sent do to increase frequency of Asx Premature beats. 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 Past History and Exam PMH: Past Medical History: Diagnosis Date Arrhythmia Cardiomyopathy (HCC) PAC (premature atrial contraction) SVT (supraventricular tachycardia) ([facility]) Syncope Physical exam: BP 135/83 Pulse 87 Ht 6' Wt 99.8 kg (220 lb) BMI 29.84 kg/m General: No acute distress, alert, and oriented x3. HEENT: Normocephalic, Neck: Supple, no gross thyromegaly,no palpable neck adenopathy Cardiovascular: irregular rate and rhythm. no murmurs, .No JVD, No Carotid Bruits, no LE edema :Respiratory: Clear to auscultation bilaterally without wheezes, rhonchi, or rales Abdominal: soft, nontender, nondistended,no gross HSM or masses noted. Home Medications: Patient's Medications New Prescriptions No medications on file Previous Medications BUDESONIDE-FORMOTEROL (SYMBICORT) 160-4.5 MCG/ACTUATION INHALER Inhale 2 (two) puffs daily . CARVEDILOL (COREG) 12.5 MG TABLET Take 1 (one) tablet (12.5 mg total) by mouth 2 (two) times a day . ELIQUIS 5 MG TAB 2 (two) times a day . FEXOFENADINE (KATIUSKA) 180 MG TABLET Take 1 (one) tablet (180 mg total) by mouth as needed . FOLTANX RF 3 MG-35 MG-2 MG -90.314 MG CAP [id number] (CEREFOLIN) 6-5-50-1 MG TAB Take 1 (one) tablet by mouth daily . LISINOPRIL (PRINIVIL,ZESTRIL) 5 MG TABLET Take 1 (one) tablet (5 mg total) by mouth daily . LYSINE 500 MG TAB Take 1 (one) tablet (500 mg total) by mouth as needed . OMEPRAZOLE (PRILOSEC OTC) 20 MG TABLET Take 1 (one) tablet (20 mg total) by mouth as needed . Modified Medications No medications on file Discontinued Medications ASPIRIN 81 MG EC TABLET Take 1 (one) tablet (81 mg total) by mouth daily . CARVEDILOL (COREG CR) 20 MG 24 HR CAPSULE Take 1 (one) capsule (20 mg total) by mouth daily . NAPROXEN (NAPROSYN) 500 MG TABLET Take 1 (one) tablet (500 mg total) by mouth 2 (two) times a day as needed . documented in this [id number] Evaluation + Plan note* Assessment & Plan Note - José Luis Chatman MD - 04/03/2022 11:39 AM EST Associated Problem(s): Asymptomatic PVCs Checking EM [id number] Miscellaneous Notes* Assessment & Plan Note - José Luis Chatman MD - 04/03/2022 11:39 AM ESTAssociated Problem(s): Asymptomatic PVCs Checking EM * Assessment & Plan Note - José Luis Chatman MD - 04/03/2022 11:37 AM EST Associated Problem(s): Congestive heart disease (HCC) Continues to to do great continue lisinopril/carvedilol * Assessment & Plan Note - José Luis Chatman MD - 04/03/2022 11:36 AM EST Associated Problem(s): SVT (supraventricular tachycardia) (HCC) No racing spells, continue coreg * Assessment & Plan Note - José Luis Chatman MD - 04/03/2022 11:33 AM EST Associated Problem(s): PAC (premature atrial contraction) Has both PAC/PVC and and ? If Paroxysmal Atrial Fibrillation-- he is now protected on eliquis but since HR irregular will get a 15 day MCT EM documented in this [id number] Evaluation + Plan note* Assessment & Plan Note - José Luis Chatman MD - 04/03/2022 11:37 AM EST Associated Problem(s): Congestive heart disease (HCC) Continues to to do great continue lisinopril/carvedilol [id number] Evaluation + Plan note* Assessment & Plan Note - José Luis Chatman MD - 04/03/2022 11:36 AM ESTAssociated Problem(s): SVT (supraventricular tachycardia) (HCC) No racing spells, continue coreg [id number] Evaluation + Plan note* Assessment & Plan Note - José Luis Chatman MD - 04/03/2022 11:33 AM ESTAssociated Problem(s): PAC (premature atrial contraction) Has both PAC/PVC and and ? If Paroxysmal Atrial Fibrillation-- he is now protected on eliquis but since HR irregular will get a 15 day MCT EM [id number] History of Present illness Narrative* José Luis Chatman MD - 06/23/2021 2:24 PM EST Interventional Cardiology Telephone Visit Follow-up Heart & Vascular [facility] 06/23/2021 José Luis Chatman MD [address] [facility] [address] [facility] [id number] Patient: John Gonzalez Date of : 1955 (66 y.o.) Referring Provider: No ref. provider found PCP: Wendy Diaz MD Patient location: home Patient phone : [phone] This visit has been fully reviewed with the patient and verbal consent has been obtained. Virtual Visit Consent Statement: I discussed risks, benefits and alternatives of telemedicine consultation with the patient (and any accompanying persons) including the risks that the patient s personal health details and medical records will be discussed over interactive video/audio/telecommunication technology, may be recorded, and that there are inherent diagnostic limitations compared to cmyi-xp-[id number] evaluations. They elected to proceed with the telemedicine consultation. Assessment & Plan Congestive heart disease (HCC) No angina, continue asa F/u 1 year Follow-up: Return in about 1 year (around 06/23/2022). Pt seen for: Problem Congestive Heart Disease (Hcc) 1998-35%-Cath 2008 last echo-55% 2012-Echo 60% Chief Complaint: had covid in january Objective ECG 12 Lead Final Result by José Luis Chatman MD (08/23/2020 0838) Review of Systems: ROS per MA list were reviewed--Pertinent positive and negative findings are also noted in the HPI Allergies: Ct: iodinated contrast- oral and iv dye HOME Medications: Current Outpatient Medications on File Prior to Visit Medication Sig aspirin 81 MG EC tablet Take 81 mg by mouth daily . budesonide-formoterol (SYMBICORT) 160-4.5 mcg/actuation inhaler Inhale 2 puffs daily . fexofenadine (KATIUSKA) 180 MG tablet Take 180 mg by mouth as needed . Foltanx RF 3 mg-35 mg-2 mg -90.314 mg cap cogrsiuiplcy-R5-A5-B12 (v-spglclzmeaym-u3-b6-b12) 6-5-50-1 mg Tab Take 1 tablet by mouth daily . lysine (L-Lysine) 500 mg Tab Take 500 mg by mouth as needed . naproxen (NAPROSYN) 500 MG tablet Take 500 mg by mouth 2 (two) times a day as needed . omeprazole (PRILOSEC OTC) 20 MG tablet Take 1 tablet by mouth as needed . [DISCONTINUED] carvediloL (COREG) 12.5 MG tablet Take 1 (one) tablet (12.5 mg total) by mouth 2 (two) times a day . [DISCONTINUED] lisinopriL (PRINIVIL,ZESTRIL) 5 MG tablet Take 1 (one) tablet (5 mg total) by mouth daily . carvedilol (COREG CR) 20 MG 24 hr capsule Take 1 (one) capsule (20 mg total) by mouth daily . (Patient not taking: Reported on 06/23/2021 .) No current facility-administered medications on file prior to visit. Provider location: [facility] [address] [facility] [id number] Patient location: [address] [facility] [address] I have spent 4 minutes with the patient discussing current HPI. No results found for: CHOL, LDLCALC, LDLDIRECT, TRIG, HDL documented in this [id number] Miscellaneous Notes* Assessment & Plan Note - José Luis Chatman MD - 06/23/2021 2:23 PM EST Associated Problem(s): Congestive heart disease (HCC) No angina, continue asa F/u 1 year documented in this [id number] Miscellaneous Notes* Telephone Encounter - Reema Riggs MA - 11/29/2020 2:15 PM EDT called re: refill of Carvedilol 12.5 twice daily #180 w 3 ref pt states they wanted filled thru [facility] [place] will resent thank you documented in this [id number] Miscellaneous Notes* Telephone Encounter - Funmi Rascon TECHNOLOGIST - 11/09/2020 10:39 AM EDT Pt needed substitution for Carvedilol CR. His last appt was 08/23/20 documented in this encounterArioGal[facility] HospitalEvaluation note* Diagnosis Congestive heart failure (HCC) Congestive heart failure, unspecified Chronic systolic congestive heart failure (HCC) documented [facility]No assessment information availableWKettering [facility] Work Phone: Evaluation note* Diagnosis Palpitations- Primary documented in this encounter [facility]* Diagnosis Onset Date Resolution Status DVT (deep venous thrombosis) [facility] Work Phone: Evaluation note* Diagnosis Palpitations PAC (premature atrial contraction) Supraventricular premature beats SVT (supraventricular tachycardia) (HCC) Other specified cardiac dysrhythmias Chronic systolic congestive heart failure (HCC) Asymptomatic PVCs Hypercoagulable state (HCC) Primary hypercoagulable state [facility]* Diagnosis SVT (supraventricular tachycardia) (HCC)- Primary Other specified cardiac dysrhythmias documented in this encounter [facility]* Diagnosis Onset Date Resolution Status DVT (deep venous thrombosis) acute History of colon polyps [facility] Work Phone: Evaluation note* Diagnosis Congestive heart failure (HCC) Congestive heart failure, unspecified documented in this encounter [facility]* Diagnosis Congestive heart failure, unspecified congestive heart failure chronicity, unspecified congestive heart failure type- Primary Congestive heart failure, unspecified congestive heart failure chronicity, unspecified congestive heart failure type SVT (supraventricular tachycardia) (HCC) Other specified cardiac dysrhythmias Asymptomatic PVCs Gastroesophageal reflux disease without esophagitis Esophageal reflux Congestive heart failure, unspecified congestive heart failure chronicity, unspecified congestive heart failure type SVT (supraventricular tachycardia) (HCC) Other specified cardiac dysrhythmias Cardiomyopathy, unspecified type (HCC) Congestive heart failure (HCC) Congestive heart failure, unspecified Chronic systolic congestive heart failure (HCC) SVT (supraventricular tachycardia) (HCC) Other specified cardiac dysrhythmias PAC (premature atrial contraction) Supraventricular premature beats Congestive heart failure (HCC) Congestive heart failure, unspecified Chronic systolic congestive heart failure (HCC) Asymptomatic PVCs Congestive heart failure, unspecified HF chronicity, unspecified heart failure type (HCC) PAC (premature atrial contraction) Supraventricular premature beats SVT (supraventricular tachycardia) (HCC) Other specified cardiac dysrhythmias Congestive heart failure (HCC) Congestive heart failure, unspecified Chronic systolic congestive heart failure (HCC) Palpitations PAC (premature atrial contraction) Supraventricular premature beats SVT (supraventricular tachycardia) (HCC) Other specified cardiac dysrhythmias Chronic systolic congestive heart failure (HCC) Asymptomatic PVCs Hypercoagulable state (HCC) Primary hypercoagulable state Chronic systolic congestive heart failure (HCC)- Primary SVT (supraventricular tachycardia) (HCC) Other specified cardiac dysrhythmias Hypercoagulable state (HCC) Primary hypercoagulable state Hypercoagulable state (HCC)- Primary Primary hypercoagulable state Dilated cardiomyopathy (HCC) Other primary cardiomyopathies [facility] Diagnosis Congestive heart failure, unspecified congestive heart failure chronicity, unspecified congestive heart failure type- Primary Congestive heart failure, unspecified congestive heart failure chronicity, unspecified congestive heart failure type SVT (supraventricular tachycardia) Other specified cardiac dysrhythmias Asymptomatic PVCs Gastroesophageal reflux disease without esophagitis Esophageal reflux Congestive heart failure, unspecified congestive heart failure chronicity, unspecified congestive heart failure type SVT (supraventricular tachycardia) Other specified cardiac dysrhythmias Cardiomyopathy, unspecified type (HCC) Congestive heart failure (HCC) Congestive heart failure, unspecified Chronic systolic congestive heart failure (HCC) SVT (supraventricular tachycardia) Other specified cardiac dysrhythmias PAC (premature atrial contraction) Supraventricular premature beats Congestive heart failure (HCC) Congestive heart failure, unspecified Chronic systolic congestive heart failure (HCC) Asymptomatic PVCs Congestive heart failure, unspecified HF chronicity, unspecified heart failure type (HCC) PAC (premature atrial contraction) Supraventricular premature beats SVT (supraventricular tachycardia) Other specified cardiac dysrhythmias Congestive heart failure (HCC) Congestive heart failure, unspecified Chronic systolic congestive heart failure (HCC) Palpitations PAC (premature atrial contraction) Supraventricular premature beats SVT (supraventricular tachycardia) Other specified cardiac dysrhythmias Chronic systolic congestive heart failure (HCC) Asymptomatic PVCs Hypercoagulable state (HCC) Primary hypercoagulable state Chronic systolic congestive heart failure (HCC)- Primary SVT (supraventricular tachycardia) Other specified cardiac dysrhythmias Hypercoagulable state (HCC) Primary hypercoagulable state Hypercoagulable state (HCC)- Primary Primary hypercoagulable state Dilated cardiomyopathy (HCC) Other primary cardiomyopathies Congestive heart failure (HCC) Congestive heart failure, unspecified [facility] Abbasi [facility] May 30, 2022 8:12am Note Date/Time May 30, 2022 8 :12am [facility] Medical Records Department [address] [place] [address] History & Physical Exam 05/30/22 0812 MR#: [id number] Acct: [id number] Name: JOHN GONZALEZ Rep #:[id number] : 1955 67 From: Alo lynch MD PCP: Dr. Wendy Diaz MD [place] [place] [facility] History and Physical Date of Admission: 05/30/22 Intake Vital Signs ? 04/19/2208:31 HeightB 6 ft 1 in Weight: 220 lb BMI 29.0 BP 140/84 H Blood Pressure Location Rt brachial Position Sitting Respiration 18 Intake Visit Reasons:?SCOPE- HX OF ADENOMA Chief Complaint: HX of adenoma Oxygen Tank Filler Required: No Is patient in pain?: No Allergies Iodinated Contrast Media Adverse Reaction (Verified 04/19/22 08:31) Itching Medications carvedilol phosphate 20 mg capsule,ext.meejyzt44xm multiphase 20 mg PO DAILY HEART AND BLOOD PRESSURE 04/06/13 [History Confirmed 04/19/22] lisinopril 5 mg tablet 5 mg PO DAILY BLOOD PRESSURE 04/06/13 [History Confirmed 04/19/22] budesonide-formoterol HFA 160 mcg-4.5 mcg/actuation aerosol inhaler 2 puff inhalation DAILY BREATHING 07/29/17 [History Confirmed 04/19/22] diphenhydramine HCl 25 mg capsule 25 mg PO TID PRN PRN Allergies 5 days #15 caps08/19/17 [Rx Confirmed 04/19/22] apixaban 5 mg (74 tabs) tablets in a dose pack (Eliquis DVT-PE Treat 30D Start) 5 mg PO BID #74 tabs 03/04/22 [Rx Confirmed 04/19/22] omeprazole 20 mg capsule,delayed release 20 mg PO DAILY 03/07/22 [History Confirmed 04/19/22] PFSH Medical History? Arrhythmia COPD (chronic obstructive pulmonary disease) GERD (gastroesophageal reflux disease) HTN (hypertension) Obesity (BMI 30.0-34.9) Pulmonary embolism Rectal bleeding Superficial venous thrombosis of upper extremity Syncope Surgical History? H/O colonoscopy H/O knee surgery Social History? Smoking Status:? Former smoker Tobacco: How many years used:? 20 Smokeless tobacco user:? chewing tobacco how long ago did patient quit smoking:? 10 HPI HPI HPI: Patient is a 66-year-old male here for surveillance colonoscopy.? His last colonoscopy was about 5 years ago and he did have multiple polyps removed and was recommended for recall.? Patient denies any abdominal pain or blood in the stool.? Patient is on Eliquis for multiple PEs. ROS General General: Yes weight change; No appetite, fatigue, colon cancer, breast cancer or weakness HEENT HEENT: No difficulty swallowing, eye injury, eye surgery, swollen glands or hoarseness Endo Endocrine: No thyroid disease, diabetes mellitus, thyroid cancer, Hair loss, heat intolerance or cold intolerance Skin Skin: No rash or changing moles Breast Breast: No left breast lump, right breast lump, nipple discharge, breast pain, abnormal mammogram, abnormal US or breast enlargement Musc Musculoskeletal: Yes arthritis; No back problems, rheumatoid arthritis, gout or joint pain Cardio Cardiovascular: No murmur, pacemaker, heart disease, atrial fibrillation, high blood pressure, heart attack, heart stent, palpitations, shortness of breat withexertion or chest pain Psych Psychiatric: No depression, anxiety or hearing voices Resp Respiratory: No shortness of breath, No sleep apnea, No cough, Yes COPD, No asthma, No emphysema and No wheezing Gastro Gastrointestinal: No abdominal pain, No nausea or vomiting, No diarrhea, No constipation, Yes blood in stool, Yes acid reflux, Yes hemorrhoids, No ulcers, No gallbladder problem and No black,tarry stools Vinny Hematologic: Yes blood thinners, No blood disorders, No bleeding, No anemia and Yes blood clots Neuro Neurologic: No system reviewed and no additional complaints, except as documented, No as per HPI, No abnormal gait, No abnormal hearing, No abnormal movements, No abnormal speech, No behavioral changes, No burning sensations, No confusion, No convulsions, No disequilibrium, No dizziness, No localized weakness, No frequent falls, No headache(s), No lack of coordination, No loss ofvision, No memory loss, No numbness, No other visual disturbances, No radicular pain, No restless legs, No sensory deficit, No syncope, No tingling, No tremor(s), No weakness and No other Exam Const General: cooperative Orientation: alert and oriented x3 HENMT Head: normal to inspection Neck Neck: normal visual inspection and full ROM Chest Chest palpation & inspection: normal inspection of the chest Resp Effort & Inspection: normal respiratory effort Auscultation: clear to auscultation bilaterally Cardio Rate: regular rate Rhythm: regular rhythm GI Inspection: non-distended Palpation: soft and nontender Skin General: no rashes or lesions noted Neuro General: patient alert and patient oriented x3 Extrem General: full ROM Psych Appearance: grossly normal Mental Status: mental status grossly normal Assessment and Plan Assessment and Plan (1) History of colon polyps: ?Status:?Acute ?Plan: Patient has a history of colon polyps found on colonoscopy about 5 years ago.? Patient is on Eliquis for multiple PEs and cannot come off of it.? I discussed his increased risk of bleeding but I would recommend performing the colonoscopy on Eliquis instead of the risk of holding it. I explained endoscopy in detail to the patient.? I explained the risks includingbut not limited to stroke or heart attack with anesthesia, perforation of the GItract, bleeding, infection.? I explained that any of these could necessitate further emergency surgery.? The patient understands and all questions were answered sufficiently.? The patient wishes to proceed with procedure. Alo Abbasi MD Pager: [facility] [address] [place] [address], [address] [place] [address] Office: I have examined the patient and the H&P has been reviewed. There are no clinicalchanges since date of exam. 05/30/22 0812 <Electronically signed by Alo Abbasi MD> Cosigner Signature (if applicable): CC: Dr. Alo Abbasi MD; Dr. Wendy Diaz MD~ Signed [facility] Work Phone: Reason for referral (narrative)* Consultation (Routine) - Authorized Specialty Diagnoses / Procedures Referred By Contac t Referred To Contact Cardiology Diagnoses Palpitations Tila Diaz, MEDIA ASSISTANT [address] [place] [address] [place] [address] [place] [id number] Referral ID Status Reason Start Date Expiration Date V isits Requested Visits Authorized [id number] Authorized 02/16/2022 02/16/2023 1 1 [facility] for [facility] (narrative)No reason for referral information availableWKettering Health [facility] Work Phone: Summary Purpose Family History No Family History Records Found Relationship Condition Age at Onset Recorded Date/T rolando Unknown Family History?Heart Disease, Hypertension Unknown July 30, 2017 3:54pm Family History?Heart Disease, Hypertension Unknown July 30, 2017 3:54pm Relationship Condition Age at Onset Recorded Date/T rolando Unknown Family History?Heart Disease, Hypertension Unknown July 30, 2017 2:54pm Family History?Heart Disease, Hypertension Unknown July 30, 2017 2:54pm Relationship Condition Age at Onset Recorded Date/T rolando mother Hypertension Unknown Dementia Unknown father Malignant melanoma Unknown brother Cardiac disease Unknown Advance Directives No Advanced Directives Records FoundDocuments on File Type Date Recorded Patient Maintenance Services Dispatcher Expl anation Advance Directives and Living Will Documents on File Type Date Recorded Patient Maintenance Services Dispatcher Expl anation Advance Directives and Living Will Advance Directive Response Recorded Date/ Time Advance Directives Yes March 9:47pm Living Will No October 17, 2020 1 1:23am Power of Cable Splicer Assistant Yes October 17, 2020 11:23am Advance Directive Response Recorded Date/ Time Advance Directives Yes March 9:47pm Living Will No March 04 8:41am Power of Cable Splicer Assistant No March 04, 2022 8:41am Advance Directive Response Recorded Date/ Time Name of Medical Power of Cable Splicer Assistant LEONEL GONZALEZ May 25, 2022 2:05pm Advance Directives Yes March 8:47pm Living Will Yes May 25 2:05pm Power of Cable Splicer Assistant Yes May 25, 2022 2:05pm Advance Directive Response Recorded Date/ Time Name of Medical Power of Cable Splicer Assistant LEONEL GONZALEZ May 25, 2022 3:05pm Advance Directives Yes March 9:47pm Living Will Yes May 25 3:05pm Power of Cable Splicer Assistant Yes May 25, 2022 3:05pm Advance Directive Response Recorded Date/ Time Advance Directives Yes March 9:47pm Living Will Yes May 25 3:05pm Power of Cable Splicer Assistant Yes May 25, 2022 3:05pm Advance Directive Response Recorded Date/ Time Advance Directives Yes March 8:47pm Living Will Yes May 25 2:05pm Power of Cable Splicer Assistant Yes May 25, 2022 2:05pm Advance Directive Response Recorded Date/ Time Advance Directives Yes March 9:47pm Reason for Referral Status Reason Specialty Diagnoses / Procedures Referred By Contact Referred To Contact Authorized Cardiology Diagnoses Cardiomyopathy, unspecified type (HCC) Procedures ECG 12 [place] [address] [place] [address] Status Reason Specialty Diagnoses / Procedures Referred By Contact Referred To Contact Authorized Cardiology Diagnoses Congestive heart failure, unspecified HF chronicity, unspecified heart failure type (HCC) Procedures ECG 12 [place] [address] [place] [address] Specialty Diagnoses / Procedures Referred By Contac t Referred To Contact Cardiology Diagnoses PAC (premature atrial contraction) Procedures MCT- Mobile Cardiac [place] [address] [place] [address] Referral ID Status Reason Start Date Expiration Date Visits Re quested Visits Authorized [id number] Closed 04/03/2022 04/03/2023 1 1 Specialty Diagnoses / Procedures Referred By Contac t Referred To Contact Cardiology Diagnoses SVT (supraventricular tachycardia) ([facility]) Procedures ECG 12 [place] [address] [place] [address] Referral ID Status Reason Start Date Expiration Date V isits Requested Visits Authorized [id number] Authorized 04/03/2022 04/03/2023 3 3 History of Present Illness * José Luis Chatman MD - 07/29/2018 1:37 PM EDT Patient Name: John Gonzalez MR #: [id number] Interventional Cardiology José Luis Chatman MD, [facility] 07/29/18 Dear Wendy Diaz MD, Matthieu Mott was seen in follow up for : Problem Pac (Premature Atrial Contraction) Svt (Supraventricular Tachycardia) (Hcc) Back in 1998- nothing since meds Congestive Heart Disease (Hcc) 1998-35%-Cath 2008 last echo-55% 2013-Echo 60% Assessment and Plan Congestive heart disease (HCC) No issues Doing well, Medications reviewed and will continue current meds Followup 1 year SVT (supraventricular tachycardia) (HCC) No palpitations PAC (premature atrial contraction) Asx and noted on EKG Thank you or allowing me to participate in the care of your patients. No orders of the defined types were placed in this encounter. Return in about 1 year (around 07/30/2019). EKG:Normal sinus rhythm. and PAC's Subjective: No complaints Denies chest discomfort, sob, palpitations, pnd, orthopnea,edema or syncope. Past HistoryandExam PMH: Past Medical History: Diagnosis Date Arrhythmia Cardiomyopathy (HCC) PAC (premature atrial contraction) SVT (supraventricular tachycardia) (HCC) Syncope Physical exam: BP 122/78 Pulse 88 Ht 6' 2" Wt 106.9 kg (235 lb 11.2 oz) BMI 30.26 kg/m General: No acute distress, alert, and oriented x3. HEENT: Normocephalic, Neck: Supple, Cardiovascular: Regular rate and rhythm. No , murmurs, No JVD, No Carotid Bruits, No LE edema Respiratory: Clear to auscultation bilaterally Abdominal: Soft, nontender, nondistended,. Skin: Normal turgor, well-hydrated, Extremities : No clubbing cyanosis Neurological: Cranial nerves 2 through 12 intact grossly. No focal neurological deficits noted. Psych: Normal mood and affect. ROS/MA were reviewed Home Medications: Medication List Accurate as of 07/29/18 1:37 PM. If you have any questions, ask your nurse or doctor. CONTINUE taking these medications carvedilol 20 MG 24 hr capsule Commonly known as: COREG CR Take 1 (one) capsule (20 mg total) by mouth daily . a-qkxvjogytfxu-s0-b6-b12 6-5-50-1 mg Tab Generic drug: dejlajrzgmrs-B1-H7-B12 lisinopril 5 MG tablet Commonly known as: PRINIVIL,ZESTRIL Take 1 (one) tablet (5 mg total) by mouth daily . SYMBICORT 160-4.5 mcg/actuation inhaler Generic drug: budesonide-formoterol Where to Get Your Medications These medications were sent to [facility] - [address] [place] [id number] carvedilol 20 MG 24 hr capsule lisinopril 5 MG tablet * Myriam Siddiqui RN - 07/29/2018 1:30 PM EDT Review of Systems Constitution: Negative for diaphoresis, malaise/fatigue, weight gain and weight loss. HENT: Negative for hearing loss, nosebleeds and tinnitus. Eyes: Negative for blurred vision and visual disturbance. Cardiovascular: Positive for orthopnea. Negative for chest pain, claudication, cyanosis, dyspnea onexertion, irregular heartbeat, leg swelling, near-syncope, palpitations, paroxysmal nocturnal dyspnea and syncope. Respiratory: Negative for hemoptysis, shortness of breath and snoring. Endocrine: Negative for cold intolerance and heat intolerance. Hematologic/Lymphatic: Does not bruise/bleed easily. Skin: Negative for flushing, poor wound healing and rash. Musculoskeletal: Negative for back pain, muscle weakness and myalgias. Gastrointestinal: Negative for abdominal pain, change in bowel habit, melena, nausea and vomiting. Genitourinary: Negative for decreased libido and hematuria. Neurological: Negative for loss of balance and numbness. Psychiatric/Behavioral: Negative for memory loss. The patient is not nervous/anxious. in this encounter* José Luis Chatman MD - 09/01/2019 7:45 AM EDT Interventional Cardiology Telephone Visit Follow-up [facility] 09/01/2019 José Luis Chatman MD [address] [place] [address] Patient: John Gonzalez Date of : 1955 (64 y.o.) Referring Provider: No ref. provider found PCP: Wendy Diaz MD Patient location: home Patient phone : [phone] This visit has been fully reviewed with the patient and verbal consent has been obtained. Virtual Visit Consent Statement: I discussed risks, benefits and alternatives of telemedicine consultation with the patient (and any accompanying persons) including the risks that the patient s personal health details and medical records will be discussed over interactive video/audio/telecommunication technology, may be recorded, and that there are inherent diagnostic limitations compared to [id number] evaluations. They elected to proceed with the telemedicine consultation. Assessment & Plan Congestive heart disease (HCC) Staying very active outside and [place] Had recent EKG at PCP No CP,SOB,edema Doing well, Medications reviewed and will continue current meds Followup 1 year Asymptomatic PVCs No palpitations or issues Follow-up: Return in about 1 year (around 08/31/2020). Pt seen for: Problem Asymptomatic Pvcs Long time pvcs Congestive Heart Disease (Hcc) 1998-35%-Cath 2008 last echo-55% 2013-Echo 60% HPI: No complaints Objective ECG 12 Lead Final Result by José Luis Chatman MD (07/29/2018 1333) Review of Systems: ROS per MA list were reviewed--Pertinent positive and negative findings are also noted in the HPI Allergies: Patient has no known allergies. HOME Medications: Current Outpatient Medications on File Prior to Visit Medication Sig budesonide-formoterol (SYMBICORT) 160-4.5 mcg/actuation inhaler Inhale 2 puffs daily . carvedilol (COREG CR) 20 MG 24 hr capsule Take 1 (one) capsule (20 mg total) by mouth daily . siwgpljbtuae-V0-I2-B12 (o-irjywjapfdvq-t6-b6-b12) 6-5-50-1 mg Tab Take 1 tablet by mouth daily . No current facility-administered medications on file prior to visit. Provider location: [facility] [address] [facility] [address] [facility] [id number] Patient location: [address] [facility] [address] I have spent 5-10 minutes with the patient discussing current HPI. No results found for: CHOL, LDLCALC, LDLDIRECT, TRIG, HDL * Celsa Mg MA - 08/29/2019 1:17 PM EDT Review of Systems Constitution: Negative for diaphoresis, malaise/fatigue, weight gain and weight loss. HENT: Negative for hearing loss, nosebleeds and tinnitus. Eyes: Negative for blurred vision and visual disturbance. Cardiovascular: Negative for chest pain, claudication, cyanosis, dyspnea on exertion, irregular heartbeat, leg swelling, near-syncope, orthopnea, palpitations, paroxysmal nocturnal dyspnea and syncope. Respiratory: Negative for hemoptysis, shortness of breath and snoring. Endocrine: Negative for cold intolerance and heat intolerance. Hematologic/Lymphatic: Does not bruise/bleed easily. Skin: Negative for flushing, poor wound healing and rash. Musculoskeletal: Negative for back pain, muscle weakness and myalgias. Gastrointestinal: Negative for abdominal pain, change in bowel habit, melena, nausea and vomiting. Genitourinary: Negative for decreased libido and hematuria. Neurological: Negative for loss of balance and numbness. Psychiatric/Behavioral: Negative for memory loss. The patient is not nervous/anxious. documented in this encounterThere may be information available, but it has not been provided by the sender.* Grace Petty CNP - 11/23/2018 3:21 PM EDT PATIENT NAME: John [facility] [address] [place] [id number] : 1955 DATE OF VISIT: 11/23/2018 #: [id number] PROVIDER: Grace Petty CNP Chief Complaint Patient presents with Ankle Pain x 2 days. fell out of bed sunday SUBJECTIVE 63 y.o. male presents Ankle Pain (x 2 days. fell out of bed sunday) Client with pain and swelling of the left heel and left lateral ankle and foot. States he rolled out of bed Jos morning. However he has had similar symptoms in the right foot (heel) and ankle thatresolved on its own in past. 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 Client has been off Xarelto for 6 months. He has been prescribed NSAIDS since and he does not have HTN. He is prescribed themedications for an arrhythmia. Ankle Pain The incident occurred 2 days ago. The incident occurred at home. The injury mechanism was a direct blow. The pain is present in the left ankle and left heel. The pain is at a severity of 3/10 (10 of 10 with weight bearing). The pain is mild. The pain has been fluctuating since onset. Pertinent negatives include no inability to bear weight, loss of motion, loss of sensation, muscle weakness, numbness or tingling. He reports no foreign bodies present. The symptoms are aggravated by weight bearing. He has tried ice and acetaminophen for the symptoms. MEDICAL ISSUES Past Medical History: Diagnosis Date Arrhythmia Cardiomyopathy (HCC) PAC (premature atrial contraction) SVT (supraventricular tachycardia) (HCC) Syncope Patient Active Problem List Diagnosis SNOMED CT(R) Congestive heart disease (HCC) CONGESTIVE HEART FAILURE SVT (supraventricular tachycardia) (HCC) SUPRAVENTRICULAR TACHYCARDIA Asymptomatic PVCs VENTRICULAR PREMATURE BEATS GERD (gastroesophageal reflux disease) GASTROESOPHAGEAL REFLUX DISEASE PAC (premature atrial contraction) PREMATURE ATRIAL CONTRACTION SOCIAL HISTORY Social History Socioeconomic History Marital status: Spouse name: Not on file Number of children: Not on file Years of education: Not on file Highest education level: Not on file Occupational History Not on file Social Needs Financial resource strain: Not on file Food insecurity: Worry: Not on file Inability: Not on file Transportation needs: Medical: Not on file Non-medical: Not on file Tobacco Use Smoking status: Former Smoker Types: Cigarettes Last attempt to quit: 05/01/2009 Years since quittin.5 Smokeless tobacco: Never Used Substance and Sexual Activity Alcohol use: Yes Alcohol/week: 7.0 - 14.0 standard drinks Types: 7 - 14 Standard drinks or equivalent per week Drug use: No Sexual activity: Not on file Lifestyle Physical activity: Days per week: Not on file Minutes per session: Not on file Stress: Not on file Relationships Social connections: Talks on phone: Not on file Gets together: Not on file Attends samaritan service: Not on file Active member of club or organization: Not on file Attends meetings of clubs or organizations: Not on file Relationship status: Not on file Other Topics Concern Not on file Social History Narrative Not on file FAMILY HISTORY Family History Problem Relation Age of Onset Hypertension Mother Hyperlipidemia Father Anemia Father Heart attack Father Heart disease Maternal Grandmother REVIEW OF SYSTEMS Review of Systems Musculoskeletal: Pain and swelling in the left heel and left lateral foot and ankle. Skin is red and warm over the heel. Skin: Negative for wound. Neurological: Negative for tingling and numbness. MEDICATIONS PRIOR TO VISIT Current Outpatient Medications on File Prior to Visit Medication Sig Dispense Refill carvedilol (COREG CR) 20 MG 24 hr capsule lisinopril (PRINIVIL,ZESTRIL) 5 MG tablet budesonide-formoterol (SYMBICORT) 160-4.5 mcg/actuation inhaler Inhale 2 puffs . carvedilol (COREG CR) 20 MG 24 hr capsule Take 1 (one) capsule (20 mg total) by mouth daily . 90 capsule 3 fexofenadine (KATIUSKA) 180 MG tablet Take 180 mg by mouth every night at bedtime . mprlaklslcle-A7-S6-B12 (h-ktvpwsuctrbg-h0-b6-b12) 6-5-50-1 mg Tab Take 1 tablet by mouth daily . lisinopril (PRINIVIL,ZESTRIL) 5 MG tablet Take 1 (one) tablet (5 mg total) by mouth daily . 90 tablet 3 SYMBICORT 160-4.5 mcg/actuation inhaler Inhale 2 puffs daily . No current facility-administered medications on file prior to visit. ALLERGIES/INTOLERANCES No Known Allergies OBJECTIVE BP 140/88 (BP Location: Right arm, Patient Position: Sitting) Pulse 85 Temp 98 F (36.7 C) (Oral) Resp 12 Ht 6' 1" Wt 107.5 kg (237 lb) SpO2 95% BMI 31.27 kg/m Physical Exam Constitutional: He is oriented to person, place, and time. He appears well- developed and well-nourished. HENT: Head: Normocephalic and atraumatic. Pulmonary/Chest: Effort normal. Musculoskeletal: Client with tender, red, warm swelling to the posterior heel. He has tender swelling of the left lateral foot and ankle without redness or warmth. He has no calf tenderness. He has a normal Hanks test and no tenderness or swelling along the achilles tendon except at insertion directly over the posterior heel. Neurological: He is alert and oriented to person, place, and time. Skin: Skin is warm. Psychiatric: He has a normal mood and affect. Nursing note and vitals reviewed. PROCEDURE Procedures Results No results found for this or any previous visit (from the past 168 hour(s)). ASSESSMENT/PLAN (expressed as patient instructions): SNOMED CT(R) 1. Left foot pain PAIN IN LEFT FOOT XR Foot Left 3+ Views (Standard) ibuprofen (ADVIL,MOTRIN) 800 MG tablet posibble achilles tendonopathy 2. Acute left ankle pain ACUTE ANKLE PAIN XR Ankle Left 3+ Views (Standard) ibuprofen (ADVIL,MOTRIN) 800 MG tablet Return if symptoms worsen or fail to improve. ADDITIONAL CLINICAL COMMENTS Client will follow with clinical cytogenetics director. He will call with a name for referral because he wants to be seen in [place]. I used NSAID as he has taken in past with success and I did not want to use steroids in fear it might cause tendon rupture in the achilles. ORDERS PLACED THIS VISIT Orders Placed This Encounter Procedures XR Foot Left 3+ Views (Standard) XR Ankle Left 3+ Views (Standard) MEDICATION LIST AT END OF VISIT Current Outpatient Medications Medication Sig Dispense Refill carvedilol (COREG CR) 20 MG 24 hr capsule lisinopril (PRINIVIL,ZESTRIL) 5 MG tablet budesonide-formoterol (SYMBICORT) 160-4.5 mcg/actuation inhaler Inhale 2 puffs . carvedilol (COREG CR) 20 MG 24 hr capsule Take 1 (one) capsule (20 mg total) by mouth daily . 90 capsule 3 fexofenadine (KATIUSKA) 180 MG tablet Take 180 mg by mouth every night at bedtime . ibuprofen (ADVIL,MOTRIN) 800 MG tablet Take 1 (one) tablet (800 mg total) by mouth 2 (two) times a day after meals for 15 days . 30 tablet 0 ceepyjrlwbmm-H5-Q1-B12 (d-vuyboukvyirv-t2-b6-b12) 6-5-50-1 mg Tab Take 1 tablet by mouth daily . lisinopril (PRINIVIL,ZESTRIL) 5 MG tablet Take 1 (one) tablet (5 mg total) by mouth daily . 90 tablet 3 SYMBICORT 160-4.5 mcg/actuation inhaler Inhale 2 puffs daily . No current facility-administered medications for this visit. documented in this encounter* José Luis Chatman MD - 08/23/2020 8:54 AM EDT Patient Name: John Gonzalez [facility]: [id number] [id number] Inter[facility] Cardiology José Luis Chatman MD, [facility] 08/23/20 Dear Wendy Diaz MD, John Gonzalez was seen in follow up for : Problem Pac (Premature Atrial Contraction) Svt (Supraventricular Tachycardia) (Hcc) Back in 1998- nothing since meds Congestive Heart Disease (Hcc) 1998-35%-Cath 2008 last echo-55% 2012-Echo 60% Assessment and Plan Congestive heart disease (HCC) No issues with Congestive Heart Failure,Doing well, Medications reviewed and will continue current meds Followup 1 year with Telehealth PAC (premature atrial contraction) Asx and noted on Electrocardiogram SVT (supraventricular tachycardia) (HCC) No issues, medications continued Thank you or allowing me to participate in the care of your patients. No orders of the defined types were placed in this encounter. Return in about 1 year (around 08/23/2021). EKG:Normal sinus rhythm. and PAC's Subjective: John Gonzalez is a 65 y.o. 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 Denies chest discomfort, sob, palpitations, pnd, orthopnea,edema or syncope. Past History and Exam PMH: Past Medical History: Diagnosis Date Arrhythmia Cardiomyopathy (HCC) PAC (premature atrial contraction) SVT (supraventricular tachycardia) (HCC) Syncope Physical exam: BP 130/76 Pulse 70 Ht 6' 1" Wt 106.1 kg (233 lb 12.8 oz) SpO2 96% BMI 30.85 kg/m General: No acute distress, alert, and oriented x3. HEENT: Normocephalic, nl conjunctiva Neck: Supple, no gross thyromegaly,no palpable neck adenopathy Cardiovascular: Regular rate and rhythm. no murmurs, .No JVD, No Carotid Bruits, no LE edema :Respiratory: Clear to auscultation bilaterally without wheezes, rhonchi, or rales Abdominal: soft, nontender, nondistended,no gross HSM or masses noted. Skin: Normal turgor,no major peripheral rashes noted. Extremities : No clubbing, cyanosis Neurological: Cranial nerves 2 through 12 intact grossly. No focal neurological deficits noted. Psych: Normal mood and affect. ROS/MA were reviewed Home Medications: Patient's Medications New Prescriptions No medications on file Previous Medications BUDESONIDE-FORMOTEROL (SYMBICORT) 160-4.5 MCG/ACTUATION INHALER Inhale 2 puffs daily . CARVEDILOL (COREG CR) 20 MG 24 HR CAPSULE Take 1 (one) capsule (20 mg total) by mouth daily . FEXOFENADINE (KATIUSKA) 180 MG TABLET Take 180 mg by mouth as needed . PYWETALMXVCW-M4-B0-B12 (K-JBMPEHXMRTTC-M8-B6-B12) 6-5-50-1 MG TAB Take 1 tablet by mouth daily . LISINOPRIL (PRINIVIL,ZESTRIL) 5 MG TABLET Take 1 (one) tablet (5 mg total) by mouth daily . LYSINE (L-LYSINE) 500 MG TAB Take 500 mg by mouth as needed . NAPROXEN (NAPROSYN) 500 MG TABLET Take 500 mg by mouth 2 (two) times a day as needed . OMEPRAZOLE (PRILOSEC OTC) 20 MG TABLET Take 1 tablet by mouth as needed . Modified Medications No medications on file Discontinued Medications MECOBAL-LEVOMEFOLAT CA-B6 PHOS (FOLTANX) 3-35-2 MG TAB Take 1 tablet by mouth daily . * Myriam Siddiqui RN - 08/23/2020 8:33 AM EDT Review of Systems Constitution: Negative for diaphoresis, malaise/fatigue, weight gain and weight loss. HENT: Negative for hearing loss, nosebleeds and tinnitus. Eyes: Negative for blurred vision and visual disturbance. Cardiovascular: Negative for chest pain, claudication, cyanosis, dyspnea on exertion, irregular heartbeat, leg swelling, near-syncope, orthopnea, palpitations, paroxysmal nocturnal dyspnea and syncope. Respiratory: Negative for hemoptysis, shortness of breath and snoring. Endocrine: Negative for cold intolerance and heat intolerance. Hematologic/Lymphatic: Does not bruise/bleed easily. Skin: Negative for flushing, poor wound healing and rash. Musculoskeletal: Negative for back pain, muscle weakness and myalgias. Gastrointestinal: Negative for abdominal pain, change in bowel habit, melena, nausea and vomiting. Genitourinary: Negative for decreased libido and hematuria. Neurological: Negative for loss of balance and numbness. Psychiatric/Behavioral: Negative for memory loss. The patient is not nervous/anxious. documented in this encounter* José Luis Chatman MD - 08/23/2020 8:54 AM EDT Patient Name: John Gonzalez MR #: [id number] Interventional Cardiology José Luis Chatman MD, [facility] 08/23/20 Dear Wendy Diaz MD, John Gonzalez was seen in follow up for : Problem Pac (Premature Atrial Contraction) Svt (Supraventricular Tachycardia) (Hcc) Back in 1998- nothing since meds Congestive Heart Disease (Hcc) 1998-35%-Cath 2008 last echo-55% 2013-Echo 60% Assessment and Plan Congestive heart disease (HCC) No issues with Congestive Heart Failure,Doing well, Medications reviewed and will continue current meds Followup 1 year with Telehealth PAC (premature atrial contraction) Asx and noted on Electrocardiogram SVT (supraventricular tachycardia) (HCC) No issues, medications continued Thank you or allowing me to participate in the care of your patients. No orders of the defined types were placed in this encounter. Return in about 1 year (around 08/23/2021). EKG:Normal sinus rhythm. and PAC's Subjective: John Gonzalez is a 65 y.o. 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 Denies chest discomfort, sob, palpitations, pnd, orthopnea,edema or syncope. Past History and Exam PMH: Past Medical History: Diagnosis Date Arrhythmia Cardiomyopathy (HCC) PAC (premature atrial contraction) SVT (supraventricular tachycardia) (HCC) Syncope Physical exam: BP 130/76 Pulse 70 Ht 6' 1" Wt 106.1 kg (233 lb 12.8 oz) SpO2 96% BMI 30.85 kg/m General: No acute distress, alert, and oriented x3. HEENT: Normocephalic, nl conjunctiva Neck: Supple, no gross thyromegaly,no palpable neck adenopathy Cardiovascular: Regular rate and rhythm. no murmurs, .No JVD, No Carotid Bruits, no LE edema :Respiratory: Clear to auscultation bilaterally without wheezes, rhonchi, or rales Abdominal: soft, nontender, nondistended,no gross HSM or masses noted. Skin: Normal turgor,no major peripheral rashes noted. Extremities : No clubbing, cyanosis Neurological: Cranial nerves 2 through 12 intact grossly. No focal neurological deficits noted. Psych: Normal mood and affect. ROS/MA were reviewed Home Medications: Patient's Medications New Prescriptions No medications on file Previous Medications BUDESONIDE-FORMOTEROL (SYMBICORT) 160-4.5 MCG/ACTUATION INHALER Inhale 2 puffs daily . CARVEDILOL (COREG CR) 20 MG 24 HR CAPSULE Take 1 (one) capsule (20 mg total) by mouth daily . FEXOFENADINE (KATIUSKA) 180 MG TABLET Take 180 mg by mouth as needed . MJOGRBXNADCY-N8-I1-B12 (G-UWHPWKPPOZDU-U8-B6-B12) 6-5-50-1 MG TAB Take 1 tablet by mouth daily . LISINOPRIL (PRINIVIL,ZESTRIL) 5 MG TABLET Take 1 (one) tablet (5 mg total) by mouth daily . LYSINE (L-LYSINE) 500 MG TAB Take 500 mg by mouth as needed . NAPROXEN (NAPROSYN) 500 MG TABLET Take 500 mg by mouth 2 (two) times a day as needed . OMEPRAZOLE (PRILOSEC OTC) 20 MG TABLET Take 1 tablet by mouth as needed . Modified Medications No medications on file Discontinued Medications MECOBAL-LEVOMEFOLAT CA-B6 PHOS (FOLTANX) 3-35-2 MG TAB Take 1 tablet by mouth daily . * Myriam Siddiqui RN - 08/23/2020 8:33 AM EDT Review of Systems Constitution: Negative for diaphoresis, malaise/fatigue, weight gain and weight loss. HENT: Negative for hearing loss, nosebleeds and tinnitus. Eyes: Negative for blurred vision and visual disturbance. Cardiovascular: Negative for chest pain, claudication, cyanosis, dyspnea on exertion, irregular heartbeat, leg swelling, near-syncope, orthopnea, palpitations, paroxysmal nocturnal dyspnea and syncope. Respiratory: Negative for hemoptysis, shortness of breath and snoring. Endocrine: Negative for cold intolerance and heat intolerance. Hematologic/Lymphatic: Does not bruise/bleed easily. Skin: Negative for flushing, poor wound healing and rash. Musculoskeletal: Negative for back pain, muscle weakness and myalgias. Gastrointestinal: Negative for abdominal pain, change in bowel habit, melena, nausea and vomiting. Genitourinary: Negative for decreased libido and hematuria. Neurological: Negative for loss of balance and numbness. Psychiatric/Behavioral: Negative for memory loss. The patient is not nervous/anxious. documented in this encounter Assessments Diagnosis Cardiomyopathy, unspecified type (HCC) Congestive heart failure (HCC) Congestive heart failure, unspecified Chronic systolic congestive heart failure (HCC) SVT (supraventricular tachycardia) (HCC) Other specified cardiac dysrhythmias PAC (premature atrial contraction) Supraventricular premature beats Diagnosis Congestive heart failure (HCC) Congestive heart failure, unspecified Chronic systolic congestive heart failure (HCC) Asymptomatic PVCs Diagnosis Left foot pain- Primary Pain in soft tissues of limb Acute left ankle pain Diagnosis Congestive heart failure (HCC) Congestive heart failure, unspecified Diagnosis Congestive heart failure, unspecified HF chronicity, unspecified heart failure type (HCC) PAC (premature atrial contraction) Supraventricular premature beats SVT (supraventricular tachycardia) (HCC) Other specified cardiac dysrhythmias Diagnosis Congestive heart failure, unspecified HF chronicity, unspecified heart failure type (HCC)- Primary Instructions Instruction Description Start Date Completed Chief Complaint Chief Complaint Description Start Date bilateral hand pain Preliminary chief co mplaint data, not yet signed by the author as of Review of System There may be information available, but it has not been provided by the sender. Chief Complaint and Reason for Visit Chief Complaint EORDER Chief Complaint LT leg swelling & pa in Chief Complaint LT leg swelling & pa in Hospital FU Reason for Visit DVT (deep venous thr ombosis) Chief Complaint LT leg swelling & pa in Hospital FU SCOPE- HX OF ADENOMA Reason for Visit DVT (deep venous thr ombosis) History of colon polyps Chief Complaint NICOTINE DEP Chief Complaint Admit Date 4WKS NO LABS May 15, 2024 1: 50pm 8WKS LABS July 14, 2024 10:4 0am 2WKS LABS July 29, 2024 9:2 8am MED ONC July 29, 2024 9:4 5am pain- BILATERAL WRIST PAIN September 02 025 9:19am Reason for Visit Admit Date Thromboembolism May 15, 2024 1: 50pm Bleeding hemorrhoids May 15, 2024 1 :50pm Thromboembolism July 14, 2024 10:4 0am Bleeding hemorrhoids July 14, 2024 10: 40am Homozygous MTHFR mutation [id number] July 292024 9:28am Thromboembolism July 29, 2024 9:2 8am Bleeding hemorrhoids July 29, 2024 9: 28am Chief Complaint Admit Date 8WKS LABS July 14, 2024 10:4 0am 2WKS LABS July 29, 2024 9:2 8am pain- BILATERAL WRIST PAIN September 02 025 9:19am MED ONC September 16, 2024 9:24am 8WKS LABS PRIOR September 23, 2024 10:37 am Reason for Visit Admit Date Thromboembolism July 14, 2024 10:4 0am Bleeding hemorrhoids July 14, 2024 10: 40am Homozygous MTHFR mutation [id number] July 292024 9:28am Thromboembolism July 29, 2024 9:2 8am Bleeding hemorrhoids July 29, 2024 9: 28am Chief Complaint Admit Date 8WKS LABS July 14, 2024 10:4 0am 2WKS LABS July 29, 2024 9:2 8am pain- BILATERAL WRIST PAIN September 02 025 9:19am MED ONC September 16, 2024 9:24am 8WKS LABS PRIOR September 23, 2024 10:37 am TOBACCO ABUSE, IN REMISSION October 01 8:14am Reason for Visit Admit Date Thromboembolism July 14, 2024 10:4 0am Bleeding hemorrhoids July 14, 2024 10: 40am Homozygous MTHFR mutation [id number] July 292024 9:28am Thromboembolism July 29, 2024 9:2 8am Bleeding hemorrhoids July 29, 2024 9: 28am Homozygous MTHFR mutation [id number] September 10:37am Thromboembolism September 23, 2024 10:37 am Additional Source Comments (unrecognized sect ion and content) No Status Records FoundNo Status Records FoundNo Status Records FoundNo Status Records FoundNo Status Records FoundNo Status Records FoundNo Status Records Found INFORMATION SOURCE (unrecogn ized section and content) DATE CREATED AUTHOR 11/01/2017 [facility] DATE CREATED AUTHOR AUTHOR'S ORGANIZ ATION 04/21/2018 [facility] DATE CREATED AUTHOR AUTHOR[facility]S OR[facility]IZ ATION [facility] DATE CREATED AUTHOR AUTHOR'S ORGANIZ ATION 04/21/2019 [facility] DATE CREATED AUTHOR AUTHOR'S ORGANIZ ATION 04/22/2022 [facility] DATE CREATED AUTHOR AUTHOR[facility]S [facility]IZ ATION [facility] DATE CREATED AUTHOR AUTHOR'S ORGANIZ ATION 01/23/2025 [facility] Reason for Visit (unrecogniz ed section and content) Reason Comments Congestive Heart Failure Reason Comments Annual Exam no complaints. EKG w ith PCP 08/21. medications reviewed- refills pending Reason For Visit Description Start Date New - 1st visit with practice Preliminary reason f or visit data, not yet signed by the author as of bilateral hand pain Reason Comments Ankle Pain x 2 days. fell out o f bed sunday Reason Onset Date Comments Medication Refill 08/02/2020 Reason Onset Date Comments Medication Refill 08/17/2020 Reason Comments Congestive Heart Failure Reason Onset Date Comments Medication Refill 11/09/2020 carvedilol 12. 5 Reason Onset Date Comments Medication Refill 11/29/2020 Reason Comments Follow-up Reason Comments Follow-up Specialty Diagnoses / Procedures Referred By David yepez Referred To Contact Cardiology Diagnoses Palpitations Tila Diaz, RANDA [address] [place] [address] [place] [address] [place] [id number] Referral ID Status Reason Start Date Expiration Date Visits Re quested Visits Authorized [id number] Closed 02/16/2022 02/16/2023 1 1 Reason Comments Medication Refill Reason Onset Date Comments Medication Refill 07/28/2024 Assessment & Plan Note - José Luis Chatman MD - 07/29/2018 1:35 PM EDTAssessment & Plan Note - José Luis Chatman MD - 07/29/2018 1:34 PM EDT Miscellaneous Notes (unrecog nized section and content) Associated Problem(s): PAC (premature atrial contraction) Asx and noted on EKG Associated Problem(s): SVT (supraventricular tachycardia) (HCC) No palpitations Associated Problem(s): Congestive heart disease (HCC) No issues Doing well, Medications reviewed and will continue current meds Followup 1 year in this encounter Associated Problem(s): Asymptomatic PVCs No palpitations or issues Associated Problem(s): Congestive heart disease (HCC) Staying very active outside and cutting wood Had recent EKG at PCP No CP,SOB,edema Doing well, Medications reviewed and will continue current meds Followup 1 year documented in this encounter Carved: 20 mg daily, qty=90, 3 refill(s) Lisin: 5 mg daily, qty=90, 3 refill(s) Pt last seen on 09/01/19; f/up in 1 yr. Upcoming appt on 08/23/20. Thanks documented in this encounter Received refill request for Carvedilol 20 mg (1 capsule daily) and Lisinopril 5 mg (1 tab every day.) Pt's last OV was 09/01/2019. Follow up is scheduled 08/23/2020. Thanks. documented in this encounter Associated Problem(s): SVT (supraventricular tachycardia) (HCC) No issues, medications continued Associated Problem(s): PAC (premature atrial contraction) Asx and noted on Electrocardiogram Associated Problem(s): Congestive heart disease (HCC) No issues with Congestive Heart Failure,Doing well, Medications reviewed and will continue current meds Followup 1 year with Telehealth documented in this encounter Associated Problem(s): SVT (supraventricular tachycardia) (HCC) No issues, medications continued Associated Problem(s): PAC (premature atrial contraction) Asx and noted on Electrocardiogram Associated Problem(s): Congestive heart disease (HCC) No issues with Congestive Heart Failure,Doing well, Medications reviewed and will continue current meds Followup 1 year with Telehealth documented in this encounter Care Teams (unrecognized sec tion and content) Chemical Recovery Operator Relationship Specialty Start Date End Date Wendy Diaz MD [address] [place], [place] [id number] PCP - General Family Medicine 07/29/18 Chemical Recovery Operator Relationship Specialty Start Date End Date Wendy Diaz MD [address] [place], [place] [id number] PCP - General Family Medicine 07/29/18 Chemical Recovery Operator Relationship Specialty Start Date End Date Wendy Diaz MD [address] [facility] [address] [place], [place] [id number] PCP - General Family Medicine 07/29/18 Chemical Recovery Operator Relationship Specialty Start Date End Date Wendy Diaz MD [address] [facility] [address] [place], [place] [id number] PCP - General Family Medicine 07/29/18 José Luis Chatman MD [address] [facility] [address] [place] [address] Consulting Physician Interventional Cardiology 04/05/22 Team Status: Active Member Role Status Dates Dr. Wendy Diaz MD Family Provider Active Dr. Wendy Diaz MD Primary Care Provider Active Team Status: Inactive Member Role Status Dates Dr. Wendy Diaz MD Primary Care Provider, Referring P rovider Active Dr. Wendy Collins MD Attending Provider Active Team Status: Active Member Role Status Dates Dr. Wendy Diaz MD Primary Care Provider Active Dr. Wendy Collins MD Attending Provider Active Dr. Jose Blount DO Referring Provider Active Team Status: Inactive Member Role Status Dates Dr. Wendy Diaz MD Primary Care Provider, Referring P rovider Active Dr. Alo Abbasi MD Attending Provider Active Team Status: Active Member Role Status Dates Dr. Wendy Diaz MD Primary Care Provider Active Dr. Alo Abbasi MD Attending Pr ovider, Referring Provider, Other Provider Active Team Status: Inactive Member Role Status Dates Dr. Wendy Diaz MD Primary Care Provide r, Attending Provider, Referring Provider Active Team Status: Inactive Member Role Status Dates Dr. Wendy Diaz MD Primary Care Provider Active Dr. Jose Blount DO Attending Provider, Emergency Provider Active Team Status: Inactive Member Role Status Dates Dr. Wendy Diaz MD Primary Care Provider Active Dr. Alo Abbasi MD Attending Provider, Referr ing Provider Active Chemical Recovery Operator Relationship Specialty Start Date End Date Wendy Diaz MD [address] [facility] [address] [place], [place] [id number] PCP - General Family Medicine 07/29/18 José Luis Chatman MD [address] [address] Consulting Physician Interventional Cardiology 04/05/22 Team Status: Inactive Member Role Status Dates Dr. Wendy Diaz MD Primary Care Provider Active Mireille Moran [employer]ER-C Attending Provider Active Team Status: Inactive Member Role Status Dates Dr. Wendy Diaz MD Primary Care Provider, Attending Elie lopez Active Chemical Recovery Operator Relationship Specialty Start Date End Date Wendy Diaz MD [address] [facility] [address] [place] [address] PCP - General Family Medicine 07/29/18 José Luis Chatman MD [address] [address] Consulting Physician Interventional Cardiology 04/05/22 Chemical Recovery Operator Relationship Specialty Start Date End Date Wendy Diaz MD [address] [facility] [address] [place] [address] PCP - General Family Medicine 07/29/18 José Luis Chatman MD [address] [address] Consulting Physician Interventional Cardiology 04/05/22 Team Status: Active Member Role Status Dates Dr. Wendy Diaz MD Primary Care Provider Active Team Status: Inactive Member Role Status Dates Dr. Wendy Diaz MD Primary Care Provider Active Start: May 15, 2024 End: May 15, 2024 Dr. Wendy Diaz MD Referring Provider Active St art: May 15, 2024 End: May 15, 2024 Dr. Jamie Uribe MD Attending Provider Active S tart: May 15, 2024 End: May 15, 2024 Team Status: Inactive Member Role Status Dates Dr. Wendy Diaz MD Primary Care Provider Active Start: July 14, 2024 End: July 14, 2024 Dr. Wendy Diaz MD Referring Provider Active St art: July 14, 2024 End: July 14, 2024 Dinora Baca CUSTOM CLOTHIER, C[employer]OTHIER-C Attending Provider Active Start: July 14, 2024 End: July 14, 2024 Team Status: Inactive Member Role Status Dates Dr. Wendy Diaz MD Primary Care Provider Active Start: July 29, 2024 End: July 29, 2024 Dr. Wendy Diaz MD Referring Provider Active St art: July 29, 2024 End: July 29, 2024 Dr. Jamie Uribe MD Attending Provider Active S tart: July 29, 2024 End: July 29, 2024 Team Status: Active Member Role Status Dates Dr. Wendy Diaz MD Primary Care Provider Active Start: July 29, 2024 Dr. Jamie Uribe MD Attending Provider Active S tart: July 29, 2024 Dr. Jamie Uribe MD Referring Provider Active S tart: July 29, 2024 Team Status: Inactive Member Role Status Dates Dr. Wendy Diaz MD Primary Care Provider Active Start: September 02, 2024 End: September 02, 2024 Dr. Wendy Diaz MD Attending Provider Active St art: September 02, 2024 End: September 02, 2024 Dr. Wendy Diaz MD Referring Provider Active St art: September 02, 2024 End: September 02, 2024 Team Status: Active Member Role Status Dates Dr. Wendy Diaz MD Primary Care Provider Active Start: September 16, 2024 Dr. Jamie Uribe MD Attending Provider Active S tart: September 16, 2024 Dr. Jamie Uribe MD Referring Provider Active S tart: September 16, 2024 Team Status: Inactive Member Role Status Dates Dr. Wendy Diaz MD Primary Care Provider Active Start: September 23, 2024 End: September 23, 2024 Dr. Wendy Diaz MD Referring Provider Active St art: September 23, 2024 End: September 23, 2024 Dr. Jamie Uribe MD Attending Provider Active S tart: September 23, 2024 End: September 23, 2024 Team Status: Inactive Member Role Status Dates Dr. Wendy Diaz MD Primary Care Provider Active Start: October 01, 2024 End: October 01, 2024 Dr. Wendy Diaz MD Attending Provider Active art: October 01, 2024 End: October 01, 2024 Dr. Wendy Diaz MD Referring Provider Active art: October 01, 2024 End: October 01, 2024 Goals (unrecognized section and content) Goals may be documented in a n alternate sectionGoals may be documented in an alternate sectionGoals may be documented in an alternate sectionGoals may be documented in an alternate sectionGoals may be documented in an alternate sectionGoals may be documented in an alternate sectionGoals may be documented in an alternate sectionGoals may be documented in an alternate sectionGoals may be documented in an alternate section FOR RECORDS PERTAINING TO PATIENTS WHO ARE OR HAVE BEEN ENROLLED IN A CHEMICAL DEPENDENCY/SUBSTANCEABUSE PROGRAM, SOME INFORMATION MAY BE OMITTED. This clinical summary was aggregated from multiple sources. Caution should be exercised in using it in the provision of clinical care. This summary normalizes information from multiple sources, and as a consequence, information in this document may materially change the coding, format and clinical context of patient data. In addition, data may be omitted in some cases. CLINICAL DECISIONS SHOULD BE BASED ON THE PRIMARY CLINICAL RECORDS. [facility] [employer] [facility]. provides no warranty or guarantee of the accuracy or completeness of information in this document.
[2025-03-02 10:55] LABS: Anion Gap 10 (5-15); BUN 15 mg/dL (4-19); BUN/Creat Ratio 17.6 RATIO (10-20); Calcium,Total 9.6 mg/dL (7.6-11.0); Carbon Dioxide 26.5 mmol/L (21.0-32.0); Chloride 102 mmol/L (98-108); Glucose 128 mg/dL (70-99); Potassium 4.9 mmol/L (3.3-5.1)
== END | disposition home or self-care (01) ==
LOC: MFPLAB 08:30
PROVIDERS: PCP Family Medicine; Visit Provider Family Medicine
DX: I10 Essential (primary) hypertension (principal)
CPT/HCPCS: 36415; 80048